=== PATIENT | female | born 1970 | race African-American/Black ===

== ENCOUNTER 2016-12-03 22:06 | Inpatient (IN) | payer MEDICAID, SELFPAY ==
[~2016-12-03] VITALS: Ht 175.3 cm; Wt 125.5 kg
[2016-12-03] MEDS ORDERED: ASPIRIN 81 MG CHEW TABLET PO ONE (22:30)
[2016-12-03] MEDS ORDERED: CLON3PA PO (22:34)
[2016-12-03] MEDS ORDERED: BRIL90TA PO (22:34)
[2016-12-03] MEDS ORDERED: BUME2TAB PO (22:34)
[2016-12-03] MEDS ORDERED: DIOV320T PO (22:34)
[2016-12-03] MEDS ORDERED: BUME1TAB29 PO (22:34)
[2016-12-03] MEDS ORDERED: CARV3.12 PO (22:34)
[2016-12-03] MEDS ORDERED: ASPI81TA85 PO (22:34)
[2016-12-03] MEDS ORDERED: ROBA750T4 PO (22:34)
[2016-12-03] MEDS ORDERED: ATOR1TAB18 PO (22:34)
[2016-12-03] MEDS ORDERED: ALBUTEROL SULFATE 2.5 MG/0.5 ML INH NEB SOLN INH ONE (22:45)
[2016-12-03] MEDS ORDERED: IPRATROPIUM 0.5MG/ALBUTEROL 2.5MG INH SOL UD 3ML (DUONEB)(J7620) NEB ONE (22:45)
[2016-12-03] MEDS ORDERED: methylPREDNISolone INJ 125 MG/2 ML VIAL (J2930) IV ONE (22:45)
[2016-12-03 22:56] LABS: BASO % 0.5 % (0.0-1.0); EOS # 0.1 K/mm3 (0.0-0.50); EOS % 2.6 % (0.0-3.0); LARGE UNSTAINED CELL # 0.1 K/mm3 (0.0-0.4); LARGE UNSTAINED CELL % 2.2 % (0.0-4.0); LYMPH % 37.9 % (24.0-44.0); MEAN CORPUSCULAR HEMOGLOBIN 26.9 pg (27.0-33.0); MEAN CORPUSCULAR HGB CONC 32.3 g/dl (32.0-36.5); MEAN CORPUSCULAR VOLUME 83.1 fl (80.0-96.0); MONO # 0.3 K/mm3 (0.0-0.8); MONO % 5.1 % (0.0-5.0); NEUTROPHILS # 2.7 K/mm3 (1.8-7.7); NEUTROPHILS % 51.6 % (36.0-66.0); PLATELET COUNT, AUTOMATED 279 k/mm3 (150-450); RED CELL DISTRIBUTION WIDTH 12.8 % (11.5-14.5); WHITE BLOOD COUNT 5.2 K/mm3 (4.0-10.0)
[2016-12-03 23:01] LABS: INR 0.99
[2016-12-03 23:22] LABS: ALBUMIN 3.5 GM/DL (3.2-5.2); ALBUMIN/GLOBULIN RATIO 0.85 (1.00-1.93); ALKALINE PHOSPHATASE 74 U/L (45-117); ALT/SGPT 16 U/L (12-78); ANION GAP 7 MEQ/L (8-16); AST/SGOT 8 U/L (15-37); BILIRUBIN,DIRECT < 0.1 MG/DL (0.0-0.2); BILIRUBIN,TOTAL 0.3 MG/DL (0.2-1.0); BLOOD UREA NITROGEN 16 MG/DL (7-18); CALCIUM LEVEL 8.9 MG/DL (8.5-10.1); CARBON DIOXIDE LEVEL 26 MEQ/L (21-32); CHLORIDE LEVEL 109 MEQ/L (98-107); CREATININE FOR GFR 0.74 MG/DL (0.55-1.02); FREE T4 0.93 NG/DL (0.76-1.46); GLOMERULAR FILTRATION RATE > 60.0 (>58); GLUCOSE, FASTING 102 MG/DL (70-105); POTASSIUM SERUM 3.4 MEQ/L (3.5-5.1); SODIUM LEVEL 142 MEQ/L (136-145); TOTAL PROTEIN 7.6 GM/DL (6.4-8.2)
[2016-12-04] MEDS ORDERED: SPIRONOLACTONE 25 MG TAB PO ONE (00:01)
[2016-12-04] MEDS ORDERED: VALSARTAN 80 MG TAB (DIOVAN) PO ONE (00:15)
[2016-12-04] MEDS ORDERED: amLODIPine 5 MG TAB PO ONE ×2 (00:15→05:15)
[2016-12-04] MEDS ORDERED: ISOVUE-370 76% 100ML VIAL (Q9967) As Ordered ONE (00:53)
[2016-12-04] MEDS ORDERED: LABETALOL HCL 100 MG/20 ML VIAL IV STA ×2 (01:27→01:56)
--- NOTE | 2016-12-04 01:40 | REPUSA ---
CLINICAL HISTORY: Chest pain, exclude PE. TECHNIQUE: Multiple incremental axial, coronal and oblique images are obtained from the thoracic inle t to the upper abdomen. Intravenous contrast material was administered as per pulmonary embolism prot ocol. COMMENTS: Basilar atelectatic pulmonary changes. There is excellent opacification of pulmonary arterial system without evidence for pulmonary embolism . Aorta is of normal caliber without evidence for dissection or aneurysm. There is no evidence of pleural or parenchymal mass. There are no pleural effusions. There is no evid ence of hilar or mediastinal lymphadenopathy. The heart and great vessels are within normal limits. Images of the upper abdomen demonstrate no evidence of adrenal mass. The bony structures are free of lytic or blastic lesions. Multilevel degenerative changes are seen in volving the visualized thoracolumbar spine. IMPRESSION: No evidence for pulmonary embolism. Bilateral basilar atelectatic pulmonary changes. Thank you for your kind referral of this patient.
[2016-12-04] MEDS ORDERED: POTASSIUM CHLORIDE 10 MEQ SR TABLET PO ONE (02:30)
[2016-12-04] MEDS ORDERED: ONDANSETRON 4MG/2ML VIAL (J2405) IV PRN (02:45)
[2016-12-04] MEDS ORDERED: ACETAMINOPHEN TAB 650MG DOSE (2X325MG) PO PRN (02:45)
[2016-12-04] MEDS ORDERED: CARVedilol 6.25 MG TAB PO SCH (03:00)
[2016-12-04] MEDS ORDERED: CLON-412 PO (03:03)
--- NOTE | 2016-12-04 05:31 | HPE ---
DATE OF ADMISSION: 12/04/2016 PRIMARY CARE PROVIDER: None. CHIEF COMPLAINT: Chest pain. HISTORY OF PRESENT ILLNESS: Ms. Kim is a 46-year-old female with past medical history of coronary artery disease (CAD) status post stents, obstructive sleep apnea (NISHA), hypertension, who presented to the emergency department (ED) tonight with complaint of chest pain that started tonight while she was just lying in bed. Episode started suddenly and lasted for approximately 5 minutes. Associated with diaphoresis, shortness of breath, palpitations. Pain is described as sharp, heaviness and pressure on her left chest and underneath her breasts. Radiates to her left shoulder and describes the feeling as pulled muscle to her left shoulder. She took an extra dose of aspirin today, which seemed to help with her symptom. She had, in the last 2 days, multiple episodes of chest pain. Each one with similar duration, and would come on at rest. At baseline, the patient is fairly active, walks up and down stairs and can walk long distance without chest pain or shortness of breath. In the last 2 weeks, she also noticed having cold-like symptoms, which include coughing spells with occasional yellow phlegm. No fevers, chills, night sweats, paroxysmal nocturnal dyspnea, pillow orthopnea or leg swelling. The patient recently ran out of her clonidine, Bumex, Coreg, and Brilinta and has not been taking it in the last 3 days. In the ED, was given potassium 40 mg times one, labetalol 10 mg times one, Norvasc 5 mg times one, Diovan 3.125 mg times one, spironolactone 25 once, Solu-Medrol 125 intravenously (IV) once, aspirin 324 times one, and DuoNeb treatment. She was found to be hypertensive with blood pressure as high as 251/122. ED provider contacted Dr. Leon, who was supersonic engineer, and it was recommended to discontinue her home dose Bumex, Coreg and clonidine and recommended putting patient on spironolactone, Norvasc and keep Diovan dose. PAST MEDICAL HISTORY: 1. CAD status post stents. 2. Hypertension. 3. NISHA, has not been wearing this since June because she recently moved and lost the mask in the process. She has since also lost her insurance. 4. Sarcoidosis diagnosed in 2002. Saw car mechanic helper in the past, but it has been multiple years since she has seen them. No recent exacerbation. 5. Hyperlipidemia. 6. Depression/anxiety. PAST SURGICAL HISTORY: 1. Four cardiac stents placement in 2014. 2. Appendectomy. 3. Partial hysterectomy for uterine fibroids. 4. Two (C) sections. HOME MEDICATIONS: - aspirin 81 mg by mouth daily - Lipitor 80 mg nightly - Bumex 2 mg by mouth daily - Coreg 3.125 mg by mouth twice a day - clonidine 0.1 mg three times a day - Brilinta 90 mg by mouth twice a day - Diovan 320 mg by mouth daily ALLERGY: Penicillin- unknown SOCIAL HISTORY: The patient is a current smoker, but a pack will last her 1 week. Started smoking at the age of 35. No alcohol use. Used to drink socially, but last drink was in June. No drug use. 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 Currently lives at home with her son, [id number]. Lifetime travel includes [place], [place]. Does not travel outside of the country. She recently moved from [place] 5 months ago and she was on a 20-hour bus ride. Has one dog at home. No exposure to tuberculosis, asbestos she is aware of. FAMILY HISTORY: Mother in her 50s from lung cancer with metastases to the brain. Father , but unknown cause. She is the only child. REVIEW OF SYSTEMS: CONSTITUTIONAL: Denies fevers, chills, rigors, weight changes. HENT: Positive for headache. No difficulty with speech and swallow. EYES: No blurry vision, diplopia CARDIOVASCULAR: As above. PULMONARY: As above. GASTROINTESTINAL: Denies hematochezia, melena, or hematemesis, nausea, vomiting , diarrhea, constipation. GENITOURINARY: No dysuria, frequency or hematuria. MUSCULOSKELETAL: No bone, muscle, joint pain. NEUROLOGICAL: No paralysis, paresthesia, headaches. ENDOCRINE: Negative for diabetes, or thyroid disease. LYMPHATICS: No lumps, bumps, or swelling anywhere in neck, axilla, or groin. HEMATOLOGY: No abnormal bleeding or bruising. PSYCHIATRIC: History positive for anxiety, depression. Previously was on Lexapro, but has not been on this medication for years. SKIN: No new rashes. PHYSICAL EXAMINATION: VITAL SIGNS: Blood pressure 184/90, heart rate 86, temperature not documented, pulse oximetry 98% on room air, respiration rate 20. GENERAL: Patient is sitting in bed, comfortable, no acute distress, obese appearing. Alert, awake, oriented times three, no respiratory distress, pleasant and cooperative. HEENT: Normocephalic, atraumatic. Moist oral mucosa. Good dentition. Nasal septum midline. Eyes: Extraocular movement intact. Pupils equal and reactive to light. NECK: Supple. Trachea midline. Large neck. No jugular venous distention (JVD). CHEST: Symmetric chest rise. No accessory muscle use. Breath sounds were diminished, but clear bilaterally. HEART: Regular rate and rhythm with normal S1, S2. Did not appreciate murmurs, rubs or gallops. ABDOMEN: Obese, nontender, nondistended. Bowel sounds present. No guarding. No rebound. Healed incisional scar mid abdomen. EXTREMITIES: No pedal edema. Pedal pulses present bilaterally. NEUROLOGIC: Strength 5/5 in all extremities. Sensory intact. No focal deficits appreciated. SKIN: No obvious rashes or lesions appreciated. PSYCHIATRIC: Normal affect, pleasant, cooperative. LABORATORY DATA: WBC 5.2, hemoglobin 13.4, hematocrit 41.4, platelets 279. Sodium 142, potassium 3.4, chloride 109, carbon dioxide 26, BUN 16, creatinine 0.74, glucose 102, calcium 8.9, magnesium 2. Liver profile normal. Troponin first set is negative. TSH 1.36, free T4 normal. BNP 8.2. Coagulation panel PT 13.2, INR 0.99, PTT 25.8. Urine showed 2+ leukocyte esterase, 19 WBCs, 1+ bacteria. Blood culture is pending. CT angiogram reports no pulmonary embolism (PE), bilateral basilar atelectatic pulmonary changes. Chest x-ray showed cardiomegaly, no infiltrate or effusion appreciated. EKG showed sinus rhythm with ventricular rate of 79, nonspecific T-wave abnormality. IMPRESSION AND PLAN: Ms. Kim is a pleasant 46-year-old female with history of hypertension, coronary artery disease (CAD) status post stents, obstructive sleep apnea (NISHA), who presented to the emergency department (ED) tonight with complaint of chest pain, found to be in hypertensive urgency. 1. Hypertensive urgency. This is likely secondary to her running out of medication 3 days ago and rebound hypertension from her clonidine discontinuation. ED provider has spoken to closing machine operator supersonic engineer and at this time it is recommended to start patient on spironolactone 25 mg daily, Norvasc 5 mg daily and it is recommended to continue with Diovan current dose. It is recommended that Bumex and clonidine and Coreg be discontinued. We will continue recommendations. Check renin aldosterone levels. She has had a longstanding history of NISHA. Will also check echocardiogram. She currently does not have insurance. We will consult patient and family services (PFS) for assistance regarding obtaining medications and establishing with a primary care provider (PCP). Her blood pressure since her presentation has improved. 2. Chest pain. Etiology unclear. She does have an extensive history of cardiac disease including four stents in 2015. Will need to rule out cardiac etiology by repeating cardiac markers. She already had a CTA that was negative for pulmonary embolism (PE). Continue to monitor patient closely in progressive care unit (PCU). 3. Hypokalemia. Potassium will be repleted. 4. NISHA. Unfortunately, the patient recently moved from [place] and lost her mask in the process and unfortunately because of no insurance, she has not since established care with a provider to obtain mask. The patient will be placed on NISHA protocol. She will require to establish care with a new provider for further treatment of this. 5. History of sarcoidosis. Apparently, has not had a flare-up of this. Continue to monitor closely. 6. CAD. Status post stents 2014. Continue aspirin, beta ubaldo, cholesterol, oxygen supplementation. 7. Hyperlipidemia. Continue Lipitor at maximum dose. 8. Obesity. Unfortunately, will complicate medical management. 9. Tobacco abuse. One pack would last her 1 week. We have started her on nicotine patches. 10. History of depression/anxiety. The patient reportedly is not on medication. 11. Deep venous thrombosis (DVT) prophylaxis. Sequential compression devices (SCDs), thromboembolism deterrent stockings (TEDS) and heparin. DISPOSITION: Due to the patient's condition, we expect her stay to be greater than two midnights. My preceptor for this patient encounter was Dr. Rosanna García. The preceptor was physically present in the building during the encounter and was fully available as needed. All aspects of the patient interview, examination, medical decision making process, and medical care plan development were reviewed and approved by the preceptor. The preceptor is aware and concurs with the plan as stated in the body of this note and will attest to such by his/her co-signature. I have both independently examined this patient as well as reviewed the H&P. I have discussed in detail with the resident the findings and plan of treatment as documented in the residents note. I will continue to follow the patient and offer further guidance to the patients care as necessary during this hospital stay. Rosanna CHRISTIANSON
[2016-12-04 06:00] VITALS: BP 191/97; PULSE 85
[2016-12-04] MEDS ORDERED: ISOSORBIDE DIN (ISORDIL) 10 MG TAB PO ONE (06:00)
[2016-12-04] MEDS: HEPARIN SOD (PORCINE) 5000 UNITS/ML VIAL SC SCH ×3 (06:02→21:11)
[2016-12-04 06:14] LABS: MEAN CORPUSCULAR HEMOGLOBIN 26.5 pg (27.0-33.0); MEAN CORPUSCULAR HGB CONC 32.1 g/dl (32.0-36.5); MEAN CORPUSCULAR VOLUME 82.4 fl (80.0-96.0); RED CELL DISTRIBUTION WIDTH 12.7 % (11.5-14.5); WHITE BLOOD COUNT 5.7 K/mm3 (4.0-10.0)
[2016-12-04 06:40] LABS: ANION GAP 7 MEQ/L (8-16); BLOOD UREA NITROGEN 12 MG/DL (7-18); CALCIUM LEVEL 9.5 MG/DL (8.5-10.1); CARBON DIOXIDE LEVEL 24 MEQ/L (21-32); CHLORIDE LEVEL 107 MEQ/L (98-107); CREATININE FOR GFR 0.72 MG/DL (0.55-1.02); GLOMERULAR FILTRATION RATE > 60.0 (>58); GLUCOSE, FASTING 177 MG/DL (70-105); SODIUM LEVEL 138 MEQ/L (136-145)
[2016-12-04 08:00] VITALS: BP 142/86
[2016-12-04] MEDS: ASPIRIN 81 MG ENTERIC TAB PO SCH (08:31)
[2016-12-04] MEDS: NICOTINE 7 MG/24 HR TRANSDERMAL TD SCH (08:31)
[2016-12-04] MEDS: SPIRONOLACTONE 50 MG TAB PO SCH (08:32)
[2016-12-04] MEDS: CARVedilol 6.25 MG TAB PO SCH ×2 (08:32→21:10)
[2016-12-04] MEDS: TICAGRELOR 90 MG TABLET (BRILINTA) PO SCH ×2 (08:32→21:10)
[2016-12-04] MEDS ORDERED: MOM 30ML SUSPENSION UDC PO PRN (08:45)
[2016-12-04] MEDS ORDERED: amLODIPine 5 MG TAB PO SCH (09:00)
[2016-12-04] MEDS: MIRALAX *UNIT DOSE* 17GM PACKET PO SCH (09:13)
[2016-12-04] MEDS: SENOKOT S TAB PO SCH ×2 (09:14→21:09)
--- NOTE | 2016-12-04 09:18 | REP ---
Chest pain. PRIORS: None. FINDINGS: The technique utilized in obtaining the radiograph has magnified the cardiac silhouette and accentuated the interstitial markings. The superior mediastinal structures are midline. The cardiac silhouette is unremarkable in size, shape, and position. The diaphragmatic surfaces of the lungs are regular, and the costophrenic angles are clear. The pulmonary varghese are clear. The imaged osseous structures are intact. IMPRESSION: There is no acute cardiopulmonary disease. Signed by Rai Reis DO 12/04/2016 09:26 A
--- NOTE | 2016-12-04 09:26 | ECGEPIP ---
Stationary ECG Study [facility] - ED Test Date: 2016-12-03 Pat Name: CARLA ANNE Department: Room: [place] [address] Gender: F Personnel Research Psychologist: ZhangB: 1970 Requested By: Jennifer Mcclain Order Number: [id number] Reading MD: Jennifer Mcclain Measurements Intervals [place] Rate: 79 P: 47 HI: 167 QRS: -9 QRSD: 93 T: 57 QT: 381 QTc: 437 Interpretive Statements SINUS RHYTHM NONSPECIFIC T-WAVE ABNORMALITY Left axis deviation NO PRIOR ECG Electronically Signed On 12-04-2016 9:26:04 EDT by Jennifer Mcclain
--- NOTE | 2016-12-04 09:28 | ECGEPIP ---
Stationary ECG Study [facility] - ED Test Date: 2016-12-04 Pat Name: CARLA ANNE Department: Room: [place] [address] Gender: F Physical Trainer: luis : 1970 Requested By: Jennifer Mcclain Order Number: [id number] Reading MD: Jennifer Mcclain Measurements Intervals [place] Rate: 88 P: 49 TN: 187 QRS: -12 QRSD: 94 T: 49 QT: 383 QTc: 464 Interpretive Statements SINUS RHYTHM NONSPECIFIC T-WAVE ABNORMALITY LEFTWARD AXIS PROLONGED QTC CW 12/03/16 RATE INCREASED PROLONGED QTC Electronically Signed On 12-04-2016 9:28:09 EDT by Jennifer Mcclain
[2016-12-04] MEDS: ISOSORBIDE DIN (ISORDIL) 10 MG TAB PO SCH ×2 (11:50→16:42)
[2016-12-04 12:00] VITALS: BP 132/62
--- NOTE | 2016-12-04 14:33 | ECHO ---
DATE OF PROCEDURE: 12/04/2016 REFERRING PHYSICIAN: Dr. Christiano Pike. INDICATION: Chest pain, unspecified. HEIGHT: 69 inches WEIGHT: 287 pounds. 2D MEASUREMENTS: Aortic root - 3.3 cm Proximal ascending aorta - 3.8 cm Left atrium - 4.5 cm Left ventricle diastole - 5.5 cm Left ventricle systole - 2.9 cm Ventricular septum - 1.56 cm Posterior wall - 1.47 cm LVOT - 2.3 cm Left atrial volume index - 39 Inferior vena cava - 2.2 cm with approximately 50% respiratory variation. Central venous pressure estimated to be approximately 10 mmHg or higher. DOPPLER MEASUREMENTS: Aortic valve velocity - 219 cm/s LVOT VTI - 202 cm/s LVOT VTI - 75.4 cm Very mild mitral regurgitation. Mitral E velocity - 1.2 cm/s Mitral A velocity - 125 cm/s Mitral deceleration time - 283 ms Very mild tricuspid regurgitation. Pulmonary artery systolic pressure - 22 mmHg by pulmonary acceleration time method. MITRAL ANNULAR TISSUE DOPPLER: E prime lateral 8.1 cm/s E prime septal 6.7 cm/s DESCRIPTION: Rhythm was sinus. This is a moderately technically difficult echocardiogram. No pericardial effusion. This is a 2D, M-mode, color flow Doppler and pulsed wave Doppler examination including mitral annular tissue Doppler. CONCLUSIONS: 1. Moderate concentric left ventricular hypertrophy. No regional wall motion abnormalities of the left ventricle. Hyperdynamic LV systolic function. LVEF of 75% by visual estimate. 2. Grade 1 LV diastolic dysfunction. 3. Moderate left atrial dilatation. 4. Mild dilatation of the aortic root at the level of the proximal ascending aorta. 5. Mild aortic valve sclerosis of a three-cuspid aortic valve. No aortic regurgitation.
[2016-12-04 16:00] VITALS: BP 128/66
[2016-12-04 20:00] VITALS: BP 163/75
[2016-12-04] MEDS: ATORVASTATIN 20 MG TAB PO SCH (21:10)
[2016-12-04] MEDS: VALSARTAN 80 MG TAB (DIOVAN) PO SCH (21:11)
[2016-12-05] VITALS (7 sets, daily range): BP systolic 136–177; BP diastolic 75–86
[2016-12-05 04:46] LABS: MEAN CORPUSCULAR HGB CONC 32.5 g/dl (32.0-36.5); MEAN CORPUSCULAR VOLUME 83.2 fl (80.0-96.0); RED CELL DISTRIBUTION WIDTH 12.9 % (11.5-14.5); WHITE BLOOD COUNT 7.5 K/mm3 (4.0-10.0)
[2016-12-05 05:10] LABS: ANION GAP 8 MEQ/L (8-16); BLOOD UREA NITROGEN 14 MG/DL (7-18); CALCIUM LEVEL 9.1 MG/DL (8.5-10.1); CARBON DIOXIDE LEVEL 26 MEQ/L (21-32); CHLORIDE LEVEL 108 MEQ/L (98-107); CREATININE FOR GFR 0.68 MG/DL (0.55-1.02); GLOMERULAR FILTRATION RATE > 60.0 (>58); GLUCOSE, FASTING 111 MG/DL (70-105); MAGNESIUM LEVEL 2.3 MG/DL (1.8-2.4); POTASSIUM SERUM 3.6 MEQ/L (3.5-5.1); SODIUM LEVEL 142 MEQ/L (136-145)
[2016-12-05] MEDS: HEPARIN SOD (PORCINE) 5000 UNITS/ML VIAL SC SCH ×3 (06:27→21:12)
[2016-12-05] MEDS: ISOSORBIDE DIN (ISORDIL) 10 MG TAB PO SCH ×3 (06:28→17:16)
[2016-12-05] MEDS: NICOTINE 7 MG/24 HR TRANSDERMAL TD SCH (08:34)
[2016-12-05] MEDS: TICAGRELOR 90 MG TABLET (BRILINTA) PO SCH ×2 (08:34→21:11)
[2016-12-05] MEDS: MIRALAX *UNIT DOSE* 17GM PACKET PO SCH (08:34)
[2016-12-05] MEDS: SPIRONOLACTONE 50 MG TAB PO SCH (08:34)
[2016-12-05] MEDS: CARVedilol 6.25 MG TAB PO SCH ×2 (08:34→21:12)
[2016-12-05] MEDS: ASPIRIN 81 MG ENTERIC TAB PO SCH (08:34)
[2016-12-05] MEDS: amLODIPine 5 MG TAB PO SCH (08:35)
[2016-12-05] MEDS: SENOKOT S TAB PO SCH ×2 (08:35→21:11)
--- NOTE | 2016-12-05 09:39 | IPN ---
DATE OF VISIT: 12/04/2016 The patient is seen and evaluated in the intensive care unit (ICU). Blood pressure is much better controlled. Will continue with the same course of treatment as outlined by Dr. García this morning. GENERAL: She is currently without pain, chest pain, or shortness of breath. LUNGS: Breathing is symmetrical and rested. HEART: Regular rate and rhythm. Will place hold parameters on her current blood pressure medications. Looking for relatively moderate control. She has requested a bowel regimen which will be ordered and will need this at discharge.
[2016-12-05] MEDS: AZELASTINE 137MCG NASAL SPY 30 ML (ASTELIN) SCH ×2 (10:58→21:12)
--- NOTE | 2016-12-05 16:12 | IPN ---
DATE: 12/05/2016 Julio is feeling much better today. She has no complaints of pain, chest pain, not particularly short of breath. Feels as though she is getting back to baseline. She does have a lot of nasal congestion and when she lays back, it causes her to cough. She is worried that she does not have appropriate insurance coverage to pay for her medications when she leaves the hospital. Temperature is 98.7, pulse is 77, respiratory rate 24, blood pressure 177/84, 96% on room air. Intake and output notable for a positive balance of 800. No bowel movements noted. Weight is 123 kg, down 7 kg from yesterday. Body mass index is 40. She is awake, appropriately interactive, pleasant, and easily conversant. Breathing is symmetrical and resting. Heart is distant sounding, normal S1, S2. Abdomen is soft, doughy, nontender. A 2D echocardiogram was discussed yesterday with the laboratory engineer and shows grade 1 diastolic dysfunction, hyperdynamic left ventricular systolic dysfunction with mild dilatation of the aortic root at the level of the proximal ascending aorta and moderate concentric left ventricular hypertrophy. LABORATORY DATA: Creatine 0.68, hemoglobin 11.7. ASSESSMENT: This is a 46-year-old with hypertensive urgency which is resolving. PLAN: 1. Cardiovascular. The patient has longstanding uncontrolled hypertension. Currently off medications with hypertensive urgency at the time of presentation. She has responded well at this point and likely can be transferred from medical/surgical should she continue on the same course for today, continuing with Norvasc 10 mg by mouth daily, Diovan 320 mg by mouth at bedtime, Isordil 10 mg by mouth three times a day, spironolactone 25 mg by mouth daily, Coreg 6.25 mg by mouth twice a day which can lightly be increased based on her heart rate. 2. Chest pain has resolved. 3. The patient has hypokalemia which has been repleted. 4. The patient has obstructive sleep apnea (NISHA). She has not been compliant with her obstructive sleep apnea because she does not have her mask and/or machine. 5. The patient has a history of sarcoidosis. 6. The patient has coronary artery disease status post stents in 2014, on aspirin, Coreg, treatment for hypercholesterolemia. 7. The patient has hyperlipidemia, on Lipitor high-dose. 8. The patient has morbid obesity which complicates care. 9. The patient has ongoing tobacco use. Smoking cessation counseling is offered. 10. The patient has depression and anxiety. 11. Social. The patient currently lacks insurance and an ability to pay for her medications on outpatient care. Patient and family services (PFS) has been consulted.
[2016-12-05] MEDS: VALSARTAN 80 MG TAB (DIOVAN) PO SCH (21:11)
[2016-12-05] MEDS: ATORVASTATIN 20 MG TAB PO SCH (21:12)
[2016-12-06 06:00] VITALS: BP 160/90
[2016-12-06] MEDS: ISOSORBIDE DIN (ISORDIL) 10 MG TAB PO SCH ×3 (06:43→17:00)
[2016-12-06] MEDS: HEPARIN SOD (PORCINE) 5000 UNITS/ML VIAL SC SCH ×3 (06:44→21:58)
[2016-12-06 07:14] LABS: MEAN CORPUSCULAR HEMOGLOBIN 26.4 pg (27.0-33.0); MEAN CORPUSCULAR HGB CONC 31.4 g/dl (32.0-36.5); MEAN CORPUSCULAR VOLUME 83.9 fl (80.0-96.0); RED CELL DISTRIBUTION WIDTH 12.8 % (11.5-14.5); WHITE BLOOD COUNT 4.9 K/mm3 (4.0-10.0)
[2016-12-06 07:30] LABS: ANION GAP 5 MEQ/L (8-16); BLOOD UREA NITROGEN 13 MG/DL (7-18); CALCIUM LEVEL 8.5 MG/DL (8.5-10.1); CARBON DIOXIDE LEVEL 29 MEQ/L (21-32); CHLORIDE LEVEL 109 MEQ/L (98-107); CREATININE FOR GFR 0.73 MG/DL (0.55-1.02); GLOMERULAR FILTRATION RATE > 60.0 (>58); GLUCOSE, FASTING 94 MG/DL (70-105); MAGNESIUM LEVEL 2.2 MG/DL (1.8-2.4); POTASSIUM SERUM 3.9 MEQ/L (3.5-5.1); SODIUM LEVEL 143 MEQ/L (136-145)
[2016-12-06] MEDS ORDERED: ALDA50TA2 PO (10:04)
[2016-12-06] MEDS ORDERED: AMLO5TAB2 PO (10:04)
[2016-12-06] MEDS ORDERED: CORE12.5 PO (10:04)
[2016-12-06] MEDS ORDERED: ATOR1TAB21 PO (10:04)
[2016-12-06] MEDS ORDERED: ASPI81TAEC PO (10:04)
[2016-12-06] MEDS ORDERED: DIOV320T PO (10:04)
[2016-12-06] MEDS ORDERED: BRIL90TA PO (10:04)
[2016-12-06] MEDS ORDERED: ISOS10TA PO (10:04)
[2016-12-06] MEDS: TICAGRELOR 90 MG TABLET (BRILINTA) PO SCH ×2 (10:19→21:58)
[2016-12-06] MEDS: NICOTINE 7 MG/24 HR TRANSDERMAL TD SCH (10:19)
[2016-12-06] MEDS: AZELASTINE 137MCG NASAL SPY 30 ML (ASTELIN) SCH ×3 (10:19→21:59)
[2016-12-06] MEDS: MIRALAX *UNIT DOSE* 17GM PACKET PO SCH (10:19)
[2016-12-06] MEDS: SPIRONOLACTONE 50 MG TAB PO SCH (10:20)
[2016-12-06] MEDS: SENOKOT S TAB PO SCH ×2 (10:20→21:58)
[2016-12-06] MEDS: ASPIRIN 81 MG ENTERIC TAB PO SCH (10:20)
[2016-12-06] MEDS: amLODIPine 5 MG TAB PO SCH (10:27)
[2016-12-06 14:00] VITALS: BP 134/75
[2016-12-06] MEDS: ATORVASTATIN 20 MG TAB PO SCH (21:58)
[2016-12-06 22:00] VITALS: BP 172/90
[2016-12-06] MEDS: VALSARTAN 80 MG TAB (DIOVAN) PO SCH (22:01)
[2016-12-06 23:31] VITALS: BP 135/80
[2016-12-07 06:00] VITALS: BP 155/85
[2016-12-07] MEDS: HEPARIN SOD (PORCINE) 5000 UNITS/ML VIAL SC SCH ×2 (06:08→13:30)
[2016-12-07] MEDS: ISOSORBIDE DIN (ISORDIL) 10 MG TAB PO SCH ×3 (06:09→17:00)
[2016-12-07 07:35] LABS: MEAN CORPUSCULAR HEMOGLOBIN 26.3 pg (27.0-33.0); MEAN CORPUSCULAR HGB CONC 31.4 g/dl (32.0-36.5); MEAN CORPUSCULAR VOLUME 83.5 fl (80.0-96.0); RED CELL DISTRIBUTION WIDTH 12.9 % (11.5-14.5); WHITE BLOOD COUNT 4.1 K/mm3 (4.0-10.0)
[2016-12-07 07:52] LABS: ANION GAP 5 MEQ/L (8-16); BLOOD UREA NITROGEN 12 MG/DL (7-18); CALCIUM LEVEL 8.7 MG/DL (8.5-10.1); CARBON DIOXIDE LEVEL 29 MEQ/L (21-32); CHLORIDE LEVEL 109 MEQ/L (98-107); CREATININE FOR GFR 0.77 MG/DL (0.55-1.02); GLOMERULAR FILTRATION RATE > 60.0 (>58); GLUCOSE, FASTING 102 MG/DL (70-105); MAGNESIUM LEVEL 2.1 MG/DL (1.8-2.4); SODIUM LEVEL 143 MEQ/L (136-145)
--- NOTE | 2016-12-07 09:00 | IPN ---
DATE: 12/06/2016 SUBJECTIVE: The patient is feeling much better today. Denies any complaints. She is ready to go home; however, we are still working on her insurance and her medication coverage. She denies any fever or chills. She denies any chest pain, shortness of breath. Denies any new cough. Denies any nausea, vomiting, diarrhea. Denies any abdominal pain. PHYSICAL EXAMINATION: VITAL SIGNS: Temperature 98.5, pulse 66, respiratory rate 18, blood pressure 160/90, pulse oximetry 100% on room air. GENERAL: The patient is awake, alert, and oriented times three. Sitting up in bed in no acute distress. HEENT: Normocephalic, atraumatic. Moist mucous membranes. Anicteric eyes. CHEST: Clear to auscultation. CARDIOVASCULAR: S1, S2. Regular. No rub, murmur or gallop. ABDOMEN: Obese, soft, nontender. Bowel sounds present. EXTREMITIES: No edema. LABORATORY DATA: WBC 4.9, hemoglobin 11.4, platelets 261. Sodium 143, potassium 3.9, chloride 109, bicarbonate 29, BUN 13, creatinine 0.73, glucose 94, calcium 8.5, magnesium 2.2. ASSESSMENT AND PLAN: This is a 46-year-old female admitted for hypertensive urgency, which has resolved. PLAN: 1. Uncontrolled hypertension and hypertensive urgency, resolved. The patient's blood pressure is now getting better controlled. We will continue with Diovan 320 mg, Isordil 10 three times a day, Norvasc 10 mg, spironolactone 25 mg. We will increase Coreg to 12.5 mg by mouth twice a day. 2. Obstructive sleep apnea. The patient used to use continuous positive airway pressure (CPAP); however, has lost it so has not used it for a while. 3. Morbid obesity. This complicates care. 4. Hyperlipidemia. The patient is on atorvastatin high dose. 5. History of depression and anxiety. Stable at this point. 6. Coronary artery disease, status post stents in 2014. Continue with aspirin, Coreg, and statin, Isordil. 7. History of sarcoidosis, stable. 8. Social. The patient has been approved for Medicaid in [facility]; however, has not yet been activated and the patient's current medications require a lot of copays and the patient will not be able to afford payment for that so cannot be discharged home today. Patient and family services (PFS) is working to get her insurance active as soon as possible. When it is active, the patient will be discharged home.
[2016-12-07] MEDS: NICOTINE 7 MG/24 HR TRANSDERMAL TD SCH (09:50)
[2016-12-07] MEDS: AZELASTINE 137MCG NASAL SPY 30 ML (ASTELIN) SCH (09:50)
[2016-12-07] MEDS: MIRALAX *UNIT DOSE* 17GM PACKET PO SCH (09:50)
[2016-12-07] MEDS: SENOKOT S TAB PO SCH (09:51)
[2016-12-07] MEDS: ASPIRIN 81 MG ENTERIC TAB PO SCH (09:51)
[2016-12-07] MEDS: SPIRONOLACTONE 50 MG TAB PO SCH (09:54)
[2016-12-07] MEDS: TICAGRELOR 90 MG TABLET (BRILINTA) PO SCH (09:54)
[2016-12-07] MEDS: amLODIPine 5 MG TAB PO SCH (09:54)
[2016-12-07] MEDS ORDERED: ATOR40TA PO (10:56)
[2016-12-07] MEDS ORDERED: PLAV75TA38 PO (10:56)
[2016-12-07] MEDS ORDERED: GI COCKTAIL 50ML BTL(HYOSCYAMINE/MAALOX/LIDOCAINE VISCOUS)(1:3:1) PO PRN (11:15)
[2016-12-07 14:00] VITALS: BP 130/70
--- NOTE | 2016-12-07 15:15 | REP ---
Right upper quadrant sonography: History: Right upper quadrant pain. Comparison study: No comparison study. Findings: Scanning through the right upper quadrant of the abdomen demonstrates a normal sized, thin-walled gallbladder without evidence of stone or polyp. Common bile duct is normal measuring 0.3 cm in greatest diameter. No focal liver lesion is seen. Liver size is normal. No pancreatic abnormality is observed. No right renal abnormality is seen. There is no evidence of ascites. The right kidney measures 10.4 x 3.5 x 6.2 cm. Impression: Negative right upper quadrant sonography. Signed by Hung Laguerre MD 12/07/2016 03:05 P
[2016-12-07 17:00] VITALS: BP 130/70
--- NOTE | 2016-12-08 10:11 | DSES ---
DATE OF ADMISSION: 12/04/2016 DATE OF DISCHARGE: 12/07/2016 PRIMARY CARE PROVIDER: [facility] primary care provided, Dr. Luz Elena Lopez. DISCHARGE DIAGNOSES: 1. Hypertensive urgency. 2. Coronary artery disease with history of cardiac stents in 2014. 3. Obstructive sleep apnea (NISHA), noncompliant with continuous positive airway pressure (CPAP). 4. Hyperlipidemia. 5. Morbid obesity. 6. Tobacco dependence. 7. Depression and anxiety. 8. Gastroesophageal reflux disease. 9. Diastolic dysfunction grade 1. 10. Mild dilatation of aortic root at the proximal ascending aorta. 11. Concentric left ventricular hypertrophy (LVH) by echocardiogram. 12. History of sarcoidosis. DISCHARGE MEDICATIONS: - amlodipine 10 mg by mouth daily - aspirin 81 mg daily - Plavix 25 mg daily - atorvastatin 40 mg daily - coreg 12.5 mg twice a day - spironolactone 25 mg daily - valsartan 320 mg by mouth at bedtime - omeprazole 40 mg daily HOSPITAL COURSE: This is a 46-year-old female who presented to the hospital with chest pain associated with diaphoresis, shortness of breath, and palpitations involving also the epigastric region and radiation to the left shoulder. In the emergency department (ED), the patient was found to have hypertensive urgency with blood pressure of 251/122. The patient was admitted in the intensive care unit (ICU). The patient's blood pressure, it was found that the patient recently moved up to [facility] from [place] and had run out of her blood pressure medications for 3 days. The patient was restarted on her home medications, and blood pressure aggressively continued. The patient continued to complain of chest pain. The patient underwent CT angiogram of the chest, which was negative for any pulmonary embolism. There was some bilateral bibasilar atelectatic changes. The patient had echocardiogram, which showed left ventricular hypertrophy, grade 1 diastolic dysfunction, and mild dilatation of the aortic root. Chest x-ray did not reveal any acute cardiopulmonary disease. The patient had several cardiac marker panels, which were negative for any acute ischemic event, and electrocardiograms (EKGs) did not show any progressive changes. On further evaluation, it was found that the chest pain was more starting in the epigastrium and radiating upwards towards the retrosternal area. There was also some radiation in the right upper quadrant and also right shoulder region, though on presentation she had it on the left. It was thought that it could be from GERD versus biliary colic, and so she underwent liver ultrasound, which was negative for any gallstones or polyp. CBD was normal. The patient was started on proton pump inhibitor (PPI) and given gastrointestinal (GI) cocktail which seemed to improve her symptoms a little bit. At present, the patient's blood pressure is well controlled. The patient is functionally close to her baseline. Her symptoms have almost resolved, and the patient is going to be discharged home in a stable condition. The patient's echocardiogram was discussed over phone with Dr. Leon, and Dr. Leon would be following the patient as an outpatient. PHYSICAL EXAMINATION: Temperature 99.4, pulse 76, respiratory rate 18, blood pressure 130/70, pulse oximetry 97% in room air. General: The patient awake, alert, oriented times three. Sitting up in chair. In no acute distress. HEENT: Normocephalic, atraumatic. Moist mucous membranes. Anicteric eyes. Chest: Clear to auscultation. Cardiovascular: S1, S2, regular. No rub, murmur, or gallop. Abdomen: Obese, soft. Mild epigastric tenderness present. Bowel sounds present. Extremities: No edema. LABORATORY DATA: WBC 4.1, hemoglobin 11.6, platelet 248. Sodium 143, potassium 4, chloride 109, bicarbonate 29, BUN 12, creatinine 0.7, glucose 102, calcium 8.7, magnesium 2.1. Coagulation profile is normal. Blood cultures: No growth after 72 hours. DISPOSITION: The patient is discharged home in a stable condition. DISCHARGE INSTRUCTIONS: The patient to followup with primary care provider in 1 week. The patient to followup with Dr. Leon in 2 weeks. [id number] diet. Activity as tolerated. MTDD
[2016-12-10 00:08] LABS: RENIN LEVEL <0.167 ng/mL/hr (0.167-5.380)
== END 2016-12-07 17:56 | disposition home or self-care (01) | DRG 199 ==
LOC: M ED 22:55 → M ED INP 12-04 03:26 → M ICU 12-04 05:47 → M MS5PR 12-05 22:48
PROVIDERS: ADMIT Hospitalist; ATTEND Family Medicine
DX: I16.0 Hypertensive urgency (principal); Z68.41 Body mass index [BMI] 40.0-44.9, adult; E66.01 Morbid (severe) obesity due to excess calories; I25.10 Atherosclerotic heart disease of native coronary artery without angina pectoris; G47.33 Obstructive sleep apnea (adult) (pediatric); F17.210 Nicotine dependence, cigarettes, uncomplicated; E78.5 Hyperlipidemia, unspecified; I10 Essential (primary) hypertension; K21.9 Gastro-esophageal reflux disease without esophagitis; E87.6 Hypokalemia; F32.9 Major depressive disorder, single episode, unspecified; F41.9 Anxiety disorder, unspecified; Z91.19 Patient's noncompliance with other medical treatment and regimen; Z79.82 Long term (current) use of aspirin; Z79.899 Other long term (current) drug therapy; Z95.5 Presence of coronary angioplasty implant and graft; Z91.14 Patient's other noncompliance with medication regimen

== ENCOUNTER 2016-12-21 11:41 | Emergency (ER) | payer MEDICAID ==
[~2016-12-21] VITALS: Ht 175.3 cm; Wt 124.3 kg
[~2016-12-21 11:41] MED LIST changes: -MECL-86 PO
[2016-12-21] MEDS ORDERED: ACETAMINOPHEN 325 MG TAB PO ONE (12:45)
[2016-12-21 13:05] LABS: BASO % 0.9 % (0.0-1.0); EOS # 0.1 K/mm3 (0.0-0.50); EOS % 1.4 % (0.0-3.0); LARGE UNSTAINED CELL # 0.1 K/mm3 (0.0-0.4); LARGE UNSTAINED CELL % 1.8 % (0.0-4.0); LYMPH # 1.5 K/mm3 (1.5-4.5); LYMPH % 33.9 % (24.0-44.0); MEAN CORPUSCULAR HEMOGLOBIN 27.6 pg (27.0-33.0); MEAN CORPUSCULAR VOLUME 83.8 fl (80.0-96.0); MONO # 0.2 K/mm3 (0.0-0.8); MONO % 5.4 % (0.0-5.0); NEUTROPHILS # 2.4 K/mm3 (1.8-7.7); NEUTROPHILS % 56.6 % (36.0-66.0); PLATELET COUNT, AUTOMATED 242 k/mm3 (150-450); RED CELL DISTRIBUTION WIDTH 12.4 % (11.5-14.5); WHITE BLOOD COUNT 4.2 K/mm3 (4.0-10.0)
[2016-12-21] MEDS ORDERED: LABETALOL HCL 100 MG/20 ML VIAL IV STA (13:08)
[2016-12-21 13:11] LABS: ALBUMIN 3.6 GM/DL (3.2-5.2); ALBUMIN/GLOBULIN RATIO 0.88 (1.00-1.93); ALKALINE PHOSPHATASE 84 U/L (45-117); ALT/SGPT 21 U/L (12-78); ANION GAP 5 MEQ/L (8-16); AST/SGOT 8 U/L (15-37); BILIRUBIN,DIRECT < 0.1 MG/DL (0.0-0.2); BILIRUBIN,TOTAL 0.3 MG/DL (0.2-1.0); BLOOD UREA NITROGEN 12 MG/DL (7-18); CALCIUM LEVEL 9.2 MG/DL (8.5-10.1); CARBON DIOXIDE LEVEL 28 MEQ/L (21-32); CHLORIDE LEVEL 107 MEQ/L (98-107); CREATININE FOR GFR 0.67 MG/DL (0.55-1.02); GLOMERULAR FILTRATION RATE > 60.0 (>58); GLUCOSE, FASTING 92 MG/DL (70-105); POTASSIUM SERUM 4.1 MEQ/L (3.5-5.1); SODIUM LEVEL 140 MEQ/L (136-145); TOTAL PROTEIN 7.7 GM/DL (6.4-8.2)
[2016-12-21] MEDS ORDERED: MECLIZINE 25 MG TABLET PO ONE (13:15)
[2016-12-21 13:52] LABS: ERYTHROCYTE SEDIMENTATION RATE 41 mm/hr (0-20)
--- NOTE | 2016-12-21 13:53 | REP ---
CHEST, TWO VIEWS: COMPARISON: 12/03/2016. There is no evidence of acute infiltrate. No pleural effusion is seen. The heart is normal in size. The mediastinal silhouette is unremarkable. The visualized osseous structures are intact. IMPRESSION: No acute pulmonary disease. Signed by Ruben Shafer MD 12/21/2016 04:47 P
--- NOTE | 2016-12-21 14:47 | ECGEPIP ---
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
--- NOTE | 2016-12-21 15:18 | REP ---
MR CERVICAL SPINE WITHOUT CONTRAST: HISTORY: Right neck pain. A small central disc protrusion is present at the C5-6 level. There is minimal effacement of the thecal sac without spinal cord compression. The C5 neural foramina are patent. There is no other disc bulge or herniation. The remaining neural foramina are patent. The spinal cord is normal in signal intensity. Normal signal intensity is present in the cervical vertebral bodies. IMPRESSION: Small disc protrusion at the C5-6 level without spinal cord compression. Signed by Blane العلي MD 12/21/2016 03:24 P
[2016-12-21] MEDS ORDERED: MECL-86 PO (16:56)
[2016-12-21 17:28] VITALS: BP 160/89
== END 2016-12-21 17:35 | disposition home or self-care (01) ==
LOC: EDBD 11:41 → M ED 12:14
DX: R07.9 Chest pain, unspecified (principal); R42 Dizziness and giddiness; M54.2 Cervicalgia; I25.10 Atherosclerotic heart disease of native coronary artery without angina pectoris; G47.33 Obstructive sleep apnea (adult) (pediatric); Z79.899 Other long term (current) drug therapy; Z79.82 Long term (current) use of aspirin; Z79.02 Long term (current) use of antithrombotics/antiplatelets; Z88.0 Allergy status to penicillin; F17.210 Nicotine dependence, cigarettes, uncomplicated

== ENCOUNTER → 2016-12-21 | Outpatient (REF) | payer MEDICAID ==
[~2016-12-21] MED LIST: ALDA50TA2 PO; AMLO5TAB2 PO; ASPI81TA85 PO; ASPI81TAEC PO; ATOR1TAB18 PO; ATOR1TAB21 PO; ATOR40TA PO; BRIL90TA PO; BUME1TAB29 PO; BUME2TAB PO; CARV3.12 PO; CLON-412 PO; CLON3PA PO; CORE12.5 PO; DIOV320T PO; ISOS10TA PO; MECL-86 PO; PLAV75TA38 PO; ROBA750T4 PO
== END ==
LOC: M SFHCPLAZ 10:00
PROVIDERS: ATTEND Family Medicine
DX: I10 Essential (primary) hypertension (principal)

== ENCOUNTER → 2016-12-29 | Outpatient (CLI) | payer MEDICAID ==
[~2016-12-29] MED LIST changes: +MECL-86 PO
--- NOTE | 2016-12-29 16:59 | REP ---
Urinary tract sonography and renal artery Doppler flow assessment: History: Hypertension. Morphologic findings: Scanning at the level of the urinary bladder shows no abnormality. It is not fully distended at the time of scanning. Renal cortical echogenicity pattern is normal and renal contours are smooth on both sides. There is no evidence of renal cyst, mass or hydronephrosis on either side. The right kidney measures 11.0 x 6.8 x 3.9 cm. Left renal dimensions are 11.1 x 4.9 x 5.4 cm. Renal Doppler flow assessment: Peak systolic flow velocity in the abdominal aorta at the level of the main renal arteries is normal at 82.0 cm/sec. Peak systolic flow velocity in the right main renal artery is recorded at 139.5 cm/sec and that in the left main renal artery is recorded at 95.3 cm/sec. These values are normal. Renal to aortic flow velocity ratios are therefore normal as well at 1.7 on the right and 1.2 on the left. Resistive indices and acceleration times are measured in the upper, mid and lower pole intralobar arteries of each kidney and these values are bilaterally normal. Impression: No significant morphologic abnormality. No renal Doppler artery evidence to suggest renal artery stenosis. Signed by Hung Laguerre MD 12/29/2016 06:02 P
== END ==
LOC: M RAD 08:39
PROVIDERS: ATTEND Internal Medicine Cardiovascular Disease
DX: I10 Essential (primary) hypertension (principal)

== ENCOUNTER → 2017-03-06 | Outpatient (CLI) | payer OTHER ==
[~2017-03-06] MED LIST changes: -ATOR1TAB18 PO; -ATOR40TA PO; +ATOR40TA75 PO; +ATOR80TA59 PO; +AZEL0.055; +CARV12.5 PO; +CHLO50TA PO; +CYCL10TA PO; +DEBR6.5S4; +MIRA3350 PO; +NEXI10GR PO; +PLAV1TAB2 PO; -PLAV75TA38 PO; +SPIR50TA2 PO; +TYLE500T78 PO
--- NOTE | 2017-03-06 13:21 | REP ---
RIGHT KNEE, FIVE VIEWS: Five views right knee performed. There is no acute fracture or dislocation. There is moderate medial joint space narrowing. There is moderate spurring diffusely. There is mild scattered subchondral sclerosis and cystic change. There is mild to moderate lateral patellofemoral compartment narrowing as well. There appears to be a small joint effusion. IMPRESSION: Moderate degenerative changes. Small joint effusion. Signed by Ruben Shafer MD 03/06/2017 01:29 P
== END ==
LOC: M RAD 12:20
PROVIDERS: ATTEND Family Medicine
DX: M17.11 Unilateral primary osteoarthritis, right knee (principal); M25.461 Effusion, right knee

== ENCOUNTER → 2017-03-23 | Outpatient (CLI) | payer OTHER ==
--- NOTE | 2017-03-29 07:48 | SLEEPHOME ---
DATE OF PROCEDURE: 03/23/2017 ORDERED BY: Angie Diaz INTERPRETATION: Diagnostic home sleep testing was performed due to concern for the obstructive sleep apnea syndrome. For testing, a NOX-T3 respiratory monitoring device was used. Continuous record was made of pulse, oxygen saturation, chest and abdominal strain, air flow and body position. 9 hours and 59 minutes of data were reviewed. There were 6 hours and 38 minutes of time marked as time in bed. During the interval marked time in bed, there were 44 respiratory events identified of 10 seconds in duration or greater for a respiratory event index of 6.6. The events were both obstructive and mixed, more commonly obstructive. Baseline pulse rate 92 beats per minute. Pulse rate ranged 76-115. Baseline saturation 94%. Lowest oxygen saturation 84%. Testing was performed predominately in the non-supine position. IMPRESSION: Abnormal home sleep testing with repetitive respiratory events and oxygen desaturations to 84% with a respiratory event index of 6.6 is consistent with the obstructive sleep apnea syndrome. RECOMMENDATION: The patient should be encouraged to undergo formal sleep evaluation and in laboratory pressure titration.
== END ==
LOC: M SLEEP 09:52
PROVIDERS: ATTEND Nurse Practitioner Adult Health
DX: G47.33 Obstructive sleep apnea (adult) (pediatric) (principal); R40.0 Somnolence

== ENCOUNTER → 2017-04-20 | Outpatient (RCR) | payer OTHER | LOC: M PT 03-30 08:54 | PROVIDERS: ATTEND Family Medicine | DX: Z51.89 Encounter for other specified aftercare (principal); M25.561 Pain in right knee ==

== ENCOUNTER 2017-04-27 08:59 | Outpatient (RCR) | payer OTHER ==
[~2017-04-27 08:59] MED LIST changes: -AZEL0.055; -CARV12.5 PO; -CHLO50TA PO; -CYCL10TA PO; -DEBR6.5S4; -MIRA3350 PO; -NEXI10GR PO; -SPIR50TA2 PO; -TYLE500T78 PO
== END 2017-05-20 ==
LOC: M PT 08:59
PROVIDERS: ATTEND Family Medicine
DX: Z51.89 Encounter for other specified aftercare (principal); M25.561 Pain in right knee

== ENCOUNTER 2017-05-23 12:01 | Emergency (ER) | payer OTHER ==
[~2017-05-23] VITALS: Ht 175.3 cm; Wt 126.9 kg
[2017-05-23] MEDS ORDERED: SPIR50TA2 PO (12:18)
[2017-05-23] MEDS ORDERED: NEXI10GR PO (12:18)
[2017-05-23] MEDS ORDERED: AMLO5TAB2 PO (12:18)
[2017-05-23] MEDS ORDERED: CHLO50TA PO (12:18)
[2017-05-23] MEDS ORDERED: MIRA3350 PO (12:18)
[2017-05-23] MEDS ORDERED: DEBR6.5S4 (12:18)
[2017-05-23] MEDS ORDERED: TYLE500T78 PO (12:18)
[2017-05-23] MEDS ORDERED: AZEL0.055 (12:18)
[2017-05-23] MEDS ORDERED: CARV12.5 PO (12:18)
[2017-05-23] MEDS ORDERED: CYCL10TA PO (12:18)
[2017-05-23 13:02] LABS: BASO % 0.4 % (0.0-1.0); EOS # 0.1 10^3/uL (0.0-0.50); EOS % 0.9 % (0.0-3.0); IMMATURE GRANULOCYTE % 0.4 % (0-0); LYMPH # 1.9 10^3/uL (1.5-4.5); LYMPH % 34.7 % (24.0-44.0); MEAN CORPUSCULAR HEMOGLOBIN 27.2 pg (27.0-33.0); MEAN CORPUSCULAR HGB CONC 32.3 g/dl (32.0-36.5); MEAN CORPUSCULAR VOLUME 84.2 fl (80.0-96.0); MONO # 0.4 10^3/uL (0.0-0.8); MONO % 7.1 % (0.0-5.0); NEUTROPHILS # 3.1 10^3/uL (1.8-7.7); NEUTROPHILS % 56.5 % (36.0-66.0); PLATELET COUNT, AUTOMATED 262 10^3/uL (150-450); RED CELL DISTRIBUTION WIDTH 12.3 % (11.5-14.5); WHITE BLOOD COUNT 5.4 10^3/uL (4.0-10.0)
[2017-05-23 13:10] LABS: ADD MANUAL DIFFER NO; DIFF SLIDE NUMBER 251
--- NOTE | 2017-05-23 13:17 | REP ---
Portable chest, 12:56 p.m., single AP view, patient sitting: Comparison is 12/21/2016. The lung varghese are clear. The cardiac size is normal. The radha, mediastinum, and bony thorax are unremarkable. Impression: Negative portable chest. There is no interval change. Signed by Ruben Gamez MD 05/23/2017 01:09 P
[2017-05-23 13:21] LABS: ALBUMIN 3.7 GM/DL (3.2-5.2); ALBUMIN/GLOBULIN RATIO 0.97 (1.00-1.93); ALKALINE PHOSPHATASE 80 U/L (45-117); ALT/SGPT 25 U/L (12-78); ANION GAP 6 MEQ/L (8-16); AST/SGOT 12 U/L (15-37); BILIRUBIN,DIRECT < 0.1 MG/DL (0.0-0.2); BILIRUBIN,TOTAL 0.2 MG/DL (0.2-1.0); BLOOD UREA NITROGEN 13 MG/DL (7-18); CALCIUM LEVEL 9.5 MG/DL (8.5-10.1); CARBON DIOXIDE LEVEL 31 MEQ/L (21-32); CHLORIDE LEVEL 102 MEQ/L (98-107); CREATININE FOR GFR 0.63 MG/DL (0.55-1.02); GLOMERULAR FILTRATION RATE > 60.0 (>58); GLUCOSE, FASTING 91 MG/DL (70-105); POTASSIUM SERUM 3.1 MEQ/L (3.5-5.1); SODIUM LEVEL 139 MEQ/L (136-145); TOTAL PROTEIN 7.5 GM/DL (6.4-8.2)
[2017-05-23 16:59] VITALS: BP 115/58
--- NOTE | 2017-05-24 06:20 | ECGEPIP ---
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
--- NOTE | 2017-05-24 06:25 | ECGEPIP ---
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
== END 2017-05-23 17:07 | disposition home or self-care (01) ==
LOC: M ED 12:01 → EDBD 12:01 → M ED 17:07
DX: R07.89 Other chest pain (principal); I25.10 Atherosclerotic heart disease of native coronary artery without angina pectoris; I10 Essential (primary) hypertension; E78.4 Other hyperlipidemia; Z98.61 Coronary angioplasty status

== ENCOUNTER → 2017-07-04 | Outpatient (CLI) | payer OTHER ==
[~2017-07-04] MED LIST changes: +AZEL0.055; +CARV12.5 PO; +CHLO50TA PO; +CYCL10TA PO; +DEBR6.5S4; +MIRA3350 PO; +NEXI10GR PO; +SPIR50TA2 PO; +TYLE500T78 PO
--- NOTE | 2017-07-04 13:45 | REP ---
Clinical: Right lower extremity pain and swelling . Technique: Shafer scale and color Doppler evaluation using linear high frequency transducer. Findings: Ultrasound examination of the right lower extremity deep venous structures from the common femoral vein to the popliteal vein demonstrates normal compressibility flow and wave patterns in response to respiration and augmentation. There is no evidence for deep venous thrombosis. Impression: No evidence for deep venous thrombosis. Signed by Sylvester Sin MD 07/04/2017 01:37 P
== END ==
LOC: M RAD 13:05
PROVIDERS: ATTEND Family Medicine
DX: M79.89 Other specified soft tissue disorders (principal)

== ENCOUNTER → 2017-07-11 | Outpatient (REF) | payer OTHER ==
[2017-07-11 17:36] LABS: CRYSTALS, BODY FLUID NONE SEEN (NONE SEEN)
== END ==
LOC: M SFHCPLAZ 17:13
PROVIDERS: ATTEND Family Medicine
DX: M25.561 Pain in right knee (principal)

== ENCOUNTER → 2017-08-17 | Outpatient (CLI) | payer OTHER ==
[2017-08-17 09:12] LABS: ANION GAP 5 MEQ/L (8-16); BLOOD UREA NITROGEN 17 MG/DL (7-18); CALCIUM LEVEL 9.1 MG/DL (8.5-10.1); CARBON DIOXIDE LEVEL 28 MEQ/L (21-32); CHLORIDE LEVEL 108 MEQ/L (98-107); CREATININE FOR GFR 0.75 MG/DL (0.55-1.02); GLOMERULAR FILTRATION RATE > 60.0 (>58); GLUCOSE, FASTING 114 MG/DL (70-105); POTASSIUM SERUM 4.3 MEQ/L (3.5-5.1); SODIUM LEVEL 141 MEQ/L (136-145)
== END ==
LOC: M LAB 08:02
DX: I10 Essential (primary) hypertension (principal)
CPT/HCPCS: 80048

== ENCOUNTER → 2017-08-17 | Outpatient (CLI) | payer OTHER ==
[2017-08-17 09:04] LABS: CHOLESTEROL LEVEL 180 MG/DL (<200); GLUCOSE,RANDOM 114 MG/DL (LESS THAN 200); TRIGLYCERIDES LEVEL 58 MG/DL (<150)
== END ==
LOC: M LAB 08:03
DX: E78.00 Pure hypercholesterolemia, unspecified (principal)
CPT/HCPCS: 80061

== ENCOUNTER 2017-09-16 03:08 | Emergency (ER) | payer OTHER ==
[2017-09-16] MEDS: NITROGLYCERIN 0.4 MG SUBL TABLET SL ×2 (03:57→04:01)
[2017-09-16 04:04] LABS: BASO % 0.5 % (0.0-1.0); EOS # 0.1 10^3/uL (0.0-0.50); EOS % 2.1 % (0.0-3.0); HEMATOCRIT 40.9 % (36.0-47.0); HEMOGLOBIN 12.8 g/dl (12.0-16.0); IMMATURE GRANULOCYTE % 0.3 % (0-0); LYMPH # 2.5 10^3/uL (1.5-4.5); LYMPH % 39.4 % (24.0-44.0); MEAN CORPUSCULAR HEMOGLOBIN 26.6 pg (27.0-33.0); MEAN CORPUSCULAR HGB CONC 31.3 g/dl (32.0-36.5); MONO # 0.6 10^3/uL (0.0-0.8); MONO % 9.7 % (0.0-5.0); PLATELET COUNT, AUTOMATED 243 10^3/uL (150-450); RED BLOOD COUNT 4.81 10^6/uL (4.00-5.40); RED CELL DISTRIBUTION WIDTH 13.3 % (11.5-14.5); WHITE BLOOD COUNT 6.3 10^3/uL (4.0-10.0)
[2017-09-16 04:15] LABS: D-DIMER QUANT < 270.0 ng/ml (<500)
[2017-09-16 04:18] LABS: ANION GAP 4 MEQ/L (8-16); BLOOD UREA NITROGEN 19 MG/DL (7-18); CALCIUM LEVEL 8.8 MG/DL (8.5-10.1); CARBON DIOXIDE LEVEL 28 MEQ/L (21-32); CHLORIDE LEVEL 109 MEQ/L (98-107); CK-MB VALUE MASS 1.6 NG/ML (0.0-3.6); CPK CREATINE PHOSPHOKINASE 187 U/L (26-192); CREATININE FOR GFR 0.76 MG/DL (0.55-1.02); GLOMERULAR FILTRATION RATE > 60.0 (>58); GLUCOSE, FASTING 121 MG/DL (70-100); MB/CK RELATIVE INDEX 0.85 (< OR =4); SODIUM LEVEL 141 MEQ/L (136-145); TROPONIN I < 0.02 NG/ML (< 0.10)
[2017-09-16 08:20] LABS: CPK CREATINE PHOSPHOKINASE 162 U/L (26-192); TROPONIN I 0.02 NG/ML (< 0.10)
[2017-09-16 08:21] LABS: CK-MB VALUE MASS 1.5 NG/ML (0.0-3.6); MB/CK RELATIVE INDEX 0.92 (< OR =4)
== END 2017-09-16 08:59 | disposition home or self-care (01) ==
LOC: M ED 03:08
DX: R07.9 Chest pain, unspecified (principal); R06.02 Shortness of breath; I10 Essential (primary) hypertension; I25.10 Atherosclerotic heart disease of native coronary artery without angina pectoris; Z95.5 Presence of coronary angioplasty implant and graft; Z79.899 Other long term (current) drug therapy; Z79.82 Long term (current) use of aspirin; Z88.0 Allergy status to penicillin; F17.210 Nicotine dependence, cigarettes, uncomplicated
CPT/HCPCS: 71046

== ENCOUNTER → 2017-11-23 | Outpatient (CLI) | payer OTHER ==
[2017-11-23 11:25] LABS: ANION GAP 6 MEQ/L (8-16); BLOOD UREA NITROGEN 14 MG/DL (7-18); CALCIUM LEVEL 9.4 MG/DL (8.5-10.1); CARBON DIOXIDE LEVEL 28 MEQ/L (21-32); CHLORIDE LEVEL 108 MEQ/L (98-107); CREATININE FOR GFR 0.84 MG/DL (0.55-1.30); GLOMERULAR FILTRATION RATE > 60.0 (>58); GLUCOSE, FASTING 111 MG/DL (70-100); POTASSIUM SERUM 4.3 MEQ/L (3.5-5.1); SODIUM LEVEL 142 MEQ/L (136-145)
== END ==
LOC: M LAB 09:40
DX: I10 Essential (primary) hypertension (principal)
CPT/HCPCS: 36415

== ENCOUNTER → 2017-11-23 | Outpatient (CLI) | payer OTHER ==
[2017-11-23 10:55] LABS: ANION GAP 5 MEQ/L (8-16); BLOOD UREA NITROGEN 14 MG/DL (7-18); CALCIUM LEVEL 9.2 MG/DL (8.5-10.1); CARBON DIOXIDE LEVEL 29 MEQ/L (21-32); CHLORIDE LEVEL 108 MEQ/L (98-107); GLOMERULAR FILTRATION RATE > 60.0 (>58); GLUCOSE, FASTING 110 MG/DL (70-100); POTASSIUM SERUM 4.3 MEQ/L (3.5-5.1); SODIUM LEVEL 142 MEQ/L (136-145)
[2017-11-23 11:04] LABS: ESTIMATED AVERAGE GLUCOSE 131 MG/DL (60-110); HEMOGLOBIN A1c 6.2 %
== END ==
LOC: M LAB 09:37
DX: R73.03 Prediabetes (principal)
CPT/HCPCS: 83036

== ENCOUNTER 2017-12-19 11:48 | Day surgery (SDC) | payer OTHER ==
[2017-12-19] MEDS: NS 1,000 ML IV (12:15)
[2017-12-19] MEDS ORDERED: PROPOFOL 500 MG/50 ML VIAL As Ordered (13:31)
[2017-12-19] MEDS ORDERED: LIDOCAINE 2% INJ 100 MG/5 ML SDV (FOR ANES.) As Ordered (13:31)
[2017-12-19] MEDS ORDERED: fentaNYL 100 MCG/2 ML INJECTION (J3010) As Ordered (13:31)
[2017-12-19] MEDS ORDERED: PROPOFOL 200 MG/20 ML VIAL As Ordered ×2 (13:55→14:13)
== END 2017-12-19 14:54 | disposition home or self-care (01) ==
LOC: M OPP 11:48
DX: K92.1 Melena (principal); D12.0 Benign neoplasm of cecum; D12.3 Benign neoplasm of transverse colon; D12.7 Benign neoplasm of rectosigmoid junction; K64.8 Other hemorrhoids; R13.10 Dysphagia, unspecified; F45.8 Other somatoform disorders; K29.70 Gastritis, unspecified, without bleeding; K44.9 Diaphragmatic hernia without obstruction or gangrene; I10 Essential (primary) hypertension; I25.10 Atherosclerotic heart disease of native coronary artery without angina pectoris; R07.89 Other chest pain; Z95.5 Presence of coronary angioplasty implant and graft; E78.5 Hyperlipidemia, unspecified; K59.00 Constipation, unspecified; K21.9 Gastro-esophageal reflux disease without esophagitis; D64.9 Anemia, unspecified; Z86.19 Personal history of other infectious and parasitic diseases; M54.89 Other dorsalgia; F41.9 Anxiety disorder, unspecified; F32.9 Major depressive disorder, single episode, unspecified; R51 Headache; E66.9 Obesity, unspecified; M19.90 Unspecified osteoarthritis, unspecified site; G47.30 Sleep apnea, unspecified; R06.83 Snoring; R06.02 Shortness of breath; Z80.3 Family history of malignant neoplasm of breast; Z80.1 Family history of malignant neoplasm of trachea, bronchus and lung; Z80.41 Family history of malignant neoplasm of ovary; F17.210 Nicotine dependence, cigarettes, uncomplicated; Z88.0 Allergy status to penicillin; Z79.82 Long term (current) use of aspirin; Z79.899 Other long term (current) drug therapy
CPT/HCPCS: 45385

== ENCOUNTER → 2018-03-29 | Outpatient (CLI) | payer OTHER ==
[2018-03-29 17:22] LABS: ALBUMIN 3.4 GM/DL (3.2-5.2); ANION GAP 8 MEQ/L (8-16); BLOOD UREA NITROGEN 13 MG/DL (7-18); CALCIUM LEVEL 8.8 MG/DL (8.5-10.1); CARBON DIOXIDE LEVEL 29 MEQ/L (21-32); CHLORIDE LEVEL 107 MEQ/L (98-107); CREATININE FOR GFR 0.98 MG/DL (0.55-1.30); GLOMERULAR FILTRATION RATE > 60.0 (>58); GLUCOSE, FASTING 135 MG/DL (70-100); PHOSPHORUS LEVEL 2.4 MG/DL (2.5-4.9); POTASSIUM SERUM 3.9 MEQ/L (3.5-5.1); SODIUM LEVEL 144 MEQ/L (136-145)
== END ==
LOC: M LAB 16:32
DX: R60.0 Localized edema (principal)
CPT/HCPCS: 80069

== ENCOUNTER → 2018-04-30 | Outpatient (CLI) | payer OTHER ==
[2018-04-30 20:15] LABS: ALBUMIN 3.6 GM/DL (3.2-5.2); ANION GAP 7 MEQ/L (8-16); BLOOD UREA NITROGEN 10 MG/DL (7-18); CALCIUM LEVEL 9.5 MG/DL (8.5-10.1); CARBON DIOXIDE LEVEL 32 MEQ/L (21-32); CHLORIDE LEVEL 105 MEQ/L (98-107); CREATININE FOR GFR 0.86 MG/DL (0.55-1.30); GLOMERULAR FILTRATION RATE > 60.0 (>58); GLUCOSE, FASTING 90 MG/DL (70-100); PHOSPHORUS LEVEL 3.3 MG/DL (2.5-4.9); POTASSIUM SERUM 3.4 MEQ/L (3.5-5.1); SODIUM LEVEL 144 MEQ/L (136-145)
== END ==
LOC: M LAB 11:56
DX: I10 Essential (primary) hypertension (principal)
CPT/HCPCS: 80069

== ENCOUNTER → 2018-05-16 | Outpatient (CLI) | payer OTHER | LOC: M RAD 15:05 | DX: M17.11 Unilateral primary osteoarthritis, right knee (principal) | CPT/HCPCS: 73564 ==

== ENCOUNTER → 2018-06-14 | Outpatient (CLI) | payer OTHER | LOC: M WHC 13:29 | DX: R92.2 Inconclusive mammogram (principal) | CPT/HCPCS: 77067 ==

== ENCOUNTER → 2018-06-14 | Outpatient (REF) | payer OTHER ==
[2018-06-16 14:10] LABS: HPV HYBRID CAPTURE II Negative (Negative)
== END ==
LOC: M SFHCWAGY 14:37
DX: Z12.4 Encounter for screening for malignant neoplasm of cervix (principal)

== ENCOUNTER → 2018-06-20 | Outpatient (CLI) | payer OTHER | LOC: M RAD 11:34 | DX: Z12.31 Encounter for screening mammogram for malignant neoplasm of breast (principal) | CPT/HCPCS: 77065 ==

== ENCOUNTER → 2018-07-03 | Outpatient (CLI) | payer OTHER ==
[~2018-07-03] MED LIST changes: -ALDA50TA2 PO; -AMLO5TAB2 PO; -ASPI81TA85 PO; -ASPI81TAEC PO; -ATOR1TAB21 PO; -ATOR40TA75 PO; -ATOR80TA59 PO; -AZEL0.055; -BRIL90TA PO; -BUME1TAB29 PO; -BUME2TAB PO; -CARV12.5 PO; -CARV3.12 PO; -CHLO50TA PO; -CLON-412 PO; -CLON3PA PO; -CORE12.5 PO; -CYCL10TA PO; -DEBR6.5S4; -DIOV320T PO; -ISOS10TA PO; +LIDOCAINE 1% MDV 20ML VIAL As Ordered; -MECL-86 PO; -MIRA3350 PO; -NEXI10GR PO; -PLAV1TAB2 PO; -ROBA750T4 PO; -SPIR50TA2 PO; -TYLE500T78 PO
== END ==
LOC: M RADPRO 12:23
DX: N64.1 Fat necrosis of breast (principal); N63.11 Unspecified lump in the right breast, upper outer quadrant
CPT/HCPCS: 19081

== ENCOUNTER → 2018-07-17 | Outpatient (CLI) | payer OTHER ==
[2018-07-17 15:50] LABS: HEMATOCRIT 42.5 % (36.0-47.0); HEMOGLOBIN 13.6 g/dl (12.0-15.5); MEAN CORPUSCULAR HEMOGLOBIN 26.4 pg (27.0-33.0); MEAN CORPUSCULAR VOLUME 82.5 fl (80.0-96.0); PLATELET COUNT, AUTOMATED 289 10^3/uL (150-450); RED BLOOD COUNT 5.15 10^6/uL (4.00-5.40); RED CELL DISTRIBUTION WIDTH 13.9 % (11.5-14.5); WHITE BLOOD COUNT 5.9 10^3/uL (4.0-10.0)
[2018-07-17 16:06] LABS: INR 0.99; PROTHROMBIN TIME 13.2 SECONDS (12.1-14.4)
[2018-07-17 16:11] LABS: ALBUMIN 3.8 GM/DL (3.2-5.2); ALBUMIN/GLOBULIN RATIO 1.09 (1.00-1.93); ALKALINE PHOSPHATASE 81 U/L (45-117); ALT/SGPT 31 U/L (12-78); ANION GAP 5 MEQ/L (8-16); AST/SGOT 14 U/L (7-37); BILIRUBIN,TOTAL 0.3 MG/DL (0.2-1.0); BLOOD UREA NITROGEN 12 MG/DL (7-18); CALCIUM LEVEL 9.7 MG/DL (8.5-10.1); CARBON DIOXIDE LEVEL 37 MEQ/L (21-32); CHLORIDE LEVEL 99 MEQ/L (98-107); CREATININE FOR GFR 0.97 MG/DL (0.55-1.30); GLOMERULAR FILTRATION RATE > 60.0 (>51); GLUCOSE, FASTING 91 MG/DL (70-100); SODIUM LEVEL 141 MEQ/L (136-145); TOTAL PROTEIN 7.3 GM/DL (6.4-8.2)
[2018-07-17 16:23] LABS: ERYTHROCYTE SEDIMENTATION RATE 18 mm/hr (0-30)
== END ==
LOC: M LAB 15:22
DX: Z01.818 Encounter for other preprocedural examination (principal); M17.11 Unilateral primary osteoarthritis, right knee; Z80.0 Family history of malignant neoplasm of digestive organs; R94.31 Abnormal electrocardiogram [ECG] [EKG]
CPT/HCPCS: 71046

== ENCOUNTER 2018-07-26 09:36 | Inpatient (IN) | payer OTHER ==
[2018-07-26] MEDS: ACETAMINOPHEN 500 MG TAB PO (10:00)
[2018-07-26] MEDS: LR 1,000 ML IV ×4 (10:32→22:19)
[2018-07-26] MEDS ORDERED: MIDAZOLAM INJ 2 MG/2 ML VIAL (J2250) As Ordered ×2 (10:33→11:51)
[2018-07-26] MEDS ORDERED: fentaNYL 100 MCG/2 ML INJECTION (J3010) As Ordered ×2 (10:33→11:51)
[2018-07-26] MEDS ORDERED: ASPIRIN 81 MG CHEW TABLET As Ordered (11:08)
[2018-07-26] MEDS: fentaNYL 100 MCG/2 ML INJECTION (J3010) IV (11:26)
[2018-07-26] MEDS: MIDAZOLAM INJ 2 MG/2 ML VIAL (J2250) IV (11:28)
[2018-07-26] MEDS: VANCOMYCIN HCL 1,000 MG, VIAL MATE ADAPTER 1 EACH in D5W 250 ML IV ×2 (11:35→22:18)
[2018-07-26] MEDS ORDERED: PROPOFOL 200 MG/20 ML VIAL As Ordered ×2 (11:54)
[2018-07-26] MEDS ORDERED: LIDOCAINE 2% INJ 100 MG/5 ML SDV (FOR ANES.) As Ordered (11:54)
[2018-07-26] MEDS: ceFAZolin 1GM INJ (J0690 PER 500MG) As Ordered (13:02)
[2018-07-26] MEDS: CLINDAMYCIN INJ 900MG/6ML VIAL As Ordered (13:02)
[2018-07-26] MEDS: BUPIVACAINE HCL 0.25% 30 ML VIAL As Ordered (13:38)
[2018-07-26] MEDS: BUPIVACAINE LIPOSOME/PF 1.3% 20ML VIAL (13.3MG/ML)(EXPAREL)(C9290 PER1MG) As Ordered (13:38)
[2018-07-26] MEDS: TRANEXAMIC ACID 100 MG/ML 10ML VIAL As Ordered (13:51)
[2018-07-26] MEDS: EPINEPHrine INJ 1 MG/ML 1ML AMP As Ordered (13:51)
[2018-07-26] MEDS ORDERED: dexameTHASONE 10 MG/1 ML VIAL PRES.FREE (J1100) (13:54)
[2018-07-26] MEDS ORDERED: ROPIvacaine 0.5% 30 ML INJECTION (J2795 PER 1MG) (13:54)
[2018-07-26] MEDS ORDERED: MORPHINE 1MG/ML IN 0.9% NACL 100ML IV BAG As Ordered (14:07)
[2018-07-26] MEDS: MORPHINE 1MG/ML IN 0.9% NACL 100ML IV BAG IV (14:20)
[2018-07-26] MEDS ORDERED: diphenhydrAMINE INJ 50MG/ML VIAL (J1200) IV (14:45)
[2018-07-26] MEDS ORDERED: NALBUPHINE HCL 10 MG/ML AMP (J2300) IV (14:45)
[2018-07-26] MEDS ORDERED: EPIDURAL/PCA KEYS XX (14:45)
[2018-07-26] MEDS ORDERED: NALOXONE INJ 0.4 MG/1 ML VIAL (J2310) IV (14:45)
[2018-07-26] MEDS ORDERED: ACETAMINOPHEN TAB 650MG DOSE (2X325MG) PO (14:45)
[2018-07-26] MEDS ORDERED: fentaNYL 100 MCG/2 ML INJECTION (J3010) IV (14:45)
[2018-07-26] MEDS ORDERED: PERCOCET 5MG/325MG TAB PO (14:45)
[2018-07-26] MEDS ORDERED: ONDANSETRON 4MG/2ML VIAL (J2405) IV ×2 (14:45)
[2018-07-26] MEDS ORDERED: FLEET ENEMA PR (14:45)
[2018-07-26] MEDS ORDERED: LABETALOL HCL 100 MG/20 ML VIAL As Ordered (14:48)
[2018-07-26] MEDS: LABETALOL HCL 100 MG/20 ML VIAL IV ×5 (14:50→15:12)
[2018-07-26] MEDS ORDERED: GLUCOSE 4 GM CHEW TABLET PO (16:15)
[2018-07-26] MEDS ORDERED: DEXTROSE 50% 50 ML SYRINGE IV (16:15)
[2018-07-26] MEDS ORDERED: GLUCAGON FOR INJ 1 MG VIAL (J1610) SC (16:15)
[2018-07-26 16:18] LABS: HEMATOCRIT 42.9 % (36.0-47.0); HEMOGLOBIN 13.4 g/dl (12.0-15.5); MEAN CORPUSCULAR HEMOGLOBIN 26.2 pg (27.0-33.0); MEAN CORPUSCULAR HGB CONC 31.2 g/dl (32.0-36.5); MEAN CORPUSCULAR VOLUME 83.8 fl (80.0-96.0); PLATELET COUNT, AUTOMATED 261 10^3/uL (150-450); RED BLOOD COUNT 5.12 10^6/uL (4.00-5.40); RED CELL DISTRIBUTION WIDTH 13.7 % (11.5-14.5); WHITE BLOOD COUNT 4.2 10^3/uL (4.0-10.0)
[2018-07-26 16:36] LABS: ALBUMIN 3.2 GM/DL (3.2-5.2); ALBUMIN/GLOBULIN RATIO 0.89 (1.00-1.93); ALKALINE PHOSPHATASE 76 U/L (45-117); ALT/SGPT 20 U/L (12-78); ANION GAP 8 MEQ/L (8-16); AST/SGOT 15 U/L (7-37); BILIRUBIN,TOTAL 0.3 MG/DL (0.2-1.0); BLOOD UREA NITROGEN 9 MG/DL (7-18); CALCIUM LEVEL 8.9 MG/DL (8.5-10.1); CARBON DIOXIDE LEVEL 29 MEQ/L (21-32); CHLORIDE LEVEL 108 MEQ/L (98-107); CREATININE FOR GFR 0.64 MG/DL (0.55-1.30); GLOMERULAR FILTRATION RATE > 60.0 (>51); GLUCOSE, FASTING 117 MG/DL (70-100); SODIUM LEVEL 145 MEQ/L (136-145); TOTAL PROTEIN 6.8 GM/DL (6.4-8.2)
[2018-07-26 17:17] LABS: BEDSIDE GLUCOSE 158 MG/DL (70-105)
[2018-07-26] MEDS: ASPIRIN 81 MG CHEW TABLET PO (17:28)
[2018-07-26] MEDS: HumaLOG INSULIN (NovoLOG) PER UNIT SC (17:29)
[2018-07-26 20:12] LABS: BEDSIDE GLUCOSE 193 MG/DL (70-105)
[2018-07-26] MEDS: ATORVASTATIN 20 MG TAB PO (22:18)
[2018-07-26] MEDS: PANTOPRAZOLE 40MG TAB (PROTONIX) PO (22:18)
[2018-07-26] MEDS: CARVedilol 12.5 MG TAB PO (22:18)
[2018-07-27 06:33] LABS: HEMOGLOBIN 12.6 g/dl (12.0-15.5); MEAN CORPUSCULAR HEMOGLOBIN 26.4 pg (27.0-33.0); MEAN CORPUSCULAR HGB CONC 32.3 g/dl (32.0-36.5); MEAN CORPUSCULAR VOLUME 81.6 fl (80.0-96.0); PLATELET COUNT, AUTOMATED 286 10^3/uL (150-450); RED BLOOD COUNT 4.78 10^6/uL (4.00-5.40); RED CELL DISTRIBUTION WIDTH 13.5 % (11.5-14.5); WHITE BLOOD COUNT 9.3 10^3/uL (4.0-10.0)
[2018-07-27 06:48] LABS: INR 1.08; PROTHROMBIN TIME 14.1 SECONDS (12.1-14.4)
[2018-07-27 07:00] LABS: ANION GAP 6 MEQ/L (8-16); BLOOD UREA NITROGEN 7 MG/DL (7-18); CALCIUM LEVEL 8.9 MG/DL (8.5-10.1); CARBON DIOXIDE LEVEL 28 MEQ/L (21-32); CHLORIDE LEVEL 109 MEQ/L (98-107); CREATININE FOR GFR 0.64 MG/DL (0.55-1.30); GLOMERULAR FILTRATION RATE > 60.0 (>51); GLUCOSE, FASTING 115 MG/DL (70-100); POTASSIUM SERUM 3.7 MEQ/L (3.5-5.1); SODIUM LEVEL 143 MEQ/L (136-145)
[2018-07-27] MEDS ORDERED: PERCOCET 5MG/325MG TAB PO (07:30)
[2018-07-27] MEDS: HumaLOG INSULIN (NovoLOG) PER UNIT SC ×4 (08:10→20:31)
[2018-07-27] MEDS: MOM 30ML SUSPENSION UDC PO ×5 (08:10→23:46)
[2018-07-27] MEDS: MIRALAX *UNIT DOSE* 17GM PACKET PO (08:10)
[2018-07-27] MEDS: PERCOCET 5MG/325MG TAB PO ×4 (08:11→23:47)
[2018-07-27] MEDS: SENOKOT S TAB PO ×2 (08:11→20:30)
[2018-07-27] MEDS: CARVedilol 12.5 MG TAB PO ×2 (08:18→20:30)
[2018-07-27] MEDS: PARoxetine 20 MG TAB PO (10:22)
[2018-07-27 12:16] LABS: BEDSIDE GLUCOSE 130 MG/DL (70-105)
[2018-07-27] MEDS: ONDANSETRON 4 MG TAB (S0181) PO ×2 (13:40→18:06)
[2018-07-27] MEDS: GABAPENTIN 100 MG CAP PO (13:42)
[2018-07-27] MEDS: CHLORTHALIDONE 25 MG TAB PO (14:48)
[2018-07-27 16:36] LABS: BEDSIDE GLUCOSE 94 MG/DL (70-105)
[2018-07-27] MEDS: RIVAROXABAN 10 MG TAB (XARELTO) PO (18:02)
[2018-07-27 19:58] LABS: BEDSIDE GLUCOSE 122 MG/DL (70-105)
[2018-07-27] MEDS: ATORVASTATIN 20 MG TAB PO (20:29)
[2018-07-27] MEDS: POTASSIUM CHLORIDE 10 MEQ SR TABLET PO (20:30)
[2018-07-27] MEDS: traZODone 50 MG TAB PO (20:30)
[2018-07-27] MEDS: PANTOPRAZOLE 40MG TAB (PROTONIX) PO (20:30)
[2018-07-28] MEDS: MOM 30ML SUSPENSION UDC PO ×4 (04:08→12:48)
[2018-07-28 06:15] LABS: HEMATOCRIT 37.2 % (36.0-47.0); HEMOGLOBIN 11.8 g/dl (12.0-15.5); MEAN CORPUSCULAR HEMOGLOBIN 26.5 pg (27.0-33.0); MEAN CORPUSCULAR HGB CONC 31.7 g/dl (32.0-36.5); MEAN CORPUSCULAR VOLUME 83.4 fl (80.0-96.0); PLATELET COUNT, AUTOMATED 247 10^3/uL (150-450); RED BLOOD COUNT 4.46 10^6/uL (4.00-5.40); RED CELL DISTRIBUTION WIDTH 13.6 % (11.5-14.5); WHITE BLOOD COUNT 8.5 10^3/uL (4.0-10.0)
[2018-07-28 06:41] LABS: ANION GAP 8 MEQ/L (8-16); BLOOD UREA NITROGEN 9 MG/DL (7-18); CALCIUM LEVEL 8.5 MG/DL (8.5-10.1); CARBON DIOXIDE LEVEL 31 MEQ/L (21-32); CHLORIDE LEVEL 104 MEQ/L (98-107); CREATININE FOR GFR 0.76 MG/DL (0.55-1.30); GLOMERULAR FILTRATION RATE > 60.0 (>51); GLUCOSE, FASTING 121 MG/DL (70-100); POTASSIUM SERUM 3.7 MEQ/L (3.5-5.1); SODIUM LEVEL 143 MEQ/L (136-145)
[2018-07-28] MEDS: GABAPENTIN 100 MG CAP PO (08:41)
[2018-07-28] MEDS: CHLORTHALIDONE 25 MG TAB PO (08:41)
[2018-07-28] MEDS: SENOKOT S TAB PO (08:41)
[2018-07-28] MEDS: PARoxetine 20 MG TAB PO (08:41)
[2018-07-28] MEDS: CARVedilol 12.5 MG TAB PO (08:43)
[2018-07-28] MEDS: POTASSIUM CHLORIDE 10 MEQ SR TABLET PO (08:44)
[2018-07-28] MEDS: MIRALAX *UNIT DOSE* 17GM PACKET PO (08:44)
[2018-07-28] MEDS: HumaLOG INSULIN (NovoLOG) PER UNIT SC ×2 (08:45→12:48)
[2018-07-28] MEDS: PERCOCET 5MG/325MG TAB PO ×2 (09:49→14:07)
[2018-07-28 12:44] LABS: BEDSIDE GLUCOSE 103 MG/DL (70-105)
== END 2018-07-28 14:30 | disposition home health service (06) | DRG 302 ==
LOC: M OR 09:36 → M MS5PR 16:07
PROC: 0SRC0J9 Replacement of Right Knee Joint with Synthetic Substitute, Cemented, Open Approach (ICD-10-PCS; principal; 2018-07-26 12:00)
DX: M17.11 Unilateral primary osteoarthritis, right knee (principal); I10 Essential (primary) hypertension; G47.33 Obstructive sleep apnea (adult) (pediatric); R73.03 Prediabetes; I25.10 Atherosclerotic heart disease of native coronary artery without angina pectoris; K21.9 Gastro-esophageal reflux disease without esophagitis; Z98.84 Bariatric surgery status; Z95.5 Presence of coronary angioplasty implant and graft; Z87.891 Personal history of nicotine dependence; Z79.899 Other long term (current) drug therapy; Z90.49 Acquired absence of other specified parts of digestive tract; K59.00 Constipation, unspecified; G47.00 Insomnia, unspecified

== ENCOUNTER 2018-08-16 15:44 | Emergency (ER) | payer OTHER ==
[~2018-08-16] VITALS: Ht 170.2 cm; Wt 111.4 kg
[~2018-08-16 15:44] MED LIST changes: +ALDA50TA2 PO; +AMLO5TAB4 PO; +ASPI1CHW2 PO; +ASPI81TA85 PO; +ASPI81TAEC PO; +ATOR1TAB21 PO; +ATOR40TA75 PO; +ATOR80TA59 PO; +AZEL0.055; +BRIL90TA PO; +BUME1TAB29 PO; +BUME2TAB PO; +CALC600T57 PO; +CARV12.5 PO; +CARV3.12 PO; +CHLO50TA PO; +CLAR1TAB13 PO; +CLON-412 PO; +CLON0.3D8 PO; +CORE12.5 PO; +CYCL10TA PO; +DEBR6.5S4; +DIOV320T PO; +ESCI10TA2; +IBUP200C25 PO; +ISOS10TA PO; +KLOR10TA76 PO; -LIDOCAINE 1% MDV 20ML VIAL As Ordered; +MECL-86 PO; +MIRA3350 PO; +NEUR100C PO; +NEXI10GR PO; +OMEP40CA2 PO; +PARO40TA3 PO; +PERC5TAB12 PO; +PLAV1TAB2 PO; +POTA10TA67 PO; +PROT1TAB2 PO; +PROTPAK PO; +ROBA750T4 PO; +SPIR100T3; +SPIR50TA4 PO; +STOO100C PO; +TRAZO50TA PO; +TYLE325T5 PO; +TYLE500T78 PO; +VITA100072 PO; +XARE10TA PO
[2018-08-16] MEDS ORDERED: CHAN1PAK13 (16:03)
[2018-08-16] MEDS ORDERED: SUCR1TAB56 (16:03)
[2018-08-16] MEDS ORDERED: RISP1TAB3 (16:03)
[2018-08-16] MEDS ORDERED: hydroCHLOROthiazide 12.5 MG CAPSULE PO ONE (17:15)
[2018-08-16] MEDS ORDERED: CARVedilol 12.5 MG TAB PO ONE (17:15)
--- NOTE | 2018-08-16 17:15 | REP ---
CT brain without contrast: History: Syncope. Findings: Digital lateral building tech radiograph is unremarkable. Bone window settings show an intact bony calvarium. There is fairly heavy vascular calcification in the distal internal carotid arteries. The visualized paranasal sinuses are clear. No intraorbital abnormality is seen. On soft tissue window settings, the lateral, third, and fourth ventricles are normal in size and position. Shafer-white differentiation pattern is intact above and below the tentorium. There is no evidence of intracranial hemorrhage. No extra-axial fluid collection is seen. No mass or midline shift is observed. Impression: Negative noncontrast head CT. Electronically Signed by Hung Laguerre MD 08/16/2018 06:22 P
[2018-08-16 17:16] LABS: BASO % 0.3 % (0.0-1.0); EOS # 0.1 10^3/uL (0.0-0.50); EOS % 1.6 % (0.0-3.0); HEMATOCRIT 37.8 % (36.0-47.0); HEMOGLOBIN 11.8 g/dl (12.0-15.5); LYMPH # 1.9 10^3/uL (1.5-4.5); LYMPH % 27.4 % (24.0-44.0); MEAN CORPUSCULAR HEMOGLOBIN 25.9 pg (27.0-33.0); MEAN CORPUSCULAR HGB CONC 31.2 g/dl (32.0-36.5); MEAN CORPUSCULAR VOLUME 82.9 fl (80.0-96.0); MONO # 0.5 10^3/uL (0.0-0.8); MONO % 7.6 % (0.0-5.0); NEUTROPHILS # 4.3 10^3/uL (1.8-7.7); NEUTROPHILS % 62.8 % (36.0-66.0); PLATELET COUNT, AUTOMATED 433 10^3/uL (150-450); RED BLOOD COUNT 4.56 10^6/uL (4.00-5.40); WHITE BLOOD COUNT 6.8 10^3/uL (4.0-10.0)
[2018-08-16 17:33] LABS: AMPHETAMINES LEVEL URINE NEGATIVE (NEGATIVE); BARBITURATES URINE NEGATIVE (NEGATIVE); BENZODIAZEPINES URINE NEGATIVE (NEGATIVE); CANNABINOIDS URINE NEGATIVE (NEGATIVE); COCAINE METABOLITE URINE NEGATIVE (NEGATIVE); METHADONE URINE NEGATIVE (NEGATIVE); OPIATES URINE NEGATIVE (NEGATIVE); PHENCYCLIDINE URINE NEGATIVE (NEGATIVE)
[2018-08-16 17:39] LABS: BLOOD UREA NITROGEN 9 MG/DL (7-18); CALCIUM LEVEL 9.4 MG/DL (8.5-10.1); CARBON DIOXIDE LEVEL 29 MEQ/L (21-32); CHLORIDE LEVEL 106 MEQ/L (98-107); CK-MB VALUE MASS < 1.0 NG/ML (<3.6); CPK CREATINE PHOSPHOKINASE 61 U/L (26-192); CREATININE FOR GFR 0.68 MG/DL (0.55-1.30); ETHYL ALCOHOL (ETHANOL) < 0.003 % (0.000-0.010); GLOMERULAR FILTRATION RATE > 60.0 (>51); GLUCOSE, FASTING 82 MG/DL (70-100); MB/CK RELATIVE INDEX 1.64 (< OR =4); POTASSIUM SERUM 3.7 MEQ/L (3.5-5.1); SODIUM LEVEL 143 MEQ/L (136-145); THYROID STIMULATING HORMONE 0.847 uIU/ML (0.358-3.740); TROPONIN I < 0.02 NG/ML (< 0.10)
[2018-08-16 17:42] LABS: INR 1.06
--- NOTE | 2018-08-16 17:42 | REP ---
Chest x-ray: Two views. History: Syncope. Comparison study: July 17, 2018. Findings: Heart is felt to be mildly prominent with cardiothoracic ratio 50.8%. Pulmonary vasculature is cephalized. The lungs are well inflated and clear. The pleural angles are sharp. No bony abnormality is seen. Impression: Mild cardiac enlargement and cephalization. Otherwise no acute disease. Electronically Signed by Hung Laguerre MD 08/16/2018 06:24 P
[2018-08-16 17:43] LABS: PARTIAL THROMBOPLASTIN TIME 28.3 SECONDS (25.4-37.6)
[2018-08-16] MEDS ORDERED: LABETALOL HCL 100 MG/20 ML VIAL IV STA ×2 (18:04→18:35)
[2018-08-16 18:15] VITALS: BP 200/110
[2018-08-16] MEDS ORDERED: CIPROFLOXACIN 500 MG TAB PO ONE (18:30)
[2018-08-16] MEDS ORDERED: HYDR12.55 PO (19:12)
[2018-08-16 19:33] VITALS: BP 163/81
--- NOTE | 2018-08-17 11:18 | ECGEPIP ---
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
[2018-08-24] MEDS ORDERED: NAPR-49 PO (15:30)
== END 2018-08-16 19:35 | disposition home or self-care (01) ==
LOC: EDBD 15:44 → M ED 15:44
DX: R55 Syncope and collapse (principal); I10 Essential (primary) hypertension; E11.9 Type 2 diabetes mellitus without complications; R42 Dizziness and giddiness; F17.200 Nicotine dependence, unspecified, uncomplicated; Z88.0 Allergy status to penicillin; Z88.8 Allergy status to other drugs, medicaments and biological substances; Z79.899 Other long term (current) drug therapy
CPT/HCPCS: 70450; 71046; 80048; 80307; 82550; 82553; 84443; 85025; 85610; 85730; 87086; 93005; 93041; 94760; 96374; 99285; G0480

== ENCOUNTER 2018-08-17 15:01 | Emergency (ER) | payer OTHER ==
[~2018-08-17] VITALS: Ht 170.2 cm; Wt 115.5 kg
[~2018-08-17 15:01] MED LIST changes: -AMLO5TAB4 PO; +AMLO5TAB6 PO; -BUME2TAB PO; +BUME2TAB3 PO; +CHAN1PAK13; +HYDR12.55 PO; +RISP1TAB3; +SUCR1TAB56
[2018-08-17 18:10] VITALS: BP 158/84
[2018-08-24] MEDS ORDERED: NAPR-50 PO (15:30)
== END 2018-08-17 18:13 | disposition home or self-care (01) ==
LOC: M ED 15:01
DX: I10 Essential (primary) hypertension (principal); E11.9 Type 2 diabetes mellitus without complications; E78.5 Hyperlipidemia, unspecified; G47.33 Obstructive sleep apnea (adult) (pediatric); K21.9 Gastro-esophageal reflux disease without esophagitis; F33.9 Major depressive disorder, recurrent, unspecified; F41.9 Anxiety disorder, unspecified; Z95.5 Presence of coronary angioplasty implant and graft; Z79.899 Other long term (current) drug therapy; Z88.0 Allergy status to penicillin; Z88.1 Allergy status to other antibiotic agents; Z87.891 Personal history of nicotine dependence

== ENCOUNTER → 2018-09-18 | Outpatient (CLI) | payer OTHER ==
[~2018-09-18] MED LIST changes: +NAPR-50 PO
[2018-09-18 13:58] LABS: ALBUMIN 3.5 GM/DL (3.2-5.2); BLOOD UREA NITROGEN 12 MG/DL (7-18); CARBON DIOXIDE LEVEL 30 MEQ/L (21-32); CHLORIDE LEVEL 105 MEQ/L (98-107); CREATININE FOR GFR 0.88 MG/DL (0.55-1.30); GLOMERULAR FILTRATION RATE > 60.0 (>51); GLUCOSE, FASTING 72 MG/DL (70-100); POTASSIUM SERUM 3.4 MEQ/L (3.5-5.1); SODIUM LEVEL 143 MEQ/L (136-145)
== END ==
LOC: M LAB 12:56
PROVIDERS: ATTEND Physician Assistant
DX: I10 Essential (primary) hypertension (principal)

== ENCOUNTER 2018-10-24 18:08 | Emergency (ER) | payer OTHER ==
[~2018-10-24] VITALS: Ht 172.7 cm; Wt 108.2 kg
[2018-10-24] MEDS ORDERED: TRAZ10TA PO (18:31)
[2018-10-24] MEDS ORDERED: LOSA50TA88 (18:32)
[2018-10-24] MEDS ORDERED: CEFD1CAP8 (18:32)
[2018-10-24] MEDS ORDERED: ASPIRIN 81 MG CHEW TABLET PO ONE (18:45)
[2018-10-24] MEDS: NITROGLYCERIN 0.4 MG SUBL TABLET SL PRN ×3 (18:50→19:04)
[2018-10-24 18:52] LABS: VENOUS BASE EXCESS 2.6 (-2.0-2.0); VENOUS HCO3 26.6 MEQ/L (23.0-27.0); VENOUS O2 SATURATION 78.1 % (60.0-80.0); VENOUS PARTIAL PRESSURE CO2 38.9 mmHg (38.0-50.0); VENOUS PARTIAL PRESSURE O2 40.9 mmHg (30.0-50.0); VENOUS PH 7.453 UNITS (7.330-7.430); VENOUS STANDARD HCO3 26.3 MEQ/L; VENOUS TOTAL CO2 27.8 MEQ/L (24.0-28.0)
[2018-10-24 19:00] LABS: BASO % 0.6 % (0.0-1.0); EOS # 0.1 10^3/uL (0.0-0.50); HEMATOCRIT 38.3 % (36.0-47.0); HEMOGLOBIN 12.4 g/dl (12.0-15.5); LYMPH % 37.8 % (24.0-44.0); MEAN CORPUSCULAR HEMOGLOBIN 26.6 pg (27.0-33.0); MEAN CORPUSCULAR HGB CONC 32.4 g/dl (32.0-36.5); MEAN CORPUSCULAR VOLUME 82.2 fl (80.0-96.0); MONO # 0.4 10^3/uL (0.0-0.8); MONO % 8.1 % (0.0-5.0); NEUTROPHILS # 2.7 10^3/uL (1.8-7.7); NEUTROPHILS % 52.3 % (36.0-66.0); PLATELET COUNT, AUTOMATED 237 10^3/uL (150-450); RED BLOOD COUNT 4.66 10^6/uL (4.00-5.40); WHITE BLOOD COUNT 5.2 10^3/uL (4.0-10.0)
[2018-10-24 19:04] VITALS: BP 135/78
[2018-10-24 19:13] LABS: INR 1.04; PROTHROMBIN TIME 13.7 SECONDS (12.1-14.4)
--- NOTE | 2018-10-24 19:19 | REP ---
PORTABLE CHEST: AP portable view of the chest is performed. There is mild cardiomegaly and vascular congestion. No infiltrates are seen. Mediastinal silhouette is unchanged. IMPRESSION: Mild cardiomegaly and vascular congestion. No focal infiltrate. Electronically Signed by Ruben Shafer MD 10/25/2018 12:30 A
[2018-10-24 19:25] LABS: ALBUMIN 3.3 GM/DL (3.2-5.2); ALT/SGPT 15 U/L (12-78); BILIRUBIN,DIRECT 0.1 MG/DL (0.0-0.2); BILIRUBIN,TOTAL 0.3 MG/DL (0.2-1.0); BLOOD UREA NITROGEN 13 MG/DL (7-18); C REACTIVE PROTEIN QUANTITATIV < 0.30 MG/DL (0.00-0.30); CALCIUM LEVEL 8.1 MG/DL (8.5-10.1); CARBON DIOXIDE LEVEL 28 MEQ/L (21-32); CHLORIDE LEVEL 107 MEQ/L (98-107); CK-MB VALUE MASS < 1.0 NG/ML (<3.6); CPK CREATINE PHOSPHOKINASE 64 U/L (26-192); CREATININE FOR GFR 0.74 MG/DL (0.55-1.30); GLOMERULAR FILTRATION RATE > 60.0 (>51); GLUCOSE, FASTING 86 MG/DL (70-100); MB/CK RELATIVE INDEX 1.56 (< OR =4); NT-PRO BNP 82 PG/ML (<125); POTASSIUM SERUM 3.7 MEQ/L (3.5-5.1); SODIUM LEVEL 141 MEQ/L (136-145); THYROID STIMULATING HORMONE 0.872 uIU/ML (0.358-3.740); TOTAL PROTEIN 6.5 GM/DL (6.4-8.2); TROPONIN I < 0.02 NG/ML (< 0.10)
[2018-10-24 19:28] LABS: INFLUENZA A AMPLIFICATION NEGATIVE (NEGATIVE); INFLUENZA B AMPLIFICATION NEGATIVE (NEGATIVE)
[2018-10-24 19:41] LABS: ERYTHROCYTE SEDIMENTATION RATE 15 mm/hr (0-30)
--- NOTE | 2018-10-24 20:56 | ECGEPIP ---
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
[2018-10-24 22:17] LABS: CK-MB VALUE MASS < 1.0 NG/ML (<3.6); CPK CREATINE PHOSPHOKINASE 60 U/L (26-192); MB/CK RELATIVE INDEX 1.67 (< OR =4); TROPONIN I < 0.02 NG/ML (< 0.10)
[2018-10-24 22:23] VITALS: BP 179/89
== END 2018-10-24 22:50 | disposition home or self-care (01) ==
LOC: EDBD 18:08 → M ED 18:08
DX: J06.9 Acute upper respiratory infection, unspecified (principal); I10 Essential (primary) hypertension; E78.5 Hyperlipidemia, unspecified; F41.9 Anxiety disorder, unspecified; F33.9 Major depressive disorder, recurrent, unspecified; M81.0 Age-related osteoporosis without current pathological fracture; Z82.49 Family history of ischemic heart disease and other diseases of the circulatory system; Z79.899 Other long term (current) drug therapy; Z88.0 Allergy status to penicillin; Z88.8 Allergy status to other drugs, medicaments and biological substances; Z87.891 Personal history of nicotine dependence

== ENCOUNTER → 2018-11-02 | Outpatient (REF) | payer OTHER ==
[~2018-11-02] MED LIST changes: +CEFD1CAP8; +LOSA50TA88; +TRAZ10TA PO
[2018-11-02 17:53] LABS: BASO % 0.5 % (0.0-1.0); EOS # 0.1 10^3/uL (0.0-0.50); EOS % 1.4 % (0.0-3.0); HEMATOCRIT 41.7 % (36.0-47.0); HEMOGLOBIN 13.1 g/dl (12.0-15.5); LYMPH # 1.9 10^3/uL (1.5-4.5); LYMPH % 43.7 % (24.0-44.0); MEAN CORPUSCULAR HEMOGLOBIN 26.2 pg (27.0-33.0); MEAN CORPUSCULAR HGB CONC 31.4 g/dl (32.0-36.5); MEAN CORPUSCULAR VOLUME 83.4 fl (80.0-96.0); MONO # 0.4 10^3/uL (0.0-0.8); NEUTROPHILS % 45.2 % (36.0-66.0); PLATELET COUNT, AUTOMATED 274 10^3/uL (150-450); WHITE BLOOD COUNT 4.4 10^3/uL (4.0-10.0)
[2018-11-02 18:28] LABS: ERYTHROCYTE SEDIMENTATION RATE 18 mm/hr (0-30)
== END ==
LOC: M LABDRAW1 16:57
PROVIDERS: ATTEND Orthopaedic Surgery
DX: M25.561 Pain in right knee (principal)

== ENCOUNTER → 2019-04-10 | Outpatient (REF) | payer OTHER ==
[~2019-04-10] MED LIST changes: +MM S100C PO; -NAPR-50 PO; +NAPR-837 PO; -STOO100C PO; +TRAZ1TAB10 PO; -TRAZO50TA PO; +VITA100018 PO; -VITA100072 PO
[2019-04-10 17:36] LABS: BASO % 0.6 % (0.0-1.0); EOS # 0.1 10^3/uL (0.0-0.50); EOS % 1.7 % (0.0-3.0); HEMATOCRIT 43.6 % (36.0-47.0); LYMPH # 1.8 10^3/uL (1.5-4.5); LYMPH % 35.5 % (24.0-44.0); MEAN CORPUSCULAR HEMOGLOBIN 27.8 pg (27.0-33.0); MEAN CORPUSCULAR HGB CONC 32.1 g/dl (32.0-36.5); MEAN CORPUSCULAR VOLUME 86.5 fl (80.0-96.0); MONO # 0.5 10^3/uL (0.0-0.8); MONO % 9.8 % (0.0-5.0); NEUTROPHILS # 2.7 10^3/uL (1.8-7.7); NEUTROPHILS % 51.8 % (36.0-66.0); PLATELET COUNT, AUTOMATED 278 10^3/uL (150-450); RED BLOOD COUNT 5.04 10^6/uL (4.00-5.40); WHITE BLOOD COUNT 5.2 10^3/uL (4.0-10.0)
[2019-04-10 19:57] LABS: ERYTHROCYTE SEDIMENTATION RATE 6 mm/hr (0-30)
== END ==
LOC: M LABDRAW1 11:19
PROVIDERS: ATTEND Orthopaedic Surgery
DX: M25.561 Pain in right knee (principal)

== ENCOUNTER → 2019-04-15 | Outpatient (REF) | payer OTHER ==
[~2019-04-15] MED LIST changes: -OMEP40CA2 PO; +OMEP40CA97 PO; -TRAZ10TA PO; +TRAZ1TAB12 PO
== END ==
LOC: M SFHCPLAZ 13:35
PROVIDERS: ATTEND Student in an Organized Health Care Education/Training Program
DX: R10.13 Epigastric pain (principal)

== ENCOUNTER → 2019-04-26 | Outpatient (CLI) | payer OTHER ==
[~2019-04-26] MED LIST changes: +OMEP40CA2 PO; -OMEP40CA97 PO; +TRAZ10TA PO; -TRAZ1TAB12 PO
--- NOTE | 2019-04-26 14:59 | REP ---
TRIPLE PHASE BONE SCAN OF THE KNEES: Following the intravenous administration of 22 millicuries technetium 99m MDP, patient's knees are imaged in the flow phase, immediate blood pole phase and 3.5 hour delayed phase in multiple projections. There is mild decreased blood flow in the region of the right knee. There is mild increased blood pooling and somewhat greater degree of delayed osseous uptake in the medial and lateral right femoral condyles and tibial plateaus, at the interface with a photopenic knee prosthesis. There is also increased uptake throughout both patellas fairly symmetrically. There is minimal subchondral osseus uptake in the left medial femoral condyle and tibial plateau peripherally. This is most consistent with arthritic uptake. IMPRESSION: Nonspecific increased blood flow, blood pooling and delayed activity in the medial and lateral right femoral condyles and tibial plateaus adjacent to photopenic knee prosthesis. This could be simply represent postsurgical uptake. There is symmetrical increased uptake throughout the patellas bilaterally. Recommend correlation with plain films. Electronically Signed by Ruben Shafer MD 04/26/2019 04:35 P
== END ==
LOC: M RAD 10:18
PROVIDERS: ATTEND Orthopaedic Surgery
DX: M25.561 Pain in right knee (principal)
CPT/HCPCS: 78315; A9503

== ENCOUNTER → 2019-06-25 | Outpatient (REF) | payer OTHER ==
[~2019-06-25] MED LIST changes: -OMEP40CA2 PO; +OMEP40CA97 PO
[2019-06-25 18:01] LABS: APPEARANCE, URINE CLOUDY (CLEAR); BACTERIA, URINE AUTO NEGATIVE (NEGATIVE); BILIRUBIN, URINE AUTO NEGATIVE (NEGATIVE); BLOOD, URINE BLOOD NEGATIVE (NEGATIVE); CALCIUM OXALATE CRYSTALS SMALL; COLOR, URINE YELLOW (YELLOW); GLUCOSE, URINE (UA) AUTO NEGATIVE (NEGATIVE); KETONE, URINE AUTO TRACE mg/dL (NEGATIVE); LEUKOCYTE ESTERASE, URINE AUTO 2+ (NEGATIVE); MUCUS, URINE SMALL (NEGATIVE); NITRITE, URINE AUTO NEGATIVE (NEGATIVE); PROTEIN, URINE AUTO NEGATIVE (NEGATIVE); RBC, URINE AUTO 5 /HPF (0-3); SPECIFIC GRAVITY URINE AUTO 1.028 (1.002-1.035); SQUAMOUS EPITHELIAL CELL UR AU 1 /HPF (0-6); WBC, URINE AUTO 43 /HPF (0-3)
== END ==
LOC: M SFHCWAGY 16:35
PROVIDERS: ATTEND Nurse Practitioner Family
DX: R31.0 Gross hematuria (principal)

== ENCOUNTER → 2019-07-16 | Outpatient (CLI) | payer MEDICARE, OTHER ==
[~2019-07-16] MED LIST changes: +AMBI5TAB PO; +ISOVUE-370 76% 100ML VIAL (Q9967) As Ordered ONE; +SERO1TAB PO; -TRAZ10TA PO; +TRAZ1TAB12 PO
--- NOTE | 2019-07-16 10:27 | REP ---
Clinical: Gross hematuria. Technique: Axial precontrast, contrast enhanced, and delayed images of the abdomen and pelvis using 100 ml Isovue 370 intravenous contrast material. Coronal and sagittal re-formations obtained along with volume rendered CT urogram. Findings: The bilateral kidneys/ureters and bladder are normal in all phases of evaluation. Symmetric renal parenchymal enhancement is appreciated. No evidence for nephroureterolithiasis, hydroureteronephrosis, renal cystic or mass lesion noted. Liver, spleen, pancreas, gallbladder, and bilateral adrenal glands are normal. There is evidence of prior gastric bypass surgery. The enteric system is without obstruction or acute inflammatory process. Few scattered colonic diverticula noted without acute diverticulitis. Pelvis demonstrates normal bladder and age-appropriate uterus/adnexa. Small amount of free fluid in the pelvis is nonspecific and likely physiologic. Atherosclerotic changes of the aorta and vasculature noted without aneurysm or dissection. Musculoskeletal structures are intact and without focal abnormality. Lung bases are clear. Impression: 1. Normal urinary tract system. 2. Prior gastric bypass surgery. 3. Few scattered colonic diverticula without acute diverticulitis. 4. No acute abdominopelvic pathology appreciated. Trace free fluid in the pelvis likely physiologic. Electronically Signed by Sylvester Sin MD 07/16/2019 10:18 A
== END ==
LOC: M RAD 09:31
PROVIDERS: ATTEND Student in an Organized Health Care Education/Training Program
DX: K57.30 Diverticulosis of large intestine without perforation or abscess without bleeding (principal); R31.0 Gross hematuria; Z98.84 Bariatric surgery status
CPT/HCPCS: 74178; Q9967

== ENCOUNTER → 2019-08-23 | Outpatient (REF) | payer MEDICARE, OTHER ==
[~2019-08-23] MED LIST changes: -ISOVUE-370 76% 100ML VIAL (Q9967) As Ordered ONE
[2019-08-23 14:01] LABS: BASO % 0.7 % (0.0-1.0); EOS # 0.1 10^3/uL (0.0-0.5); EOS % 1.5 % (0.0-3.0); HEMATOCRIT 44.1 % (36.0-47.0); HEMOGLOBIN 13.8 g/dl (12.0-15.5); LYMPH # 1.5 10^3/uL (1.5-5.0); MEAN CORPUSCULAR HEMOGLOBIN 27.5 pg (27.0-33.0); MEAN CORPUSCULAR HGB CONC 31.3 g/dl (32.0-36.5); MONO # 0.4 10^3/uL (0.0-0.8); MONO % 8.2 % (0.0-5.0); NEUTROPHILS # 2.6 10^3/uL (1.5-8.5); NEUTROPHILS % 56.4 % (36.0-66.0); PLATELET COUNT, AUTOMATED 252 10^3/uL (150-450); RED BLOOD COUNT 5.01 10^6/uL (4.00-5.40); WHITE BLOOD COUNT 4.5 10^3/uL (4.0-10.0)
[2019-08-23 14:19] LABS: HEMOGLOBIN A1c 5.2 %
[2019-08-23 14:31] LABS: BLOOD UREA NITROGEN 13 MG/DL (7-18); CALCIUM LEVEL 9.7 MG/DL (8.5-10.1); CARBON DIOXIDE LEVEL 29 MEQ/L (21-32); CHLORIDE LEVEL 106 MEQ/L (98-107); CHOLESTEROL LEVEL 197 MG/DL (<200); CHOLESTEROL RISK RATIO 2.736 (<5); CREATININE FOR GFR 0.72 MG/DL (0.55-1.30); FERRITIN 294 NG/ML (8-252); GLOMERULAR FILTRATION RATE > 60.0 (>51); GLUCOSE, FASTING 80 MG/DL (70-100); HDL CHOLESTEROL 72 MG/DL (>40); LDL CHOLESTEROL 100 MG/DL (<100); NON-HDL-C 125 MG/DL; POTASSIUM SERUM 4.2 MEQ/L (3.5-5.1); SODIUM LEVEL 142 MEQ/L (136-145); TRIGLYCERIDES LEVEL 126 MG/DL (<150)
[2019-08-23 14:37] LABS: TOTAL 25(OH) VITAMIN D 18.6 NG/ML (30.0-100.0)
[2019-08-23 14:38] LABS: FOLATE 10.5 NG/ML (>5.4); VITAMIN B12 LEVEL 228 PG/ML (247-911)
== END ==
LOC: M SFHCPLAZ 11:36
PROVIDERS: ATTEND Family Medicine
DX: Z98.84 Bariatric surgery status (principal); R73.03 Prediabetes; Z79.899 Other long term (current) drug therapy
CPT/HCPCS: 36415; 80048; 80061; 82306; 82607; 82728; 82746; 83036; 84425; 85025; 90471; 90732; G0402

== ENCOUNTER → 2019-09-06 | Outpatient (CLI) | payer MEDICARE, OTHER ==
[~2019-09-06] MED LIST changes: -AMBI5TAB PO; -SERO1TAB PO
== END ==
LOC: M LAB 13:32
PROVIDERS: ATTEND Student in an Organized Health Care Education/Training Program
DX: M25.561 Pain in right knee (principal)

== ENCOUNTER → 2019-09-06 | Outpatient (CLI) | payer MEDICARE, OTHER ==
[~2019-09-06] MED LIST changes: +AMBI5TAB PO; +SERO1TAB PO
--- NOTE | 2019-09-06 14:35 | REPMRS ---
Patient History Family history of breast cancer at age 40 in maternal aunt, ovarian cancer at age 50 or over in maternal grandmother. Benign stereotatic loc for ea lesion of the right breast, July 03, 2018. Digital Mammo Diagnostic Bilateral: September 06, 2019 - Exam #: [id number] Bilateral CC and MLO view(s) were taken. Technologist: Margoth Sanchez, Technologist Prior study comparison: June 20, 2018, right breast digital mammo diagnostic unilateral performed at [facility]. June 14, 2018, bilateral digital woman screen mammo, performed at [facility]. FINDINGS: There are scattered fibroglandular densities. There is a needle biopsy marker clip in the right breast upper outer quadrant. The asymmetric nodule which was previously biopsied is no longer apparent. There is a moderate amount of residual fibroglandular tissue which is fairly symmetric. There is no interval development of dominant mass, architectural distortion, or grouped microcalcification typical of malignancy. There has been no change in the appearance of the mammogram from the prior studies. 3-D tomosynthesis shows no additional findings. Assessment: BI-RADS/ACR category 1 mammogram. Negative Mammogram. Recommendation Routine screening mammogram of both breasts in 1 year (for women over age 40). This patient's Lifetime Breast Cancer RIsk is estimated at 12.6 %. This mammogram was interpreted with the aid of an FDA-approved computer-aided dectection system. Electronically Signed By: Sla Laguerre MD 09/06/19 [id number]
== END ==
LOC: M RAD 13:49
PROVIDERS: ATTEND Student in an Organized Health Care Education/Training Program
DX: R92.8 Other abnormal and inconclusive findings on diagnostic imaging of breast (principal); Z80.3 Family history of malignant neoplasm of breast
CPT/HCPCS: 77066; G0279

== ENCOUNTER → 2019-09-30 | Outpatient (CLI) | payer MEDICARE, OTHER | LOC: M WHC 13:28 | PROVIDERS: ATTEND Nurse Practitioner Family | DX: Z12.31 Encounter for screening mammogram for malignant neoplasm of breast (principal); Z53.8 Procedure and treatment not carried out for other reasons ==

== ENCOUNTER 2019-10-01 10:19 | Day surgery (SDC) | payer MEDICARE, OTHER ==
[~2019-10-01] VITALS: Ht 172.7 cm; Wt 103.8 kg
[~2019-10-01 10:19] MED LIST changes: +LIDOCAINE 2% INJ 100 MG/5 ML SDV (FOR ANES.) As Ordered ONE; +NS 1,000 ML IV ONE; +propofoL 200 MG/20 ML VIAL As Ordered ONE
[2019-10-01] MEDS ORDERED: fentaNYL 100 MCG/2 ML INJECTION (J3010) As Ordered ONE (10:43)
[2019-10-01] MEDS ORDERED: METOPROLOL 5 MG/5 ML VIAL As Ordered ONE (11:38)
[2019-10-01] MEDS ORDERED: LABETALOL HCL 100 MG/20 ML VIAL As Ordered ONE (11:39)
[2019-10-01 12:12] VITALS: BP 122/76
--- NOTE | 2019-10-01 12:17 | ROOR ---
Patient Name: Azalea Kim Procedure Date: 10/01/2019 11:20 AM Date of : 1970 Age: 49 Room: [facility] Gender: Female Note Status: Finalized Procedure: Upper GI endoscopy Indications: Dyspepsia Providers: Momo Garner MD Referring MD: Curtis Coleman Do Requesting Provider: Medicines: Monitored Anesthesia Care Complications: No immediate complications. Procedure: Pre-Anesthesia Assessment: - Prior to the procedure, a History and Physical was performed, and patient medications and allergies were reviewed. The patient is competent. The risks and benefits of the procedure and the sedation options and risks were discussed with the patient. All questions were answered and informed consent was obtained. Patient identification and proposed procedure were verified by the physician, the nurse and the anesthesiologist in the procedure room. Mental Status Examination: alert and oriented. Airway Examination: normal oropharyngeal airway and neck mobility. Respiratory Examination: clear to auscultation. CV Examination: normal. Prophylactic Antibiotics: The patient does not require prophylactic antibiotics. Prior Anticoagulants: The patient has taken no previous anticoagulant or antiplatelet agents. ASA Grade Assessment: III - A patient with severe systemic disease. After reviewing the risks and benefits, the patient was deemed in satisfactory condition to undergo the procedure. The anesthesia plan was to use monitored anesthesia care (MAC). Immediately prior to administration of medications, the patient was re-assessed for adequacy to receive sedatives. The heart rate, respiratory rate, oxygen saturations, blood pressure, adequacy of pulmonary ventilation, and response to care were monitored throughout the procedure. The physical status of the patient was re-assessed after the procedure. The Endoscope was introduced through the mouth, and advanced to the afferent and efferent jejunal loops. The upper GI endoscopy was accomplished without difficulty. The patient tolerated the procedure well. Findings: The Z-line was regular and was found 40 cm from the incisors. A medium-sized hiatal hernia was present. Evidence of a gastric bypass was found. A gastric pouch with a small size was found. The staple line appeared intact. The gastrojejunal anastomosis was characterized by healthy appearing mucosa. This was traversed. The tjkpd-oy-nwwtzjj limb measured 4 cm from the anastomosis and was characterized by healthy appearing mucosa and an intact staple line. The jejunojejunal anastomosis was characterized by healthy appearing mucosa. The elwkyypd-st-dmeqlay limb was examined 40 cm from the anastomosis and was characterized by healthy appearing mucosa. Two biopsies were obtained in the efferent jejunal loop with cold forceps for evaluation of celiac disease. Two biopsies were obtained in the stomach with cold forceps for histology. Normal mucosa was found in the jejunum. Impression: - Z-line regular, 40 cm from the incisors. - Medium-sized hiatal hernia. - Gastric bypass with a small-sized pouch and intact staple line. Gastrojejunal anastomosis characterized by healthy appearing mucosa. - Normal mucosa was found in the jejunum. - Two biopsies were obtained in the efferent jejunal loop. - Two biopsies were obtained in the stomach. Recommendation: - Patient has a contact number available for emergencies. The signs and symptoms of potential delayed complications were discussed with the patient. Return to normal activities tomorrow. Written discharge instructions were provided to the patient. - High fiber diet. - Continue present medications. - Await pathology results. - Follow an antireflux regimen. - Telephone GI clinic for pathology results in 2 weeks. - Return to primary care physician. Momo Garner MD Momo Garner MD 10/01/2019 12:16:38 PM Electronically signed by Momo Garner MD Number of Addenda: 0 Note Initiated On: 10/01/2019 11:20 AM Estimated Blood Loss: Estimated blood loss was minimal.
--- NOTE | 2019-10-01 12:55 | ROOR ---
Patient Name: Azalea Kim Procedure Date: 10/01/2019 11:21 AM Date of : 1970 Age: 49 Room: [facility] Gender: Female Note Status: Finalized Procedure: Colonoscopy Indications: High risk colon cancer surveillance: Personal history of colonic polyps Providers: Momo Garner MD Referring MD: Curtis Coleman Do Requesting Provider: Medicines: Monitored Anesthesia Care Complications: No immediate complications. Procedure: Pre-Anesthesia Assessment: - Prior to the procedure, a History and Physical was performed, and patient medications and allergies were reviewed. The patient is competent. The risks and benefits of the procedure and the sedation options and risks were discussed with the patient. All questions were answered and informed consent was obtained. Patient identification and proposed procedure were verified by the physician, the nurse and the anesthesiologist in the procedure room. Mental Status Examination: alert and oriented. Airway Examination: normal oropharyngeal airway and neck mobility. Respiratory Examination: clear to auscultation. CV Examination: normal. Prophylactic Antibiotics: The patient does not require prophylactic antibiotics. Prior Anticoagulants: The patient has taken no previous anticoagulant or antiplatelet agents. ASA Grade Assessment: III - A patient with severe systemic disease. After reviewing the risks and benefits, the patient was deemed in satisfactory condition to undergo the procedure. The anesthesia plan was to use monitored anesthesia care (MAC). Immediately prior to administration of medications, the patient was re-assessed for adequacy to receive sedatives. The heart rate, respiratory rate, oxygen saturations, blood pressure, adequacy of pulmonary ventilation, and response to care were monitored throughout the procedure. The physical status of the patient was re-assessed after the procedure. The Colonoscope was introduced through the anus and advanced to the terminal ileum, with identification of the appendiceal orifice and IC valve. The colonoscopy was performed without difficulty. The patient tolerated the procedure well. The quality of the bowel preparation was fair. The terminal ileum, ileocecal valve, appendiceal orifice, and rectum were photographed. Scope insertion time was 6 minutes. Scope withdrawal time was 12 minutes. The total duration of the procedure was 18 minutes. Findings: The perianal and digital rectal examinations were normal. The terminal ileum appeared normal. Three sessile polyps were found in the transverse colon. The polyps were 3 to 4 mm in size. These polyps were removed with a cold biopsy forceps. Resection and retrieval were complete. Verification of patient identification for the specimen was done by the physician and nurse using the patient's name, date and medical record number. Estimated blood loss was minimal. A large amount of semi-liquid semi-solid stool was found from rectum to ileocecal valve, interfering with visualization. Lavage of the area was performed using a large amount of sterile water, resulting in clearance with fair visualization. Non-bleeding external and internal hemorrhoids were found during retroflexion. The hemorrhoids were medium-sized. Impression: - Preparation of the colon was fair. - The examined portion of the ileum was normal. - Three 3 to 4 mm polyps in the transverse colon, removed with a cold biopsy forceps. Resected and retrieved. - Stool from rectum to ileocecal valve. - Non-bleeding external and internal hemorrhoids. Recommendation: - Patient has a contact number available for emergencies. The signs and symptoms of potential delayed complications were discussed with the patient. Return to normal activities tomorrow. Written discharge instructions were provided to the patient. - High fiber diet. - Continue present medications. - Await pathology results. - Repeat colonoscopy in 3 years because the bowel preparation was suboptimal and for surveillance based on pathology results. - Telephone GI clinic for pathology results in 2 weeks. - Return to primary care physician. Momo Garner MD Momo Garner MD 10/01/2019 12:54:39 PM Electronically signed by Momo Garner MD Number of Addenda: 0 Note Initiated On: 10/01/2019 11:21 AM Estimated Blood Loss: Estimated blood loss: none.
== END 2019-10-01 12:52 | disposition home or self-care (01) ==
LOC: M OPP 10:19
PROVIDERS: ATTEND Internal Medicine Gastroenterology
DX: K64.8 Other hemorrhoids (principal); D12.3 Benign neoplasm of transverse colon; Z86.010 Personal history of colon polyps; Z09 Encounter for follow-up examination after completed treatment for conditions other than malignant neoplasm; K44.9 Diaphragmatic hernia without obstruction or gangrene; Z98.84 Bariatric surgery status; R10.13 Epigastric pain; G47.30 Sleep apnea, unspecified; Z79.899 Other long term (current) drug therapy; Z88.0 Allergy status to penicillin; Z87.891 Personal history of nicotine dependence; Z86.74 Personal history of sudden cardiac arrest; Z95.5 Presence of coronary angioplasty implant and graft
CPT/HCPCS: 43239; 45380; 88305; J3010

== ENCOUNTER → 2019-10-14 | Outpatient (REF) | payer MEDICARE, OTHER, MEDICAID ==
[~2019-10-14] MED LIST changes: -LIDOCAINE 2% INJ 100 MG/5 ML SDV (FOR ANES.) As Ordered ONE; -NS 1,000 ML IV ONE; -propofoL 200 MG/20 ML VIAL As Ordered ONE
== END ==
LOC: M SMT 16:56
PROVIDERS: ATTEND Urology
DX: R31.0 Gross hematuria (principal)

== ENCOUNTER → 2019-10-17 | Outpatient (CLI) | payer MEDICARE, OTHER ==
--- NOTE | 2019-10-17 13:46 | REP ---
THREE-PHASE BONE SCAN OF THE KNEES: HISTORY: Pain in the right knee. Right knee replacement August 09, 2018. Comparison study is from April 26, 2019. TECHNIQUE: 21.4 mCi technetium 99m MDP is injected and standard three-phase imaging was acquired. SCINTIGRAPHIC FINDINGS: Anterior and posterior flow study shows a subtle asymmetry increased soft tissue uptake about the right knee on early post injection images. Blood pool phase images demonstrate mild regional hyperemia about the right knee as well. These findings are unchanged from the May 10, 2019 prior study. There is interface uptake at the prosthesis [place] bone interface in the distal femur proximal tibia and patella on the right side essentially unchanged from the comparison scintigraphy. There is arthritic uptake in the patellofemoral compartment and to a lesser extent the medial compartment of the left knee as well. This is also unchanged. IMPRESSION: Findings unchanged from April 26, 2019. There is a prosthesis/[place] bone interface uptake and some mild hyperemia persisting on the right essentially unchanged. Arthritic uptake is seen at the left knee. Electronically Signed by Hung Laguerre MD 10/17/2019 02:34 P
== END ==
LOC: M RAD 09:37
PROVIDERS: ATTEND Physician Assistant
DX: M25.561 Pain in right knee (principal)
CPT/HCPCS: 78315; A9503

== ENCOUNTER → 2019-11-04 | Outpatient (REF) | payer MEDICARE, MEDICAID ==
[2019-11-04 18:05] LABS: BASO % 0.2 % (0.0-1.0); EOS # 0.1 10^3/uL (0.0-0.5); HEMATOCRIT 40.5 % (36.0-47.0); HEMOGLOBIN 12.8 g/dl (12.0-15.5); LYMPH # 1.7 10^3/uL (1.5-5.0); LYMPH % 33.9 % (24.0-44.0); MEAN CORPUSCULAR HEMOGLOBIN 27.8 pg (27.0-33.0); MEAN CORPUSCULAR HGB CONC 31.6 g/dl (32.0-36.5); MONO # 0.4 10^3/uL (0.0-0.8); NEUTROPHILS # 2.9 10^3/uL (1.5-8.5); NEUTROPHILS % 56.5 % (36.0-66.0); PLATELET COUNT, AUTOMATED 276 10^3/uL (150-450); WHITE BLOOD COUNT 5.1 10^3/uL (4.0-10.0)
[2019-11-04 18:33] LABS: C REACTIVE PROTEIN QUANTITATIV < 0.30 MG/DL (0.00-0.30); RHEUMATOID FACTOR QUANT < 10.0 IU/ML (<15.0); URIC ACID 5.2 MG/DL (2.6-6.0)
[2019-11-06 14:07] LABS: ANTINUCLEAR ANTIBODIES DIRECT Negative (Negative); Lyme Disease IgG/IgM Antibodie <0.91 ISR (0.00-0.90); Lyme Disease IgM Ab Quantitati <0.80 index (0.00-0.79)
== END ==
LOC: M LABDRAW1 15:53
PROVIDERS: ATTEND Physician Assistant
DX: Z96.651 Presence of right artificial knee joint (principal)
CPT/HCPCS: 36415; 84550; 85025; 86038; 86140; 86431; 86617; G0463

== ENCOUNTER 2020-02-17 17:37 | Observation (INO) | payer MEDICARE, MEDICAID ==
[~2020-02-17] VITALS: Ht 172.7 cm; Wt 105.6 kg
[~2020-02-17 17:37] MED LIST changes: +AMLO1TAB24 PO; -AMLO5TAB6 PO; -ASPI81TA85 PO; +ASPI81TA86 PO; +CYCL-707 PO; -CYCL10TA PO
[2020-02-17] MEDS ORDERED: PREG100C (17:54)
[2020-02-17] MEDS ORDERED: LINZ145C (17:54)
[2020-02-17] MEDS ORDERED: VENL-115 (17:54)
[2020-02-17 18:12] LABS: VENOUS BASE EXCESS 0.5 (-2.0-2.0); VENOUS HCO3 27.4 MEQ/L (23.0-27.0); VENOUS O2 SATURATION 71.2 % (60.0-80.0); VENOUS PARTIAL PRESSURE CO2 53.1 mmHg (38.0-50.0); VENOUS PARTIAL PRESSURE O2 39.2 mmHg (30.0-50.0); VENOUS STANDARD HCO3 24.3 MEQ/L
[2020-02-17 18:22] LABS: BASO % 0.1 % (0.0-1.0); EOS # 0.1 10^3/uL (0.0-0.5); EOS % 0.7 % (0.0-3.0); HEMATOCRIT 41.6 % (36.0-47.0); HEMOGLOBIN 13.3 g/dl (12.0-15.5); LYMPH # 1.8 10^3/uL (1.5-5.0); LYMPH % 25.6 % (24.0-44.0); MEAN CORPUSCULAR HEMOGLOBIN 27.8 pg (27.0-33.0); MEAN CORPUSCULAR VOLUME 86.8 fl (80.0-96.0); MONO # 0.6 10^3/uL (0.0-0.8); NEUTROPHILS # 4.6 10^3/uL (1.5-8.5); PLATELET COUNT, AUTOMATED 276 10^3/uL (150-450); RED BLOOD COUNT 4.79 10^6/uL (4.00-5.40); WHITE BLOOD COUNT 7.1 10^3/uL (4.0-10.0)
--- NOTE | 2020-02-17 18:45 | REP ---
Clinical: Syncope/near-syncopal episode . Comparison: 10/24/2018 . Findings: The mediastinum and cardiac silhouette are stable and within normal limits for portable technique. The lung varghese are clear without acute consolidation, effusion, or pneumothorax. Skeletal structures are intact. Impression: No acute cardiopulmonary process appreciated. Electronically Signed by Sylvester Sin MD 02/17/2020 06:36 P
[2020-02-17 18:54] LABS: ALBUMIN 3.5 GM/DL (3.2-5.2); ALT/SGPT 33 U/L (12-78); BILIRUBIN,DIRECT < 0.1 MG/DL (0.0-0.2); BILIRUBIN,TOTAL < 0.1 MG/DL (0.2-1.0); BLOOD UREA NITROGEN 22 MG/DL (7-18); CALCIUM LEVEL 8.9 MG/DL (8.5-10.1); CARBON DIOXIDE LEVEL 29 MEQ/L (21-32); CHLORIDE LEVEL 106 MEQ/L (98-107); CREATININE FOR GFR 0.99 MG/DL (0.55-1.30); FREE T4 0.79 NG/DL (0.76-1.46); GLOMERULAR FILTRATION RATE > 60.0 (>51); GLUCOSE, FASTING 82 MG/DL (70-100); LIPASE 238 U/L (73-393); MAGNESIUM LEVEL 2.2 MG/DL (1.8-2.4); POTASSIUM SERUM 3.7 MEQ/L (3.5-5.1); SODIUM LEVEL 140 MEQ/L (136-145); THYROID STIMULATING HORMONE 0.627 uIU/ML (0.358-3.740)
--- NOTE | 2020-02-17 19:05 | REPVR ---
PROCEDURE INFORMATION: Exam: CT Cervical Spine Without Contrast Exam date and time: 02/17/2020 6:41 PM Age: 49 years old Clinical indication: Injury or trauma; Fall; Initial encounter; Blunt trauma; Additional info: Fall, loc TECHNIQUE: Imaging protocol: Computed tomography images of the cervical spine without contrast. Radiation optimization: All CT scans at this facility use at least one of these dose optimization techniques: automated exposure control; mA and/or kV adjustment per patient size (includes targeted exams where dose is matched to clinical indication); or iterative reconstruction. COMPARISON: MRI-Spine,Cervical without con 12/21/2016 2:23 PM FINDINGS: Vertebrae: Mild upper cervical levoconvex scoliosis and lower cervical dextroconvex scoliosis. No acute fracture seen. Discs/Spinal canal/Neural foramina: No significant disc height loss. There is prevertebral spondylosis at C5-C6 and C6-C7. Soft tissues: Unremarkable. Lungs: Lung apices are normal. IMPRESSION: No cervical spine fracture seen. Electronically signed by: Leah Villegas On 02/17/2020 19:05:09 PM
--- NOTE | 2020-02-17 19:15 | REPVR ---
PROCEDURE INFORMATION: Exam: CT Head Without Contrast Exam date and time: 02/17/2020 6:41 PM Age: 49 years old Clinical indication: Injury or trauma; Fall; Initial encounter; Blunt trauma (contusions or hematomas); With loss of consciousness; Not specified; Additional info: Fall, loc TECHNIQUE: Imaging protocol: Computed tomography of the head without contrast. Radiation optimization: All CT scans at this facility use at least one of these dose optimization techniques: automated exposure control; mA and/or kV adjustment per patient size (includes targeted exams where dose is matched to clinical indication); or iterative reconstruction. COMPARISON: CT Head without contrast 08/16/2018 4:30 PM FINDINGS: Brain: No hemorrhage. Unremarkable white matter for the patient's age. No mass effect. No evolving territorial infarct. Ventricles: No ventriculomegaly. Bones/joints: No acute calvarial fracture seen. Sinuses: Visualized sinuses are unremarkable. No fluid levels. Mastoid air cells: Visualized mastoid air cells are well aerated. Soft tissues: Unremarkable. IMPRESSION: No acute intracranial abnormality seen. Electronically signed by: Leah Villegas On 02/17/2020 19:15:03 PM
[2020-02-17] MEDS ORDERED: NS 1,000 ML IV ONE (20:15)
[2020-02-17] MEDS ORDERED: HYDR25TAB PO (22:22)
[2020-02-17] MEDS ORDERED: TRAZ-257 PO (22:22)
[2020-02-17] MEDS ORDERED: AZEL0.055 (22:22)
[2020-02-17] MEDS ORDERED: VENL-115 PO (22:22)
[2020-02-17] MEDS ORDERED: QUET5TAB PO (22:22)
[2020-02-17] MEDS ORDERED: LOSA50TA88 PO (22:22)
[2020-02-17] MEDS ORDERED: PREG100CA PO (22:22)
[2020-02-17] MEDS ORDERED: LINZ145C PO (22:22)
[2020-02-17] MEDS ORDERED: VITA50005 PO (22:24)
[2020-02-17] MEDS ORDERED: ASPI81CH33 PO (22:24)
[2020-02-17] MEDS ORDERED: TYLETAB14 PO (22:24)
[2020-02-17] MEDS ORDERED: ONDA4TAB6 PO (22:24)
[2020-02-17] MEDS ORDERED: ACETAMINOPH W/CODEINE #3 TAB UD PO PRN (23:45)
[2020-02-17] MEDS ORDERED: ONDANSETRON 4 MG ORAL DISINTEGRATING TAB PO PRN (23:45)
[2020-02-17] MEDS ORDERED: zolPIDEM TARTRATE 5 MG TAB PO PRN (23:45)
--- NOTE | 2020-02-17 23:55 | HPEPDOC ---
General Date of Admission Feb 17, 2020 at 23:25 Date of Service: Feb 17, 2020 Chief Complaint The patient is a 49-year-old female admitted with a reason for visit of Syncope. Source: Patient Exam Limitations: No limitations Severity: Mild Associated Symptoms: Syncope History of Present Illness Patient is 49 years old female with past medical history of depression, IBS, ID status post 4 stents placement in 2014, obstructive sleep apnea presented hospital after syncope. Patient stated that in the morning she stood up from the bed and she developed lightheadedness and fell down. Patient stated that for st 3 days she has been having diarrhea up to 5 episodes. Patient denied any seizure-like activities, urinary or fecal incontinence. Later, when patient stood up from the chair she developed another syncope. Patient stated that is not unusual for her to have syncope, she has been having multiple syncope in the past when she stood up. In ER patient was found to have positive orthostatic vital signs, EKG showed normal sinus rhythm, troponin 0.05, second 0.04. Imaging study was negative for acute bleeding or fractures Home Medications Scheduled Aspirin (Aspirin) 81 Mg Tab.chew, 81 MG PO DAILY, (Reported) Atorvastatin Calcium (Atorvastatin Calcium) 80 Mg Tab, 80 MG PO QHS, (Reported) Calcium Carbonate/Vitamin D3 (Calcium 600-Vit D3 200 Tablet) 1 Tab Tab, 1 TAB PO BID, (Reported) Carvedilol (Carvedilol) 12.5 Mg Tab, 12.5 MG PO BID, (Reported) Cyanocobalamin (Vitamin B-12) (Vitamin B-12) 1,000 Mcg Tab, 1,000 MCG PO DAILY, (Reported) Ergocalciferol (Vitamin D2) (Vitamin D2) 50,000 Units Cap, 50,000 UNITS PO 1XWK, (Reported) MONDAY Hydrochlorothiazide (Hydrochlorothiazide) 25 Mg Tablet, 12.5 MG PO DAILY, (Reported) Linaclotide (Linzess) 145 Mcg Capsule, 145 MCG PO DAILY, (Reported) Losartan Potassium (Losartan Potassium) 50 Mg Tablet, 25 MG PO QHS, (Reported) Paroxetine HCl (Paroxetine) 40 Mg Tab, 40 MG PO DAILY, (Reported) Pregabalin (Lyrica) 100 Mg Capsule, 100 MG PO BID, (Reported) Quetiapine Fumarate (Quetiapine Fumarate) 50 Mg Tablet, 50 MG PO QHS, (Reported) Trazodone HCl (Trazodone HCl) 100 Mg Tablet, 100 MG PO QHS, (Reported) Venlafaxine HCl (Venlafaxine HCl ER) 75 Mg Tab.er.24, 225 MG PO DAILY, (Re ported) Scheduled PRN Acetaminophen with Codeine (Tylenol with Codeine #3 Tablet) 1 Each Tablet, 1 TAB PO QHS PRN for PAIN, (Reported) Azelastine HCl (Azelastine HCl) 0.15% [place].pump, 1 SPRAY NA BID PRN for NASAL CONGESTION, (Reported) Loratadine/Pseudoephedrine (Claritin-D 24 Hour Tablet) 1 Tab Tab, 1 TAB PO DAILY PRN for NASAL CONGESTION, (Reported) Ondansetron (Ondansetron Odt) 4 Mg Tab.rapdis, 4 MG PO DAILY PRN for NAUSEA, (Reported) Zolpidem Tartrate (Ambien) 5 Mg Tablet, 5 MG PO QHS PRN for SLEEP, (Reported) Allergies Coded Allergies: Penicillins (Verified Allergy, Intermediate, RASH, 06/17/19) citalopram (Verified Allergy, Intermediate, NAUSEA AND RASH, 06/17/19) Past Medical History Medical History CAD S/P 4 STENTS NISHA, USING CPAP HTN GOAL OF 130/90 PREDIABETES GASTRIC BYPASS 2018 KNEE REPLACEMENT RIGHT 2018 C. DIFF TREATED WITH VANCO 2019 DEPRESSION Surgical History APPENDECTOMY 1985 C SECTION X 2 1986, 1994 PATIAL HYSTERECTOMY 2002 RIGHT KNEE SURGERY, LASER TO REMOVE CARTILAGE 2009 CORONARY STENTS X 4 2014 COLONOSCOPY 12/2017 TOTAL RIGHT KNEE 07/26/2018 CYSTO 10/14/19 Family History FATHER: , DIAGNOSED WITH UNSPECIFIED HEART DISEASE MOTHER: , LUNG CANCER AND BRAIN SON(S): ALIVE, ONE SON HTN MATERNAL GRAND MOTHER: OVARIAN CANCER AGE 77 MATERNAL AUNT: STROKE, BREAST CANCER AT AGE 40 WITH RECURRENCE AGE 67 2 SON(S) - HEALTHY. MATERNAL GREAT AUNTS SEVERAL BREAST CANCER AND MOTHERS COUSINS ALSO, NO KNOWN FAMILY UROLOGICAL HISTORY. Social History * Smoker: former Smoker Alcohol: occationally Drugs: denies A-FIB/CHADSVASC A-FIB History Current/History of A-Fib/PAF?: No Current PO Anticoag Therapy: No Review of Systems Constitutional: Denies: Chills, Fever Eyes: Denies: Pain, Vision change ENT: Denies: Head Aches Skin: Denies: Rash Pulmonary: Denies: Dyspnea, Cough Cardiovascular: Denies: Chest Pain Gastrointestinal: Denies: Nausea, Vomiting Genitourinary: Denies: Dysuria, Frequency Hematologic: Denies: Bruising Endocrine: Denies: Polydipsia Musculoskeletal: Denies: Neck Pain Neurological: Denies: Weakness Psych: Reports: Mood Normal Physical Examination General Exam: Positive: Alert, Cooperative Eye Exam: Positive: PERRLA ENT Exam: Positive: Atraumatic Neck Exam: Positive: Supple; Negative: JVD Chest Exam: Positive: Clear to auscultation Telemetry: Positive: No significant arrhythmia Abdomen Exam: Positive: Normal bowel sounds Extremity Exam: Negative: Clubbing, Cyanosis Skin Exam: Positive: Nl turgor and temperature Neuro Exam: Positive: Strength at 5/5 X4 ext, Cranial Nerves 3-12 NL Psych Exam: Positive: Mental status NL Vital Signs Vital Signs Date Time Temp Pulse Resp B/P (MAP) Pulse Ox O2 Delivery O2 Flow Rate FiO2 02/17/20 23:27 98.4 67 18 126/75 (92) 98 02/17/20 21:23 Room Air Laboratory Data Labs 24H Laboratory Tests 2 02/17/20 18:04: Bedside Glucose (Misc Panel) 89 02/17/20 18:06: Immature Granulocyte % (Auto) 0.6, Neutrophils (%) (Auto) 65.0, Lymphocytes (%) (Auto) 25.6, Monocytes (%) (Auto) 8.0H, Eosinophils (%) (Auto) 0.7, Basophils (%) (Auto) 0.1, Neutrophils # (Auto) 4.6, Lymphocytes # (Auto) 1.8, Monocytes # (Auto) 0.6, Eosinophils # (Auto) 0.1, Basophils # (Auto) 0.0, Nucleated Red Blood Cells % (auto) 0.0, Blood Gas Bicarbonate Standard 24.3, Venous Blood pH 7.330, Venous Blood Partial Pressure CO2 53.1H, Venous Blood Partial Pressure O2 39.2, Venous Blood Total Carbon Dioxide 29.0H, Venous Blood HCO3 27.4H, Venous Blood Oxygen Saturation 71.2, Venous Blood Base Excess 0.5, Anion Gap 5L, Glomerular Filtration Rate > 60.0, Calcium Level 8.9, Magnesium Level 2.2, Total Bilirubin < 0.1L, Direct Bilirubin < 0.1, Aspartate Amino Transf (AST/SGOT) 23, Alanine Aminotransferase (ALT/SGPT) 33, Alkaline Phosphatase 76, Total Protein 7.0, Albumin 3.5, Albumin/Globulin Ratio 1.0L, Lipase 238, Thyroid Stimulating Hormone (TSH) 0.627, Free Thyroxine 0.79 02/17/20 18:13: POC Troponin I (Misc) 0.05 02/17/20 21:06: POC Troponin I (Misc) 0.04 CBC/BMP Laboratory Tests 02/17/20 18:06 Assessment/Plan Patient is 49 years old female with past medical history of depression, IBS, ID status post 4 stents placement in 2015, obstructive sleep apnea presented hospital after syncope. Patient stated that in the morning she stood up from the bed and she developed lightheadedness and fell down. Patient stated that for past 3 days she has been having diarrhea up to 5 episodes. Patient denied any seizure-like activities, urinary or fecal incontinence. Later, when patient sto od up from the chair she developed another syncope. Patient stated that is not unusual for her to have syncope, she has been having multiple syncope in the past when she stood up. In ER patient was found to have positive orthostatic vital signs, EKG showed normal sinus rhythm, troponin 0.05, second 0.04. Imaging study was negative for acute bleeding or fractures Problems (1) Syncope Status: Acute Problem Text: Most likely due to orthostatic hypotension secondary to dehydration IV fluid Patient has mildly elevated troponin, we'll proceed with echo Patient denied any chest pain EKG did not show any acute ischemic changes (2) Diarrhea Status: Acute Problem Text: Patient was diagnosed with IBS However she had a history of C diff We'll check for C.diff Infection Plan / VTE VTE Prophylaxis Ordered?: Yes BOOGIE ESPINOZA DO Feb 17, 2020 23:55
[2020-02-18] MEDS: CARVedilol 12.5 MG TAB PO SCH ×3 (01:19→20:45)
[2020-02-18] MEDS: ATORVASTATIN 20 MG TAB PO SCH ×2 (01:19→20:44)
[2020-02-18] MEDS: QUEtiapine FUMARATE 50 MG TAB PO SCH ×2 (01:19→20:44)
[2020-02-18] MEDS: traZODone 100 MG TAB PO SCH ×2 (01:19→20:44)
[2020-02-18] MEDS: PREGABALIN 100 MG CAP (LYRICA) PO SCH ×3 (01:19→20:44)
[2020-02-18] MEDS: LOSARTAN 50MG TABLET PO SCH ×2 (01:19→20:46)
[2020-02-18] MEDS: NS 1,000 ML IV SCH ×3 (01:20→17:51)
[2020-02-18 04:00] VITALS: BP 122/70
[2020-02-18 05:51] LABS: HEMATOCRIT 39.6 % (36.0-47.0); HEMOGLOBIN 12.3 g/dl (12.0-15.5); MEAN CORPUSCULAR HEMOGLOBIN 27.2 pg (27.0-33.0); MEAN CORPUSCULAR HGB CONC 31.1 g/dl (32.0-36.5); MEAN CORPUSCULAR VOLUME 87.6 fl (80.0-96.0); PLATELET COUNT, AUTOMATED 228 10^3/uL (150-450); RED BLOOD COUNT 4.52 10^6/uL (4.00-5.40); WHITE BLOOD COUNT 5.4 10^3/uL (4.0-10.0)
[2020-02-18 06:00] VITALS: BP 121/76
[2020-02-18 06:18] LABS: BLOOD UREA NITROGEN 13 MG/DL (7-18); CARBON DIOXIDE LEVEL 32 MEQ/L (21-32); CHLORIDE LEVEL 112 MEQ/L (98-107); CREATININE FOR GFR 0.73 MG/DL (0.55-1.30); GLOMERULAR FILTRATION RATE > 60.0 (>51); GLUCOSE, FASTING 91 MG/DL (70-100); MAGNESIUM LEVEL 2.1 MG/DL (1.8-2.4); POTASSIUM SERUM 3.7 MEQ/L (3.5-5.1); SODIUM LEVEL 147 MEQ/L (136-145)
[2020-02-18] MEDS: ASPIRIN 81 MG CHEW TABLET PO SCH (08:53)
[2020-02-18] MEDS: HEPARIN SOD (PORCINE) 5000UNITS/ML 1ML VIAL/SYRINGE SC SCH ×2 (08:53→20:44)
[2020-02-18] MEDS: CYANOCOBALAMIN 500 MCG TAB PO SCH (08:54)
[2020-02-18] MEDS: ACETAMINOPHEN TAB 650MG DOSE (2X325MG) PO PRN ×2 (09:14→18:35)
--- NOTE | 2020-02-18 09:55 | REP ---
Clinical: Syncope . Technique: Shafer scale and color Doppler evaluation using linear high frequency transducer Findings: Two-dimensional shafer scale and color images demonstrate minimal atheromatous plaquing with laminar flow and no appreciable narrowing. Color Doppler interrogation demonstrates normal arterial wave patterns and velocities with no significant spectral broadening. Normal flow direction is appreciated in the bilateral vertebral arteries. RIGHT (cm/s) LEFT (cm/s) ICA peak systolic velocity 59.3 59.7 ICA diastolic velocity 18.4 20.6 ECA peak systolic velocity 99.3 89.4 CCA peak systolic velocity 122.2 114.2 ICA/CCA ratio 0.49 0.52 Impression: No hemodynamically significant areas of narrowing or stenosis appreciated. Based on set standards narrowing falls within the less than 50% range. Electronically Signed by Sylvester Sin MD 02/18/2020 09:46 A
[2020-02-18 14:00] VITALS: BP 131/70
--- NOTE | 2020-02-18 16:18 | ECGEPIP ---
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
--- NOTE | 2020-02-18 16:20 | ECGEPIP ---
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
--- NOTE | 2020-02-18 18:25 | ECHO ---
DATE OF PROCEDURE: 02/18/2020 Date of : 1970 Age: 49 Gender: Female Height: 68 inches Weight: 231 pounds Body surface area: 2.18 meters squared Inpatient: [address] [place] [address], room 4205 REFERRING PHYSICIAN: Shakir Forde DO INDICATION: Syncope. MEASUREMENTS: 2D Measurements: RV: 3.8 cm LV: 3.6 cm Septum: 1.2 cm Posterior wall: 1.2 cm Aortic root: 3.4 cm LA: 4.0 cm LVEF: 65% Doppler Measurements: AV: 1.45 meters per second LVOT: 1.02 meters per second LVOT diameter: 2.0 cm MV-E: 87, A: 72, EA ratio: 1.2 Early mitral deceleration time: 208 milliseconds E prime medial: 6.5, A prime medial: 5, E prime lateral: 8.9 Average E/E prime ratio: 11.3/PCWP 15.9 mmHg PV: 0.8 Pulmonary artery acceleration time: 120 milliseconds RVSP: 30 mmHg IVC: 2.4 cm COMMENTS: Sinus bradycardia without intraventricular conduction disturbance. Somewhat challenging study in light of the patient's body habitus but diagnostically useful information was still obtained. M-mode and two-dimensional echocardiography was performed with pulsed, continuous wave, and color flow Doppler studies. Borderline concentric left ventricular hypertrophy with normal wall motion. Borderline left atrial enlargement with grade 2 left ventricular (LV) diastolic dysfunction but currently normal estimated mean left atrial pressure. Normal right heart chamber sizes and motion with Doppler evidence of borderline pulmonary hypertension. Mildly dilated inferior vena cava with adequate respiratory collapse in keeping with central venous pressure of 5-10 mmHg. Normal aortic diameters. Moderate aortic valvular sclerosis without LV outflow tract obstruction and no more than trace insufficiency. Normal appearing mitral valvular apparatus and leaflet excursion with no posterior systolic buckling but mild mitral insufficiency. Normal appearing tricuspid valve with very mild insufficiency. No apparent intracardiac mass or pericardial effusion. Left pleural effusion.
--- NOTE | 2020-02-18 18:30 | IPNPDOC ---
Date Seen The patient was seen on 02/18/20. Progress Note SUBJECTIVE: No syncopal episodes overnight. Diarrhea on 02/17/20; however, abdominal pain and diarrhea area normal for her with IBS. Not suspicious of c. diff at this time. No diarrhea today. Some chest discomfort, likely heartburn, after eating breakfast this AM. Echo and carotid US pending today. Denies shortness of breath, fevers, chills. OBJECTIVE: VITAL SIGNS: Please see below PHYSICAL EXAMINATION: CONSTITUTIONAL: No acute distress, resting comfortably, AAO x 3 EYES: PERRLA, EOM intact HENT, MOUTH: Normocephalic, atraumatic, moist mucous membranes NECK: SUPPLE, no JVD, no lymphadenopathy, no carotid bruit CV: Regular rate and rhythm, S1S2 normal, no murmurs/rubs/gallops RESPIRATORY: Clear to auscultation bilaterally, no rales/rhonchi/wheezes GI: mild abdominal tenderness diffuse, BS positive in 4 quadrants, soft, nontender, nondistended, no rebound or guarding, no organomegaly : Deferred MUSCULOSKELETAL: Normal ROM. No cyanosis, clubbing, swelling, joint deformity, e xtremity edema INTEGUMENTARY: Intact, no rashes, no lesions, no erythema NEUROLOGIC: Cranial Nerves II-XII are intact, no focal deficits PSYCHIATRIC: Mood and affect are normal CURRENT MEDICATIONS: Please see below LABORATORY DATA: Please see below IMAGING: Echocardiogram pending US carotids: No hemodynamically significant areas of narrowing or stenosis appreciated. Based on set standards narrowing falls within the less than 50% range. ASSESSMENT: 49 y/o F admitted for further evaluation/treatment of syncope. PLAN: 1. Syncope likely 2/2 to orthostatic hypotension due to dehydration -VS stable, f/u orthostats in AM -Echo pending, Carotid US neg above. -Decreased IVFs, monitor for neurological changes -PT/OT. 2. Diarrhea likely 2/2 to IBS. Hx of C. diff; however, WBC wnl, afebrile. -Per patient, diarrhea she had is not new and she has this on and off at home with abdominal pain. Follows with Dr. Garner as o/p. -Not suspicious of c. diff at this time. -None in almost 24 hours. Monitor closely. 3. DVT px. Heparin. DISPOSITION: F/u echocardiogram, PT/OT. Plan is discharge home when medically improved. VS, I&O, 24H, Fishbone Vital Signs/I&O Vital Signs Date Time Temp Pulse Resp B/P (MAP) Pulse Ox O2 Delivery O2 Flow Rate FiO2 02/18/20 14:00 99.3 77 19 131/70 (90) 100 Room Air I&O- Last 24 Hours up to 6 AM 02/18/20 06:00 Intake Total 390 ml Balance 390 ml Laboratory Data 24H LABS Laboratory Tests 2 02/17/20 21:06: POC Troponin I (Misc) 0.04 02/18/20 05:32: Nucleated Red Blood Cells % (auto) 0.0, Anion Gap 3L, Glomerular Filtration Rate > 60.0, Calcium Level 9.0, Magnesium Level 2.1 CBC/BMP Laboratory Tests 02/18/20 05:32 Current Medications Current Medications Medications (Trade) Dose Ordered Sig/Yanni Route PRN Reason Start Time Stop Time Status Last Admin Dose Admin Acetaminophen (Tylenol Tab) 650 mg Q6HP PRN PO PAIN / FEVER 02/18/20 09:00 02/18/20 09:14 Acetaminophen/ Codeine Phosphate (Tylenol/Codeine #3 Tablet) 1 ea QHS PRN PO PAIN 02/17/20 23:45 Aspirin (Aspirin Chewable) 81 mg DAILY PO 02/18/20 09:00 02/18/20 08:53 Atorvastatin Calcium (Lipitor) 80 mg QHS PO 02/17/20 21:00 02/18/20 01:19 Carvedilol (COReg) 12.5 mg BID PO 02/17/20 21:00 02/18/20 08:56 Cyanocobalamin (Vitamin B12) 1,000 mcg DAILY PO 02/18/20 09:00 02/18/20 08:54 Heparin Sodium (Porcine) (Heparin) 5,000 units Q12H SC 02/18/20 09:00 02/18/20 08:53 Home Med (Med Rec Complete!) ASDIRECTED XX 02/17/20 22:30 02/17/20 22:26 DC Losartan Potassium (Cozaar) 25 mg QHS PO 02/17/20 21:00 02/18/20 01:19 Ondansetron HCl (Zofran Odt) 4 mg DAILY PRN PO NAUSEA 02/17/20 23:45 02/18/20 17:56 Pregabalin (Lyrica) 100 mg BID PO 02/17/20 21:00 02/18/20 08:53 Quetiapine Fumarate (SEROquel) 50 mg QHS PO 02/17/20 21:00 02/18/20 01:19 Sodium Chloride 1,000 ml @ 120 mls/hr Q8H20M IV 02/17/20 23:45 02/18/20 17:51 Trazodone HCl (Desyrel) 100 mg QHS PO 02/17/20 21:00 02/18/20 01:19 Zolpidem Tartrate (Ambien) 5 mg QHS PRN PO SLEEP 02/17/20 23:45 Allergies Coded Allergies: Penicillins (Verified Allergy, Intermediate, RASH, 06/17/19) citalopram (Verified Allergy, Intermediate, NAUSEA AND RASH, 06/17/19) Anay Curiel MD Feb 18, 2020 18:30
[2020-02-18 22:00] VITALS: BP 160/80
[2020-02-19 06:00] VITALS: BP 138/72
[2020-02-19 06:12] LABS: ALT/SGPT 23 U/L (12-78); BILIRUBIN,TOTAL 0.6 MG/DL (0.2-1.0); BLOOD UREA NITROGEN 10 MG/DL (7-18); CALCIUM LEVEL 8.9 MG/DL (8.5-10.1); CARBON DIOXIDE LEVEL 28 MEQ/L (21-32); CHLORIDE LEVEL 114 MEQ/L (98-107); GLOMERULAR FILTRATION RATE > 60.0 (>51); GLUCOSE, FASTING 83 MG/DL (70-100); SODIUM LEVEL 145 MEQ/L (136-145); TOTAL PROTEIN 5.8 GM/DL (6.4-8.2)
[2020-02-19] MEDS: PREGABALIN 100 MG CAP (LYRICA) PO SCH (08:22)
[2020-02-19] MEDS: CYANOCOBALAMIN 500 MCG TAB PO SCH (08:22)
[2020-02-19] MEDS: HEPARIN SOD (PORCINE) 5000UNITS/ML 1ML VIAL/SYRINGE SC SCH (08:22)
[2020-02-19] MEDS: NS 1,000 ML IV SCH (08:22)
[2020-02-19] MEDS: ASPIRIN 81 MG CHEW TABLET PO SCH (08:22)
[2020-02-19] MEDS: ACETAMINOPHEN TAB 650MG DOSE (2X325MG) PO PRN (08:23)
[2020-02-19 08:25] VITALS: BP 144/87
[2020-02-19] MEDS: CARVedilol 12.5 MG TAB PO SCH (08:25)
[2020-02-19 09:45] VITALS: BP_SYST 144; BP_SYST 145; BP_DIAS 87; BP_DIAS 91; BP_DIAS 92
[2020-02-19] MEDS ORDERED: FAMO20TA PO (11:38)
--- NOTE | 2020-02-19 17:53 | DS.PDOC ---
Discharge Summary General Date of Admission Feb 17, 2020 at 23:25 Date of Discharge 02/19/20 Attending Physician: Anay Curiel MD Discharge Summary HISTORY OF PRESENT ILLNESS: Patient is 49 years old female with past medical history of depression, IBS, AR status post 4 stents placement in 2014, obstructive sleep apnea presented hospital after syncope. Patient stated that in the morning she stood up from the bed and she developed lightheadedness and fell down. Patient stated that for past 3 days she has been having diarrhea up to 5 episodes. Patient denied any seizure-like activities, urinary or fecal incontinence. Later, when patient stood up from the chair she developed another syncope. Patient stated that is not unusual for her to have syncope, she has been having multiple syncope in the past when she stood up. In ER patient was found to have positive orthostatic vit al signs, EKG showed normal sinus rhythm, troponin 0.05, second 0.04. Imaging study was negative for acute bleeding or fractures HOSPITAL COURSE: No syncopal episodes during her hospital admission. Diarrhea on 02/17/20; however, abdominal pain and diarrhea area normal for her with IBS. Only one epi sode of looser stool documented. Not suspicious of c. diff at. Some chest discomfort, likely heartburn, after eating breakfast this AM. Echo showed EF 65%, small pleural effusion without shortness of breath. Carotid US neg. Patient discharged home on 02/19/20 with diagnosis of syncope 2/2 to vasovagal episode. On discharge she denied shortness of breath, fevers, chills, chest pain, n/v/d. REVIEW OF SYSTEMS: Negative except for what is mentioned above. PAST MEDICAL HISTORY: CAD S/P 4 STENTS NISHA, USING CPAP HTN GOAL OF 130/90 PREDIABETES C. DIFF TREATED WITH VANCO 2019 DEPRESSION PAST SURGICAL HISTORY: GASTRIC BYPASS 2018 APPENDECTOMY 1985 C SECTION X 2 1986, 1994 PATIAL HYSTERECTOMY 2002 RIGHT KNEE SURGERY, LASER TO REMOVE CARTILAGE 2009 CORONARY STENTS X 4 2014 COLONOSCOPY 12/2017 TOTAL RIGHT KNEE 07/26/2018 CYSTO 10/14/19 FAMILY HISTORY: FATHER: , DIAGNOSED WITH UNSPECIFIED HEART DISEASE MOTHER: , LUNG CANCER AND BRAIN SON(S): ALIVE, ONE SON HTN MATERNAL GRAND MOTHER: OVARIAN CANCER AGE 77 MATERNAL AUNT: STROKE, BREAST CANCER AT AGE 40 WITH RECURRENCE AGE 67 SOCIAL HISTORY: Smoker: former Smoker Alcohol: occasionally Drugs: denies ALLERGIES: Please see below. DISCHARGE MEDICATIONS: Please see below. PHYSICAL EXAMINATION: VITAL SIGNS: Please see below CONSTITUTIONAL: No acute distress, resting comfortably, AAO x 3 EYES: PERRLA, EOM intact HENT, MOUTH: Normocephalic, atraumatic, moist mucous membranes NECK: SUPPLE, no JVD, no lymphadenopathy, no carotid bruit CV: Regular rate and rhythm, S1S2 normal, no murmurs/rubs/gallops RESPIRATORY: Clear to auscultation bilaterally, no rales/rhonchi/wheezes GI: mild abdominal tenderness diffuse, BS positive in 4 quadrants, soft, nontender, nondistended, no rebound or guarding, no organomegaly : Deferred MUSCULOSKELETAL: Normal ROM. No cyanosis, clubbing, swelling, joint deformity, extremity edema INTEGUMENTARY: Intact, no rashes, no lesions, no erythema NEUROLOGIC: Cranial Nerves II-XII are intact, no focal deficits PSYCHIATRIC: Mood and affect are normal CURRENT MEDICATIONS: Please see below LABORATORY DATA: Please see below IMAGING: Echocardiogram: EF 65% Sinus bradycardia without intraventricular conduction disturbance. Somewhat challenging study in light of the patient's body habitus but diagnostically useful information was still obtained. M-mode and two-dimensional echocardiography was performed with pulsed, continuous wave, and color flow Doppler studies. Borderline concentric left ventricular hypertrophy with normal wall motion. Borderline left atrial enlargement with grade 2 left ventricular (LV) diastolic dysfunction but currently normal estimated mean left atrial pressure. Normal right heart chamber sizes and motion with Doppler evidence of borderline pulmonary hypertension. Mildly dilated inferior vena cava with adequate respiratory collapse in keeping with central venous pressure of 5-10 mmHg. Normal aortic diameters. Moderate aortic valvular sclerosis without LV outflow tract obstruction and no more than trace insufficiency. Normal appearing mitral valvular apparatus and leaflet excursion with no posterior systolic buckling but mild mitral insufficiency. Normal appearing tricuspid valve with very mild insufficiency. No apparent intracardiac mass or pericardial effusion. Left pleural effusion. US carotids: No hemodynamically significant areas of narrowing or stenosis appreciated. Based on set standards narrowing falls within the less than 50% range. ASSESSMENT: 49 y/o F admitted for evaluation/treatment of syncope. PLAN: 1. Syncope likely 2/2 vasovagal episode -Orthostatics neg this AM -Echo showed EF 65%, Carotid US above -Neuro checks neg -PT/OT cleared patient -F/u with PCP, encourage PO intake of fluids throughout day 2. Diarrhea likely 2/2 to IBS- resolved -Hx of C. diff; however, WBC wnl, afebrile. -One episode loosely formed stool in 24 hours. -Per patient, diarrhea she had is not new and she has this on and off at home with abdominal pain. Follows with Dr. Garner as o/p. -Not suspicious of c. diff DISPOSITION: Discharge home today with f/u with PCP within 1-2 weeks after mayelin kelley. TIME SPENT ON DISCHARGE: Greater than 30 minutes. Vital Signs/I&Os Vital Signs Date Time Temp Pulse Resp B/P (MAP) Pulse Ox O2 Delivery O2 Flow Rate FiO2 02/19/20 09:45 70 145/87 (106) 69 144/91 (108) 68 145/92 (109) 02/19/20 06:00 97.5 18 97 Room Air I&O- Last 24 Hours up to 6 AM 02/19/20 06:00 Intake Total 3980 ml Output Total 950 ml Balance 3030 ml Laboratory Data Labs 24H Laboratory Tests 2 02/19/20 05:07: Anion Gap 3L, Glomerular Filtration Rate > 60.0, Calcium Level 8.9, Total Bilirubin 0.6#, Aspartate Amino Transf (AST/SGOT) 13, Alanine Aminotransferase (ALT/SGPT) 23, Alkaline Phosphatase 53, Total Protein 5.8L, Albumin 3.0L, Albumin/Globulin Ratio 1.1L CBC/BMP Laboratory Tests 02/19/20 05:07 Discharge Medications Scheduled Aspirin (Aspirin) 81 Mg Tab.chew, 81 MG PO DAILY, (Reported) Atorvastatin Calcium (Atorvastatin Calcium) 80 Mg Tab, 80 MG PO QHS, (Reported) Calcium Carbonate/Vitamin D3 (Calcium 600-Vit D3 200 Tablet) 1 Tab Tab, 1 TAB PO BID, (Reported) Carvedilol (Carvedilol) 12.5 Mg Tab, 12.5 MG PO BID, (Reported) Cyanocobalamin (Vitamin B-12) (Vitamin B-12) 1,000 Mcg Tab, 1,000 MCG PO DAILY, (Reported) Ergocalciferol (Vitamin D2) (Vitamin D2) 50,000 Units Cap, 50,000 UNITS PO 1XWK, (Reported) MONDAY Famotidine (Famotidine) 20 Mg Tablet, 20 MG PO DAILY Hydrochlorothiazide (Hydrochlorothiazide) 25 Mg Tablet, 12.5 MG PO DAILY, (Reported) Linaclotide (Linzess) 145 Mcg Capsule, 145 MCG PO DAILY, (Reported) Losartan Potassium (Losartan Potassium) 50 Mg Tablet, 25 MG PO QHS, (Reported) Paroxetine HCl (Paroxetine) 40 Mg Tab, 40 MG PO DAILY, (Reported) Pregabalin (Lyrica) 100 Mg Capsule, 100 MG PO BID, (Reported) Quetiapine Fumarate (Quetiapine Fumarate) 50 Mg Tablet, 50 MG PO QHS, (Reported) Trazodone HCl (Trazodone HCl) 100 Mg Tablet, 100 MG PO QHS, (Reported) Venlafaxine HCl (Venlafaxine HCl ER) 75 Mg Tab.er.24, 225 MG PO DAILY, (Reported) Scheduled PRN Acetaminophen with Codeine (Tylenol with Codeine #3 Tablet) 1 Each Tablet, 1 TAB PO QHS PRN for PAIN, (Reported) Azelastine HCl (Azelastine HCl) 0.15% Norton.pump, 1 SPRAY NA BID PRN for NASAL CONGESTION, (Reported) Loratadine/Pseudoephedrine (Claritin-D 24 Hour Tablet) 1 Tab Tab, 1 TAB PO DAILY PRN for NASAL CONGESTION, (Reported) Ondansetron (Ondansetron Odt) 4 Mg Tab.rapdis, 4 MG PO DAILY PRN for NAUSEA, (Reported) Zolpidem Tartrate (Ambien) 5 Mg Tablet, 5 MG PO QHS PRN for SLEEP, (Reported) Allergies Coded Allergies: Penicillins (Verified Allergy, Intermediate, RASH, 06/17/19) citalopram (Verified Allergy, Intermediate, NAUSEA AND RASH, 06/17/19) Anay Curiel MD Feb 19, 2020 17:53
--- NOTE | 2020-02-20 08:37 | ECGEPIP ---
[facility] Test Date: 2020-02-18 Pat Name: CARLA ANNE Department: Room: [place] [address] Gender: Female Clinical Review Nurse: JUANITA : 1970 Requested By: BOOGIE ESPINOZA Order Number: [id number] Reading MD: Jesús Bryan Measurements Intervals [place] Rate: 60 P: 40 IN: 178 QRS: -11 QRSD: 91 T: 17 QT: 423 QTc: 426 Interpretive Statements SINUS RHYTHM SIMILAR TO 02/17/20 Electronically Signed on 02-20-2020 8:36:59 EDT by Jesús Bryan
== END 2020-02-19 13:50 | disposition home or self-care (01) ==
LOC: M ED 17:37 → M ED INP 23:25 → ENRESERV 02-18 03:16 → M MSPAV 02-18 04:00
PROVIDERS: ADMIT Internal Medicine; ATTEND Internal Medicine
DX: R55 Syncope and collapse (principal); R19.7 Diarrhea, unspecified; J90 Pleural effusion, not elsewhere classified; R07.89 Other chest pain; R74.8 Abnormal levels of other serum enzymes; S06.0X9A Concussion with loss of consciousness of unspecified duration, initial encounter; W18.39XA Other fall on same level, initial encounter; Y92.098 Other place in other non-institutional residence as the place of occurrence of the external cause; F32.9 Major depressive disorder, single episode, unspecified; K58.9 Irritable bowel syndrome, unspecified; I25.2 Old myocardial infarction; G47.33 Obstructive sleep apnea (adult) (pediatric); I11.9 Hypertensive heart disease without heart failure; Z95.5 Presence of coronary angioplasty implant and graft; R73.03 Prediabetes; I25.10 Atherosclerotic heart disease of native coronary artery without angina pectoris; Z86.19 Personal history of other infectious and parasitic diseases; Z98.84 Bariatric surgery status; Z87.891 Personal history of nicotine dependence; Z79.899 Other long term (current) drug therapy; Z79.82 Long term (current) use of aspirin; Z88.0 Allergy status to penicillin; Z88.8 Allergy status to other drugs, medicaments and biological substances; Z96.651 Presence of right artificial knee joint
CPT/HCPCS: 36415; 70450; 71045; 72125; 80048; 80053; 80076; 82803; 83690; 83735; 84439; 84443; 84484; 85025; 85027; 93005; 93041; 93306; 93880; 96360; 96361; 96372; 97116; 97161; 97165; 97530; 99285; G0378; J1644; Q0162

== ENCOUNTER → 2020-04-01 | Outpatient (CLI) | payer MEDICARE, MEDICAID ==
[~2020-04-01] MED LIST changes: +ASPI81CH33 PO; +FAMO20TA PO; +HYDR25TAB PO; +LINZ145C; +LINZ145C PO; +LOSA50TA88 PO; +METO1TAB7 PO; +ONDA4TAB6 PO; +PREG100C; +PREG100CA PO; +QUET5TAB PO; +TRAZ-257 PO; +TYLETAB14 PO; +VENL-115; +VENL-115 PO; +VITA50005 PO
[2020-05-02 11:56] LABS: BASO % 0.6 % (0.0-1.0); EOS # 0.1 10^3/uL (0.0-0.5); EOS % 1.1 % (0.0-3.0); HEMOGLOBIN 12.7 g/dl (12.0-15.5); LYMPH # 2.4 10^3/uL (1.5-5.0); LYMPH % 37.2 % (24.0-44.0); MEAN CORPUSCULAR HEMOGLOBIN 27.7 pg (27.0-33.0); MEAN CORPUSCULAR HGB CONC 31.8 g/dl (32.0-36.5); MEAN CORPUSCULAR VOLUME 87.3 fl (80.0-96.0); MONO # 0.6 10^3/uL (0.0-0.8); MONO % 8.6 % (0.0-5.0); NEUTROPHILS # 3.3 10^3/uL (1.5-8.5); NEUTROPHILS % 52.2 % (36.0-66.0); PLATELET COUNT, AUTOMATED 249 10^3/uL (150-450); RED BLOOD COUNT 4.58 10^6/uL (4.00-5.40); WHITE BLOOD COUNT 6.4 10^3/uL (4.0-10.0)
[2020-05-16 11:51] LABS: ALBUMIN 3.6 GM/DL (3.2-5.2); ALT/SGPT 30 U/L (12-78); BILIRUBIN,TOTAL 0.2 MG/DL (0.2-1.0); BLOOD UREA NITROGEN 17 MG/DL (7-18); CALCIUM LEVEL 9.1 MG/DL (8.5-10.1); CARBON DIOXIDE LEVEL 29 MEQ/L (21-32); CHLORIDE LEVEL 109 MEQ/L (98-107); FERRITIN 216 NG/ML (8-252); GLOMERULAR FILTRATION RATE > 60.0 (>51); GLUCOSE, FASTING 74 MG/DL (70-100); HEMOGLOBIN A1c 5.4 %; IRON (FE) 77 UG/DL (50-170); MAGNESIUM LEVEL 2.2 MG/DL (1.8-2.4); PERCENT SATURATION 27.4 % (13.2-45.0); PHOSPHORUS LEVEL 4.2 MG/DL (2.5-4.9); POTASSIUM SERUM 4.3 MEQ/L (3.5-5.1); SODIUM LEVEL 142 MEQ/L (136-145); TOTAL 25(OH) VITAMIN D 26.4 NG/ML (30.0-100.0); TOTAL IRON BINDING CAPACITY 281 UG/DL (250-450); TOTAL PROTEIN 6.8 GM/DL (6.4-8.2); VITAMIN B12 LEVEL 227 PG/ML (247-911)
== END ==
LOC: M LAB 16:50
PROVIDERS: ATTEND Physician Assistant
DX: K91.2 Postsurgical malabsorption, not elsewhere classified (principal); Z98.84 Bariatric surgery status; E55.9 Vitamin D deficiency, unspecified; Z86.39 Personal history of other endocrine, nutritional and metabolic disease

== ENCOUNTER → 2020-04-01 | Outpatient (CLI) | payer MEDICARE, MEDICAID ==
[2020-05-24 10:21] LABS: HEMATOCRIT 40.6 % (36.0-47.0); HEMOGLOBIN 12.9 g/dl (12.0-15.5); MEAN CORPUSCULAR HEMOGLOBIN 27.8 pg (27.0-33.0); MEAN CORPUSCULAR HGB CONC 31.8 g/dl (32.0-36.5); MEAN CORPUSCULAR VOLUME 87.5 fl (80.0-96.0); PLATELET COUNT, AUTOMATED 255 10^3/uL (150-450); RED BLOOD COUNT 4.64 10^6/uL (4.00-5.40); WHITE BLOOD COUNT 6.2 10^3/uL (4.0-10.0)
[2020-05-24 10:22] LABS: ERYTHROCYTE SEDIMENTATION RATE 11 mm/hr (0-30)
[2020-05-25 11:07] LABS: ANTINUCLEAR ANTIBODIES DIRECT See Separate Report; Lyme Disease IgG/IgM Antibodie See Separate Report
[2020-05-25 11:08] LABS: HLA-B27 SEE SEPARATE REPORT
[2020-05-25 23:54] LABS: C REACTIVE PROTEIN QUANTITATIV < 0.30 MG/DL (0.00-0.30); RHEUMATOID FACTOR QUANT < 10.0 IU/ML (<15.0)
== END ==
LOC: M LAB 16:55
PROVIDERS: ATTEND Physician Assistant Medical
DX: M25.531 Pain in right wrist (principal)

== ENCOUNTER → 2020-04-02 | Outpatient (CLI) | payer MEDICARE, MEDICAID ==
[~2020-04-02] MED LIST changes: +ISOVUE-300 61% 50ML VIAL ONE; +PROHANCE 279.3MG/ML 5ML VIAL ONE
--- NOTE | 2020-05-12 10:12 | REP ---
RIGHT SHOULDER ARTHROGRAM: The procedure was performed under the direct supervision of Dr. Shafer. The benefits and risks, including but not limited to pain, infection, bleeding an anaphylaxis were explained to the patient and informed consent was obtained. PROCEDURE: The right glenohumeral joint space was localized using fluoroscopic guidance. The skin was prepped and draped in a sterile fashion. 1% lidocaine was used as a local anesthetic. Using ultrasound guidance, a 22-gauge spinal needle was inserted and advanced into the joint. 0.5 cc of Isovue 300 was injected to verify placement. 11 cc of a solution containing 20 cc of sterile saline and 0.15 cc of ProHance was injected. The needle was removed and the patient was taken to MRI for post procedural imaging. The patient tolerated the procedure well and there were no immediate complications. Less than 6 seconds of fluoroscopy time was utilized for this procedure. MEGHAN
--- NOTE | 2020-05-12 10:13 | REP ---
MR ARTHROGRAM OF THE RIGHT SHOULDER: HISTORY: Pain. TECHNIQUE: MR arthrography of the right shoulder is performed in multiple planes prior to and following right shoulder arthrogram procedure. FINDINGS: There is scattered ill-defined high signal on T2-weighted images in the supraspinatus and subscapularis tendons compatible with mild to moderate tendinopathy/tendinitis. There does appear to be a partial thickness tear at the anterior leading edge of the supraspinatus tendon. There are mild hypertrophic degenerative changes of the acromioclavicular joint with mild fluid in the joint. The acromion is type 2. The biceps tendon is within the background with no tenosynovitis. There is no Hill-Sachs deformity. The deltoid muscle demonstrates no abnormal signal. There is fraying of the biceps labral complex. There is a diffuse SLAP tear undermining the biceps labral complex. Other portions of the labrum appear intact. Scattered subcortical cystic changes are seen in the humeral head. A very small amount of fluid is seen in the subacromial, subdeltoid bursa. IMPRESSION: Mild to moderate tendinopathy/tendinitis of the supraspinatus and subscapularis tendons. There is a partial thickness tear at the anterior leading edge of the supraspinatus tendon. There are mild hypertrophic degenerative changes of the acromioclavicular joint with a type 2 acromion. There is fraying of the biceps labral complex. There is diffuse SLAP tear which undermines the biceps labral complex. A very small amount of fluid is seen in the subacromial/subdeltoid bursa. Scattered subcortical cystic changes are seen in the humeral head. MTDD
== END ==
LOC: M RADPRO 07:00
PROVIDERS: ATTEND Physician Assistant
DX: R93.7 Abnormal findings on diagnostic imaging of other parts of musculoskeletal system (principal); M75.21 Bicipital tendinitis, right shoulder
CPT/HCPCS: 23350; 73040; 73221; A9576; Q9967

== ENCOUNTER 2020-05-19 12:27 | Outpatient (RCR) | payer MEDICARE, MEDICAID ==
[~2020-05-19 12:27] MED LIST changes: -ISOVUE-300 61% 50ML VIAL ONE; -METO1TAB7 PO; -PROHANCE 279.3MG/ML 5ML VIAL ONE
== END 2020-05-20 ==
LOC: M PT 12:27
PROVIDERS: ATTEND Family Medicine
DX: R42 Dizziness and giddiness (principal)

== ENCOUNTER 2020-05-25 15:20 | Emergency (ER) | payer MEDICARE, MEDICAID ==
[~2020-05-25] VITALS: Ht 172.7 cm; Wt 107.9 kg
--- NOTE | 2020-05-25 16:34 | REPVR ---
PROCEDURE INFORMATION: Exam: XR Chest, 1 View Exam date and time: 05/25/2020 4:22 PM Age: 49 years old Clinical indication: Chest pain TECHNIQUE: Imaging protocol: XR of the chest Views: 1 view. COMPARISON: CR PORTABLE CHEST X-RAY 02/17/2020 6:19 PM FINDINGS: Lungs: Unremarkable. No consolidation. Pleural space: Unremarkable. No pleural effusion. No pneumothorax. Heart/Mediastinum: Stable upper normal size of the cardiac silhouette. Bones/joints: Unremarkable. IMPRESSION: No acute findings. Electronically signed by: Erika Carey On 05/25/2020 16:33:46 PM
[2020-05-25] MEDS ORDERED: MORPHINE 4 MG/ML 1ML VIAL/SYRINGE (J2270) IV ONE (16:45)
[2020-05-25] MEDS ORDERED: METO1TAB7 PO (16:46)
[2020-05-25 16:49] LABS: BASO % 0.4 % (0.0-1.0); EOS # 0.1 10^3/uL (0.0-0.5); EOS % 0.9 % (0.0-3.0); HEMATOCRIT 41.3 % (36.0-47.0); LYMPH % 28.6 % (24.0-44.0); MEAN CORPUSCULAR HEMOGLOBIN 27.9 pg (27.0-33.0); MEAN CORPUSCULAR HGB CONC 31.5 g/dl (32.0-36.5); MEAN CORPUSCULAR VOLUME 88.6 fl (80.0-96.0); MONO # 0.5 10^3/uL (0.0-0.8); NEUTROPHILS # 4.4 10^3/uL (1.5-8.5); NEUTROPHILS % 62.8 % (36.0-66.0); PLATELET COUNT, AUTOMATED 248 10^3/uL (150-450); RED BLOOD COUNT 4.66 10^6/uL (4.00-5.40)
[2020-05-25 17:14] LABS: BLOOD UREA NITROGEN 17 MG/DL (7-18); CARBON DIOXIDE LEVEL 25 MEQ/L (21-32); CHLORIDE LEVEL 112 MEQ/L (98-107); CREATININE FOR GFR 0.83 MG/DL (0.55-1.30); GLOMERULAR FILTRATION RATE > 60.0 (>51); GLUCOSE, FASTING 85 MG/DL (70-100); POTASSIUM SERUM 4.5 MEQ/L (3.5-5.1); SODIUM LEVEL 143 MEQ/L (136-145)
[2020-05-25] MEDS ORDERED: ISOVUE-370 76% 100ML VIAL As Ordered ONE (17:20)
[2020-05-25 17:37] LABS: ALBUMIN 3.4 GM/DL (3.2-5.2); ALT/SGPT 34 U/L (12-78); BILIRUBIN,DIRECT < 0.1 MG/DL (0.0-0.2); BILIRUBIN,TOTAL 0.2 MG/DL (0.2-1.0); CK-MB VALUE MASS < 1.0 NG/ML (<3.6); CPK CREATINE PHOSPHOKINASE 79 U/L (26-192); LIPASE 209 U/L (73-393); MB/CK RELATIVE INDEX 1.27 (< OR =4); TOTAL PROTEIN 6.6 GM/DL (6.4-8.2); TROPONIN I < 0.02 NG/ML (< 0.10)
[2020-05-25 18:06] LABS: INR 0.95; PARTIAL THROMBOPLASTIN TIME 23.4 SECONDS (24.2-38.5); PROTHROMBIN TIME 12.9 SECONDS (12.5-14.3)
--- NOTE | 2020-05-25 18:18 | REPVR ---
PROCEDURE INFORMATION: Exam: CT Abdomen And Pelvis With Contrast Exam date and time: 05/25/2020 5:16 PM Age: 49 years old Clinical indication: Injury or trauma; Fall; Blunt; Generalized; Additional info: Trauma R sided pain TECHNIQUE: Imaging protocol: Computed tomography of the abdomen and pelvis with intravenous contrast. Radiation optimization: All CT scans at this facility use at least one of these dose optimization techniques: automated exposure control; mA and/or kV adjustment per patient size (includes targeted exams where dose is matched to clinical indication); or iterative reconstruction. Contrast material: ISOVUE 370; Contrast volume: 100 ml; Contrast route: INTRAVENOUS (IV); COMPARISON: CT ABD PELVIS W/O FOL BY WIT 07/16/2019 9:56 AM FINDINGS: Lungs: The lung bases are unremarkable. Liver: There are no focal liver lesions. Gallbladder and bile ducts: The gallbladder is unremarkable. Pancreas: The pancreas is normal. Spleen: There is low density in the inferior spleen and in the region of the hilum which could represent a splenic injury however may also be due to arterial phase imaging. Adrenals: The adrenal glands are unremarkable. Kidneys and ureters: The kidneys are unremarkable however no delayed imaging was performed. Stomach and bowel: Evidence of gastric bypass surgery. There is no evidence of intestinal obstruction. Appendix: No evidence of appendicitis. Intraperitoneal space: Unremarkable. No free air. No significant fluid collection. Vasculature: There is no evidence of an infrarenal abdominal aortic aneurysm. The arteries demonstrates diffuse moderate atherosclerotic calcification. Lymph nodes: Unremarkable. No enlarged lymph nodes. Urinary bladder: The bladder is unremarkable. Reproductive: Unremarkable as visualized. Bones/joints: There is no compression fracture in the lower thoracic or lumbar spine. Bridging and near bridging osteophytes are seen in the lower thoracic spine. Soft tissues: Unremarkable. IMPRESSION: No definite evidence of solid organ injury. There is heterogeneity with decreased perfusion inferior margin of the spleen and splenic hilum which could be due to trauma but imaging was arterial phase which also has heterogeneity of splenic perfusion. There are no secondary signs of trauma in this region such as rib fracture pneumothorax, lung contusion or body wall contusion-suggest clinical correlation. Electronically signed by: Ivett Valencia On 05/25/2020 18:17:56 PM
--- NOTE | 2020-05-25 18:22 | REPVR ---
PROCEDURE INFORMATION: Exam: XR Right Humerus Exam date and time: 05/25/2020 4:30 PM Age: 49 years old Clinical indication: Pain; Upper arm; Right; Additional info: Trauma TECHNIQUE: Imaging protocol: XR Right humerus Views: 2 or more views. COMPARISON: No relevant prior studies available. FINDINGS: Bones/joints: There is irregularity of the acromion which may be due to degeneration or trauma. The humerus appears intact. Soft tissues: Unremarkable. IMPRESSION: There is irregularity of the acromion which may be due to degeneration and less likely trauma. There appears to be calcification within the subacromial space which can be seen with rotator cuff degeneration among other etiologies. The humerus appears intact although the elbow is not well assessed. Electronically signed by: Ivett Valencia On 05/25/2020 18:22:12 PM
--- NOTE | 2020-05-25 18:23 | REPVR ---
PROCEDURE INFORMATION: Exam: XR Right Knee Exam date and time: 05/25/2020 4:30 PM Age: 49 years old Clinical indication: Pain; Knee; Right; Additional info: Trauma TECHNIQUE: Imaging protocol: XR Right knee. Views: 4 or more views. COMPARISON: No relevant prior studies available. FINDINGS: Bones/joints: Total right knee replacement. No acute fracture or dislocation. Soft tissues: Unremarkable. Vasculature: Atherosclerosis. IMPRESSION: No acute findings. Electronically signed by: Ivett Valencia On 05/25/2020 18:23:15 PM
--- NOTE | 2020-05-25 18:24 | REPVR ---
PROCEDURE INFORMATION: Exam: XR Right Hip with Pelvis when Performed Exam date and time: 05/25/2020 4:30 PM Age: 49 years old Clinical indication: Hip pain; Right hip; Additional info: Trauma TECHNIQUE: Imaging protocol: XR Right hip with pelvis when performed. Views: 2 or 3 views. COMPARISON: CT ABD PELVIS W/O FOL BY DEBBY 07/16/2019 9:56 AM FINDINGS: Bones/joints: Unremarkable. No acute fracture. Soft tissues: Unremarkable. IMPRESSION: No acute findings. Electronically signed by: Ivett Valencia On 05/25/2020 18:23:54 PM
--- NOTE | 2020-05-25 18:30 | REPVR ---
PROCEDURE INFORMATION: Exam: CT Angiography Chest With Contrast Exam date and time: 05/25/2020 5:16 PM Age: 49 years old Clinical indication: Chest pain; Additional info: Trauma R pleuritic chest pain TECHNIQUE: Imaging protocol: Computed tomographic angiography of the chest with intravenous contrast. 3D rendering (Not supervised by radiologist): MIP and/or 3D reconstructed images were created by the technologist. Radiation optimization: All CT scans at this facility use at least one of these dose optimization techniques: automated exposure control; mA and/or kV adjustment per patient size (includes targeted exams where dose is matched to clinical indication); or iterative reconstruction. Contrast material: ISOVUE 370; Contrast volume: 100 ml; Contrast route: INTRAVENOUS (IV); COMPARISON: CT ANGIO CHEST 12/04/2016 12:56 AM FINDINGS: Pulmonary arteries: No pulmonary embolism. Aorta: No thoracic aortic aneurysm or dissection. Lungs: No lung contusion. Pleural space: No pneumothorax or pleural effusion. Heart: Mild cardiomegaly without significant pericardial effusion. Lymph nodes: No mediastinal or hilar lymphadenopathy. Bones/joints: No acute fracture. Soft tissues: Unremarkable. IMPRESSION: No acute thoracic trauma. Electronically signed by: Ivett Valencia On 05/25/2020 18:29:49 PM
--- NOTE | 2020-05-25 19:56 | ECGEPIP ---
[facility] - ED Test Date: 2020-05-25 Pat Name: CARLA ANNE Department: Room: - Gender: Female Reed Dipper: CELENA : 1970 Requested By: Jennifer Mcclain Order Number: [id number] Reading MD: Jennifer Mcclain Measurements Intervals [place] Rate: 60 P: 44 [place]: 159 QRS: -1 QRSD: 89 T: -12 QT: 432 QTc: 433 Interpretive Statements SINUS RHYTHM BASELINE WANDERING MAY AFFECT READING BASELINE ARTIFACT MAY AFFECT READING NONSPECIFIC ST T WAVE CHANGES 02/18/[address] T WAVE CHANGES Electronically Signed on 05-25-2020 19:55:41 EDT by Jennifer Mcclain
--- NOTE | 2020-05-25 19:56 | ECGEPIP ---
[facility] - ED Test Date: 2020-05-25 Pat Name: CARLA ANNE Department: Room: - Gender: Female Academic Advising Director: MADYSON : 1970 Requested By: Jennifer Mcclain Order Number: [id number] Reading MD: Jennifer Mcclain Measurements Intervals [place] Rate: 57 P: 53 [place]: 159 QRS: 18 QRSD: 90 T: 43 QT: 450 QTc: 442 Interpretive Statements SINUS BRADYCARDIA NONSPECIFIC ST T WAVE CHANGES CW 05/25/[address] T WAVE CHANGES Electronically Signed on 05-25-2020 19:56:01 EDT by Jennifer Mcclain
[2020-05-25 20:28] VITALS: BP 150/77
== END 2020-05-25 20:37 | disposition home or self-care (01) ==
LOC: M ED 15:20
DX: S40.011A Contusion of right shoulder, initial encounter (principal); R07.9 Chest pain, unspecified; I25.2 Old myocardial infarction; I10 Essential (primary) hypertension; Z79.82 Long term (current) use of aspirin; Z79.899 Other long term (current) drug therapy; Z88.0 Allergy status to penicillin; Z88.8 Allergy status to other drugs, medicaments and biological substances; Y92.9 Unspecified place or not applicable; Y93.9 Activity, unspecified; Y99.9 Unspecified external cause status
CPT/HCPCS: 71045; 71275; 73060; 73502; 73564; 74177; 80048; 80076; 82550; 82553; 83690; 84484; 85025; 85610; 85730; 93005; 93041; 94760; 96374; 99285; J2270; Q9967

== ENCOUNTER 2020-06-04 12:30 | Outpatient (RCR) | payer MEDICARE, MEDICAID ==
[~2020-06-04 12:30] MED LIST changes: +METO1TAB7 PO
== END 2020-06-04 14:27 | disposition home or self-care (01) ==
LOC: M PT 12:30
PROVIDERS: ATTEND Family Medicine
DX: R42 Dizziness and giddiness (principal)

== ENCOUNTER → 2020-07-02 | Outpatient (CLI) | payer SELFPAY | LOC: M LABSMTC 13:02 | PROVIDERS: ATTEND Pediatrics | DX: Z20.828 Contact with and (suspected) exposure to other viral communicable diseases (principal) ==

== ENCOUNTER → 2020-07-29 | Outpatient (CLI) | payer SELFPAY ==
[~2020-07-29] MED LIST changes: +RISP-8; -RISP1TAB3
== END ==
LOC: M LABSMTC 13:56
PROVIDERS: ATTEND Pediatrics
DX: Z11.59 Encounter for screening for other viral diseases (principal)

== ENCOUNTER → 2020-07-29 | Outpatient (CLI) | payer MEDICARE, MEDICAID ==
[2020-07-29 14:32] LABS: BLOOD UREA NITROGEN 13 MG/DL (7-18); CREATININE FOR GFR 0.72 MG/DL (0.55-1.30); GLOMERULAR FILTRATION RATE > 60.0 (>51)
== END ==
LOC: M LAB 13:35
PROVIDERS: ATTEND Physician Assistant Medical
DX: I10 Essential (primary) hypertension (principal)

== ENCOUNTER → 2020-08-17 | Outpatient (CLI) | payer MEDICARE, MEDICAID ==
[2020-08-17 15:15] LABS: BASO % 0.4 % (0.0-1.0); EOS # 0.1 10^3/uL (0.0-0.5); EOS % 1.1 % (0.0-3.0); HEMATOCRIT 41.5 % (36.0-47.0); HEMOGLOBIN 12.5 g/dl (12.0-15.5); LYMPH % 37.3 % (24.0-44.0); MEAN CORPUSCULAR HGB CONC 30.1 g/dl (32.0-36.5); MEAN CORPUSCULAR VOLUME 86.5 fl (80.0-96.0); MONO # 0.5 10^3/uL (0.0-0.8); MONO % 10.1 % (0.0-5.0); NEUTROPHILS # 2.7 10^3/uL (1.5-8.5); NEUTROPHILS % 50.7 % (36.0-66.0); PLATELET COUNT, AUTOMATED 254 10^3/uL (150-450); WHITE BLOOD COUNT 5.3 10^3/uL (4.0-10.0)
[2020-08-17 15:37] LABS: ALBUMIN 3.4 GM/DL (3.2-5.2); ALT/SGPT 24 U/L (12-78); BILIRUBIN,DIRECT < 0.1 MG/DL (0.0-0.2); BILIRUBIN,TOTAL 0.3 MG/DL (0.2-1.0); BLOOD UREA NITROGEN 12 MG/DL (7-18); CALCIUM LEVEL 9.3 MG/DL (8.5-10.1); CARBON DIOXIDE LEVEL 28 MEQ/L (21-32); CHLORIDE LEVEL 112 MEQ/L (98-107); CREATININE FOR GFR 0.78 MG/DL (0.55-1.30); GLOMERULAR FILTRATION RATE > 60.0 (>51); GLUCOSE, FASTING 82 MG/DL (70-100); IRON (FE) 51 UG/DL (50-170); POTASSIUM SERUM 4.3 MEQ/L (3.5-5.1); SODIUM LEVEL 144 MEQ/L (136-145); TOTAL IRON BINDING CAPACITY 283 UG/DL (250-450); TOTAL PROTEIN 6.5 GM/DL (6.4-8.2)
[2020-08-17 15:45] LABS: FOLATE 7.9 NG/ML; VITAMIN B12 LEVEL 274 PG/ML
== END ==
LOC: M LAB 14:00
PROVIDERS: ATTEND Internal Medicine Gastroenterology
DX: Z86.010 Personal history of colon polyps (principal); Z79.899 Other long term (current) drug therapy

== ENCOUNTER → 2020-08-19 | Outpatient (CLI) | payer MEDICARE, MEDICAID ==
--- NOTE | 2020-08-19 09:03 | REP ---
INDICATION: UPPER ABD PAIN COMPARISON: CT dated 05/25/2020 TECHNIQUE: Real time flores scale ultrasound examination using curved array transducer. FINDINGS: Liver is normal in contour, size, and echogenicity without focal hepatic lesions identified. Pancreas is incompletely evaluated due to interposed bowel gas. The gallbladder is normal and without gallstones, wall thickening, or pericholecystic fluid. No biliary ductal dilatation is appreciated and the common bile duct measures 5.0 mm diameter. Right kidney is normal in reniform shape without hydronephrosis and measures 10.6 x 6.9 x 3.7 cm. No ascites in the visualized right upper quadrant. IMPRESSION: Normal limited right upper quadrant ultrasound <Electronically signed by Sylvester Sin > 08/19/20 0900
== END ==
LOC: M RAD 08:32
PROVIDERS: ATTEND Internal Medicine Gastroenterology
DX: Z86.010 Personal history of colon polyps (principal)

== ENCOUNTER → 2020-10-01 | Outpatient (REF) | payer MEDICARE, MEDICAID ==
[~2020-10-01] MED LIST changes: +ESCI10TA16; -ESCI10TA2; +HYDR-3490 PO; -HYDR25TAB PO; +QUET50TA3 PO; -QUET5TAB PO
== END ==
LOC: M SFHCPLAZ 13:36
PROVIDERS: ATTEND Nurse Practitioner Family
DX: Z12.4 Encounter for screening for malignant neoplasm of cervix (principal); R87.618 Other abnormal cytological findings on specimens from cervix uteri

== ENCOUNTER → 2020-10-01 | Outpatient (CLI) | payer MEDICARE, MEDICAID ==
--- NOTE | 2020-10-01 12:22 | REPMRS ---
Patient History The patient states she had a clinical breast exam in September 2020. Family history of breast cancer at age 40 in maternal aunt, ovarian cancer at age 50 or over in maternal grandmother, breast cancer at age 54 in maternal cousin. Benign stereotatic loc for ea lesion of the right breast, July 03, 2018. Digital Woman Screen Mammo: October 01, 2020 - Exam #: [id number] Bilateral CC and MLO view(s) were taken. Technologist: Margoth Sanchez, Technologist Prior study comparison: September 06, 2019, digital mammo diagnostic bilateral, performed at [facility]. June 14, 2018, bilateral digital woman screen mammo performed at [facility]. FINDINGS: There are scattered fibroglandular densities. The Volpara volumetric breast density category is:B. There is a needle biopsy marker clip in the right breast. There has been no change in the appearance of the mammogram from the prior studies. There is a mild amount of scattered fibroglandular density which is fairly symmetric. There is no interval development of dominant mass, architectural distortion, or grouped microcalcification suggestive of malignancy. 3-D tomosynthesis shows no additional findings. Assessment: BI-RADS/ACR category 2 mammogram. Benign Findings. Recommendation Routine screening mammogram of both breasts in 1 year (for women over age 40). This patient's [facility] Lifetime Breast Cancer Risk is estimated at 12.3 %. This mammogram was interpreted with the aid of an FDA-approved computer-aided dectection system. Electronically Signed By: Sal Laguerre MD 10/01/20 2158
== END ==
LOC: M WHC 10:40
PROVIDERS: ATTEND Nurse Practitioner Family
DX: Z01.411 Encounter for gynecological examination (general) (routine) with abnormal findings (principal); Z12.31 Encounter for screening mammogram for malignant neoplasm of breast; Z80.41 Family history of malignant neoplasm of ovary; Z86.018 Personal history of other benign neoplasm
CPT/HCPCS: 77063; 77067; 87210; G0101; G0123

== ENCOUNTER → 2020-10-30 | Outpatient (CLI) | payer MEDICARE, MEDICAID ==
[~2020-10-30] MED LIST changes: +ASPI-569 PO; -ASPI81TAEC PO
--- NOTE | 2020-10-30 13:02 | REP ---
INDICATION: LBP ? SPINAL STENOSIS VS HERNIATED DISC. COMPARISON: Comparison MRI study is from May 01, 2019.. TECHNIQUE: Sagittal and axial T1 and T2-weighted scans are acquired in the usual fashion with and without fat saturation. Sequences include spin echo, turbo spin-echo, and STIR imaging sequences. FINDINGS: Lumbar vertebral body heights are preserved alignment is normal. No extra-spinal abnormality is observed. The tip of the conus medullaris is normal in position and appearance at L1. Axial and sagittal images taken at the L1-2 disc level show no abnormality. At L2-3, there is no evidence of disc protrusion, neural foraminal narrowing, or spinal stenosis. The L3-4 disc level remains unremarkable as well. At L4-5, there is degenerative disc narrowing and some decreased signal intensity consistent with degenerative disc disease. There is diffuse disc bulging of the 4 5 disc including the foraminal disc segments. This produces mild neural foraminal encroachment. There is mild facet and ligamentum flavum hypertrophy at L4-5 bilaterally. This is unchanged. No central canal stenosis is seen. At L5-S1, there is mild facet hypertrophy bilaterally. No other finding. IMPRESSION: Degenerative disc disease at L4-5 with diffuse disc bulging essentially unchanged. There is mild bilateral osteoarthritic facet hypertrophy and ligamentum flavum hypertrophy at L4-5. Facet hypertrophy is noted bilaterally at L5-S1. <Electronically signed by Sal Laguerre > 10/30/20 [id number]
== END ==
LOC: M PLARAD 10:52
PROVIDERS: ATTEND Orthopaedic Surgery
DX: M54.5 Low back pain (principal); M51.36 Other intervertebral disc degeneration, lumbar region; M89.38 Hypertrophy of bone, other site

== ENCOUNTER → 2021-01-15 | Outpatient (REF) | payer MEDICARE, MEDICAID ==
[2021-01-15 14:48] LABS: HIV 1&2 SCREEN CENTAUR NEGATIVE (NEGATIVE)
== END ==
LOC: M PLALAB 12:09
PROVIDERS: ATTEND Nurse Practitioner Family
DX: Z11.3 Encounter for screening for infections with a predominantly sexual mode of transmission (principal); Z11.4 Encounter for screening for human immunodeficiency virus [HIV]

== ENCOUNTER → 2021-01-20 | Outpatient (CLI) | payer MEDICARE, MEDICAID ==
[2021-01-20 17:28] LABS: BASO % 0.4 % (0.0-1.0); EOS # 0.1 10^3/uL (0.0-0.5); EOS % 1.7 % (0.0-3.0); HEMATOCRIT 43.1 % (36.0-47.0); HEMOGLOBIN 13.5 g/dl (12.0-15.5); LYMPH # 1.8 10^3/uL (1.5-5.0); LYMPH % 34.9 % (24.0-44.0); MEAN CORPUSCULAR HEMOGLOBIN 27.6 pg (27.0-33.0); MEAN CORPUSCULAR HGB CONC 31.3 g/dl (32.0-36.5); MEAN CORPUSCULAR VOLUME 88.1 fl (80.0-96.0); MONO # 0.5 10^3/uL (0.0-0.8); MONO % 9.9 % (2.0-8.0); NEUTROPHILS # 2.8 10^3/uL (1.5-8.5); NEUTROPHILS % 52.9 % (36.0-66.0); PLATELET COUNT, AUTOMATED 269 10^3/uL (150-450); RED BLOOD COUNT 4.89 10^6/uL (4.00-5.40); WHITE BLOOD COUNT 5.2 10^3/uL (4.0-10.0)
[2021-01-20 17:44] LABS: C REACTIVE PROTEIN QUANTITATIV < 0.30 MG/DL (0.00-0.30); RHEUMATOID FACTOR QUANT < 10.0 IU/ML (<15.0); URIC ACID 5.2 MG/DL (2.6-6.0)
[2021-01-20 17:55] LABS: ERYTHROCYTE SEDIMENTATION RATE 14 mm/hr (0-30)
== END ==
LOC: M PLALAB 15:28
PROVIDERS: ATTEND Physician Assistant Surgical
DX: M65.811 Other synovitis and tenosynovitis, right shoulder (principal); Z79.899 Other long term (current) drug therapy

== ENCOUNTER 2021-02-09 14:06 | Emergency (ER) | payer MEDICARE, OTHER ==
[~2021-02-09] VITALS: Ht 172.7 cm; Wt 104.1 kg
[~2021-02-09 14:06] MED LIST changes: +ERGO500029 PO; +OMEP40CA4 PO; -OMEP40CA97 PO; -VITA50005 PO
--- NOTE | 2021-02-09 14:58 | REP ---
INDICATION: CHEST PAIN. COMPARISON: 05/25/2020. TECHNIQUE: Single portable AP view of the chest was performed. FINDINGS: There is no acute infiltrate or pulmonary edema. Lungs are clear. The heart is not significantly enlarged. The mediastinal silhouette is unremarkable. The visualized osseous structures are intact. IMPRESSION: No acute pulmonary disease. <Electronically signed by Ruben Shafer > 02/09/21 [id number]
[2021-02-09 15:17] LABS: BASO % 0.2 % (0.0-1.0); EOS # 0.1 10^3/uL (0.0-0.5); EOS % 1.1 % (0.0-3.0); HEMATOCRIT 39.9 % (36.0-47.0); HEMOGLOBIN 12.5 g/dl (12.0-15.5); LYMPH # 1.7 10^3/uL (1.5-5.0); LYMPH % 37.4 % (24.0-44.0); MEAN CORPUSCULAR HGB CONC 31.3 g/dl (32.0-36.5); MEAN CORPUSCULAR VOLUME 89.5 fl (80.0-96.0); MONO # 0.5 10^3/uL (0.0-0.8); MONO % 9.8 % (2.0-8.0); NEUTROPHILS # 2.4 10^3/uL (1.5-8.5); NEUTROPHILS % 51.1 % (36.0-66.0); PLATELET COUNT, AUTOMATED 223 10^3/uL (150-450); RED BLOOD COUNT 4.46 10^6/uL (4.00-5.40); WHITE BLOOD COUNT 4.6 10^3/uL (4.0-10.0)
[2021-02-09 15:52] LABS: ALBUMIN 3.3 GM/DL (3.2-5.2); ALT/SGPT 23 U/L (12-78); BILIRUBIN,DIRECT < 0.1 MG/DL (0.0-0.2); BILIRUBIN,TOTAL 0.1 MG/DL (0.2-1.0); BLOOD UREA NITROGEN 12 MG/DL (7-18); CALCIUM LEVEL 8.9 MG/DL (8.5-10.1); CARBON DIOXIDE LEVEL 31 MEQ/L (21-32); CHLORIDE LEVEL 111 MEQ/L (98-107); CK-MB VALUE MASS < 1.0 NG/ML (<3.6); CPK CREATINE PHOSPHOKINASE 72 U/L (26-192); CREATININE FOR GFR 0.69 MG/DL (0.55-1.30); GLOMERULAR FILTRATION RATE > 60.0 (>51); GLUCOSE, FASTING 73 MG/DL (70-100); LIPASE 185 U/L (73-393); MB/CK RELATIVE INDEX 1.39 (< OR =4); POTASSIUM SERUM 3.7 MEQ/L (3.5-5.1); SODIUM LEVEL 143 MEQ/L (136-145); TOTAL PROTEIN 6.2 GM/DL (6.4-8.2); TROPONIN I 0.08 NG/ML (< 0.10)
[2021-02-09 17:47] LABS: CK-MB VALUE MASS 1.1 NG/ML (<3.6); MB/CK RELATIVE INDEX 1.31 (< OR =4); TROPONIN I 0.32 NG/ML (< 0.10)
[2021-02-09] MEDS ORDERED: ASPIRIN 81 MG CHEW TABLET PO ONE (18:00)
[2021-02-09 19:44] LABS: CK-MB VALUE MASS 1.6 NG/ML (<3.6); MB/CK RELATIVE INDEX 2.11 (< OR =4); TROPONIN I 0.63 NG/ML (< 0.10)
[2021-02-09 21:09] LABS: RSV AMPLIFICATION NEGATIVE (NEGATIVE)
[2021-02-09] MEDS ORDERED: CLOPIDOGREL 300 MG TAB (PLAVIX) PO ONE (21:25)
[2021-02-09] MEDS ORDERED: HEPARIN DRIP 25,000 UNITS in IV 1 EA IV SCH (21:25)
[2021-02-09] MEDS ORDERED: HEPARIN SOD (PORCINE) 5000UNITS/ML 1ML VIAL/SYRINGE IV ONE (21:25)
[2021-02-09 22:45] VITALS: BP 166/85
--- NOTE | 2021-02-11 05:52 | ECGEPIP ---
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
--- NOTE | 2021-02-11 05:57 | ECGEPIP ---
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
--- NOTE | 2021-02-11 07:08 | ECGEPIP ---
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
== END 2021-02-09 22:57 | disposition short-term general hospital (02) ==
LOC: EDBD 14:06 → M ED 14:06
DX: I21.4 Non-ST elevation (NSTEMI) myocardial infarction (principal); E11.9 Type 2 diabetes mellitus without complications; I10 Essential (primary) hypertension; I25.10 Atherosclerotic heart disease of native coronary artery without angina pectoris; F33.9 Major depressive disorder, recurrent, unspecified; G47.33 Obstructive sleep apnea (adult) (pediatric); Z99.89 Dependence on other enabling machines and devices; Z95.5 Presence of coronary angioplasty implant and graft; Z79.899 Other long term (current) drug therapy; Z79.82 Long term (current) use of aspirin; Z88.0 Allergy status to penicillin; Z88.8 Allergy status to other drugs, medicaments and biological substances
CPT/HCPCS: 71045; 80048; 80076; 82550; 82553; 83690; 84484; 85025; 87631; 93005; 93041; 94760; 96365; 99285; J1644

== ENCOUNTER → 2021-02-12 | Outpatient (CLI) | payer MEDICARE, MEDICAID ==
[~2021-02-12] MED LIST changes: +ISOVUE-300 61% 50ML VIAL As Ordered ONE; +LIDOCAINE 1% MDV 20ML VIAL As Ordered ONE; +methylPREDNISolone SUSP 40MG/ML 1ML VIAL (DEPO MEDROL) As Ordered ONE
--- NOTE | 2021-02-12 15:42 | REP ---
INDICATION: PAIN IN LT HIP. COMPARISON: None. TECHNIQUE: The procedure was performed under the direct supervision of Dr. Shafer. The benefits and risks including but not limited to pain infection and bleeding and anaphylaxis were explained to the patient and informed consent was obtained. The right femoral neck was localized using fluoroscopic guidance. The skin was prepped and draped in a sterile fashion. 1% lidocaine was used as a local anesthetic. Using fluoroscopic guidance, and last image hold technology, a 22-gauge spinal needle was inserted and advanced to the femoral neck. 0.5 ml of Isovue-300 was injected to verify placement. Five ml of a solution containing 3 ml of 1% Xylocaine and 2 mL of Depo-Medrol 40 mg was injected. The needle was then removed. The patient tolerated the procedure well and there were no immediate complications. Less than 6 seconds of fluoro time was utilized for this procedure. FINDINGS: None IMPRESSION: Fluoro guidance for right hip injection. <Electronically signed by Phu Sanches > 02/12/21 1518 <Electronically signed by Ruben Shafer > 02/12/21 1537
== END ==
LOC: M RADPRO 11:17
PROVIDERS: ATTEND Physician Assistant Surgical
DX: M25.552 Pain in left hip (principal)
CPT/HCPCS: 20610; 77002; J1030; Q9967

== ENCOUNTER → 2021-03-18 | Outpatient (CLI) | payer MEDICARE, MEDICAID ==
[~2021-03-18] MED LIST changes: -ISOVUE-300 61% 50ML VIAL As Ordered ONE; -LIDOCAINE 1% MDV 20ML VIAL As Ordered ONE; -methylPREDNISolone SUSP 40MG/ML 1ML VIAL (DEPO MEDROL) As Ordered ONE
[2021-03-18 14:16] LABS: BASO % 0.2 % (0.0-1.0); EOS % 0.8 % (0.0-3.0); HEMATOCRIT 40.3 % (36.0-47.0); HEMOGLOBIN 12.6 g/dl (12.0-15.5); LYMPH # 1.4 10^3/uL (1.5-5.0); LYMPH % 28.9 % (24.0-44.0); MEAN CORPUSCULAR HEMOGLOBIN 27.3 pg (27.0-33.0); MEAN CORPUSCULAR HGB CONC 31.3 g/dl (32.0-36.5); MEAN CORPUSCULAR VOLUME 87.2 fl (80.0-96.0); MONO # 0.4 10^3/uL (0.0-0.8); MONO % 7.7 % (2.0-8.0); NEUTROPHILS # 3.1 10^3/uL (1.5-8.5); PLATELET COUNT, AUTOMATED 259 10^3/uL (150-450); RED BLOOD COUNT 4.62 10^6/uL (4.00-5.40); WHITE BLOOD COUNT 4.9 10^3/uL (4.0-10.0)
[2021-03-18 14:50] LABS: BLOOD UREA NITROGEN 9 MG/DL (7-18); CARBON DIOXIDE LEVEL 31 MEQ/L (21-32); CHLORIDE LEVEL 114 MEQ/L (98-107); CHOLESTEROL LEVEL 143 MG/DL (<200); CHOLESTEROL RISK RATIO 2.465 (<5); CREATININE FOR GFR 0.78 MG/DL (0.55-1.30); GLOMERULAR FILTRATION RATE > 60.0 (>51); GLUCOSE, FASTING 88 MG/DL (70-100); HDL CHOLESTEROL 58 MG/DL (>40); LDL CHOLESTEROL 65 MG/DL (<100); NON-HDL-C 85 MG/DL; NT-PRO BNP 95 PG/ML (<125); POTASSIUM SERUM 3.9 MEQ/L (3.5-5.1); SODIUM LEVEL 146 MEQ/L (136-145); TRIGLYCERIDES LEVEL 99 MG/DL (<150)
== END ==
LOC: M LAB 13:47
PROVIDERS: ATTEND Physician Assistant
DX: R06.02 Shortness of breath (principal); I25.10 Atherosclerotic heart disease of native coronary artery without angina pectoris

== ENCOUNTER 2021-07-01 13:11 | Emergency (ER) | payer MEDICARE, MEDICAID ==
[~2021-07-01] VITALS: Ht 170.2 cm; Wt 106.3 kg
[~2021-07-01 13:11] MED LIST changes: -KLOR10TA76 PO; +POTA-136 PO; -QUET50TA3 PO; +QUET50TA4 PO
--- OUTSIDE RECORDS SUMMARY | 2021-07-01 13:21 | CCD | Continuity of Care Document ---
Author Author Azalea LEON MD Organization Unknown Address [address] [facility], [place] [address] Phone [phone] Care Team Providers Care Meat Lugger Name Role Phone Margarito Dias MD AUTM [phone] Momo Garner MD AUTM [phone] Curry Mars MD AUTM [phone] Tiff Colón PMHNP- AUTM Liz Strange MD AUTM [phone] Joss Arnold DO AUTM [phone] Problems Active Problems Provider Date Essential hypertension Christiano Leon MD Onset: 7 Electrocardiogram abnormal Christiano Leon MD Onset: 12/27 Morbid obesity Christiano Leon MD Onset: 12/27/2016 Aneurysm of thoracic aorta Christiano Leon MD Onset: 12/27 Pure hypercholesterolemia Christiano Leon MD Onset: 2016 Tobacco user Christiano Leon MD Onset: 12/27/2016 Hypertensive heart disease without congestive heart fa ilure Christiano Leon MD Onset: 12/27/2016 [place]ushing Christiano Leon MD Onset: 12/27/2016 Patient post percutaneous transluminal coronary angiop lasty Christiano Leon MD Onset: 12/27/2016 Coronary arteriosclerosis in [place] artery Christiano Leon MD Onset: 12/27/2016 Dyspnea Christiano Leon MD Onset: 12/27/2016 Obesity Christiano Leon MD Onset: 12/27/2016 Atherosclerotic heart disease of [place] coronary artery with other forms of angina pectoris YURIDIA Cha-Anastacio Onset: 05/31/2017 Hypokalemia CHUYITA Cha Onset: 05/31/2017 Dietary management surveillance Christiano Leon MD Onset: 07/25/2017 Preoperative cardiovascular examination ROMY Willson Onset: 12/06/2017 Edema ROMY Willson Onset: 03/22/2018 Palpitations ROMY Willson Onset: 09/20/2019 Syncope and collapse ROMY Willson Onset: 03/03/2020 Mixed hyperlipidemia ROMY Durbin Onset: Social History Type Date Description Comments Sex Unknown ETOH Use Does not consume alcohol Tobacco Use Start: Unknown Patient is a current smoker, smo kes every day started at age 35, at most 1/2ppd, currently 2-3 cigarettes daily Smoking Status Reviewed: 09/01/20 Patient is a current smoker, smokes every day started at age 35, at most 1/2ppd, currently 2-3 cigarettes daily Exercise Type/Frequency Walks sporadically Exercise Limitations Orthopedic Problem torn rot ator cuff R shoulder Exercise Limitations Joint Pain R shoulder and R knee Exercise Limitations Other anxiety Exercise Limitations Syncope Allergies and adverse reactions Active Allergies Criticality Reaction | Severity Comments Date Penicillins Unable to assess criticality Rash 12/26/2016 Citalopram Unable to assess criticality hives, rash, nausea 09/19/2019 Medications Active Medications SIG Qnty Indications Ordering Provide r Date Ambien 5mg Tablets 1 by mouth every night at bedtime , as needed Tiff Colón PMHNP-BC 03/17/2021 Venlafaxine HCL ER 225mg Tablets E R 24HR 1 by mouth every day Tiff Colón PMHNP-BC Nitroglycerin 0.4mg Tablets Sub 1 tab sl every 5 min times 3 doses as needed chest discomfort 25tabs I25.118 Jake Bhat MD 03/01/2021 Famotidine 10mg Tablets 1 by mouth once daily Momo Garner MD 021 Brilinta 90mg Tablets 1 by mouth twice a day Unknown 02/09/2021 Tylenol 325mg Tablets 2 by mouth every 4 hours as needed Unknown 02/09/2021 Losartan Potassium 50mg Tablets Take One Tablet By Mouth AT Bedtime 90tabs I10 Jake Bhat MD Chantix Starting Month William 0.5mg X 11 & 1 mg X 42 Tablets day 1-3: 0.5 mg daily day 4-7: 0.5 mg tw ice a day day 8 and on: 1 mg twice a day 53tabs F17.210 Jake Bhat MD 09/01/2020 Trazodone HCL 150mg Tablets 1 by mouth every night at bedtime with 100 mg dose Tari Colón, [facility]- 08/31/2020 Levetiracetam 250mg Tablets 1 by mouth once daily Liz Strange MD 08/31/2020 Linzess 145mcg Capsules 1 by mouth every day Momo Garner MD 021 Farxiga 10mg Tablets 1 by mouth every day 90tabs I25.118 Jake Bhat MD 04/22/2020 Metoprolol Succinate ER 50mg Tablets ER 24HR 1 by mouth every day 90tabs Jake Bhat MD 0 04/21/[address] 1 by mouth every day 90tabs Jake Bhat MD 04/30/2019 Klor-Con M20 20Meq Tablets ER 2 by mouth every day R60.0 Curtis Butler, DO 04/29 Vitamin D (Ergocalciferol) 02090Dgfh Capsules 1 by mouth every weekly Jules Butler, DO 04/29/2019 Vitamin B12 1000mcg Tablets ER 2 by mouth every day Curtis Butler, DO 04/29 Calcium 600 600mg Tablets 1 by mouth every day Unknown 04/29/2019 Multi Vitamin Tablets daily Unknown 09/03/2018 Paxil 40mg Tablets 1 by [facility] every day Unknown 07/19/2018 Claritin-D 24 Hour 1 0-240mg Tablets ER 24HR 1 by mouth every day Unknown 018 Azelastine HCL (Nasal) 0.1% Soluti on 1-2 sprays in each nostril twice a day Unknown 12/05/2017 Atorvastatin Calcium 80mg Tablets 1 by mouth every night at bedtime 90tabs Jake Bhat MD 08/17/2017 Immunizations Description No Information Available Vital Signs Date Vital Result Comment 03/18/2021 12:53pm Weight 231.00 lb Home Weight 232lb Height 69 inches 5'9" BMI (Body Mass Index) 34.1 kg/m2 BP Systolic Sitting 114 mmHg Ra, large cuff BP Diastolic Sitting 70 mmHg Ra, large cuff 03/01/2021 2:13pm Weight 226.00 lb Home Weight 230lb Height 69 inches 5'9" BMI (Body Mass Index) 33.4 kg/m2 Heart Rate 80 /min BP Systolic Sitting 106 mmHg Ra, large cuff | 110 /70 repeat reading BP Diastolic Sitting 66 mmHg Ra, large cuff | 11 0/70 repeat reading Results Test Acquired Date Facility Test Result H/L Range Note CBC W/Auto Differential 03/18/2021 [facility] [phone] White Blood Count 4.9 10 Normal 4.0-10.0 Red Blood Count 4.62 10 Normal 4.00-5.40 Hemoglobin 12.6 g/dL Normal 12.0-15.5 Hematocrit 40.3 % Normal 36.0-47.0 Mean Corpuscular Volume 87.2 fl Normal 80.0-96.0 Mean Corpuscular Hemoglobin 27.3 pg Normal 27.0-33.0 Mean Corpuscular HGB Conc 31.3 g/dL Low 32.0-36.5 Red Cell Distribution Width 12.8 % Normal 11.5-14.5 Platelet Count, Automated 259 10 Normal 150-450 Neutrophils % 62.0 % Normal 36.0-66.0 Lymph % 28.9 % Normal 24.0-44.0 Love % 7.7 % Normal 2.0-8.0 Eos % 0.8 % Normal 0.0-3.0 Baso % 0.2 % Normal 0.0-1.0 Immature Granulocyte % 0.4 % Normal 0-3.0 Nucleated Red Blood Cell % 0.0 % Normal 0-0 Neutrophils # 3.1 10 Normal 1.5-8.5 Lymph # 1.4 10 Low 1.5-5.0 Love # 0.4 10 Normal 0.0-0.8 Eos # 0.0 10 Normal 0.0-0.5 Baso # 0.0 10 Normal 0.0-0.2 Lipid Panel 03/18/2021 [facility] nter [phone] Triglycerides Level 99 mg/dL Normal <150 Cholesterol Level 143 mg/dL Normal <200 HDL Cholesterol 58 mg/dL Normal >40 LDL Cholesterol 65 mg/dL Normal <100 Non-HDL-C 85 mg/dL Normal Cholesterol Risk Ratio 2.465 Normal <5 Laboratory test finding 03/18/2021 [facility] [phone] NT-Pro BNP 95 pg/mL Normal <125 Basic Metabolic Profile 03/18/2021 [facility] [phone] Glucose, Fasting 88 mg/dL Normal 70-100 Blood Urea Nitrogen 9 mg/dL Normal 7-18 Creatinine For GFR 0.78 mg/dL Normal 0.55-1.30 Glomerular Filtration Rate > 60.0 Normal >51 1 Sodium Level 146 mEq/L High 136-145 Potassium Serum 3.9 mEq/L Normal 3.5-5.1 Chloride Level 114 mEq/L High 98-107 Carbon Dioxide Level 31 mEq/L Normal 21-32 Anion Gap 1 mEq/L Low 8-16 Calcium Level 9.0 mg/dL Normal 8.5-10.1 CMP 02/11/2021 [facility] (315)- - Albumin Serum/Plasma 3.1 Alt - SGPT 23 Calcium Ser/Plasma Mass/Vol 9.2 Carbon Dioxide Ser/Plasm 25 Chloride Serum/Plasma 111 Alkaline Phosphatase 64 Potassium 3.9 Protein Total 6.1 Sodium 145 Ast - Sgot 25 BUN - Urea Nitrogen 17.7 Glucose 89 70-100 Creatinine For GFR >60 CBC without Differential 02/11/2021 [facility] (315)- - White Blood Count 3.7 Low 4.1-11.0 Red Blood Count 4.40 4.0-5.40 Platelets 218 172-450 Hemoglobin 12.3 12.0-16.0 Hematocrit 37.5 36.0-47.0 Laboratory test finding 02/10/2021 [facility] (315)- - Troponin 0.29 Lipid Profile/Cardiac Risk Pro 02/10/2021 [facility] (315)- - Triglycerides 154 Cholesterol 179 120-200 HDL 63 High 40-60 LDL Cholesterol 85 Chol/HDL Ratio 2.8 BMP 02/10/2021 [facility] (315)- - Calcium Ser/Plasma Mass/Vol 9.5 Sodium 146 Carbon Dioxide Ser/Plasm 25 Chloride Serum/Plasma 109 Potassium 3.7 Glucose 93 70-100 Blood Urea Nitrogen 13 5-21 Creatinine 0.69 0.6-1.5 G F R >60 CBC without Differential 02/10/2021 [facility] ([facility])- - White Blood Count 4.7 4.1-11.0 Red Blood Count 4.46 4.00-5.40 Platelets 218 150-450 Hemoglobin 12.8 12.0-16.0 Hematocrit 38.5 36.0-47.0 1 Units are mL/min/1.73 m2 Chronic Kidney Disease Staging per NKF: Stage I & II GFR >=60 Normal to Mildly Decreased Stage III GFR 30-59 Moderately Decreased Stage IV GFR 15-29 Severely Decreased Stage V GFR <15 Very Little GFR Left ESRD GFR <15 on MARKET RESEARCH ASSISTANT Procedures Date Code Description Status 05/28/2021 55034 TM Interpretation & Report Only Completed 05/28/2021 23159 Myocardial Imaging (PET) Multipl e Studies Completed 05/21/2021 48085 Smoking & Tobacco Ce ssation Counseling Visit Intermediate 3-10Min Completed 05/21/2021 73413 Office/Outpatient Established Mo d MDM 30-39 Min Completed 05/21/2021 05248 ECG 12-Lead Completed 05/20/2021 96327 Chronic Care MGMT 20 Mins Clinical Staff Time Per Calendar Month Completed 05/20/2021 64743 Chronic Care Management Services Ea Addl 20 Min Completed 03/22/2021 73478 Chronic Care MGMT 20 Mins Clinical Staff Time Per Calendar Month Completed 03/18/2021 17177 Office/Outpatient Established Mo d MDM 30-39 Min Completed 03/01/2021 25723 Smoking & Tobacco Ce ssation Counseling Visit Intermediate 3-10Min Completed 03/01/2021 13458 Office/Outpatient Established Mo d MDM 30-39 Min Completed 03/01/2021 75441 ECG 12-Lead Completed 02/11/2021 63882 Chronic Care MGMT 20 Mins Clinical Staff Time Per Calendar Month Completed 02/11/2021 34182 Chronic Care Management Services Ea Addl 20 Min Completed 01/01/2021 95867 Chronic Care MGMT 20 Mins Clinical Staff Time Per Calendar Month Completed Medical Devices Description No Information Available Encounters Type Date Location Provider Dx Diagnosis Office Visit 05/20/2021 2:53p Main Office Christiano Leon MD I10 Essential (primary) hypertension E78.2 Mixed hyperlipidemia Office Visit 03/22/2021 4:38p Main Office Christiano Leon MD I10 Essential (primary) hypertension I25.10 Athscl heart disease of [place] coronary artery w/o ang pctrs Office Visit 03/18/2021 12:45p Main Office ROMY Durbin I10 Essential (primary) hypertension R06.02 Shortness of breath I25.10 Athscl heart disease of [place] coronary artery w/o ang pctrs Office Visit 03/01/2021 2:15p Main Office ROMY Durbin I25 .118 Athscl heart disease of [place] cor art w oth ang pctrs R06.02 Shortness of breath I10 Essential (primary) hyperten margoth F17.210 Nicotine dependence, cigaret chloe, uncomplicated R94.31 Abnormal electrocardiogram [ ECG] [EKG] Office Visit 02/11/2021 10:19a Main Office Christiano Leon MD I10 Essential (primary) hypertension F17.210 Nicotine dependence, cigaret chloe, uncomplicated Office Visit 01/01/2021 8:20a Main Office Christiano Leon MD I10 Essential (primary) hypertension R00.2 Palpitations F17.210 Nicotine dependence, cigaret chloe, uncomplicated Assessments Date Code Description Provider 05/28/2021 I25.118 Atherosclerotic hear t disease of [place] coronary artery with other forms of angina pectoris Cardiac PET 05/21/2021 I25.10 Atherosclerotic hear t disease of [place] coronary artery without angina pectoris ROMY Durbin 05/21/2021 R06.02 Shortness of breath ROMY Durbin 05/21/2021 R00.2 Palpitations ROMY Galloway Cha, se 05/21/2021 I10 Essential (primary) hypertension ROMY Durbin 05/21/2021 E78.2 Mixed hyperlipidemia ROMY Barton 05/21/2021 I77.810 Thoracic aortic ectasia ROMY Nolasco 05/21/2021 F17.210 Nicotine dependence, cigarettes, uncomplicated Cristina L. Asutin, PA 05/21/2021 R94.31 Abnormal electrocardiogram [ECG] [EKG] ROMY Durbin 05/21/2021 E66.8 Other obesity ROMY Galloway Cha, se 05/21/2021 Z71.3 Dietary counseling and surveilla nce ROMY Durbin 05/20/2021 I10 Essential (primary) hypertension Christiano Leon MD 05/20/2021 E78.2 Mixed hyperlipidemia Christiano deshpande MD 03/22/2021 I10 Essential (primary) hypertension Christiano Leon MD 03/22/2021 I25.10 Atherosclerotic hear t disease of [place] coronary artery without angina pectoris Christiano Leon MD 03/18/2021 I10 Essential (primary) hypertension ROMY Durbin 03/18/2021 R06.02 Shortness of breath ROMY Durbin 03/18/2021 I25.10 Atherosclerotic hear t disease of [place] coronary artery without angina pectoris ROMY Durbin 03/01/2021 I25.118 Atherosclerotic heart disease of [place] coronary artery with ROMY Durbin 03/01/2021 R06.02 Shortness of breath ROMY Durbin 03/01/2021 I10 Essential (primary) hypertension ROMY Durbin 03/01/2021 F17.210 Nicotine dependence, cigarettes, uncomplicated ROMY Durbin 03/01/2021 R94.31 Abnormal electrocardiogram [ECG] [EKG] ROMY Durbin 02/11/2021 I10 Essential (primary) hypertension Christiano Leon MD 02/11/2021 F17.210 Nicotine dependence, cigarettes, uncomplicated Christiano Leon MD 01/01/2021 I10 Essential (primary) hypertension Christiano Leon MD 01/01/2021 R00.2 Palpitations Christiano Leon MD 01/01/2021 F17.210 Nicotine dependence, cigarettes, uncomplicated Christiano Leon MD Plan of Treatment Future Appointment(s):* 07/13/2021 9:15 am - ROMY Durbin at Main Office 03/18/2021 - ROMY Durbin* I10 Essential (primary) hypertension* Recommendations:* Continue metoprolol and losartan at the current dosages Advised patient to please monitor blood pressures at home and to alert our office for readings >140/>90 or <110/<60 * R06.02 Shortness of breath* Recommendations:* Screening NT proBNP has been ordered for further evaluation Advised patient that is common for patients on Brilinta to experience shortness of breath, often times a side effect does go away and time and weight the risk and benefit of Brilinta therapy * I25.10 Atherosclerotic heart disease of [place] coronary artery without angina pectoris* Recommendations:* Continue aspirin, Brilinta, atorvastatin, Farxiga, losartan, and metoprolol at the current dosages It is extremely important to continue the combination aspirin + Brilinta for at least one year Advised patient to let us know if she needs to use nitroglycerin in the future Provided reassurance to patient that her recent cardiac catheterization gave us the best possible view of her coronary arteries Encouraged patient and advised her that the medication regimen that she is on is extremely cardioprotective Please seek medical attention with the onset of any chest pain or discomfort Please obtain lab work * All * Follow up:* As scheduled Functional Status Functional Condition Comment Date Status Independent with all ADL's Activ e Requires assistance with ambulating with cane or walker Active Requires assistance with bathing stand-by assist only Active Mental Status Description No Information Available Referrals Description No Information Available
--- OUTSIDE RECORDS SUMMARY | 2021-07-01 13:21 | CCD | Continuity of Care Document ---
Author Author Azalea ARTIS P.A.-C. Organization Unknown Address [address] [place] [address] Phone [phone] Care Team Providers Care Optometry Assistant Name Role Phone Abel Sales DO AUTM [phone] Problems Description No Information Available Social History Type Date Description Comments Sex Unknown Allergies and adverse reactions Active Allergies Criticality Reaction | Severity Comments Date Penicillin V Unable to assess criticality 07/29/2020 Citalopram Unable to assess criticality 07/29/2020 Medications Active Medications SIG Qnty Indications Ordering Provide r Date Alprazolam 0.5mg Tablets 1 tab by mouth half an hour before mri scan. may repeat once if needed. 2tabs Liz Strange M.D. 06/19/2020 Keppra 250mg Tablets take one tablet by mouth twice a day 60tabs Liz Strange M.D. 06/16/2020 Immunizations Description No Information Available Vital Signs Date Vital Result Comment 06/18/2021 6:29am BP Systolic 122 mmHg BP Diastolic 78 mmHg Heart Rate 84 /min Respiratory Rate 16 /min 02/05/2021 6:41am BP Systolic 110 mmHg BP Diastolic 78 mmHg Heart Rate 68 /min Respiratory Rate 16 /min Results Description No Information Available Procedures Date Code Description Status 06/18/2021 43235 Office/Outpatient Established Mo d MDM 30-39 Min Completed 03/19/2021 14020 EEG Complete STD Phys/QHP>60 HR< 84 HR W/O Video Completed 03/19/2021 03937 EEG Complete STD Phys/QHP>36 HR< 60 HR W/O Video Completed 02/18/2021 74336 MRI Brain W/O Contrast Completed 02/18/2021 15632 MRI Brain W/O Contrast Completed 02/05/2021 85924 Office/Outpatient Established Mo d MDM 30-39 Min Completed Medical Devices Description No Information Available Encounters Type Date Location Provider Dx Diagnosis Office Visit 06/18/2021 11:00a Main office - [place] Tari Vee.A.-C. R94.02 Abnormal brain scan R55 Syncope and collapse R42 Dizziness and giddiness S09.0xxA Injury of blood vessels of h ead, NEC, init Office Visit 02/05/2021 10:45a Main office - [place] Anastasiia nunez P.A.-C. R55 Syncope and collapse I95.1 Orthostatic hypotension R94.02 Abnormal brain scan Assessments Date Code Description Provider 06/18/2021 R94.02 Abnormal brain scan Tari Vee.A.-C. 06/18/2021 R55 Syncope and collapse Rafal Yang.-C. 06/18/2021 R42 Dizziness and giddiness Tari Villa.A.-C. 06/18/2021 S09.0xxA Injury of blood vess els of head, not elsewhere classified, initial encounter Amparo VillaALauren-C. 04/07/2021 R55 Syncope and collapse Amparo YangA.-C. 04/07/2021 R42 Dizziness and giddiness Tari Villa.A.-CLauren 04/07/2021 R94.02 Abnormal brain scan Tari Vee.A.-C. 03/19/2021 R55 Syncope and collapse Liz trevino M.D. 03/19/2021 R55 Syncope and collapse EEG 02/18/2021 R55 Syncope and collapse Gabby Strange M.D. 02/18/2021 R55 Syncope and collapse MRI 02/18/2021 R42 Dizziness and giddiness Gabby Hernandez M.D. 02/18/2021 R42 Dizziness and giddiness MRI 02/18/2021 R94.02 Abnormal brain scan Gabby Strange M.D. 02/18/2021 R94.02 Abnormal brain scan MRI 02/05/2021 R55 Syncope and collapse Anastasiia ramirez P.A.-C. 02/05/2021 I95.1 Orthostatic hypotension Anastasiia Artis P.A.-C. 02/05/2021 R94.02 Abnormal brain scan Anastasiia nunez P.A.-C. Plan of Treatment Future Appointment(s):* 06/23/2021 10:00 am - MRI at [facility] * 09/20/2021 9:15 am - Anastasiia Artis P.A.-C. at [facility] 06/18/2021 - Anastasiia Artis P.A.-C.* R94.02 Abnormal brain scan* Comments:* Repeat MRI of the brain. * R55 Syncope and collapse* Comments:* Schedule MRA's of the head and neck. EEG was normal. She continues Keppra. She was advised to follow up with cardiology for BP issues. She was also advised to speak with her PCP regarding possible serotonin syndrome related to Paxil, Effexor XR and Trazodone. She is not driving. * R42 Dizziness and giddiness* Comments:* Repeat MRA's of the head and neck. * S09.0xxA Injury of blood vessels of head, not elsewhere classified, initial encounter* Comments:* Repeat MRI brain. * Follow up:* 3 months Functional Status Description No Information Available Mental Status Description No Information Available Referrals Description No Information Available"
--- OUTSIDE RECORDS SUMMARY | 2021-07-01 13:21 | CCD | Continuity of Care Document ---
Author Author Azalea SOLO Organization Unknown Address [address] [place] [address] Phone [phone] Care Team Providers Care Order Desk Clerk Name Role Phone Abel Sales DO AUTM [phone] Problems Description No Information Available Social History [...] Information Available Procedures Date Code Description Status 06/23/2021 28511 MRI Brain W/O Contrast Completed 06/23/2021 01188 Magnetic Resonance Angiography N viral W/O Contrast Materials Completed 06/23/2021 56048 Magnetic Resonance Angiogtaphy H ead W/O Contrast Material(S) Completed 06/18/2021 41746 Office/Outpatient Established Mo d MDM 30-39 Min Completed 03/19/2021 77767 EEG Complete STD Phys/QHP>60 HR< 84 HR W/O Video Completed 03/19/2021 86141 EEG Complete STD Phys/QHP>36 HR< 60 HR W/O Video Completed 02/18/2021 17721 MRI Brain W/O Contrast Completed 02/18/2021 89269 MRI Brain W/O Contrast Completed 02/05/2021 07614 Office/Outpatient Established Mo d MDM 30-39 Min Completed Medical Devices Description No Information Available Encounters Type Date Location Provider Dx Diagnosis Office Visit 06/18/2021 11:00a Main office - [place] Tari Vee.A.-C. R94.02 Abnormal brain scan R55 Syncope and collapse R42 Dizziness and giddiness S09.0xxA Injury of blood vessels of h ead, NEC, init Office Visit 02/05/2021 10:45a Main office - [place] Tari Vee.A.-C. R55 Syncope and collapse I95.1 Orthostatic hypotension R94.02 Abnormal brain scan Assessments Date Code Description Provider 06/23/2021 R55 Syncope and collapse MRI 06/23/2021 S09.0xxA Injury of blood vess els of head, not elsewhere classified, initial encounter MRI 06/23/2021 R42 Dizziness and giddiness MRI 06/18/2021 R94.02 Abnormal brain scan Amparo VeeA.-C. 06/18/2021 R55 Syncope and collapse Amparo YangA.-C. 06/18/2021 R42 Dizziness and giddiness Andreas Villa-C. 06/18/2021 S09.0xxA Injury of blood vess els of head, not elsewhere classified, initial encounter Tari Villa.A.-C. 04/07/2021 R55 Syncope and collapse Amparo YangA.-C. 04/07/2021 R42 Dizziness and giddiness Tari Villa.A.-C. 04/07/2021 R94.02 Abnormal brain scan Rafal Vee.-C. 03/19/2021 R55 Syncope and collapse Liz trevino [...] nunez P.A.-C. Plan of Treatment Future Appointment(s):* 09/20/2021 9:15 am - Anastasiia Artis P.A.-C. at Main office [facility] 06/18/2021 - Anastasiia Artis P.A.-C.* R94.02 Abnormal [...]
--- OUTSIDE RECORDS SUMMARY | 2021-07-01 13:21 | CCD | Continuity of Care Document ---
Author Author Azalea SOLO Organization Unknown Address [address] [place] [address] Phone [phone] Care Team Providers Care Credit Risk Review Officer Name Role Phone Abel Sales DO AUTM [phone] Problems Description No Information Available Social History [...] Available Procedures Date Code Description Status 06/23/2021 93335 MRI Brain W/O Contrast Completed 06/23/2021 28365 Magnetic Resonance Angiography N viral W/O Contrast Materials Completed 06/23/2021 02097 Magnetic Resonance Angiogtaphy H ead W/O Contrast Material(S) Completed 06/18/2021 00185 Office/Outpatient Established Mo d MDM 30-39 Min Completed 03/19/2021 94218 EEG Complete STD Phys/QHP>60 HR< 84 HR W/O Video Completed 03/19/2021 89181 EEG Complete STD Phys/QHP>36 HR< 60 HR W/O Video Completed 02/18/2021 61691 MRI Brain W/O Contrast Completed 02/18/2021 25197 MRI Brain W/O Contrast Completed 02/05/2021 88292 Office/Outpatient Established Mo d MDM 30-39 Min Completed Medical Devices Description No Information Available Encounters Type Date Location Provider Dx Diagnosis Office Visit 06/18/2021 11:00a Main office - [place] Tari Vee.A.-C. R94.02 Abnormal brain scan R55 Syncope and collapse R42 Dizziness and giddiness S09.0xxA Injury of blood vessels of h ead, NEC, init Office Visit 02/05/2021 10:45a Main office - [place] Tari Vee.A.-C. R55 Syncope and collapse I95.1 [...] - Anastasiia Artis P.A.-C. at Main office [facility] 06/18/2021 - Anastasiia Artis P.A.-C.* R94.02 Abnormal [...]
--- OUTSIDE RECORDS SUMMARY | 2021-07-01 13:21 | CCD | Continuity of Care Document ---
Author Author Azalea SOLO Organization Unknown Address [address] [place] [address] Phone [phone] Care Team Providers Care Clutch Rebuilder Name Role Phone Abel Sales DO AUTM [phone] Problems Description No Information Available Social History [...] Available Procedures Date Code Description Status 06/23/2021 95373 MRI Brain W/O Contrast Completed 06/23/2021 03006 MRI Brain W/O Contrast Completed 06/23/2021 55058 Magnetic Resonance Angiography N viral W/O Contrast Materials Completed 06/23/2021 46712 Magnetic Resonance Angiography N viral W/O Contrast Materials Completed 06/23/2021 67715 Magnetic Resonance Angiogtaphy H ead W/O Contrast Material(S) Completed 06/23/2021 66311 Magnetic Resonance Angiogtaphy H ead W/O Contrast Material(S) Completed 06/18/2021 56293 Office/Outpatient Established Mo d MDM 30-39 Min Completed 03/19/2021 78492 EEG Complete STD Phys/QHP>60 HR< 84 HR W/O Video Completed 03/19/2021 23052 EEG Complete STD Phys/QHP>36 HR< 60 HR W/O Video Completed 02/18/2021 61112 MRI Brain W/O Contrast Completed 02/18/2021 65829 MRI Brain W/O Contrast Completed 02/05/2021 49874 Office/Outpatient Established Mo d MDM 30-39 Min Completed Medical Devices Description No Information Available Encounters Type Date Location Provider Dx Diagnosis Office Visit 06/18/2021 11:00a Main office - [place] Tari Vee.A.-C. R94.02 Abnormal brain scan R55 Syncope and collapse R42 Dizziness and giddiness S09.0xxA Injury of blood vessels of h ead, NEC, init Office Visit 02/05/2021 10:45a Main office - [place] Tari Vee.A.-C. R55 Syncope and collapse I95.1 Orthostatic hypotension R94.02 Abnormal brain scan Assessments Date Code Description Provider 06/23/2021 R55 Syncope and collapse Gabby Strange M.D. 06/23/2021 R55 Syncope and collapse MRI 06/23/2021 S09.0xxA Injury of blood vess els of head, not elsewhere classified, initial encounter Gabby Strange M.D. 06/23/2021 S09.0xxA Injury of blood vess els of head, not elsewhere classified, initial encounter MRI 06/23/2021 R42 Dizziness and giddiness Gabby Hernandez M.D. 06/23/2021 R42 Dizziness and giddiness MRI 06/18/2021 R94.02 Abnormal brain scan Amparo VeeA.-C. 06/18/2021 R55 Syncope and collapse Toño YangCLauren 06/18/2021 R42 Dizziness and giddiness Rafal Villa.NatyCLauren 06/18/2021 S09.0xxA Injury of blood vess els of head, not elsewhere classified, initial encounter Anastasiia Artis P.A.-C. 04/07/2021 R55 Syncope and collapse Anastasiia ramirez P.A.-C. 04/07/2021 R42 Dizziness and giddiness Anastasiia Artis P.A.-C. 04/07/2021 R94.02 Abnormal brain scan Anastasiia nunez P.A.-C. 03/19/2021 R55 Syncope and collapse Liz trevino [...] - Anastasiia Artis P.A.-C. at Main office [facility] 06/18/2021 - Anastasiia Artis P.A.-C.* R94.02 [...]
--- OUTSIDE RECORDS SUMMARY | 2021-07-01 13:21 | CCD | Continuity of Care Document ---
Author Author Azalea LEON MD Organization Unknown Address [address] [facility], [place] [address] Phone [phone] Care Team Providers Care Carpenters Name Role Phone Margarito Dias MD AUTM [phone] Momo Garner MD AUTM [phone] Curry Mars MD AUTM [phone] Tiff Colón PMHNP- AUTM Liz Strange MD AUTM [phone] Joss Arnold DO AUTM [phone] Problems Active Problems Provider Date Essential hypertension [...] Leon MD Onset: 12/27/2016 Coronary arteriosclerosis in [place] artery Christiano Leon MD Onset: 12/27/2016 Dyspnea Christiano Leon MD Onset: 12/27/2016 Obesity Christiano Leon MD Onset: 12/27/2016 Atherosclerotic heart disease of [place] coronary artery with other forms of angina [...] bedtime with 100 mg dose Tari Colón, [facility]- 08/31/2020 Levetiracetam 250mg Tablets 1 by mouth [...] Curtis Butler, DO 04/29 Vitamin D (Ergocalciferol) 60066Jtcc Capsules 1 by mouth every weekly Jules Butler, DO 04/29/2019 Vitamin B12 1000mcg Tablets ER 2 by mouth every day Curtis Butler, DO 04/29 Calcium 600 600mg Tablets 1 by mouth every day Unknown 04/29/2019 Multi Vitamin Tablets daily Unknown 09/03/2018 Paxil 40mg Tablets 1 by [place] every day Unknown 07/19/2018 Claritin-D 24 Hour [...] H/L Range Note CBC W/Auto Differential 03/18/2021 [facility] [phone] White Blood Count 4.9 10 Normal 4.0-10.0 [...] 36.0-66.0 Lymph % 28.9 % Normal 24.0-44.0 [place] % 7.7 % Normal 2.0-8.0 Eos % 0.8 % Normal 0.0-3.0 Baso % 0.2 % Normal 0.0-1.0 Immature Granulocyte % 0.4 % Normal 0-3.0 Nucleated Red Blood Cell % 0.0 % Normal 0-0 Neutrophils # 3.1 10 Normal 1.5-8.5 Lymph # 1.4 10 Low 1.5-5.0 [place] # 0.4 10 Normal 0.0-0.8 Eos # 0.0 10 Normal 0.0-0.5 Baso # 0.0 10 Normal 0.0-0.2 Lipid Panel 03/18/2021 [facility] nter [phone] Triglycerides Level 99 mg/dL Normal <150 Cholesterol Level 143 mg/dL Normal <200 HDL Cholesterol 58 mg/dL Normal >40 LDL Cholesterol 65 mg/dL Normal <100 Non-HDL-C 85 mg/dL Normal Cholesterol Risk Ratio 2.465 Normal <5 Laboratory test finding 03/18/2021 [facility] [phone] NT-Pro BNP 95 pg/mL Normal <125 Basic Metabolic Profile 03/18/2021 [facility] [phone] Glucose, Fasting 88 mg/dL Normal 70-100 Blood [...] Little GFR Left ESRD GFR <15 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 Procedures Date Code Description Status 05/28/2021 93051 TM Interpretation & Report Only Completed 05/28/2021 81451 Myocardial Imaging (PET) Multipl e Studies Completed 05/21/2021 89286 Smoking & Tobacco Ce ssation Counseling Visit Intermediate 3-10Min Completed 05/21/2021 33330 Office/Outpatient Established Mo d MDM 30-39 Min Completed 05/21/2021 12592 ECG 12-Lead Completed 05/20/2021 82006 Chronic Care MGMT 20 Mins Clinical Staff Time Per Calendar Month Completed 05/20/2021 31962 Chronic Care Management Services Ea Addl 20 Min Completed 03/22/2021 98115 Chronic Care MGMT 20 Mins Clinical Staff Time Per Calendar Month Completed 03/18/2021 73379 Office/Outpatient Established Mo d MDM 30-39 Min Completed 03/01/2021 25239 Smoking & Tobacco Ce ssation Counseling Visit Intermediate 3-10Min Completed 03/01/2021 06817 Office/Outpatient Established Mo d MDM 30-39 Min Completed 03/01/2021 79712 ECG 12-Lead Completed 02/11/2021 06400 Chronic Care MGMT 20 Mins Clinical Staff Time Per Calendar Month Completed 02/11/2021 12473 Chronic Care Management Services Ea Addl 20 Min Completed 01/01/2021 20944 Chronic Care MGMT 20 Mins Clinical Staff [...] Durbin I25 .118 Athscl heart disease of [place] cor art w oth ang pctrs R06.02 [...] 05/28/2021 I25.118 Atherosclerotic hear t disease of [place] coronary artery with other forms of angina pectoris Cardiac PET 05/21/2021 I25.10 Atherosclerotic hear t disease of [place] coronary artery without angina pectoris ROMY Durbin 05/21/2021 R06.02 Shortness of breath ROMY Durbin 05/21/2021 R00.2 Palpitations ROMY Galloway Cha, se 05/21/2021 I10 Essential (primary) hypertension ROMY Durbin 05/21/2021 E78.2 Mixed hyperlipidemia ROMY Barton 05/21/2021 I77.810 Thoracic aortic ectasia ROMY Nolasco 05/21/2021 F17.210 Nicotine dependence, cigarettes, uncomplicated Cristina L. Austin, PA 05/21/2021 R94.31 Abnormal electrocardiogram [ECG] [EKG] ROMY Durbin 05/21/2021 E66.8 Other obesity ROMY Galloway Cha, se 05/21/2021 Z71.3 Dietary counseling and surveilla nce ROMY Durbin 05/20/2021 I10 Essential (primary) hypertension Christiano Leon MD 05/20/2021 E78.2 Mixed hyperlipidemia Christiano deshpande MD 03/22/2021 I10 Essential (primary) hypertension Christiano Leon MD 03/22/2021 I25.10 Atherosclerotic hear t disease of [place] coronary artery without angina pectoris Christiano Leon MD 03/18/2021 I10 Essential (primary) hypertension ROMY Durbin 03/18/2021 R06.02 Shortness of breath ROMY Durbin 03/18/2021 I25.10 Atherosclerotic hear t disease of [place] coronary artery without angina pectoris ROMY Durbin 03/01/2021 I25.118 Atherosclerotic heart disease of [place] coronary artery with ROMY Durbin 03/01/2021 R06.02 [...] therapy * I25.10 Atherosclerotic heart disease of [place] coronary artery without angina pectoris* Recommendations:* Continue [...]
[2021-07-01] MEDS ORDERED: BRIL90TA (13:22)
--- OUTSIDE RECORDS SUMMARY | 2021-07-01 13:22 | CCD | Continuity of Care Document ---
Author Author Alex SHAWAzalea Antwan Organization Unknown Address [address] [facility], [place] [address] Phone [phone] Care Team Providers Care Acetylene Torch Solderer Name Role Phone Margarito Dias MD AUTM [phone] Momo Garner MD AUTM [phone] Curry Mars MD AUTM [phone] Tiff Colón PMHNP- AUTM Liz Strange MD AUTM [phone] Joss Arnold DO AUTM [phone] Problems Active Problems Provider Date Essential hypertension [...] Leon MD Onset: 12/27/2016 Coronary arteriosclerosis in [place] artery Christiano Leon MD Onset: 12/27/2016 Dyspnea Christiano Leon MD Onset: 12/27/2016 Obesity Christiano Leon MD Onset: 12/27/2016 Atherosclerotic heart disease of [place] coronary artery with other forms of angina [...] bedtime with 100 mg dose Tari Colón, [facility]- 08/31/2020 Levetiracetam 250mg Tablets 1 by mouth [...] Curtis Butler, DO 04/29 Vitamin D (Ergocalciferol) 08760Jgbi Capsules 1 by mouth every weekly Jules Butler, DO 04/29/2019 Vitamin B12 1000mcg Tablets ER 2 by mouth every day Curtis Butler, DO 04/29 Calcium 600 600mg Tablets 1 by mouth every day Unknown 04/29/2019 Multi Vitamin Tablets daily Unknown 09/03/2018 Paxil 40mg Tablets 1 by [facility] every day Unknown 07/19/2018 Claritin-D 24 Hour [...] H/L Range Note CBC W/Auto Differential 03/18/2021 [facility] [phone] White Blood Count 4.9 10 Normal 4.0-10.0 [...] 36.0-66.0 Lymph % 28.9 % Normal 24.0-44.0 [place] % 7.7 % Normal 2.0-8.0 Eos % 0.8 % Normal 0.0-3.0 Baso % 0.2 % Normal 0.0-1.0 Immature Granulocyte % 0.4 % Normal 0-3.0 Nucleated Red Blood Cell % 0.0 % Normal 0-0 Neutrophils # 3.1 10 Normal 1.5-8.5 Lymph # 1.4 10 Low 1.5-5.0 [place] # 0.4 10 Normal 0.0-0.8 Eos # 0.0 10 Normal 0.0-0.5 Baso # 0.0 10 Normal 0.0-0.2 Lipid Panel 03/18/2021 [facility] nter [phone] Triglycerides Level 99 mg/dL Normal <150 Cholesterol Level 143 mg/dL Normal <200 HDL Cholesterol 58 mg/dL Normal >40 LDL Cholesterol 65 mg/dL Normal <100 Non-HDL-C 85 mg/dL Normal Cholesterol Risk Ratio 2.465 Normal <5 Laboratory test finding 03/18/2021 [facility] [phone] NT-Pro BNP 95 pg/mL Normal <125 Basic Metabolic Profile 03/18/2021 [facility] [phone] Glucose, Fasting 88 mg/dL Normal 70-100 Blood [...] Little GFR Left 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 Procedures Date Code Description Status 05/21/2021 34108 Smoking & Tobacco Ce ssation Counseling Visit Intermediate 3-10Min Completed 05/21/2021 01643 Office/Outpatient Established Mo d MDM 30-39 Min Completed 05/21/2021 06966 ECG 12-Lead Completed 03/22/2021 25363 Chronic Care MGMT 20 Mins Clinical Staff Time Per Calendar Month Completed 03/18/2021 61307 Office/Outpatient Established Mo d MDM 30-39 Min Completed 03/01/2021 83932 Smoking & Tobacco Ce ssation Counseling Visit Intermediate 3-10Min Completed 03/01/2021 21449 Office/Outpatient Established Mo d MDM 30-39 Min Completed 03/01/2021 28250 ECG 12-Lead Completed 02/11/2021 87611 Chronic Care MGMT 20 Mins Clinical Staff Time Per Calendar Month Completed 02/11/2021 05352 Chronic Care Management Services Ea Addl 20 Min Completed 01/01/2021 25414 Chronic Care MGMT 20 Mins Clinical Staff Time Per Calendar Month Completed Medical Devices Description No Information Available Encounters Type Date Location Provider Dx Diagnosis Office Visit 03/22/2021 4:38p Main Office Christiano Leon MD I10 Essential (primary) hypertension I25.10 Athscl heart disease of [place] coronary artery w/o ang pctrs Office Visit 03/18/2021 12:45p Main Office ROMY Durbin I10 Essential (primary) hypertension R06.02 Shortness of breath I25.10 Athscl heart disease of [place] coronary artery w/o [facility] pctrs Office Visit 03/01/2021 2:15p Main Office ROMY Durbin I25 .118 Athscl heart disease of [place] cor art w oth [facility] pct R06.02 Shortness of breath I10 Essential (primary) [...] chloe, uncomplicated Assessments Date Code Description Provider 05/21/2021 I25.10 Atherosclerotic hear t disease of [place] coronary artery without angina pectoris ROMY Durbin 05/21/2021 R06.02 Shortness of breath ROMY Durbin 05/21/2021 R00.2 Palpitations ROMY Galloway Cha, se 05/21/2021 I10 Essential (primary) hypertension ROMY Durbin 05/21/2021 E78.2 Mixed hyperlipidemia ROMY Barton 05/21/2021 I77.810 Thoracic aortic ectasia ROMY Nolasco 05/21/2021 F17.210 Nicotine dependence, cigarettes, uncomplicated RMOY Durbin 05/21/2021 R94.31 Abnormal electrocardiogram [ECG] [EKG] ROMY Durbin 05/21/2021 E66.8 Other obesity ROMY Galloway Cha, se 05/21/2021 Z71.3 Dietary counseling and surveilla nce ROMY Durbin 03/22/2021 I10 Essential (primary) hypertension Christiano Leon MD 03/22/2021 I25.10 Atherosclerotic hear t disease of [place] coronary artery without angina pectoris Christiano Leon MD 03/18/2021 I10 Essential (primary) hypertension ROMY Durbin 03/18/2021 R06.02 Shortness of breath ROMY Durbin 03/18/2021 I25.10 Atherosclerotic hear t disease of [place] coronary artery without angina pectoris ROMY Durbin 03/01/2021 I25.118 Atherosclerotic heart disease of [place] coronary artery with ROMY Durbin 03/01/2021 R06.02 [...] therapy * I25.10 Atherosclerotic heart disease of [place] coronary artery without angina pectoris* Recommendations:* Continue [...]
--- OUTSIDE RECORDS SUMMARY | 2021-07-01 13:22 | CCD | Continuity of Care Document ---
Author Author Azalea HOWE PA Organization Unknown Address [address] [place] [address], [place] [address] Phone [phone] Care Team Providers Care Paid Search Specialist Name Role Phone Margarito Dias MD AUTM [phone] Momo Garner MD AUTM [phone] Curry Mars MD AUTM [phone] Tiff Colón PMHNP- AUTM Liz Strange MD AUTM [phone] Joss Arnold DO AUTM [phone] Problems Active Problems Provider Date Essential hypertension [...] Leon MD Onset: 12/27/2016 Coronary arteriosclerosis in [place] artery Christiano Leon MD Onset: 12/27/2016 Dyspnea Christiano Leon MD Onset: 12/27/2016 Obesity Christiano Leon MD Onset: 12/27/2016 Atherosclerotic heart disease of [place] coronary artery with other forms of angina pectoris YURIDIA Cha-Anastacio Onset: 05/31/2017 Hypokalemia CHUYITA Cha Onset: 05/31/2017 Dietary management surveillance Christiano Leon MD Onset: 07/25/2017 Preoperative cardiovascular examination ROMY Willson Onset: 12/06/2017 Edema ROMY Willson Onset: 03/22/2018 Palpitations ROMY Willson Onset: 09/20/2019 Syncope and collapse ROMY Willson Onset: 03/03/2020 Social History Type Date Description Comments Sex [...] Exercise Limitations Other anxiety Exercise Limitations Syncope Allergies, Adverse Reactions, Alerts Active Allergies Criticality Reaction | Severity Comments [...] bedtime with 100 mg dose Tari Colón, [facility]- 08/31/2020 Levetiracetam 250mg Tablets 1 by [...] Curtis Butler, DO 04/29 Vitamin D (Ergocalciferol) 58700Rryl Capsules 1 by mouth every weekly Jules Butlerena, DO 04/29/2019 Vitamin B12 1000mcg Tablets ER 2 by mouth every day Curtis Butler, 04/29 Calcium 600 600mg Tablets 1 by mouth every day Unknown 04/29/2019 Multi Vitamin Tablets daily Unknown 09/03/2018 Paxil 40mg Tablets 1 by mo [facility] every day Unknown 07/19/2018 Claritin-D 24 [...] H/L Range Note CBC W/Auto Differential 03/18/2021 [facility] [phone] White Blood Count 4.9 10 Normal 4.0-10.0 [...] 36.0-66.0 Lymph % 28.9 % Normal 24.0-44.0 [place] % 7.7 % Normal 2.0-8.0 Eos % 0.8 % Normal 0.0-3.0 Baso % 0.2 % Normal 0.0-1.0 Immature Granulocyte % 0.4 % Normal 0-3.0 Nucleated Red Blood Cell % 0.0 % Normal 0-0 Neutrophils # 3.1 10 Normal 1.5-8.5 Lymph # 1.4 10 Low 1.5-5.0 [place] # 0.4 10 Normal 0.0-0.8 Eos # 0.0 10 Normal 0.0-0.5 Baso # 0.0 10 Normal 0.0-0.2 Lipid Panel 03/18/2021 [facility] nter [phone] Triglycerides Level 99 mg/dL Normal <150 Cholesterol Level 143 mg/dL Normal <200 HDL Cholesterol 58 mg/dL Normal >40 LDL Cholesterol 65 mg/dL Normal <100 Non-HDL-C 85 mg/dL Normal Cholesterol Risk Ratio 2.465 Normal <5 Laboratory test finding 03/18/2021 [facility] [phone] NT-Pro BNP 95 pg/mL Normal <125 Basic Metabolic Profile 03/18/2021 [facility] [phone] Glucose, Fasting 88 mg/dL Normal 70-100 Blood [...] 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 Procedures Date Code Description Status 03/22/2021 64752 Chronic Care MGMT 20 Mins Clinical Staff Time Per Calendar Month Completed 03/18/2021 51159 Office/Outpatient Established Mo d MDM 30-39 Min Completed 03/01/2021 30166 Smoking & Tobacco Ce ssation Counseling Visit Intermediate 3-10Min Completed 03/01/2021 28752 Office/Outpatient Established Mo d MDM 30-39 Min Completed 03/01/2021 32484 ECG 12-Lead Completed 02/11/2021 14335 Chronic Care MGMT 20 Mins Clinical Staff Time Per Calendar Month Completed 02/11/2021 42767 Chronic Care Management Services Ea Addl 20 Min Completed 01/01/2021 05197 Chronic Care MGMT 20 Mins Clinical Staff Time Per Calendar Month Completed 11/26/2020 99520 Chronic Care MGMT 20 Mins Clinical Staff Time Per Calendar Month Completed 11/26/2020 48430 Chronic Care Management Services Ea Addl 20 Min Completed 11/18/2020 60083 Office/Outpatient Established Lo w MDM 20-29 Min Completed Medical Devices Description No Information Available Encounters Type Date Location Provider Dx Diagnosis Office Visit 03/18/2021 12:45p Main Office ROMY Durbin I10 Essential (primary) hypertension R06.02 Shortness of breath I25.10 Athscl heart disease of [place] coronary artery w/o ang pctrs Office Visit 03/01/2021 2:15p Main Office ROMY Durbin I25 .118 Athscl heart disease of [place] cor art w oth ang pctrs R06.02 [...] Palpitations F17.210 Nicotine dependence, cigaret chloe, uncomplicated Office Visit 11/26/2020 3:15p Main Office Christiano Leon MD I10 Essential (primary) hypertension R00.2 Palpitations Office Visit 11/18/2020 9:15a Main Office ROMY Durbin I10 Essential (primary) hypertension Assessments Date Code Description Provider 03/22/2021 I10 Essential (primary) hypertension Christiano Leon MD 03/22/2021 I25.10 Atherosclerotic hear t disease of [place] coronary artery without angina pectoris Christiano Leon MD 03/18/2021 I10 Essential (primary) hypertension ROMY Durbin 03/18/2021 R06.02 Shortness of breath ROMY Durbin 03/18/2021 I25.10 Atherosclerotic hear t disease of [place] coronary artery without angina pectoris ROMY Durbin 03/01/2021 I25.118 Atherosclerotic heart disease of [place] coronary artery with ROMY Durbin 03/01/2021 R06.02 [...] Nicotine dependence, cigarettes, uncomplicated Christiano Leon MD 11/26/2020 I10 Essential (primary) hypertension Christiano Leon MD 11/26/2020 R00.2 Palpitations Christiano Leon MD 11/18/2020 I10 Essential (primary) hypertension ROMY Durbin Plan of Treatment Future Appointment(s):* 05/28/2021 3:00 pm - Cardiac PET at Main Office * 05/21/2021 9:45 am - ROMY Durbin at Main Office [...] therapy * I25.10 Atherosclerotic heart disease of [place] coronary artery without angina pectoris* Recommendations:* Continue [...]
--- OUTSIDE RECORDS SUMMARY | 2021-07-01 13:22 | CCD | Continuity of Care Document ---
Author Author Azalea LEON MD Organization Unknown Address [address] [facility], [place] [address] Phone [phone] Care Team Providers Care Office 365 Consultant Name Role Phone Margarito Dias MD AUTM [phone] Momo Garner MD AUTM [phone] Curry Mars MD AUTM [phone] Tiff Colón PMHNP- AUTM Liz Strange MD AUTM [phone] Joss Arnold DO AUTM [phone] Problems Active Problems Provider Date Essential hypertension [...] Leon MD Onset: 12/27/2016 Coronary arteriosclerosis in [place] artery Christiano Leon MD Onset: 12/27/2016 Dyspnea Christiano Leon MD Onset: 12/27/2016 Obesity Christiano Leon MD Onset: 12/27/2016 Atherosclerotic heart disease of [place] coronary artery with other forms of angina [...] with 100 mg dose Tari Colón, [facility]- 08/31/2020 Levetiracetam 250mg Tablets 1 by [...] by mouth every day R60.0 Curtis Butler, 04/29 Vitamin D (Ergocalciferol) 75589Munm Capsules 1 by mouth every weekly Jules Butler, 04/29/2019 Vitamin B12 1000mcg Tablets ER 2 by mouth every day Curtis Butler, 04/29 Calcium 600 600mg Tablets 1 by mouth every day Unknown 04/29/2019 Multi Vitamin Tablets daily Unknown 09/03/2018 Paxil 40mg Tablets 1 by mo [facility] every day Unknown 07/19/2018 Claritin-D 24 Hour 1 0-240mg Tablets ER 24HR 1 by mouth every day Unknown 018 Azelastine HCL (Nasal) 0.1% Soluti on 1-2 sprays in each nostril twice a day Unknown 12/05/2017 Atorvastatin Calcium 80mg Tablets 1 by mouth every night at bedtime 90tabs Jake Bhta MD 08/17/2017 Immunizations Description No Information Available [...] H/L Range Note CBC W/Auto Differential 03/18/2021 [facility] [phone] White Blood Count 4.9 10 Normal 4.0-10.0 [...] 36.0-66.0 Lymph % 28.9 % Normal 24.0-44.0 [place] % 7.7 % Normal 2.0-8.0 Eos % 0.8 % Normal 0.0-3.0 Baso % 0.2 % Normal 0.0-1.0 Immature Granulocyte % 0.4 % Normal 0-3.0 Nucleated Red Blood Cell % 0.0 % Normal 0-0 Neutrophils # 3.1 10 Normal 1.5-8.5 Lymph # 1.4 10 Low 1.5-5.0 [place] # 0.4 10 Normal 0.0-0.8 Eos # 0.0 10 Normal 0.0-0.5 Baso # 0.0 10 Normal 0.0-0.2 Lipid Panel 03/18/2021 [facility] nter [phone] Triglycerides Level 99 mg/dL Normal <150 Cholesterol Level 143 mg/dL Normal <200 HDL Cholesterol 58 mg/dL Normal >40 LDL Cholesterol 65 mg/dL Normal <100 Non-HDL-C 85 mg/dL Normal Cholesterol Risk Ratio 2.465 Normal <5 Laboratory test finding 03/18/2021 [facility] [phone] NT-Pro BNP 95 pg/mL Normal <125 Basic Metabolic Profile 03/18/2021 [facility] [phone] Glucose, Fasting 88 mg/dL Normal 70-100 Blood [...] 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 Procedures Date Code Description Status 03/22/2021 60497 Chronic Care MGMT 20 Mins Clinical Staff Time Per Calendar Month Completed 03/18/2021 88576 Office/Outpatient Established Mo d MDM 30-39 Min Completed 03/01/2021 18914 Smoking & Tobacco Ce ssation Counseling Visit Intermediate 3-10Min Completed 03/01/2021 38895 Office/Outpatient Established Mo d MDM 30-39 Min Completed 03/01/2021 73456 ECG 12-Lead Completed 02/11/2021 49334 Chronic Care MGMT 20 Mins Clinical Staff Time Per Calendar Month Completed 02/11/2021 46441 Chronic Care Management Services Ea Addl 20 Min Completed 01/01/2021 02673 Chronic Care MGMT 20 Mins Clinical Staff Time Per Calendar Month Completed 11/26/2020 95330 Chronic Care MGMT 20 Mins Clinical Staff Time Per Calendar Month Completed 11/26/2020 58013 Chronic Care Management Services Ea Addl 20 Min Completed 11/18/2020 40921 Office/Outpatient Established Lo w MDM 20-29 Min [...] disease of [place] coronary artery w/o ortiz pctrs Office Visit 03/01/2021 2:15p Main Office ROMY Durbin I25 .118 Athscl heart disease of [place] cor art w oth [facility] pctrs R06.02 Shortness of breath I10 Essential [...] 03/22/2021 I25.10 Atherosclerotic hear t disease of [place] coronary artery without angina pectoris Christiano Leon MD 03/18/2021 I10 Essential (primary) hypertension ROMY Durbin 03/18/2021 R06.02 Shortness of breath ROMY Durbin 03/18/2021 I25.10 Atherosclerotic hear t disease of [place] coronary artery without angina pectoris ROMY Durbin 03/01/2021 I25.118 Atherosclerotic heart disease of [place] coronary artery with ROMY Durbin 03/01/2021 R06.02 [...] therapy * I25.10 Atherosclerotic heart disease of [place] coronary artery without angina pectoris* Recommendations:* Continue [...]
--- OUTSIDE RECORDS SUMMARY | 2021-07-01 13:22 | CCD ---
Author Author Azalea Thornton Organization Unknown Address [address] [place] [address] Phone Care Team Providers Care Senior Construction Project Manager Name Role Phone JuanKwasiRegulo, Antonella PCP Allergies, Adverse Reactions, Alerts Concept Allergy Name Reaction Severity Onset Date Status Documentation Date Phone Number Npid Taxonomy Code Taxonomy Desc Author Last Name Author Fi rst Name Concept Type 664048 penicillin v potassium Rash Active 06/14/2018 3157 [id number] [id number] Nurse Practitioner Eldon Matthew RXNORM 100648 Celexa Rash Active 06/14/2018 [id number] Nurse Practitioner Eldon Matthew RXNORM Problem List Concept Problem Description Status Start Date Created Date Resolv ed Date Snomed Code F43.12 Post-traumatic stress disorder, chronic Active 06/14/2018 06/14/2018 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 00 Procedures Date Concept Id Description Targeted Site Concept Targeted Site Concept Type 05/05/2021 07594 Health Monitoring - 30 Min CPT Patient has no history of implantable de vices Encounters Encounter Start Date End Date Encounter Type Description Diagnosis Di agnosis Desc Location Author First Name Author Last Name Npid Taxonomy Cod e Taxonomy Desc Phone Number Location Addr1 Location Addr2 Location City Location Sta te Location Zip [id number] 05/05/2021 05/05/2021 16445 Health Monitoring - 30 Min F 43.12 Post- traumatic stress disorder, chronic [facility] JuanRegulojasper Berman [id number] Licensed Practical Nurse [id number] [address] [address] Plan of Treatment No Data in Section Lab Results No Data in Section Instructions No Data in Section Functional Cognitive Status No Data in Section Insurance Providers Insurance Id Policy Effective Date Policy Thru Date Company N gisele [id number] 2019 MEDICARE [id number] 2019 MEDICAID
--- OUTSIDE RECORDS SUMMARY | 2021-07-01 13:22 | CCD | Continuity of Care Document ---
Author Author Azalea LEON MD Organization Unknown Address [address] [facility], [place], [place] [address] Phone [phone] Care Team Providers Care Gusset Ripper Name Role Phone Margarito Dias MD AUTM [phone] Momo Garner MD AUTM [phone] Curry Mars MD AUTM [phone] Tiff Colón PMHNP- AUTM Liz Strange MD AUTM [phone] Joss Arnold DO AUTM [phone] Problems Active Problems Provider Date Essential hypertension [...] Leon MD Onset: 12/27/2016 Coronary arteriosclerosis in [place] artery Christiano Leon MD Onset: 12/27/2016 Dyspnea Christiano Leon MD Onset: 12/27/2016 Obesity Christiano Leon MD Onset: 12/27/2016 Atherosclerotic heart disease of [place] coronary artery with other forms of angina [...] bedtime with 100 mg dose Tari Colón, [facility]- 08/31/2020 Levetiracetam 250mg Tablets 1 by mouth [...] R60.0 Curtis Butler, 04/29 Vitamin D (Ergocalciferol) 72794Jemh Capsules 1 by mouth every weekly Jules Butler, 04/29/2019 Vitamin B12 1000mcg Tablets ER 2 by mouth every day Curtis Butler, 04/29 Calcium 600 600mg Tablets 1 by mouth every day Unknown 04/29/2019 Multi Vitamin Tablets daily Unknown 09/03/2018 Paxil 40mg Tablets 1 by mo [facility] every day Unknown 07/19/2018 Claritin-D [...] H/L Range Note CBC W/Auto Differential 03/18/2021 [facility] [phone] White Blood Count 4.9 10 Normal 4.0-10.0 [...] 36.0-66.0 Lymph % 28.9 % Normal 24.0-44.0 [place] % 7.7 % Normal 2.0-8.0 Eos % 0.8 % Normal 0.0-3.0 Baso % 0.2 % Normal 0.0-1.0 Immature Granulocyte % 0.4 % Normal 0-3.0 Nucleated Red Blood Cell % 0.0 % Normal 0-0 Neutrophils # 3.1 10 Normal 1.5-8.5 Lymph # 1.4 10 Low 1.5-5.0 [place] # 0.4 10 Normal 0.0-0.8 Eos # 0.0 10 Normal 0.0-0.5 Baso # 0.0 10 Normal 0.0-0.2 Lipid Panel 03/18/2021 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 Procedures Date Code Description Status 03/22/2021 68002 Chronic Care MGMT 20 Mins Clinical Staff Time Per Calendar Month Completed 03/18/2021 88680 Office/Outpatient Established Mo d MDM 30-39 Min Completed 03/01/2021 24629 Smoking & Tobacco Ce ssation Counseling Visit Intermediate 3-10Min Completed 03/01/2021 65243 Office/Outpatient Established Mo d MDM 30-39 Min Completed 03/01/2021 66206 ECG 12-Lead Completed 02/11/2021 80323 Chronic Care MGMT 20 Mins Clinical Staff Time Per Calendar Month Completed 02/11/2021 57467 Chronic Care Management Services Ea Addl 20 Min Completed 01/01/2021 42455 Chronic Care MGMT 20 Mins Clinical Staff Time Per Calendar Month Completed 11/26/2020 56773 Chronic Care MGMT 20 Mins Clinical Staff Time Per Calendar Month Completed 11/26/2020 67988 Chronic Care Management Services Ea Addl 20 Min Completed 11/18/2020 00508 Office/Outpatient Established Lo w MDM 20-29 Min [...] Durbin I25 .118 Athscl heart disease of [place] cor art [facility] [...] 03/22/2021 I25.10 Atherosclerotic hear t disease of [place] coronary artery without angina pectoris Christiano Leon MD 03/18/2021 I10 Essential (primary) hypertension ROMY Durbin 03/18/2021 R06.02 Shortness of breath ROMY Durbin 03/18/2021 I25.10 Atherosclerotic hear t disease of [place] coronary artery without angina pectoris ROMY Durbin 03/01/2021 I25.118 Atherosclerotic heart disease of [place] coronary artery with ROMY Durbin 03/01/2021 R06.02 [...] Leon MD 11/26/2020 I10 Essential (primary) hypertension Christaino Leon MD 11/26/2020 R00.2 Palpitations Christiano Leon [...] therapy * I25.10 Atherosclerotic heart disease of [place] coronary artery without angina pectoris* Recommendations:* Continue [...]
--- OUTSIDE RECORDS SUMMARY | 2021-07-01 13:22 | CCD ---
Author Author Azalea Smith Organization Unknown Address [address] [address] Phone Care Team Providers Care Director Career Name Role Phone Arlene Smith PCP Allergies, Adverse Reactions, Alerts Concept Allergy Name Reaction Severity Onset Date Status Documentation Date Phone Number Npid Taxonomy Code Taxonomy Desc Author Last Name Author Fi rst Name Concept Type 214850 penicillin v potassium Rash Active 06/14/2018 3157 822225 [id number] Nurse Practitioner Eldon Matthew RXNORM 436657 Celexa Rash Active 06/14/2018 [id number] Nurse Practitioner Eldon Matthew RXNORM Problem List [...] Date Smoking Status Unknown if ever smoked [id number] Immunizations No Data in Section Vital Signs No Data in Section Procedures Date Concept Id Description Targeted Site Concept Targeted Site Concept Type 05/05/2021 96089 Extended Individual Psychotherapy - 45 min CPT Patient has no history of implantable de vices Encounters Encounter Start Date End Date Encounter Type Description Diagnosis Di agnosis Desc Location Author First Name Author Last Name Npid Taxonomy Cod e Taxonomy Desc Phone Number Location Addr1 Location Addr2 Location City Location Sta Location Zip [id number] 05/05/2021 05/05/2021 84488 Extended Individual Psych otherapy - 45 min F43.12 Post-traumatic stress disorder, chronic [facility] Luis Jacobs [phone] 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
--- OUTSIDE RECORDS SUMMARY | 2021-07-01 13:22 | CCD | Continuity of Care Document ---
Author Author Azalea ARTIS P.A.-C. Organization Unknown Address [address] [place] [address] Phone [phone] Care Team Providers Care Scrip Clerk Name Role Phone Abel Sales DO AUTM [phone] Problems Description No Information Available Social History [...] Available Vital Signs Date Vital Result Comment 02/05/2021 6:41am BP Systolic 110 mmHg BP Diastolic 78 mmHg Heart Rate 68 /min Respiratory Rate 16 /min Results Description No Information Available Procedures Date Code Description Status 06/18/2021 70322 Office/Outpatient Established Mo d MDM 30-39 Min Completed 03/19/2021 06884 EEG Complete STD Phys/QHP>60 HR< 84 HR W/O Video Completed 03/19/2021 19902 EEG Complete STD Phys/QHP>36 HR< 60 HR W/O Video Completed 02/18/2021 69438 MRI Brain W/O Contrast Completed 02/18/2021 48079 MRI Brain W/O Contrast Completed 02/05/2021 82946 Office/Outpatient Established Mo d MDM 30-39 Min Completed Medical Devices Description No Information Available Encounters Type Date Location Provider Dx Diagnosis Office Visit 06/18/2021 11:00a Main office [place] Rafal Vee.-C. R94.02 Abnormal brain scan R55 Syncope and collapse R42 Dizziness and giddiness S09.0xxA Injury of blood vessels of h ead, NEC, init Office Visit 02/05/2021 10:45a Main office - [place] Tari Vee.Juana.-C. R55 Syncope and collapse I95.1 Orthostatic hypotension R94.02 Abnormal brain scan Assessments Date Code Description Provider 06/18/2021 R94.02 Abnormal brain scan Tari Vee.A.-CLauren 06/18/2021 R55 Syncope and collapse Amparo YangA.-C. 06/18/2021 R42 Dizziness and giddiness Rafal Villa.-CLauren 06/18/2021 S09.0xxA Injury of blood vess els of head, not elsewhere classified, initial encounter Tari Villa.A.-C. 04/07/2021 R55 Syncope and collapse Amparo YangA.-C. 04/07/2021 R42 Dizziness and giddiness Tari Villa.A.-C. 04/07/2021 R94.02 Abnormal brain scan Tari Vee.A.-C. [...] scan MRI 02/05/2021 R55 Syncope and collapse Andreas Yang-CLauren 02/05/2021 I95.1 Orthostatic hypotension Anastasiia Artis P.A.-C. 02/05/2021 R94.02 Abnormal brain scan Anastasiia nunez P.A.-C. Plan of Treatment Future Appointment(s):* 06/23/2021 10:00 am - MRI at [facility] * 09/20/2021 9:15 am - Anastasiia Artis P.A.-C. at [facility] 06/18/2021 - Anastasiia Artis P.A.-C.* R94.02 Abnormal brain scan * R55 Syncope and collapse * R42 Dizziness and giddiness * S09.0xxA Injury of blood vessels of head, not elsewhere classified, initial encounter Functional Status Description No Information Available Mental Status Description No Information Available Referrals Description No Information Available"
--- OUTSIDE RECORDS SUMMARY | 2021-07-01 13:22 | CCD | Continuity of Care Document ---
Author Author Azalea WILLIAM MD Organization Unknown Address [address] [place] [address], [facility] [address] [place] [address] Phone [phone] Care Team Providers Care Fleet Manager Name Role Phone Abel Sales [phone] Problems Active Problems Provider Date Aneurysm of thoracic aorta Onset: 2016 Dietary management surveillance Onset: 1 09/25/2016 Dyspnea Onset: 12/27/2016 Edema Onset: 03/22/2018 Electrocardiogram abnormal Onset: 2016 Essential hypertension Onset: 12/27/2016 Flushing Onset: 12/27/2016 Hypokalemia Onset: 05/31/2017 Morbid obesity Onset: 12/27/2016 Obesity Onset: 12/27/2016 Patient post percutaneous transluminal coronary angioplasty Onset: 12/27/2016 Preoperative cardiovascular examination Onset: 12/06/2017 Pure hypercholesterolemia Onset: 017 Tobacco user Onset: 12/27/2016 Social History Type Date Description Comments Sex Unknown ETOH Use Rarely consumes alcohol Tobacco Use Start: Unknown Patient is a current smoker, smo kes every day Smoking Status Reviewed: 11/19/20 Patient is a current smoker, smokes every day Allergies, Adverse Reactions, Alerts Active Allergies Criticality Reaction | Severity Comments Date Penicillin Unable to assess criticality 11/14/2017 Penicillins Unable to assess criticality Rash 05/13/2019 Citalopram Unable to assess criticality 11/19/2020 Medications Active Medications SIG Qnty Indications Ordering Provide r Date Gabapentin 100mg Capsules Take 1 Capsule By Mouth Three Times daily 90caps M51.36 Ronnie William MD 0 04/07/2021 Vitamin D (Ergocalciferol) 17665Qiyy Capsules 1 by mouth every weekly Jules Butler B 04/29/2019 Vitamin B-12 ER 1000mcg Tablets ER 2 by mouth every day Curtis Butler 019 Venlafaxine HCL ER 75mg Caps ER 24 HR 1 by mouth every day Unknown 04/29/2019 Atorvastatin Calcium 80mg Tablets 1 by mouth every night at bedtime 30tabs Christiano Leon M D 08/17/2017 Brilinta 90mg Tablets patient takes one tab by mouth twice a day Unknown 000 Centrum Adults Tablets Unknown Calcium & Vitamin D3 Bonehealth Liquid Unknown Ambien 5mg Tablets Unknown Aspirin 81 Low Dose 81mg Chewtabs 1 by mouth every day Unknown Levetiracetam 250mg Tablets Unknown Farxiga 5mg Tablets 1 by mouth every day Unknown Trazodone HCL 150mg Tablets Unknown Losartan Potassium 50mg Tablets Unknown Paroxetine HCL 20mg Tablets Unknown Metoprolol Succinate ER 50mg Tablets ER 24HR Unknown History Medications Medrol 4mg Tablets dose steffany, take as directed on sheet 1tabs M51.36 Christiano Baum MD 04/07/2021 - 04/27/2021 Lidocaine 4% Patches place patch on area that is hurting, on for 12 hours and then off skin for 12 hours. 30units M25.552 Christiano Baum MD 01/20/2021 - 04/27/2021 Immunizations Description No Information Available Vital Signs Date Vital Result Comment 01/20/2021 2:48pm Body Temperature 96.4 F Height 68 inches 5'8" Weight 232.38 lb BMI (Body Mass Index) 35.3 kg/m2 09/11/2020 1:10pm Body Temperature 97.1 F Results Test Acquired Date Facility Test Result H/L Range Note CBC With Differential 01/20/2021 [facility] [address] [place] [address] (315)- - White Blood Count 5.2 10 Normal 4.0-10.0 Red Blood Count 4.89 10 Normal 4.00-5.40 Hemoglobin 13.5 g/dL Normal 12.0-15.5 Hematocrit 43.1 % Normal 36.0-47.0 Mean Corpuscular Volume 88.1 fl Normal 80.0-96.0 Mean Corpuscular Hemoglobin 27.6 pg Normal 27.0-33.0 Mean Corpuscular HGB Conc 31.3 g/dL Low 32.0-36.5 Red Cell Distribution Width 13.0 % Normal 11.5-14.5 Platelet Count, Automated 269 10 Normal 150-450 Neutrophils % 52.9 % Normal 36.0-66.0 Lymph % 34.9 % Normal 24.0-44.0 [place] % 9.9 % High 2.0-8.0 Eos % 1.7 % Normal 0.0-3.0 Baso % 0.4 % Normal 0.0-1.0 Immature Granulocyte % 0.2 % Normal 0-3.0 Nucleated Red Blood Cell % 0.0 % Normal 0-0 Neutrophils # 2.8 10 Normal 1.5-8.5 Lymph # 1.8 10 Normal 1.5-5.0 [place] # 0.5 10 Normal 0.0-0.8 Eos # 0.1 10 Normal 0.0-0.5 Baso # 0.0 10 Normal 0.0-0.2 Laboratory test finding 01/[facility]2021 [facility] [address] [place] [address] (315)- - Uric Acid 5.2 mg/dL Normal 2.6-6.0 Rheumatoid Factor Quant < 10.0 IU/mL Normal <15.0 Antinuclear Antibodies 01/20/2021 [facility] [address] [address] (315)- - Antinuclear Antibodies Direct Negative Normal Negati ve 1 Laboratory test finding 01/20/[facility] [address] [place] [address] (315)- - Erythrocyte Sedimentation Rate 14 mm/hr Normal 0-30 Hla-B27 Negative Normal . 2 C Reactive Protein Quantitativ < 0.30 mg/dL Normal 0.00-0.30 Lyme Disease SCRN With Confirm 01/20/[address] [address] (315)- - Lyme Disease IgG/IgM Antibodie <0.91 ISR Normal 0.00- 0.90 3 Lyme Disease IgM Ab Quantitati <0.80 index Normal 0.00-0.79 4 1 Performed at: - Lab[address] [id number] Bilingual Student Tutor: Cata Santana MD, Phone: [phone] Performed at: 2[facility] [id number] Bilingual Student Tutor: Leander Murillo PhD, Phone: [phone] 2 HLA-B*27 Negative B27 allele interpretation for all loci based on IMGT/HLA database version 3.38 This test was developed and its performance characteristics determined by [facility]. It has not been cleared or approved by the Food and Drug Administration. [facility] CLIA ID Number [id number] . This test was performed using PCR (Polymerase Chain Reaction)/SSOP (Sequence Specific Oligonucleotide Probes) technique. SBT (Sequence Based Typing) and/or SSP (Sequence Specific Primers) may be used as supplemental methods when necessary. Please contact [facility] Customer Service at if you have any questions. . Director of HLA Laboratory Dr Leander Murillo, PhD 3 Negative <0.91 Equivocal 0.91 - 1.09 Positive >1.09 4 Negative <0.80 Equivocal 0.80 - 1.19 Positive >1.19 . IgM levels may peak at 3-6 weeks post infection, then gradually decline. Procedures Date Code Description Status 04/28/2021 01769 Office/Outpatient New Moderate M DM 45-59 Minutes Completed 04/28/2021 63944 Nerve Conduction 5-6 Studies Com pleted 04/28/2021 36022 Needle Electromyography,Complete Five Or More Muscles Studied Completed 04/07/2021 78857 Office/Outpatient Established Mo d MDM 30-39 Min Completed 01/20/2021 88291 Office/Outpatient Established Mo d MDM 30-39 Min Completed 01/04/2021 40062 Office/Outpatient Established Lo w MDM 20-29 Min Completed 11/19/2020 76452 Office/Outpatient Established Lo w MDM 20-29 Min Completed Medical Devices Description No Information Available Encounters Type Date Location Provider Dx Diagnosis Office Visit 04/28/2021 10:30a Yariel William MD M51.36 Other intervertebral disc degeneration, lumbar region M47.896 Other spondylosis, lumbar re gion M54.16 Radiculopathy, lumbar region Office Visit 04/07/2021 2:00p [place] Helen L. RAMU BaumC M51.36 Other intervertebral disc degeneration, lumbar region M79.651 Pain in right thigh M25.561 Pain in right knee Z96.651 Presence of right artificial knee joint Office Visit 01/20/2021 3:15p [place] Helen L. ROMY Baum-C M65.811 Other synovitis and tenosynovitis, right shoulder M51.36 Other intervertebral disc de generation, lumbar region M79.651 Pain in right thigh M25.561 Pain in right knee Z96.651 Presence of right artificial knee joint M54.5 Low back pain Office Visit 01/04/2021 1:45p [place] Helen L. RAMU BaumC M65.811 Other synovitis and tenosynovitis, right shoulder Office Visit 11/19/2020 2:30p [place] DLauren Mars MD M5 1.36 Other intervertebral disc degeneration, lumbar region M79.651 Pain in right thigh M25.561 Pain in right knee Z96.651 Presence of right artificial knee joint Assessments Date Code Description Provider 04/28/2021 M51.36 Other intervertebral disc degene ration, lumbar region Ronnie William MD 04/28/2021 M47.896 Other spondylosis, lumbar region Ronnie William MD 04/28/2021 M54.16 Radiculopathy, lumbar region Ebony William MD 04/07/2021 M51.36 Other intervertebral disc degene ration, lumbar region Helen L. Bautista PA-C 04/07/2021 M79.651 Pain in right thigh Helen L. Fis praveen PA-C 04/07/2021 M25.561 Pain in right knee Helen L. Bautista PA-C 04/07/2021 Z96.651 Presence of right artificial kne e joint Helen L. Bautista PA-C 01/20/2021 M65.811 Other synovitis and tenosynoviti s, right shoulder Helen L. Bautista PA-C 01/20/2021 M51.36 Other intervertebral disc degene ration, lumbar region eHlen Webster Bautista PA-C 01/20/2021 M79.651 Pain in right thigh Helen Webster RAMU JamaC 01/20/2021 M25.561 Pain in right knee Helen Webster Bautista PA-C 01/20/2021 Z96.651 Presence of right artificial kne e joint Helen Webster Bautista PA-C 01/20/2021 M54.5 Low back pain Helen Webster Bautista, P A-C 01/04/2021 M65.811 Other synovitis and tenosynoviti s, right shoulder Helen Webster Bautista PA-C 11/19/2020 M51.36 Other intervertebral disc degene ration, lumbar region Lynsey Mars MD 11/19/2020 M79.651 Pain in right thigh Lynsey Cast MD 11/19/2020 M25.561 Pain in right knee Lynsey elliott MD 11/19/2020 Z96.651 Presence of right artificial kne e joint Lynsey Mars MD Plan of Treatment Future Appointment(s):* 05/21/2021 1:15 pm - Helen Baum PA-C at [place] 04/28/2021 - Ronnie William MD* M51.36 Other intervertebral disc degeneration, lumbar region* Follow up:* with Klf for emg results * M47.896 Other spondylosis, lumbar region * M54.16 Radiculopathy, lumbar region Functional Status Description No Information Available Mental Status Description No Information Available Referrals Refer to Reason for Referral Status Appt Date Helen Baum PA-C EMG NO AUTH REQUIRED TO SCHEDULING NT Creat ed [address] [facility] [address] [place] [address] [phone] Glynn Mars MD FLUORO INJ NO AUTH REQUIRED FOR FLUOROSCOPIC INJECTION TO LEFT HIP ([id number]) TO RODNEY Barraza 00 [address] [facility], [address] [place] [address] [phone]
--- OUTSIDE RECORDS SUMMARY | 2021-07-01 13:22 | CCD | Continuity of Care Document ---
Author Author Azalea RODRÍGUEZ PANatyC Organization Unknown Address [address] [place] [address] Phone [phone] Care Team Providers Care Park Interpretive Specialist Name Role Phone Abel Sales [phone] Problems Active Problems Provider Date Aneurysm of [...] Ordering Provide r Date Gabapentin 100mg Capsules 1 cap po tid x1 week, then 2 caps po tid x1 week, then 3 caps po tid 90caps M51.36 Christiano Rodríguez MD 04/07/2021 Medrol 4mg Tablets dose steffany, take as directed on sheet 1tabs M51.36 Christiano Rodríguez MD 04/07/2021 Lidocaine 4% Patches place patch on area that is hurting, on for 12 hours and then off skin for 12 hours. 30units M25.552 Christiano Rodríguez MD 01/20/2021 Vitamin D (Ergocalciferol) 37820Dfto Capsules 1 by mouth every weekly Jules Butler B 04/29/2019 Vitamin B-12 ER 1000mcg Tablets ER 2 by mouth every day Maria Gg Curtis B 019 Venlafaxine HCL ER 75mg Caps ER 24 HR 1 by mouth every day Unknown 04/29/2019 Atorvastatin Calcium 80mg Tablets 1 by mouth every night at bedtime 30tabs Christiano Leon M D 08/17/2017 Tylenol 325mg Capsules 1-2 tabs every 4-6 hours as needed for as needed post op pain. (please do not fill until 07/07/2020) Unknown Quetiapine Fumarate 50mg Tablets Unknown Trazodone HCL 150mg Tablets Unknown Losartan Potassium 50mg Tablets Unknown Paroxetine HCL 20mg Tablets Unknown Multivitamin Adult Tablets 1 by mouth every day Unknown Linzess 72mcg Capsules Unknown Spironolactone 50mg Tablets 1 tab by mouth twice a day Unknown Chlorthalidone 25mg Tablets Unknown Metoprolol Succinate ER 50mg Tablets ER 24HR Unknown Immunizations Description No Information Available Vital Signs Date Vital Result Comment 01/20/2021 2:48pm Body Temperature 96.4 F Height 68 inches 5'8" Weight 232.38 lb BMI (Body Mass Index) 35.3 kg/m2 09/11/2020 1:10pm Body Temperature 97.1 F Results Test Acquired Date Facility Test Result H/L Range Note CBC With Differential 01/20/2021 [facility] [address] [place] [address] (315)- - White Blood Count 5.2 10 [...] 36.0-66.0 Lymph % 34.9 % Normal 24.0-44.0 [place] % 9.9 % High 2.0-8.0 Eos % 1.7 % Normal 0.0-3.0 Baso % 0.4 % Normal 0.0-1.0 Immature Granulocyte % 0.2 % Normal 0-3.0 Nucleated Red Blood Cell % 0.0 % Normal 0-0 Neutrophils # 2.8 10 Normal 1.5-8.5 Lymph # 1.8 10 Normal 1.5-5.0 [place] # 0.5 10 Normal 0.0-0.8 Eos # 0.1 10 Normal 0.0-0.5 Baso # 0.0 10 Normal 0.0-0.2 Laboratory test finding 01/20/[address] [facility] [address] [place] [address] (315)- - Uric Acid 5.2 mg/dL Normal 2.6-6.0 Rheumatoid Factor Quant < 10.0 IU/mL Normal <15.0 Antinuclear Antibodies 01/20/[address] [address] (315)- - Antinuclear Antibodies Direct Negative Normal Negati ve 1 Laboratory test finding 01/20/[address] [facility] [address] [place] [address] (315)- - Erythrocyte Sedimentation Rate 14 mm/hr Normal 0-30 Hla-B27 Negative Normal . 2 C Reactive Protein Quantitativ < 0.30 mg/dL Normal 0.00-0.30 Lyme Disease SCRN With Confirm 01/20/[address] [address] (315)- - Lyme Disease IgG/IgM Antibodie <0.91 ISR Normal 0.00- 0.90 3 Lyme Disease IgM Ab Quantitati <0.80 index Normal 0.00-0.79 4 1 Performed at: - Lab[address] [id number] Field Staff Manager: Cata Santana MD, Phone: [phone] Performed at: 2[facility] [id number] Field Staff Manager: Leander Murillo PhD, Phone: [phone] HLA-B*27 Negative B27 allele interpretation for all loci based on IMGT/HLA database version 3.38 This test was developed and its performance characteristics determined by [facility]. It has not been cleared or approved by the Food and Drug Administration. [facility] CLIA ID Number [id number] . This test was performed using PCR [...] gradually decline. Procedures Date Code Description Status 04/07/2021 73383 Office/Outpatient Established Mo d MDM 30-39 Min Completed 01/20/2021 98460 Office/Outpatient Established Mo d MDM 30-39 Min Completed 01/04/2021 74123 Office/Outpatient Established Lo w MDM 20-29 Min Completed 11/19/2020 15244 Office/Outpatient Established Lo w MDM 20-29 Min Completed Medical Devices Description No Information Available Encounters Type Date Location Provider Dx Diagnosis Office Visit 04/07/2021 2:00p Yariel Rodríguez PA-C M51.36 Other intervertebral disc degeneration, lumbar region M79.651 Pain in right thigh M25.561 Pain in right knee Z96.651 Presence of right artificial knee joint Office Visit 01/20/2021 3:15p [place] Helen L. Fish, PA-C M65.811 Other synovitis and tenosynovitis, right shoulder M51.36 Other intervertebral disc de generation, lumbar region M79.651 Pain in right thigh M25.561 Pain in right knee Z96.651 Presence of right artificial knee joint M54.5 Low back pain Office Visit 01/04/2021 1:45p [place] Helen L. Fish, PA-C M65.811 Other synovitis and tenosynovitis, right shoulder Office Visit 11/19/2020 2:30p [place] DLauren Mars MD M5 1.36 Other intervertebral disc degeneration, lumbar region M79.651 Pain in right thigh M25.561 Pain in right knee Z96.651 Presence of right artificial knee joint Assessments Date Code Description Provider 04/07/2021 M51.36 Other intervertebral disc degene ration, lumbar region Helen L. Fish, PA-C 04/07/2021 M79.651 Pain in right thigh Helen L. Fis h, PA-C 04/07/2021 M25.561 Pain in right knee Helen L. Fish , PA-C 04/07/2021 Z96.651 Presence of right artificial kne e joint Helen L. Fish, PA-C 01/20/2021 M65.811 Other synovitis and tenosynoviti s, right shoulder Helen L. Fish, PA-C 01/20/2021 M51.36 Other intervertebral disc degene ration, lumbar region Helen L. Fish, PA-C 01/20/2021 M79.651 Pain in right thigh Helen L. Fis h, PA-C 01/20/2021 M25.561 Pain in right knee Helen L. Fish , PA-C 01/20/2021 Z96.651 Presence of right artificial kne e joint Helen L. Fish, PA-C 01/20/2021 M54.5 Low back pain Helen L. Fish, P A-C 01/04/2021 M65.811 Other synovitis and tenosynoviti s, right shoulder Helen L. Fish, PA-C 11/19/2020 M51.36 Other intervertebral disc degene ration, lumbar region Lynsey Mars MD 11/19/2020 M79.651 Pain in right thigh Lynsey Cast MD 11/19/2020 M25.561 Pain in right knee Lynsey elliott MD 11/19/2020 Z96.651 Presence of right artificial kne e joint Lynsey Mars MD Plan of Treatment 04/07/2021 - Helen Rodríguez PA-C* M51.36 Other intervertebral disc degeneration, lumbar region* New Medication:* Medrol 4 mg - dose steffany, take as directed on sheet * Gabapentin 100 mg - 1 cap po tid x1 week, then 2 caps po tid x1 week, then 3 caps po tid * M79.651 Pain in right thigh * M25.561 Pain in right knee * Z96.651 Presence of right artificial knee joint Functional Status Description No Information Available Mental Status Description No Information Available Referrals Refer to Dr Reason for Referral Status Appt Date Helen Rodríguez PA-C EMG NO AUTH REQUIRED TO SCHEDULING NT Creat ed [address] [place] [address] [address] [place] [address] [phone] Glynn Mars MD FLUORO INJ NO AUTH REQUIRED FOR FLUOROSCOPIC INJECTION TO LEFT HIP ([id number] [phone]) TO RODNEY Barraza [address] [place] [address], [address] [place] [address] [phone]
--- OUTSIDE RECORDS SUMMARY | 2021-07-01 13:22 | CCD ---
Author Author [facility] Organization [facility] Address Unknown Phone Unavailable Care Team Providers Care Clerical Grader Name Role Phone Abel Sales Unavailable PROBLEMS Type Condition ICD9-CM Code [id number] Code Onset Dates Condition S tatus W/U Status Risk SNOMED Code Notes Problem Gastroesophageal reflux disease, esophagitis pre sence not specified K21.9 Active confirmed 355244594 Problem Swelling of both lower extremities M79.89 Activ e confirmed 034340646 Problem Anxiety, generalized F41.1 Active confirmed 78567860 Problem Family history of breast cancer Z80.3 Active confi rmed 708125033 Problem Family history of malignant neoplasm of ovary Z80. 41 Active confirmed 420849524 Problem Fibrocystic disease of right breast N60.11 Acti ve confirmed 31123825 Problem Ambulatory dysfunction R26.2 Active confirmed 125575897 Problem Irritable bowel syndrome with diarrhea K58.0 A ctive confirmed 851590890 Problem Severe depression F32.2 Active confirmed 31 0987893 Problem Abnormal mammogram R92.8 Active confirmed 1 84023891 Problem Constipation, unspecified constipation type K59.00 Active confirmed 09090670 Problem Primary osteoarthritis of right knee M17.11 Act carlos confirmed 733785536 Problem Dyslipidemia E78.5 Active confirmed 5212470 07 Problem Epigastric pain R10.13 Active confirmed 7992 2009 Problem Hyperplastic colonic polyp, unspecified part of colon K63.5 Active confirmed 709131789 Problem Mild episode of recurrent major depressive disorder F33.0 Active confirmed 845417119 Problem PMB (postmenopausal bleeding) N95.0 Active confirm ed 12783133 Problem Cigarette nicotine dependence without complication F17.210 Active confirmed 95917624 Problem Other chronic pain G89.29 Active confirmed 8 5245673 Problem Nabothian cyst N88.8 Active confirmed 62615 6009 Problem Prediabetes R73.03 Active confirmed 12474625 2 Problem History of hysterectomy Z90.710 Active confirmed 270476899 Problem Obstructive sleep apnea syndrome G47.33 Active conf irmed 80261665 Problem H/O heart artery stent Z95.5 Active confirmed 422643247 Problem Essential hypertension I10 Active confirmed 99929844 Problem Vasomotor symptoms due to menopause N95.1 Acti ve confirmed 874530316 Problem Dyspareunia in female N94.10 Active confirmed 55716754 Problem Encounter for gynecological examination (general) (routine) with abnormal findings Z01.411 Active confirmed 741338835 Problem NISHA (obstructive sleep apnea) G47.33 Active confirm ed 72576006 Problem Seasonal allergies J30.2 Active confirmed 4 36765665 Problem Generalized anxiety disorder F41.1 Active confirme d 40904133 Problem 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 A ctive confirmed 158480112 Problem Obesity (BMI 30-39.9) E66.9 Active confirmed 615250315 Problem Gross hematuria R31.0 Active confirmed 1979 30320 Problem Irritable bowel syndrome with both constipation and diarrh ea K58.2 Active confirmed 98580906 Problem Panic disorder [episodic paroxysmal anxiety] F41.0 Active confirmed 422444805 Problem Nicotine use disorder F17.200 Active confirmed 43444589 ALLERGIES Allergen (clinical drug ingredient) Drug/Non Drug Allergy do cumented on EMR Reaction Allergy Type Onset Date Status citalopram Citalopram Hydrobromide([facility] Code:[address]-18) Nausea/Vomiting Drug Allergy Active Penicillin (For Allergies Use Only) Rash Drug Allerg y Active ENCOUNTERS from 1968 to 2021-05-17 Encounter Location Date Provider Diagnosis [facility] [address] [facility] [phone] [place] [address] Apr, Abel Sales IMMUNIZATIONS Vaccine Route Administration Date Status COVID-19 dose #2 given elsewhere Unspecified Unknown December 30, 2020 Administered COVID-19 dose #1 given elsewhere Unspecified Unknown Nov Administered Influenza 18 yrs & older Flublok IM Intramuscular Jun 06, 2018 Administered Pneumococcal Adult 0.5mL Pneumovax 23 IM Intramuscular Aug 23 020 Administered Influenza 6mo & up Fluzone IM Intramuscular Jun 09, 2017 Admi nistered SOCIAL HISTORY Tobacco Use: Social History Observation Description Date Details (start date - stop date) Current Smoker Sex Assigned At : Social History Observation Description Sex Assigned At Unknown Education: Question Answer Notes Level of Education: Not finished High School Audit Question Answer Notes Total Score: 1 Interpretation: Alcohol Education Language: Question Answer Notes Languages spoken: Maltese Catholic: Question Answer Notes Catholic 13 [employer]ism Sexual Hx: Question Answer Notes Had sex in the last 12 months (vaginal, oral, or anal)? No LMP: hyster Have you ever had an STD? No Drug and Alcohol Question Answer Notes Total Score: 0 Interpretation: No problems reported Alcohol Screening: Question Answer Notes Did you have a drink containing alcohol in the past year? Ye s Points 1 Interpretation Negative How often did you have six or more drinks on one occas ion in the past year? Never (0 points) How many drinks did you have on a typica l day when you were drinking in the past year? 1 or 2 (0 points) How often did you have a drink containing alcohol in t he past year? Monthly or less (1 point) BMI Care Goal Follow-Up Question Answer Notes Above Normal BMI Follow-Up Giving encouragement to exercise Tobacco Use: Question Answer Notes Are you a: current smoker Smoking Cessation Information Given 03/04/2021 Patient counseled on the dangers of tobacco use and urged to quit: 03/04/2021 How many cigarettes a day do you smoke? 5 or less Are you interested in quitting? Not ready to quit Counseled the patient on smoking effects, education provided 03/04/2021 REASON FOR REFERRAL No Information VITAL SIGNS No information MEDICATIONS Medication SIG (Take, Route, Frequency, Duration) Notes Start Da te End Date Status Farxiga 5 MG 1 tablet Orally Once a day for 30 day(s) Active Calcium 1 tab Oral twice daily Ac tive Potassium Chloride Malathi ER 20 MEQ 1 tablet with food O rally twice a day for 30 days Active Losartan Potassium 50 MG 1 tablet Orally Once a day for 30 day(s) Active ALPRAZolam 0.25 MG 1 tablet Orally Daily as nee ded for panic attacks;MDD:1 for 28 days Apr, Active Linzess 72 MCG 1 capsule at least 30 minute s before the first meal of the day on an empty stomach Orally Once a day for 30 day(s) hosp d/c 7-20= 145 mg qd Active PARoxetine HCl 40 MG 1 tablet in the morning Orally Once a day Active Zofran ODT 4 MG 1 tablet on the tongue and a llow to dissolve Orally Once a day for 30 day(s) Active Estradiol 0.1 MG/GM 1/2 gm Vaginal Two times a Week for 90 days Active Keppra 250 MG 1 tablet Orally every 12 hrs for 30 day(s) Active Ztail Blood Glucose Monitor w/Device as directed Daily for 99 months Jul, Active Claritin-D 24 Hour 10-240 MG 1 tablet as needed Orally Once a day for 30 day(s) Oct, Active Auto-Lancet - as directed subcutaneously (R 73.03) Daily for 3 0 day(s) Jul, Active Vitamin B-12 100 MCG as directed Orally Once a day for 30 days Active Nicorette 2 MG 1 lozenge as needed Mouth/Th roat 8 times a day as need for 30 Days Active Aspir-Low 81 MG 1 tablet Orally Once a day for 30 day(s) Active Vitamin D 47900 UNIT 1 capsule Orally once a week for 30 Days Active Acetaminophen 325 MG 2 tablets as needed Orally every 6 hrs as n eeded December, Active Centrum Adults - 1 tablet Orally once a day Active OneTouch Ultra II Test Strips as directed topically Da alex (R 73.03) for 30 day(s) Jul, Active traZODone HCl 100 MG 1 tablet at bedtime Orally Once a day Active Famotidine 20 MG 1 tablet at bedtime as needed Orally Onc e a day for 30 day(s) Feb, Active Metoprolol Succinate ER 50 MG TAKE 1 1/2 TABLETS BY MOUTH ONCE DA ALEX Oral Active Brilinta 90 MG TAKE ONE TABLET BY MOUTH TWICE A DAY Oral Active May Have - as directed Diabetic Needle (R73.03) Daily for 3 0 day(s) Jul, Active Atorvastatin Calcium 80 MG 1 tablet Orally Once a day for 30 day(s) Active Azelastine HCl 0.1 % 1 puff in each nostril Nasally Twice a day for 30 day(s) Active PROCEDURES No Information RESULTS No Results REASON FOR VISIT meds refill MEDICAL (GENERAL) HISTORY Type Description Date Medical History CAD s/p 4 stents Medical History NISHA, using CPAP Medical History HTN goal of 130/90 Medical History Prediabetes Medical History Gastric Bypass 2018 Medical History Knee replacement Right 2018 Medical History C. diff treated with vanco 2019 Medical History depression Surgical History Appendectomy 1985 Surgical History C section x 2 1986, 1994 Surgical History Supracervical hysterectomy ovaries remai n 2002 Surgical History Right knee surgery, laser to remove cart ilage 2008 Surgical History Coronary stents x 4 2014 Surgical History colonoscopy 12/2017 Surgical History total right knee 07/26/2018 Surgical History cysto 10/14/19 Hospitalization History Cornoary stents 2015 Hospitalization History Hypertension 11/2016 Hospitalization History surgery related 07/2018 Hospitalization History [facility] for Syncopy 2.5 days 01/2020 Goals Section No Information Health Concerns No Information MEDICAL EQUIPMENT No Information MENTAL STATUS No Information FUNCTIONAL STATUS No Information ASSESSMENTS No Information PLAN OF TREATMENT Medication Medication Name Sig Start Date Stop Date Metoprolol Succinate ER 50 MG TAKE 1 1/2 TABLETS BY MOUTH ONCE DAILY Oral Brilinta 90 MG TAKE ONE TABLET BY MOUTH TWICE A DAY Oral Farxiga 5 MG 1 tablet Orally Once a day for 30 day(s) Potassium Chloride Malathi ER 20 MEQ 1 tablet with food O rally twice a day for 30 days ALPRAZolam 0.25 MG 1 tablet Orally Daily as nee ded for panic attacks;MDD:1 for 28 days Apr, PARoxetine HCl 40 MG 1 tablet in the morning Orally Once a day Next Appt Details Provider Name:Abel Sales, 2021-06-11 08 :45:00 AM, [address] [facility], , [place], [address], Insurance Providers Payer Name Payer Address Payer Phone Insured Name Patient Relati onship to Insured Coverage Start Date Coverage End Date MEDICARE Part A and B [address] [facility] [id number] CARLA ANNE self MEDICAID [employer] [address] [place] [address] CARLA ANNE self
--- OUTSIDE RECORDS SUMMARY | 2021-07-01 13:22 | CCD ---
Author Author Azalea Thornton Organization Unknown Address [address] [place] [address] Phone Care Team Providers Care Naprapath Name Role Phone Antonella Thornton PCP Allergies, Adverse Reactions, Alerts Concept Allergy Name Reaction Severity Onset Date Status Documentation Date Phone Number Npid Taxonomy Code Taxonomy Desc Author Last Name Author Fi rst Name Concept Type 149858 penicillin v potassium Rash Active 06/14/2018 3157 065149 [id number] Nurse Practitioner Eldon Matthew RXNORM [id number] Celexa Rash Active 06/14/2018 [id number] Nurse Practitioner Eldon Matthew RXNORM Problem List Concept Problem Description Status Start Date Created Date Resolv ed Date Snomed Code F43.12 Post-traumatic stress disorder, chronic Active 06/14/2018 06/14/2018 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 10/02/2017 10/02/2017 F50.81 Binge-Eating Disorder Active 01/29/2018 01/29/2018 F33.2 Major Depressive Disorder, Recurrent episode, Severe A ctive 05/21/2019 05/21/2019 Medications Rx Norm Medication Route Route Concept Start Date Stop Date Dosage Taye quency Duration Formula Strength Dosage Form Dosage Form Code Dosage Description Medication Id Account Npid Author First Name Author Last Name Taxonomy Code Taxonomy Desc Phone Number [phone] Ambien by mouth [id number] 05/07/2021 06/05/2021 at bedtime 30 5 mg tablet as needed 68345 [id number] Tiff Colón [id number] Nurse Practitio ner [id number] trazodone by mouth [id number] 05/07/2021 07/06/2021 at bedtime 30 150 mg tablet 60802 [id number] Tiff Colón [id number] Nurse aTri hensley [id number] venlafaxine by mouth [id number] 05/07/2021 07/06/2021 every morning 30 225 mg tablet extended release 24hr 20299 155299 [id number] Tiff Colón [id number] Nurse Practitioner [id number] Social History Social History Element Description Concept Effective Date Smoking Status Unknown if ever smoked [id number] 04577641 Immunizations No Data in Section Vital Signs Encounter Date Height Ins Weight Lbs Bmi Bp Systolic Bp Diastoli c Oxygen Saturation Respiration Rate Pulse Rate Body Temp Head Circumference Heigh t Lying 05/05/2021 68.00 228.00 34.66 159 95 0.00 12 73 98.10 0.0 0. 00 Procedures Date Concept Id Description Targeted Site Concept Targeted Site Concept Type 05/05/2021 57205 Health Monitoring - 30 Min CPT Patient has no history of implantable de vices Encounters Encounter Start Date End Date Encounter Type Description Diagnosis Di agnosis Desc Location Author First Name Author Last Name Npid Taxonomy Cod e Taxonomy Desc Phone Number Location Addr1 Location Addr2 Location [facility] Location Sta Location [facility] [id number] 05/05/2021 05/05/2021 82270 Health Monitoring - 30 Min [facility] JuanRegulo Berman [phone] [id number] L icensed Practical Nurse [phone] [address] [address] Plan of Treatment No Data in Section Lab Results No Data in Section Instructions No Data in Section Functional Cognitive Status No Data in Section Insurance Providers Insurance Id Policy Effective Date Policy Thru Date Company N [employer] [id number] 2019 MEDICARE [id number] 2019 MEDICAID
--- OUTSIDE RECORDS SUMMARY | 2021-07-01 13:22 | CCD ---
Author Author [facility] Organization [facility] Address Unknown Phone Unavailable Care Team Providers Care Assembler Steam And [employer] Turbine Name Role Phone Abel Sales Unavailable PROBLEMS Type Condition ICD9-CM Code [id number] Code Onset Dates Condition S tatus W/U Status Risk SNOMED Code Notes Problem Severe depression F32.2 Active confirmed 31 9563538 Problem Primary osteoarthritis of right knee M17.11 Act carlos confirmed 970553209 Problem Dyslipidemia E78.5 Active confirmed 3156887 07 Problem Anxiety, generalized F41.1 Active confirmed 11441578 Problem Gastroesophageal reflux disease, esophagitis pre sence not specified K21.9 Active confirmed 181883903 Problem Family history of breast cancer Z80.3 Active confi rmed 494956513 Problem Swelling of both lower extremities M79.89 Activ e confirmed 416980847 Problem Cigarette nicotine dependence without complication F17.210 Active confirmed 30661650 Problem Smoking F17.200 Active confirmed 12903114 Problem Nabothian cyst N88.8 Active confirmed 00063 6009 Problem Essential hypertension I10 Active confirmed 59674313 Problem Constipation, unspecified constipation type K59.00 Active confirmed 07683320 Problem Obstructive sleep apnea syndrome G47.33 Active conf irmed 04409813 Problem 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 A ctive confirmed 999412611 Problem Fibrocystic disease of right breast N60.11 Acti ve confirmed 86395274 Problem Obesity (BMI 30-39.9) E66.9 Active confirmed 919369229 Problem Seasonal allergies J30.2 Active confirmed 4 54329513 Problem Epigastric pain R10.13 Active confirmed 7992 2009 Problem Hyperplastic colonic polyp, unspecified part of colon K63.5 Active confirmed 174497804 Problem Mild episode of recurrent major depressive disorder F33.0 Active confirmed 153065787 Problem Other chronic pain G89.29 Active confirmed 8 7553967 Problem PMB (postmenopausal bleeding) N95.0 Active confirm ed 96691679 Problem Prediabetes R73.03 Active confirmed 43429506 2 Problem History of hysterectomy Z90.710 Active confirmed 446656290 Problem H/O heart artery stent Z95.5 Active confirmed 373397973 Problem Abnormal mammogram R92.8 Active confirmed 1 51980538 Problem Gross hematuria R31.0 Active confirmed 1979 43486 Problem Panic attack F41.0 Active confirmed 8784750 00 Problem Irritable bowel syndrome with both constipation and diarrh ea K58.2 Active confirmed 88649831 Problem Family history of malignant neoplasm of ovary Z80. 41 Active confirmed 559764070 Problem Ambulatory dysfunction R26.2 Active confirmed 805668342 Problem Irritable bowel syndrome with diarrhea K58.0 A ctive confirmed 409063188 Problem Vasomotor symptoms due to menopause N95.1 Acti ve confirmed 185913070 Problem Dyspareunia in female N94.10 Active confirmed 96181481 Problem Encounter for gynecological examination (general) (routine) with abnormal findings Z01.411 Active confirmed 652150752 ALLERGIES Allergen (clinical drug ingredient) Drug/Non Drug Allergy do cumented on EMR Reaction Allergy Type Onset Date Status citalopram Citalopram Hydrobromide([facility] Code:[address]-23) Nausea/Vomiting Drug Allergy Active Penicillin (For Allergies Use Only) Rash Drug Allerg y Active ENCOUNTERS from 1968 to 2021-05-07 Encounter Location Date Provider Diagnosis [place] [address] [facility] [phone] [place] [address] 16 Apr, 2021 Abel Sales Anxiety, generalized F41.1 IMMUNIZATIONS Vaccine Route Administration Date Status COVID-19 dose #2 given elsewhere Unspecified Unknown December 30, 2020 Administered COVID-19 dose #1 given elsewhere Unspecified Unknown Apr 2020 Administered Influenza 18 yrs & older Flublok IM Intramuscular Jun 06, 2018 Administered Pneumococcal Adult 0.5mL Pneumovax 23 IM Intramuscular Aug 23, 020 Administered Influenza 6mo & up Fluzone [...] Education Language: Question Answer Notes Languages spoken: Kazakh Christian: Question Answer Notes [employer] Sexual Hx: Question Answer Notes Had sex [...] Once a day for 30 day(s) Active Linzess 72 MCG 1 capsule at least 30 minute s before the first meal of the day on an empty stomach Orally Once a day for 30 day(s) hosp d/c 02-19-20= 145 mg qd Active Chlorthalidone 25 MG 1 tablet in the morning with food Orally Once a day for 30 day(s) Sep, Not-Taking Vitamin B-12 100 MCG as directed Orally Once a day for 30 days Active Centrum Adults - 1 tablet Orally once a day Active Carvedilol 12.5 MG 1 tab Orally twice daily for 30 days Not-Taking Estradiol 0.1 MG/GM 1/2 gm Vaginal Two times a Week for 90 days Active Nicorette 2 MG 1 lozenge as needed Mouth/Th roat 8 times a day as need for 30 Days Active Shower-William - as directed topically Daily for 999 days 04 D 2019 Not-Taking PARoxetine HCl 40 MG 1 tablet in the morning Orally Once a day for 90 days Active Losartan Potassium 50 MG 1 tablet Orally Once a day for 30 day(s) Active Ambien 5 MG 1 tablet at bedtime Orally Once a day as needed for sleep Feb, Not-Taking Effexor XR 75 MG 1 capsule with food Orally 225mg daily Not-Taking traZODone HCl 100 MG 1 tablet at bedtime Orally Once a day Active metroNIDAZOLE 500 MG 4 tabs Orally once for 1 days Sep, Not-Taking Zofran ODT 4 MG 1 tablet on the tongue and a llow to dissolve Orally Once a day for 30 day(s) Active Calcium 1 tab Oral twice daily Ac tive SEROquel 100 MG 1 tablet at bedtime Orally Once a day fo r 30 day(s) hosp d/c 7-1-20= 50mg qd Not-Taking Vitamin D 59757 UNIT 1 capsule Orally once a week for 30 Days Active May Have - as directed Diabetic Needle (R73.03) Daily for 3 0 day(s) Jul, Active Azithromycin (5 day) 250 mg as directed Orally 2 pills on day 1, then 1 pill daily until gone for 5 days Feb, Not- Taking Claritin-D 24 Hour 10-240 MG 1 tablet as needed Orally Once a day for 30 day(s) Oct, Active Metoprolol Succinate ER 50 MG TAKE 1 1/2 TABLETS BY MOUTH ONCE DAILY Oral for 90 Active Questli Blood Glucose Monitor w/Device as directed Daily for 99 months Jul, Active Potassium Chloride Malathi ER 20 MEQ 1 tablet with food Orally twice a d ay Active Acetaminophen 325 MG 2 tablets as needed Orally every 6 hrs as n eeded December, Active Spironolactone 25 MG 1 tablet Orally for 30 day(s) Sep, Not-Taking Famotidine 20 MG 1 tablet at bedtime as needed Orally Onc e a day for 30 day(s) Feb, Active Auto-Lancet - as directed subcutaneously (R 73.03) Daily for 3 0 day(s) Jul, Active Azelastine HCl 0.1 % 1 puff in each nostril Nasally Twice a day for 30 day(s) Active Vitamin D (Ergocalciferol) 1.25 MG (12151 UT) TAKE ONE CAPSULE BY MOUTH EVERY WEEK for 30 Not-Taking OneTouch Ultra II Test Strips as directed topically Da alex (R 73.03) for 30 day(s) Jul, Active Brilinta 90 MG TAKE ONE TABLET BY MOUTH TWICE A DAY Oral for 30 Active Atorvastatin Calcium 80 MG 1 tablet Orally Once a day for 30 day(s) Active Keppra 250 MG 1 tablet Orally every 12 hrs for 30 day(s) Active Aspir-Low 81 MG 1 tablet Orally Once a day for 30 day(s) Active PROCEDURES No Information RESULTS No Results REASON FOR VISIT transferring pharmacies MEDICAL (GENERAL) HISTORY Type Description Date Medical History CAD s/p 4 stents Medical History NISHA, using CPAP Medical History HTN goal of 130/90 Medical History Prediabetes Medical History Gastric Bypass 2018 Medical History Knee replacement Right 2018 Medical History C. diff treated with vanco 2018 Medical History depression Surgical History Appendectomy 1985 Surgical History C section x 2 1986, 1994 Surgical History Supracervical hysterectomy ovaries remai n 2002 Surgical History Right knee surgery, laser to remove cart ilage 2008 Surgical History Coronary stents x 4 2014 Surgical History colonoscopy 12/2017 Surgical History total right knee 07/26/2018 Surgical History cysto 10/14/19 Hospitalization History Cornoary stents 2014 Hospitalization History Hypertension 11/2016 Hospitalization History surgery related 07/2018 Hospitalization History [facility] for Syncopy 2.5 days 01/2020 Goals Section No Information Health Concerns No Information MEDICAL EQUIPMENT No Information MENTAL STATUS No Information FUNCTIONAL STATUS No Information ASSESSMENTS Encounter Date Diagnosis Assessment Notes Treatment Notes Treatm ent Clinical Notes Apr, Anxiety, generalized (ICD-10 - F41.1) PLAN OF TREATMENT Medication Medication Name Sig Start Date Stop Date Potassium Chloride Malathi ER 20 MEQ 1 tablet with food Orally twic e a day Vitamin D 86350 UNIT 1 capsule Orally once a week for 30 Days Vitamin B-12 100 MCG as directed Orally Once a day for 30 days Claritin-D 24 Hour 10-240 MG 1 tablet as needed Orally Once a day for 30 day(s) Oct, PARoxetine HCl 40 MG 1 tablet in the morning Orally Once a day f or days Farxiga 5 MG 1 tablet Orally Once a day for 30 day(s) Famotidine 20 MG 1 tablet at bedtime as needed Orally Onc e a day for 30 day(s) Feb, Next Appt Details Provider Name:Abel Sales, 2021-05-13 10 :00:00 AM, [address] [facility], , [place], [address], Insurance Providers Payer Name Payer Address Payer Phone Insured Name Patient Relati onship to Insured Coverage Start Date Coverage End Date MEDICARE Part A and B [address] [facility] [phone] CARLA ANNE self MEDICAID [facility] [address] [facility] [id number] CARLA ANNE self
--- OUTSIDE RECORDS SUMMARY | 2021-07-01 13:22 | CCD | Continuity of Care Document ---
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 % 9.9 % High 2.0-8.0 Eos % 1.7 % Normal 0.0-3.0 Baso % 0.4 % Normal 0.0-1.0 Immature Granulocyte % 0.2 % Normal 0-3.0 Nucleated Red Blood Cell % 0.0 % Normal 0-0 Neutrophils # 2.8 10 Normal 1.5-8.5 Lymph # 1.8 10 Normal 1.5-5.0 [place] # 0.5 10 Normal 0.0-0.8 Eos # 0.1 10 Normal 0.0-0.5 Baso # 0.0 10 Normal 0.0-0.2 Laboratory test finding 01/20/2021 [facility] [address] [place] [address] (095)- - Uric Acid 5.2 mg/dL Normal 2.6-6.0 Rheumatoid Factor Quant < 10.0 IU/mL Normal <15.0 Antinuclear Antibodies 01/20/[address] [address] (315)- - Antinuclear Antibodies Direct Negative Normal Negati ve 1 Laboratory test finding 01/20/2021 [facility] [address] [place] [address] (315)- - Erythrocyte Sedimentation Rate 14 mm/hr Normal 0-30 Hla-B27 Negative Normal . 2 C Reactive Protein Quantitativ < 0.30 mg/dL Normal 0.00-0.30 Lyme Disease SCRN With Confirm 01/20/[address] [address] (315)- - Lyme Disease IgG/IgM Antibodie <0.91 ISR Normal 0.00- 0.90 3 Lyme Disease IgM Ab Quantitati <0.80 index Normal 0.00-0.79 4 1 Performed at: [facility] [id number] Drill Operator Automatic: Cata Santana MD, Phone: [phone] Performed at: [facility] [id number] Drill Operator Automatic: Leander Murillo PhD, Phone: [phone] HLA-B*27 Negative B27 allele interpretation for all loci based on IMGT/HLA database version 3.38 This test was developed and its performance characteristics [facility]. It has not been cleared or approved by the Food and Drug Administration. [facility] CLIA ID Number [id number] . This test was performed using PCR [...] decline. Procedures Date Code Description Status 04/07/2021 99312 Office/Outpatient Established Mo d MDM 30-39 Min Completed 01/20/2021 30709 Office/Outpatient Established Mo d MDM 30-39 Min Completed 01/04/2021 43872 Office/Outpatient Established Lo w MDM 20-29 Min Completed 11/19/2020 93696 Office/Outpatient Established Lo w MDM 20-29 Min Completed Medical Devices Description No Information Available Encounters Type Date Location Provider Dx Diagnosis Office Visit 04/07/2021 2:00p Yariel Baum PA-C M51.36 Other intervertebral disc degeneration, lumbar region M79.651 Pain in right thigh M25.561 Pain in right knee Z96.651 Presence of right artificial knee joint Office Visit 01/20/2021 3:15p [place] Helen L. Fish, PA-C M65.811 Other synovitis and tenosynovitis, right shoulder M51.36 Other intervertebral disc de generation, lumbar region M79.651 Pain in right thigh M25.561 Pain in right knee Z96.651 Presence of right artificial knee joint M54.5 Low back pain Office Visit 01/04/2021 1:45p [place] Helen L. Fish, PA-C M65.811 Other synovitis and tenosynovitis, right shoulder Office Visit 11/19/2020 2:30p [place] DLauren Mars MD M5 1.36 Other intervertebral disc degeneration, lumbar region M79.651 Pain in right thigh M25.561 Pain in right knee Z96.651 Presence of right artificial knee joint Assessments Date Code Description Provider 04/28/2021 M51.36 Other intervertebral disc degene ration, lumbar region Ronnie William MD 04/28/2021 M47.896 Other spondylosis, lumbar region Ronnie William MD 04/28/2021 M54.16 Radiculopathy, lumbar region How arturo William MD 04/07/2021 M51.36 Other intervertebral disc [...] Fish, PA-C 01/20/2021 M54.5 Low back pain Tari Haider 01/04/2021 M65.811 Other synovitis and tenosynoviti s, right shoulder Helen Baum PA-C 11/19/2020 M51.36 Other intervertebral disc degene ration, lumbar region Lynsey Mars MD 11/19/2020 M79.651 Pain in right thigh Lynsey Cast MD 11/19/2020 M25.561 Pain in right knee Lynsey elliott MD 11/19/2020 Z96.651 Presence of right artificial kne e joint Lynsey Mars MD Plan of Treatment 04/28/2021 - Ronnie William MD* M51.36 Other [...] REQUIRED TO SCHEDULING NT Creat ed [address] [facility] [address] [place] [address] [phone] Glynn Mars MD FLUORO INJ NO AUTH REQUIRED FOR FLUOROSCOPIC INJECTION TO LEFT HIP (61880, 14162) TO RODNEY SIMPSON Created 00 [address] [facility], [address] [place] [address] [phone]
--- OUTSIDE RECORDS SUMMARY | 2021-07-01 13:22 | CCD | Continuity of Care Document ---
Author Author Azalea ARTIS P.A.-C. Organization Unknown Address [address] [place] [address] Phone [phone] Care Team Providers Care Securities Settlement Processor Name Role Phone Abel Sales DO AUTM [phone] Problems Description No Information Available Social History [...] Available Procedures Date Code Description Status 06/18/2021 21077 Office/Outpatient Established Mo d MDM 30-39 Min Completed 03/19/2021 32651 EEG Complete STD Phys/QHP>60 HR< 84 HR W/O Video Completed 03/19/2021 38888 EEG Complete STD Phys/QHP>36 HR< 60 HR W/O Video Completed 02/18/2021 24566 MRI Brain W/O Contrast Completed 02/18/2021 34739 MRI Brain W/O Contrast Completed 02/05/2021 43424 Office/Outpatient Established Mo d MDM 30-39 Min Completed Medical Devices Description No Information Available Encounters Type Date Location Provider Dx Diagnosis Office Visit 06/18/2021 11:00a Main office - [place] Rafal Vee.-C. R94.02 Abnormal brain scan R55 Syncope and collapse R42 Dizziness and giddiness S09.0xxA Injury of blood vessels of h ead, NEC, init Office Visit 02/05/2021 10:45a Main office - [place] Tari Vee.Juana.-C. R55 Syncope and collapse I95.1 [...] Appointment(s):* 06/23/2021 10:00 am - MRI at [facility] * 09/20/2021 9:15 am - Anastasiia Artis P.A.-C. at [facility] 06/18/2021 - Anastasiia Artis P.A.-C.* R94.02 Abnormal brain scan * R55 Syncope and collapse * R42 Dizziness and giddiness * S09.0xxA Injury of blood vessels of head, not elsewhere classified, initial encounter Functional Status Description No Information Available Mental Status Description No Information Available Referrals Description No Information Available"
--- OUTSIDE RECORDS SUMMARY | 2021-07-01 13:23 | CCD ---
Author Author [facility] Organization [facility] Address Unknown Phone Unavailable Care Team Providers Care Trip Rider Name Role Phone Abel Sales Unavailable PROBLEMS Type Condition ICD9-CM Code [id number] Code Onset Dates Condition S tatus W/U Status Risk SNOMED Code Notes Problem Severe depression F32.2 Active confirmed 31 5676311 Problem Primary osteoarthritis of right knee M17.11 Act carlos confirmed 940445347 Problem Dyslipidemia E78.5 Active confirmed 2416263 07 Problem Anxiety, generalized F41.1 Active confirmed 53394457 Problem Gastroesophageal reflux disease, esophagitis pre sence not specified K21.9 Active confirmed 203688186 Problem Family history of breast cancer Z80.3 Active confi rmed 598829009 Problem Swelling of both lower extremities M79.89 Activ e confirmed 794244393 Problem Cigarette nicotine dependence without complication F17.210 Active confirmed 13282072 Problem Smoking F17.200 Active confirmed 01886957 Problem Nabothian cyst N88.8 Active confirmed 91779 6009 Problem Essential hypertension I10 Active confirmed 21873929 Problem Constipation, unspecified constipation type K59.00 Active confirmed 45088571 Problem Obstructive sleep apnea syndrome G47.33 Active conf irmed 92230411 Problem 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 A ctive confirmed 621265357 Problem Fibrocystic disease of right breast N60.11 Acti ve confirmed 54634006 Problem Obesity (BMI 30-39.9) E66.9 Active confirmed 640633124 Problem Seasonal allergies J30.2 Active confirmed 4 77853811 Problem Epigastric pain R10.13 Active confirmed 7992 2009 Problem Hyperplastic colonic polyp, unspecified part of colon K63.5 Active confirmed 250778799 Problem Mild episode of recurrent major depressive disorder F33.0 Active confirmed 953501073 Problem Other chronic pain G89.29 Active confirmed 8 0439127 Problem PMB (postmenopausal bleeding) N95.0 Active confirm ed 14494468 Problem Prediabetes R73.03 Active confirmed 87828022 2 Problem History of hysterectomy Z90.710 Active confirmed 690781445 Problem H/O heart artery stent Z95.5 Active confirmed 535892594 Problem Abnormal mammogram R92.8 Active confirmed 1 84309451 Problem Gross hematuria R31.0 Active confirmed 1979 91462 Problem Panic attack F41.0 Active confirmed 7352409 00 Problem Irritable bowel syndrome with both constipation and diarrh ea K58.2 Active confirmed 86361491 Problem Family history of malignant neoplasm of ovary Z80. 41 Active confirmed 884360321 Problem Ambulatory dysfunction R26.2 Active confirmed 148200143 Problem Irritable bowel syndrome with diarrhea K58.0 A ctive confirmed 375233575 Problem Vasomotor symptoms due to menopause N95.1 Acti ve confirmed 596703423 Problem Dyspareunia in female N94.10 Active confirmed 85842149 Problem Encounter for gynecological examination (general) (routine) with abnormal findings Z01.411 Active confirmed 422296415 ALLERGIES Allergen (clinical drug ingredient) Drug/Non Drug Allergy do cumented on EMR Reaction Allergy Type Onset Date Status citalopram Citalopram Hydrobromide([facility] Code:[address]-37) Nausea/Vomiting Drug Allergy Active Penicillin (For Allergies Use Only) Rash Drug Allerg y Active ENCOUNTERS from 1968 to 2021-04-17 Encounter Location Date Provider Diagnosis [place] [address] [facility] [phone] [place] [address] Mar, Abel Sales IMMUNIZATIONS Vaccine Route Administration Date Status COVID-19 dose #2 given elsewhere Unspecified Unknown December 30, 2020 Administered COVID-19 dose #1 given elsewhere Unspecified Unknown Nov Administered Influenza 18 yrs & older Flublok IM Intramuscular Jun 06, 2018 Administered Pneumococcal Adult 0.5mL Pneumovax 23 IM Intramuscular Aug 23, 2 020 Administered Influenza 6mo & up Fluzone [...] Education Language: Question Answer Notes Languages spoken: Spanish Sabianist: Question Answer Notes Sabianist 13 Hoahaoism Sexual Hx: Question Answer Notes Had sex [...] Notes Start Da te End Date Status Azelastine HCl 0.1 % 1 puff in each nostril Nasally Twice a day for 30 day(s) Active Centrum Adults - 1 tablet Orally once a day Active Chlorthalidone 25 MG 1 tablet in the morning with food Orally Once a day for 30 day(s) Sep, Not-Taking Claritin-D 24 Hour 10-240 MG 1 tablet as needed Orally Once a day for 30 day(s) Oct, Active Spironolactone 25 MG 1 tablet Orally for 30 day(s) Sep, Not-Taking Carvedilol 12.5 MG 1 tab Orally twice daily for 30 days Not-Taking Estradiol 0.1 MG/GM 1/2 gm Vaginal Two times a Week for 90 days Active Losartan Potassium 50 MG 1 tablet Orally Once a day for 30 day(s) Active Shower-William - as directed topically Daily for 999 days 04 2019 Not-Taking Vitamin B-12 100 MCG as directed Orally Once a day for 30 days Active Linzess 72 MCG 1 capsule at least 30 minute s before the first meal of the day on an empty stomach Orally Once a day for 30 day(s) hosp d/c 20= 145 mg qd Active Ambien 5 MG 1 tablet at bedtime Orally Once a day as needed for sleep Feb, Not-Taking Zofran ODT 4 MG 1 tablet on the tongue and a llow to dissolve Orally Once a day for 30 day(s) Active traZODone HCl 100 MG 1 tablet at bedtime Orally Once a day Active PARoxetine HCl 40 MG 1 tablet in the morning Orally Once a day for 90 days Active Nicorette 2 MG 1 lozenge as needed Mouth/Th roat 8 times a day as need for 30 Days Active Calcium 1 tab Oral twice daily Ac tive Effexor XR 75 MG 1 capsule with food Orally 225mg daily Not-Taking Famotidine 20 MG 1 tablet at bedtime as needed Orally Onc e a day for 30 day(s) Feb, Active Vitamin D (Ergocalciferol) 1.25 MG (59000 UT) TAKE ONE CAPSULE BY MOUTH EVERY WEEK for 30 Not-Taking Azithromycin (5 day) 250 mg as directed Orally 2 pills on day 1, then 1 pill daily until gone for 5 days Feb, Not- Taking Vitamin D 88986 UNIT 1 capsule Orally once a week for 30 Days Active Acetaminophen 325 MG 2 tablets as needed Orally every 6 hrs as n eeded December, Active Farxiga 5 MG 1 tablet Orally Once a day for 30 day(s) Active May Have - as directed Diabetic Needle (R73.03) Daily for 3 0 day(s) Jul, Active metroNIDAZOLE 500 MG 4 tabs Orally once for 1 days Sep, Not-Taking Metoprolol Succinate ER 50 MG TAKE 1 1/2 TABLETS BY MOUTH ONCE DAILY Oral for 90 Active SEROquel 100 MG 1 tablet at bedtime Orally Once a day fo r 30 day(s) hosp d/c 20= 50mg qd Not-Taking Auto-Lancet - as directed subcutaneously (R 73.03) Daily for 3 0 day(s) Jul, Active Potassium Chloride Malathi ER 20 MEQ 1 tablet with food Orally twice a d ay Active BD Logic Blood Glucose Monitor w/Device as directed Daily for 99 months Jul, Active OneTouch Ultra II Test Strips as [...] Information RESULTS No Results REASON FOR VISIT nutrition referral MEDICAL (GENERAL) HISTORY Type Description Date Medical [...] Orally twic e a day Vitamin D 03884 UNIT 1 capsule Orally once a week for 30 Days Vitamin B-12 100 MCG as directed Orally Once a day for 30 days Claritin-D 24 Hour 10-240 MG 1 tablet as needed Orally Once a day for 30 day(s) Oct, Next Appt Details Provider Name:Abel Sales, 2021-05-13 10 :00:00 AM, [address] [facility], , [place], [address], Insurance Providers Payer Name Payer Address Payer Phone Insured Name Patient Relati onship to Insured Coverage Start Date Coverage End Date MEDICARE Part A and B [address] [facility] [phone] CARLA ANNE self MEDICAID [employer] [address] [facility] [id number] CARLA ANNE self
--- OUTSIDE RECORDS SUMMARY | 2021-07-01 13:24 | CCD ---
Author Author [facility] Organization [facility] Address Unknown Phone Unavailable Care Team Providers Care Web Marketing Intern Name Role Phone Debby SCHUMACHER MD Unavailable Unavailable Debby SCHUMACHER MD Unavailable Unavailable Debby SCHUMACHER MD Unavailable Unavailable Debby SCHUMACHER MD Unavailable Unavailable Debby SCHUMACHER MD Unavailable Unavailable Debby SCHUMACHER MD Unavailable Unavailable Debby SCHUMACHER MD Unavailable Unavailable Debby SCHUMACHER MD Unavailable Unavailable Debby SCHUMACHER MD Unavailable Unavailable Debby SCHUMACHER MD Unavailable Unavailable Debby SCHUMACHER MD Unavailable Unavailable Debby SCHUMACHER MD Unavailable Unavailable Debby SCHUMACHER MD Unavailable Unavailable Debby SCHUMACHER MD Unavailable Unavailable Debby SCHUMACHER MD Unavailable Unavailable Debby SCHUMACHER MD Unavailable Unavailable Debby SCHUMACHER MD Unavailable Unavailable Debby SCHUMACHER MD Unavailable Unavailable Debby SCHUMACHER MD Unavailable Unavailable Debby SCHUMACHER MD Unavailable Unavailable Debby SCHUMACHER MD Unavailable Unavailable Debby SCHUMACHER MD Unavailable Unavailable Debby SCHUMACHER MD Unavailable Unavailable Debby SCHUMACHER MD Unavailable Unavailable Debby SCHUMACHER MD Unavailable Unavailable Debby SCHUMACHER MD Unavailable Unavailable Debby SCHUMACHER MD Unavailable Unavailable Debby SCHUMACHER MD Unavailable Unavailable Debby SCHUMACHER MD Unavailable Unavailable Debby SCHUMACHER MD Unavailable Unavailable Debby SCHUMACHER MD Unavailable Unavailable Debby SCHUMACHER MD Unavailable Unavailable Debby SCHUMACHER MD Unavailable Unavailable Glynn Michel MD Unavailable Unavailable Glynn Michel MD Unavailable Unavailable Glynn Michel MD Unavailable Unavailable Glynn Michel MD Unavailable Unavailable Glynn Michel MD Unavailable Unavailable Glynn Michel MD Unavailable Unavailable Glynn Michel MD Unavailable Unavailable Glynn Michel MD Unavailable Unavailable Glynn Michel MD Unavailable Unavailable Glynn Michel MD Unavailable Unavailable Glynn Michel MD Unavailable Unavailable Glynn Michel MD Unavailable Unavailable Glynn Michel MD Unavailable Unavailable Glynn Michel MD Unavailable Unavailable Glynn Michel MD Unavailable Unavailable Glynn Michel MD Unavailable Unavailable Glynn Michel MD Unavailable Unavailable Glynn Michel MD Unavailable Unavailable Glynn Michel MD Unavailable Unavailable Glynn Michel MD Unavailable Unavailable Glynn Michel MD Unavailable Unavailable Glynn Michel MD Unavailable Unavailable Glynn Michel MD Unavailable Unavailable Glynn Michel MD Unavailable Unavailable Glynn Michel MD Unavailable Unavailable Glynn Michel MD Unavailable Unavailable Glynn Michel MD Unavailable Unavailable Glynn Michel MD Unavailable Unavailable Glynn Michel MD Unavailable Unavailable Glynn Michel MD Unavailable Unavailable Glynn Michel MD Unavailable Unavailable Glynn Michel MD Unavailable Unavailable Glynn Michel MD Unavailable Unavailable Glynn Michel MD Unavailable Unavailable Glynn Michel MD Unavailable Unavailable Glynn Michel MD Unavailable Unavailable Glynn Michel MD Unavailable Unavailable Glynn Michel MD Unavailable Unavailable Glynn Michel MD Unavailable Unavailable Glynn Michel MD Unavailable Unavailable Glynn Michel MD Unavailable Unavailable Glynn Michel MD Unavailable Unavailable Glynn Michel MD Unavailable Unavailable Glynn Michel MD Unavailable Unavailable Glynn Michel MD Unavailable Unavailable Glynn Michel MD Unavailable Unavailable Glynn Michel MD Unavailable Unavailable Glynn Michel MD Unavailable Unavailable Glynn Michel MD Unavailable Unavailable Glynn Michel MD Unavailable Unavailable Glynn Michel MD Unavailable Unavailable Glynn Michel MD Unavailable Unavailable Glynn Michel MD Unavailable Unavailable Glynn Michel MD Unavailable Unavailable Glynn Michel MD Unavailable Unavailable Glynn Michel MD Unavailable Unavailable Glynn Michel MD Unavailable Unavailable Glynn Michel MD Unavailable Unavailable Glynn Michel MD Unavailable Unavailable Glynn Michel MD Unavailable Unavailable Glynn Michel MD Unavailable Unavailable Glynn Michel MD Unavailable Unavailable Glynn Michel MD Unavailable Unavailable Glynn Michel MD Unavailable Unavailable Glynn Michel MD Unavailable Unavailable Glynn Michel MD Unavailable Unavailable Michel, Glynn Maya MD Unavailable Unavailable Glynn Michel MD Unavailable Unavailable Glynn Michel MD Unavailable Unavailable Glynn Michel MD Unavailable Unavailable Glynn Michel MD Unavailable Unavailable Glynn Michel MD Unavailable Unavailable Glynn Michel MD Unavailable Unavailable Glynn Michel MD Unavailable Unavailable Glynn Michel MD Unavailable Unavailable Marilu, Glynn Maya MD Unavailable Unavailable Glynn Michel MD Unavailable Unavailable Glynn Michel MD Unavailable Unavailable Glynn Michel MD Unavailable Unavailable Glynn Michel MD Unavailable Unavailable Glynn Michel MD Unavailable Unavailable Glynn Michel MD Unavailable Unavailable Glynn Michel MD Unavailable Unavailable Glynn Michel MD Unavailable Unavailable Glynn Michel MD Unavailable Unavailable Glynn Michel MD Unavailable Unavailable Glynn Michel MD Unavailable Unavailable Glynn Michel MD Unavailable Unavailable Glynn Michel MD Unavailable Unavailable Glynn Michel MD Unavailable Unavailable Glynn Michel MD Unavailable Unavailable Glynn Michel MD Unavailable Unavailable Glynn Michel MD Unavailable Unavailable Herbert, L Samina MEDICAL PARASITOLOGIST Unavailable Unavailable Herbert, L Samina MEDICAL PARASITOLOGIST Unavailable Unavailable Herbert, L Samina MEDICAL PARASITOLOGIST Unavailable Unavailable Herbert, L Samina MEDICAL PARASITOLOGIST Unavailable Unavailable Herbert, L Samina MEDICAL PARASITOLOGIST Unavailable Unavailable Herbert, L Samina MEDICAL PARASITOLOGIST Unavailable Unavailable Herbert, L Samina MEDICAL PARASITOLOGIST Unavailable Unavailable Herbert, L Samina MEDICAL PARASITOLOGIST Unavailable Unavailable Herbert, L Samina MEDICAL PARASITOLOGIST Unavailable Unavailable Herbert, L Samina MEDICAL PARASITOLOGIST Unavailable Unavailable Herbert, L Samina MEDICAL PARASITOLOGIST Unavailable Unavailable Herbert, L Samina MEDICAL PARASITOLOGIST Unavailable Unavailable Herbert, L Samina MEDICAL PARASITOLOGIST Unavailable Unavailable Herbert, L Samina MEDICAL PARASITOLOGIST Unavailable Unavailable Herbert, L Samina MEDICAL PARASITOLOGIST Unavailable Unavailable Herbert, L Samina MEDICAL PARASITOLOGIST Unavailable Unavailable Herbert, L Samina MEDICAL PARASITOLOGIST Unavailable Unavailable Herbert, L Samina MEDICAL PARASITOLOGIST Unavailable Unavailable Herbert, L Samina MEDICAL PARASITOLOGIST Unavailable Unavailable Herbert, L Samina MEDICAL PARASITOLOGIST Unavailable Unavailable Herbert, L Samina MEDICAL PARASITOLOGIST Unavailable Unavailable Herbert, L Samina MEDICAL PARASITOLOGIST Unavailable Unavailable Herbert, L Samina MEDICAL PARASITOLOGIST Unavailable Unavailable HerbertTom MEDICAL PARASITOLOGIST Unavailable Unavailable Herbert, Tom Haas MEDICAL PARASITOLOGIST Unavailable Unavailable Fish, [facility], PA-C Unavailable Unavailabl e Fish, [facility], PA-C Unavailable Unavailabl e Fish, [facility], PA-C Unavailable Unavailabl e Fish, [facility], PA-C Unavailable Unavailabl e Fish, [facility], PA-C Unavailable Unavailabl e Fish, [facility], PA-C Unavailable Unavailabl e Fish, [facility], PA-C Unavailable Unavailabl e Fish, [facility], PA-C Unavailable Unavailabl e Fish, [facility], PA-C Unavailable Unavailabl e Fish, [facility], PA-C Unavailable Unavailabl e Fish, [facility], PA-C Unavailable Unavailabl e Fish, [facility], PA-C Unavailable Unavailabl e Fish, [facility], PA-C Unavailable Unavailabl e Fish, [facility], PA-C Unavailable Unavailabl e Fish, [facility], PA-C Unavailable Unavailabl e Fish, [facility], PA-C Unavailable Unavailabl e Fish, [facility], PA-C Unavailable Unavailabl e Fish, [facility], PA-C Unavailable Unavailabl e Fish, [facility], PA-C Unavailable Unavailabl e Fish, [facility], PA-C Unavailable Unavailabl e Fish, [facility], PA-C Unavailable Unavailabl e Fish, [facility], PA-C Unavailable Unavailabl e Fish, [facility], PA-C Unavailable Unavailabl e Fish, [facility], PA-C Unavailable Unavailabl e Fish, [facility], PA-C Unavailable Unavailabl e Fish, [facility], PA-C Unavailable Unavailabl e Fish, [facility], PA-C Unavailable Unavailabl e Fish, [facility], PA-C Unavailable Unavailabl e Fish, [facility], PA-C Unavailable Unavailabl e Fish, [facility], PA-C Unavailable Unavailabl e Fish, [facility] Unavailable Unavailabl e Fish, Shireen [facility], PA-C Unavailable Unavailabl e Fish, [facility] Unavailable Unavailabl e Fish, Shireen [facility], PA-C Unavailable Unavailabl e Fish, [facility] Unavailable Unavailabl e Fish, Shireen [facility], PA-C Unavailable Unavailabl e Bill MITCHELL MD Unavailable Unavailable Bill MITCHELL MD Unavailable Unavailable Bill MITCHELL MD Unavailable Unavailable Bill MITCHELL MD Unavailable Unavailable Bill MITCHELL MD Unavailable Unavailable Bill MITCHELL MD Unavailable Unavailable Bill MITCHELL MD Unavailable Unavailable Bill MITCHELL MD Unavailable Unavailable Bill MITCHELL MD Unavailable Unavailable Bill MITCHELL MD Unavailable Unavailable Bill MITCHELL MD Unavailable Unavailable Bill MITCHELL MD Unavailable Unavailable Bill MITCHELL MD Unavailable Unavailable Bill MITCHELL MD Unavailable Unavailable Bill MITCHELL MD Unavailable Unavailable Bill MITCHELL MD Unavailable Unavailable Bill MITCHELL MD Unavailable Unavailable PCP, PT Does Not have, OUT OF AREA Unavailable Unav ailable Kusum MERRITT DPM Unavailable Unavailable Kusum MERRITT DPM Unavailable Unavailable Kusum MERRITT DPM Unavailable Unavailable Kusum MERRITT DPM Unavailable Unavailable Kusum MERRITT DPM Unavailable Unavailable Kusum MERRITT DPM Unavailable Unavailable Kusum MERRITT DPM Unavailable Unavailable RENÉ R PRANEETH DPM Unavailable Unavailable MAJSHAQ R PRANEETH DPM Unavailable Unavailable MAJSHAQ R PRANEETH DPM Unavailable Unavailable MAJSHAQ R PRANEETH DPM Unavailable Unavailable MAJSHAQ R PRANEETH DPM Unavailable Unavailable RENÉ R PRANEETH DPM Unavailable Unavailable RENÉ R PRANEETH DPM Unavailable Unavailable RENÉ R PRANEETH DPM Unavailable Unavailable MAJSHAQ R PRANEETH DPM Unavailable Unavailable MAJSHAQ R PRANEETH DPM Unavailable Unavailable MAJSHAQ R PRANEETH DPM Unavailable Unavailable RENÉ R PRANEETH DPM Unavailable Unavailable RENÉ R PRANEETH DPM Unavailable Unavailable MAJSHAQ R PRANEETH DPM Unavailable Unavailable Kusum MERRITT DPM Unavailable Unavailable Kusum MERRITT DPM Unavailable Unavailable Kusum MERRITT DPM Unavailable Unavailable Kusum MERRITT DPM Unavailable Unavailable RENÉ, Kusum DACOSTA DPM Unavailable Unavailable RENÉ, Kusum DACOSTA DPM Unavailable Unavailable RENÉ, Kusum DACOSTA DPM Unavailable Unavailable RENÉ, Kusum DACOSTA DPM Unavailable Unavailable RENÉ, Kusum DACOSTA DPM Unavailable Unavailable MAJSHAQ, Kusum DACOSTA DPM Unavailable Unavailable MAJAK, R PRANEETH DPM Unavailable Unavailable Trickey, J Anastasiia PA Unavailable Unavailable Trickey, J Anastasiia PA Unavailable Unavailable Trickey, J Anastasiia PA Unavailable Unavailable Trickey, J Anastasiia PA Unavailable Unavailable Trickey, J Anastasiia PA Unavailable Unavailable Trickey, J Anastasiia PA Unavailable Unavailable Trickey, J Anastasiia PA Unavailable Unavailable Trickey, J Anasatsiia PA Unavailable Unavailable Trickey, J Anastasiia PA Unavailable Unavailable Trickey, J Anastasiia PA Unavailable Unavailable Trickey, J Anastasiia PA Unavailable Unavailable Trickey, J Anastasiia PA Unavailable Unavailable Trickey, J Anastasiia PA Unavailable Unavailable Trickey, J Anastasiia PA Unavailable Unavailable Trickey, J Anastasiia PA Unavailable Unavailable Trickey, J Anastasiia PA Unavailable Unavailable Trickey, J Anastasiia PA Unavailable Unavailable Trickey, J Anastasiia PA Unavailable Unavailable Trickey, J Anastasiia PA Unavailable Unavailable Trickey, J Anastasiia PA Unavailable Unavailable Trickey, J Anastasiia PA Unavailable Unavailable Trickey, J Anastasiia PA Unavailable Unavailable Trickey, J Anastasiia PA Unavailable Unavailable Trickey, J Anastasiia PA Unavailable Unavailable Trickey, J Anastasiia PA Unavailable Unavailable Trickey, J Anastasiia PA Unavailable Unavailable Trickey, J Anastasiia PA Unavailable Unavailable Trickey, J Anastasiia PA Unavailable Unavailable Trickey, J Anastasiia PA Unavailable Unavailable Trickey, J Anastasiia PA Unavailable Unavailable Trickey, J Anastasiia PA Unavailable Unavailable Trickey, J Anastasiia PA Unavailable Unavailable Trickey, J Anastasiia PA Unavailable Unavailable Trickey, J Anastasiia PA Unavailable Unavailable Trickey, J Anastasiia PA Unavailable Unavailable Trickey, J Anastasiia PA Unavailable Unavailable Trickey, J Anastasiia PA Unavailable Unavailable Trickey, J Anastasiia PA Unavailable Unavailable Trickey, J Anastasiia PA Unavailable Unavailable Trickey, J Anastasiia PA Unavailable Unavailable Trickey, J Anastasiia PA Unavailable Unavailable Trickey, J Anastasiia PA Unavailable Unavailable Trickey, J Anastasiia PA Unavailable Unavailable Trickey, J Anastasiia PA Unavailable Unavailable Trickey, J Anastasiia PA Unavailable Unavailable Trickey, J Anastasiia PA Unavailable Unavailable Trickey, J Anastasiia PA Unavailable Unavailable Trickey, J Anastasiia PA Unavailable Unavailable Trickey, J Anastasiia PA Unavailable Unavailable Gustafson, M Barratt PA Unavailable Unavailable Gustafson, M Barratt PA Unavailable Unavailable Gustafson, M Barratt PA Unavailable Unavailable Gustafson, M Barratt PA Unavailable Unavailable Gustafson, M Barratt PA Unavailable Unavailable Gustafson, M Barratt PA Unavailable Unavailable Gustafson, M Barratt PA Unavailable Unavailable Gustafson, M Barratt PA Unavailable Unavailable Gustafson, M Barratt PA Unavailable Unavailable Gustafson, M Barratt PA Unavailable Unavailable Gustafson, M Barratt PA Unavailable Unavailable Gustafson, M Barratt PA Unavailable Unavailable Gustafson, M Barratt PA Unavailable Unavailable Gustafson, M Barratt PA Unavailable Unavailable Gustafson, M Barratt PA Unavailable Unavailable Gustafson, M Barratt PA Unavailable Unavailable Gustafson, M Barratt PA Unavailable Unavailable Gustafson, M Barratt PA Unavailable Unavailable Gustafson, M Barratt PA Unavailable Unavailable Gustafson, M Barratt PA Unavailable Unavailable Gustafson, M Barratt PA Unavailable Unavailable Gustafson, M Barratt PA Unavailable Unavailable Gustafson, M Barratt PA Unavailable Unavailable Gustafson, M Barratt PA Unavailable Unavailable Gustafson, M Barratt PA Unavailable Unavailable Gustafson, M Barratt PA Unavailable Unavailable Gustafson, M Barratt PA Unavailable Unavailable Gustafson, M Barratt PA Unavailable Unavailable Gustafson, M Barratt PA Unavailable Unavailable LUIZ, H HERMILO MEDICAL PARASITOLOGIST Unavailable Unavailable LUIZ, H HERMILO MEDICAL PARASITOLOGIST Unavailable Unavailable LUIZ, H HERMILO MEDICAL PARASITOLOGIST Unavailable Unavailable LUIZ, H HERMILO MEDICAL PARASITOLOGIST Unavailable Unavailable LUIZ, H HERMILO MEDICAL PARASITOLOGIST Unavailable Unavailable LUIZ, H HERMILO MEDICAL PARASITOLOGIST Unavailable Unavailable LUIZ, H HERMILO MEDICAL PARASITOLOGIST Unavailable Unavailable LUIZ, H HERMILO MEDICAL PARASITOLOGIST Unavailable Unavailable LUIZ, H HERMILO MEDICAL PARASITOLOGIST Unavailable Unavailable ANA LUISA KRISHNAN MD Unavailable Unavailable ANA LUISA KRISHNAN MD Unavailable Unavailable ANA LUISA KRISHNAN MD Unavailable Unavailable ANA LUISA KRISHNAN MD Unavailable Unavailable ANA LUISA KRISHNAN MD Unavailable Unavailable ANA LUISA KRISHNAN MD Unavailable Unavailable ANA LUISA KRISHNAN MD Unavailable Unavailable Antwan OGDEN MD Unavailable Unavailable Antwan OGDEN MD Unavailable Unavailable Antwan OGDEN MD Unavailable Unavailable Antwan OGDEN MD Unavailable Unavailable Antwan OGDEN MD Unavailable Unavailable Antwan OGDEN MD Unavailable Unavailable Antwan OGDEN MD Unavailable Unavailable Antwan OGDEN MD Unavailable Unavailable Antwan OGDEN MD Unavailable Unavailable Antwan OGDEN MD Unavailable Unavailable Antwan OGDEN MD Unavailable Unavailable Antwan OGDEN MD Unavailable Unavailable Antwan OGDEN MD Unavailable Unavailable Antwan OGDEN MD Unavailable Unavailable Antwan OGDEN MD Unavailable Unavailable Antwan OGDEN MD Unavailable Unavailable Antwan OGDEN MD Unavailable Unavailable Antwan OGDEN MD Unavailable Unavailable Antwan OGDEN MD Unavailable Unavailable Antwan OGDEN MD Unavailable Unavailable Antwan OGDEN MD Unavailable Unavailable Antwan OGDEN MD Unavailable Unavailable Antwan OGDEN MD Unavailable Unavailable Antwan OGDEN MD Unavailable Unavailable Antwan OGDEN MD Unavailable Unavailable Antwan OGDEN MD Unavailable Unavailable Antwan OGDEN MD Unavailable Unavailable Antwan OGDEN MD Unavailable Unavailable Antwan OGDEN MD Unavailable Unavailable Antwan OGDEN MD Unavailable Unavailable Antwan OGDEN MD Unavailable Unavailable Antwan OGDEN MD Unavailable Unavailable Antwan OGDEN MD Unavailable Unavailable Antwan OGDEN MD Unavailable Unavailable Antwan OGDEN MD Unavailable Unavailable Antwan OGDEN MD Unavailable Unavailable Antwan OGDEN MD Unavailable Unavailable Antwan OGDEN MD Unavailable Unavailable Antwan OGDEN MD Unavailable Unavailable Antwan OGDEN MD Unavailable Unavailable Antwan OGDEN MD Unavailable Unavailable Antwan OGDEN MD Unavailable Unavailable Antwan OGDEN MD Unavailable Unavailable Antwan OGDEN MD Unavailable Unavailable Antwan OGDEN MD Unavailable Unavailable Antwan OGDEN MD Unavailable Unavailable Antwan OGDEN MD Unavailable Unavailable Antwan OGDEN MD Unavailable Unavailable Antwan OGDEN MD Unavailable Unavailable Antwan OGDEN MD Unavailable Unavailable Antwan OGDEN MD Unavailable Unavailable Glynn Mars MD Unavailable Unavailable Glynn Mars MD Unavailable Unavailable Glynn Mars MD Unavailable Unavailable Glynn Mars MD Unavailable Unavailable Glynn Mars MD Unavailable Unavailable Glynn Mars MD Unavailable Unavailable Glynn Mars MD Unavailable Unavailable Glynn Mars MD Unavailable Unavailable Vaneenenaam, Glynn Zapien MD Unavailable Unavailable Vaneenenaam, Glynn Zapien MD Unavailable Unavailable Vaneenenaam, Glynn Zapien MD Unavailable Unavailable Vaneenenaam, Glynn Zapien MD Unavailable Unavailable Vaneenenaam, Glynn Zapien MD Unavailable Unavailable Vaneenenaam, Glynn Zapien MD Unavailable Unavailable Vaneenenaam, Glynn Zapien MD Unavailable Unavailable Vaneenenaam, Glynn Zapien MD Unavailable Unavailable Vaneenenaam, Glynn Zapien MD Unavailable Unavailable Vaneenenaam, Glynn Zapien MD Unavailable Unavailable Vaneenenaam, Glynn Zapien MD Unavailable Unavailable Vaneenenaam, Glynn Zapien MD Unavailable Unavailable Vaneenenaam, Glynn Zapien MD Unavailable Unavailable Vaneenenaam, Glynn Zapien MD Unavailable Unavailable Vaneenenaam, Glynn Zapien MD Unavailable Unavailable Vaneenenaam, Glynn Zapien MD Unavailable Unavailable Vaneenenaam, Glynn Zapien MD Unavailable Unavailable Vaneenenaam, Glynn Zapien MD Unavailable Unavailable Vaneenenaam, Glynn Zapien MD Unavailable Unavailable Vaneenlissetteam, Glynn Zapien MD Unavailable Unavailable Vaneenlissetteam, Glynn Zapien MD Unavailable Unavailable Vaneenenaam, Glynn Zapien MD Unavailable Unavailable Vaneenenaam, Glynn Zapien MD Unavailable Unavailable Vaneenenaam, Glynn Zapien MD Unavailable Unavailable Vaneenenaam, Glynn Zapien MD Unavailable Unavailable Vaneenlissetteam, Glynn Zapien MD Unavailable Unavailable Vaneenlissetteam, Glynn Zapien MD Unavailable Unavailable Vaneenlissetteam, Glynn Zapien MD Unavailable Unavailable Vaneenlissetteam, Glynn Zapien MD Unavailable Unavailable Vanjuvenalam, Glynn Zapien MD Unavailable Unavailable Vaneenlissetteam, Glynn Zapien MD Unavailable Unavailable Vaneenlissetteam, Glynn Zapien MD Unavailable Unavailable Vaneenlissetteam, Glynn Zapien MD Unavailable Unavailable Vanlillie, Glynn Zapien MD Unavailable Unavailable Vanlillie, Glnyn Zapien MD Unavailable Unavailable Vaneenlissetteam, Glynn Zapien MD Unavailable Unavailable Vaneenlissetteam, Glynn Zapien MD Unavailable Unavailable VaneenlissetteamGlynn MD Unavailable Unavailable ANA LUISA KRISHNAN MD Unavailable Unavailable ANA LUISA KRISHNAN MD Unavailable Unavailable ANA LUISA KRISHNAN MD Unavailable Unavailable ANA LUISA KRISHNAN MD Unavailable Unavailable ANA LUISA KRISHNAN MD Unavailable Unavailable ANA LUISA KRISHNAN MD Unavailable Unavailable ANA LUISA KRISHNAN MD Unavailable Unavailable Negrete, Ronnie Unavailable Unavailable Negrete, Ronnie Unavailable Unavailable Negrete, Ronnie Unavailable Unavailable Negrete, Ronnie Unavailable Unavailable Negrete, Ronnie Unavailable Unavailable Negrete, Ronnie Unavailable Unavailable Negrete, Ronnie Unavailable Unavailable Negrete, Ronnie Unavailable Unavailable Negrete, Ronnie Unavailable Unavailable Negrete, Ronnie Unavailable Unavailable Negrete, Ronnie Unavailable Unavailable Negrete, Ronnie Unavailable Unavailable Negrete, Ronnie Unavailable Unavailable Negrete, Ronnie Unavailable Unavailable Negrete, Ronnie Unavailable Unavailable Negrete, Ronnie Unavailable Unavailable Negrete, Ronnie Unavailable Unavailable Negrete, Ronnie Unavailable Unavailable Negrete, Ronnie Unavailable Unavailable Negrete, Ronnie Unavailable Unavailable Negrete, Ronnie Unavailable Unavailable Negrete, Ronnie Unavailable Unavailable Negrete, Ronnie Unavailable Unavailable Negrete, Ronnie Unavailable Unavailable Negrete, Ronnie Unavailable Unavailable Negrete, Ronnie Unavailable Unavailable Negrete, Ronnie Unavailable Unavailable Negrete, Ronnie Unavailable Unavailable Negrete, Ronnie Unavailable Unavailable Negrete, Ronnie Unavailable Unavailable Negrete, Ronnie Unavailable Unavailable Negrete, Ronnie Unavailable Unavailable Negrete, Ronnie Unavailable Unavailable Negrete, Ronnie Unavailable Unavailable Negrete, Ronnie Unavailable Unavailable Negrete, Ronnie Unavailable Unavailable Negrete, Ronnie Unavailable Unavailable Negrete, Ronnie Unavailable Unavailable Negrete, Ronnie Unavailable Unavailable Negrete, Ronnie Unavailable Unavailable Negrete, Ronnie Unavailable Unavailable Negrete, Ronnie Unavailable Unavailable Negrete, Ronnie Unavailable Unavailable Negrete, Ronnie Unavailable Unavailable Negrete, Ronnie Unavailable Unavailable Debby SCHUMACHER MD Unavailable Unavailable Debby SCHUMACHER MD Unavailable Unavailable Debby SCHUMACHER MD Unavailable Unavailable Debby SCHUMACHER MD Unavailable Unavailable Debby SCHUMACHER MD Unavailable Unavailable Debby SCHUMACHER MD Unavailable Unavailable Debby SCHUMACHER MD Unavailable Unavailable Debby SCHUMACHER MD Unavailable Unavailable Debby SCHUMACHER MD Unavailable Unavailable Debby SCHUMACHER MD Unavailable Unavailable Debby SCHUMACHER MD Unavailable Unavailable Debby SCHUMACHER MD Unavailable Unavailable Debby SCHUMACHER MD Unavailable Unavailable Debby SCHUMACHER MD Unavailable Unavailable Debby SCHUMACHER MD Unavailable Unavailable Debby SCHUMACHER MD Unavailable Unavailable Debby SCHUMACHER MD Unavailable Unavailable Debby SCHUMACHER MD Unavailable Unavailable Debby SCHUMACHER MD Unavailable Unavailable Debby SCHUMACHER MD Unavailable Unavailable Debby SCHUMACHER MD Unavailable Unavailable Debby SCHUMACHER MD Unavailable Unavailable Debby SCHUMACHER MD Unavailable Unavailable Debby SCHUMACHER MD Unavailable Unavailable Debby SCHUMACHER MD Unavailable Unavailable Debby SCHUMACHER MD Unavailable Unavailable Debby SCHUMACHER MD Unavailable Unavailable Debby SCHUMACHER MD Unavailable Unavailable Debby SCHUMACHER MD Unavailable Unavailable Debby SCHUMACHER MD Unavailable Unavailable Debby SCHUMACHER MD Unavailable Unavailable Debby SCHUMACHER MD Unavailable Unavailable Debby SCHUMACHER MD Unavailable Unavailable Antonella Thornton Unavailable LEMUEL EPPERSON MD Unavailable Unavailable ZEENAT, LEMUEL MD Unavailable Unavailable ZEENAT, LEMUEL MD Unavailable Unavailable ZEENAT, LEMUEL MD Unavailable Unavailable ZEENAT, LEMUEL MD Unavailable Unavailable ZEENAT, LEMUEL MD Unavailable Unavailable ZEENAT, LEMUEL MD Unavailable Unavailable ZEENAT, LEMUEL MD Unavailable Unavailable ZEENAT, LEMUEL MD Unavailable Unavailable ZEENAT, LEMUEL MD Unavailable Unavailable ZEENAT, LEMUEL MD Unavailable Unavailable ZEENAT, LEMUEL MD Unavailable Unavailable ZEENAT, LEMUEL MD Unavailable Unavailable ZEENAT, LEMUEL MD Unavailable Unavailable ZEENAT, LEMUEL MD Unavailable Unavailable ZEENAT, LEMUEL MD Unavailable Unavailable ZEENAT, LEMUEL MD Unavailable Unavailable ZEENAT, LEMUEL MD Unavailable Unavailable ZEENAT, LEMUEL MD Unavailable Unavailable ZEENAT, LEMUEL MD Unavailable Unavailable ZEENAT, LEMUEL MD Unavailable Unavailable ZEENAT, LEMUEL MD Unavailable Unavailable ZEENAT, LEMUEL MD Unavailable Unavailable ZEENAT, LEMUEL MD Unavailable Unavailable ZEENAT, LEMUEL MD Unavailable Unavailable ZEENAT, LEMUEL MD Unavailable Unavailable ZEENAT, LEMUEL MD Unavailable Unavailable ZEENAT, LEMUEL MD Unavailable Unavailable ZEENAT, LEMUEL MD Unavailable Unavailable ZEENAT, LEMUEL MD Unavailable Unavailable ZEENAT, LEMUEL MD Unavailable Unavailable ZEENAT, LEMULE MD Unavailable Unavailable ZEENAT, LEMUEL MD Unavailable Unavailable ZEENAT, LEMUEL MD Unavailable Unavailable ZEENAT, LEMUEL MD Unavailable Unavailable ZEENAT, LEMUEL MD Unavailable Unavailable ZEENAT, LEMUEL MD Unavailable Unavailable ZEENAT, LEMUEL MD Unavailable Unavailable ZEENAT, LEMUEL MD Unavailable Unavailable ZEENAT, LEMUEL MD Unavailable Unavailable ZEENAT, LEMUEL MD Unavailable Unavailable ZEENAT, LEMUEL MD Unavailable Unavailable ZEENAT, LEMUEL MD Unavailable Unavailable PHYSICIAN, PHYSICIAN ER Unavailable Unavailable CARLEY, L RONY PA Unavailable Unavailable CARLEY, L RONY PA Unavailable Unavailable CARLEY, L RONY PA Unavailable Unavailable CARLEY, L RONY PA Unavailable Unavailable CARLEY, L RONY PA Unavailable Unavailable CARLEY, L RONY PA Unavailable Unavailable CARLEY, L RONY PA Unavailable Unavailable CARLEY, L RONY PA Unavailable Unavailable CARLEY, L RONY PA Unavailable Unavailable CARLEY, L RONY PA Unavailable Unavailable CARLEY, L RONY PA Unavailable Unavailable CARLEY, L RONY PA Unavailable Unavailable CARLEY, L RONY PA Unavailable Unavailable CARLEY, L RONY PA Unavailable Unavailable CARLEY, L RONY PA Unavailable Unavailable CARLEY, L RONY PA Unavailable Unavailable ANTECOLScott MD Unavailable Unavailable ANTECOLScott MD Unavailable Unavailable ANTECOLScott MD Unavailable Unavailable ANTECOL, Scott BARRETT MD Unavailable Unavailable ANTECOL, Scott BARRETT MD Unavailable Unavailable ANTECOL, Scott BARRETT MD Unavailable Unavailable ANTECOL, Scott BARRETT MD Unavailable Unavailable ANTECOL, Scott BARRETT MD Unavailable Unavailable ANTECOL, Scott BARRETT MD Unavailable Unavailable ANTECOL, Scott BARRETT MD Unavailable Unavailable ANTECOL, Scott BARRETT MD Unavailable Unavailable ANTECOL, Scott BARRETT MD Unavailable Unavailable ANTECOL, Scott BARRETT MD Unavailable Unavailable ANTECOL, Scott BARRETT MD Unavailable Unavailable ANTECOL, Scott BARRETT MD Unavailable Unavailable ANTECOL, Scott BARRETT MD Unavailable Unavailable ANTECOL, Scott BARRETT MD Unavailable Unavailable ANTECOL, Scott BARRETT MD Unavailable Unavailable ANTECOL, Scott BARRETT MD Unavailable Unavailable ANTECOL, Scott BARRETT MD Unavailable Unavailable ANTECOL, Scott BARRETT MD Unavailable Unavailable ANTECOL, Scott BARRETT MD Unavailable Unavailable ANTECOL, Scott BARRETT MD Unavailable Unavailable ANTECOL, Scott BARRETT MD Unavailable Unavailable ANTECOL, Scott BARRETT MD Unavailable Unavailable ANTECOL, Scott BARRETT MD Unavailable Unavailable ANTECOL, Scott BRARETT MD Unavailable Unavailable ANTECOL, Scott BARRETT MD Unavailable Unavailable ANTECOL, Scott BARRETT MD Unavailable Unavailable ANTECOL, Scott BARRETT MD Unavailable Unavailable ANTECOL, Scott BARRETT MD Unavailable Unavailable ANTECOL, Scott BARRETT MD Unavailable Unavailable ANTECOL, Scott BARRETT MD Unavailable Unavailable ANTECOL, Scott BARRETT MD Unavailable Unavailable ANTECOL, Scott BARRETT MD Unavailable Unavailable ANTECOL, Scott BARRETT MD Unavailable Unavailable ANTECOL, Scott BARRETT MD Unavailable Unavailable ANTECOL, Scott BARRETT MD Unavailable Unavailable ANTECOL, Scott BARRETT MD Unavailable Unavailable ANTECOL, Scott BARRETT MD Unavailable Unavailable ANTECOL, Scott BARRETT MD Unavailable Unavailable ANTECOL, Scott BARRETT MD Unavailable Unavailable ANTECOL, Scott BARRETT MD Unavailable Unavailable ANTECOL, Scott BARRETT MD Unavailable Unavailable ANTECOL, Scott BARRETT MD Unavailable Unavailable ANTECOL, Scott BARRETT MD Unavailable Unavailable ANTECOL, Scott BARRETT MD Unavailable Unavailable ANTECOL, Scott BARRETT MD Unavailable Unavailable ANTECOL, Scott BARRETT MD Unavailable Unavailable ANTECOL, Scott BARRETT MD Unavailable Unavailable ANTECOL, Scott BARRETT MD Unavailable Unavailable ANTECOL, Scott BARRETT MD Unavailable Unavailable ANTECOL, Scott BARRETT MD Unavailable Unavailable ANTECOL, Scott BARRETT MD Unavailable Unavailable Bill MITCHELL MD Unavailable Unavailable Bill MITCHELL MD Unavailable Unavailable Bill MITCHELL MD Unavailable Unavailable Bill MITCHELL MD Unavailable Unavailable Bill MITCHELL MD Unavailable Unavailable Bill MITCHELL MD Unavailable Unavailable Bill MITCHELL MD Unavailable Unavailable Bill MITCHELL MD Unavailable Unavailable Bill MITCHELL MD Unavailable Unavailable JISHIBill MD Unavailable Unavailable JISHIBill MD Unavailable Unavailable JISHI, Bill BENNETT MD Unavailable Unavailable JISHI, Bill BENNETT MD Unavailable Unavailable JISHI, iBll BENNETT MD Unavailable Unavailable JISHI, Bill BENNETT MD Unavailable Unavailable JISHI, Bill BENNETT MD Unavailable Unavailable JISHI, Bill BENNETT MD Unavailable Unavailable Arlene Smith Unavailable PHYSICIAN, ER Unavailable Unavailable Re-disclosure Warning The records that you are about to access may contain information from federally-assisted alcohol or drug abuse programs. If such information is present, then the following federally mandated warning applies: This information has been disclosed to you from records protected by federal confidentiality rules (42 CFR part 2). The federal rules prohibit you from making any further disclosure of this information unless further disclosure is expressly permitted by the written consent of the person to whom it pertains or as otherwise permitted by 42 CFR part 2. A general authorization for the release of medical or other information is NOT sufficient for this purpose. The Federal rules restrict any use of the information to criminally investigate or prosecute any alcohol or drug abuse patient.The records that you are about to access may contain highly sensitive health information, the redisclosure of which is protected by Article 27-F of the [facility] Public Health law. If you continue you may have access to information: Regarding HIV / AIDS; Provided by facilities licensed or operated by the [facility] Office of Mental Health; or Provided by the [facility] Office for People With Developmental Disabilities. If such information is present, then the following [facility] mandated warning applies: This information has been disclosed to you from confidential records which are protected by state law. State law prohibits you from making any further disclosure of this information without the specific written consent of the person to whom it pertains, or as otherwise permitted by law. Any unauthorized further disclosure in violation of state law may result in a fine or half-way sentence or both. A general authorization for the release of medical or other information is NOT sufficient authorization for further disc losure. Allergies and Adverse Reactions Type Description Substance Reaction Status Data Source(s ) Propensity to adverse reactions to substance Celexa Citalopram 10 MG Oral Tablet [Celexa] Rash Active [facility] ([facility]) Propensity to adverse reactions to substance penicillin v po tassium Penicillin V Potassium 250 MG Oral Tablet Rash Active [facility] ([facility]) Family History Family Member Name Family Member Gender Family Member Status Date o f Status Description Data Source(s) Unknown Unknown Problem [facility] Unknown Unknown Problem [facility]) Unknown Male Problem MED[facility] ([facility]) Unknown Male Problem [facility] ([facility] () Encounters Encounter Providers Location Date Indications Data Source(s ) Outpatient Attender: Anastasiia STANTON Main office - [facility] 06/18/2021 11:00:00 AM EDT MED[facility] ([facility] ) Outpatient [address] [address] 06/17/2021 12:00:00 AM EDT eCW1 ([facility]) Office Visit Attender: NENA VILLALTA MD Main Office 05/20/2021 02: 53:00 PM EDT [facility] ([facility]) Unknown [address] [facility] [place] [address] 05/14/2021 12:00:00 AM EDT eCW1 ([facility]) Attender: Arlene Smith 05/07/2021 12:00:00 AM EDT [facility] ([facility]) Unknown [address] [facility] [place] [address] 05/06/2021 12:00:00 AM EDT eCW1 ([facility]) Extended Individual Psychotherapy - 45 min Attender: Brian Smith [facility] 05/05/2021 02:00:00 AM EDT - 05/05/2021 02:00:00 AM EDT [facility] ([facility]) Health Monitoring - 30 Min Attender: Antonella Thornton [facility] 05/05/2021 01:30:00 AM EDT - 05/05/2021 01:30:00 AM EDT [facility] ([facility]) Attender: Antonella Thornton 05/05/2021 12:00:00 AM EDT [facility] ([facility]) Outpatient Attender: Ronnie Negrete Physical Therapy 04/28/2021 10:30:0 0 AM EDT [facility] ([facility]) Unknown [address] [facility] [place] [address] 04/15/2021 12:00:00 AM EDT eCW1 ([facility]) Outpatient Attender: Helen HERNANDEZ PA-C Physical Therapy 04/07/2021 02:00:00 PM EDT MED[facility] ([facility]) Office Visit Attender: NENA IVLLALTA MD Main Office 03/22/2021 04: 38:00 PM EDT MED[facility] ([facility]) Outpatient Attender: RONY STANTON Main Office 03/18/2021 1 2:45:00 PM EDT [facility] ([facility]) Unknown [address] [facility] [place] [address] 03/05/2021 12:00:00 AM EDT eCW1 ([facility]) [place] [address] [facility] [place] [address] 03/04/2021 12:00:00 AM EDT [facility] Unknown [address] [facility] [place] [address] 03/03/2021 12:00:00 AM EDT [facility]CW1 [facility]) Outpatient Attender: RONY STANTON Main Office 03/01/2021 0 2:15:00 PM EDT MED[facility] ([facility]) Outpatient Attender: HERMILO DEE NP [facility] 02/23/2021 03:00:00 AM EDT - 02/23/2021 03:00:00 AM EDT [facility] ([facility]) Attender: HERMILO DEE NP 02/23/2021 12:00:00 AM EDT [facility] ([facility]) [place] [address] [facility] [place] [address] 02/19/2021 12:00:00 AM EDT eCW1 ([facility]) Unknown [address] [facility] [place] [address] 02/18/2021 12:00:00 AM EDT eCW1 ([facility]) Office Visit Attender: NENA VILLALTA MD Main Office 02/11/2021 10: 19:00 AM EDT MED[facility] ([facility]) Outpatient Attender: KINGS OGDEN MD [facility] [place] 02/11/2021 02:36:00 AM EDT [facility] ([facility]) Outpatient Attender: KINGS OGDEN MD [facility] 02/10/2021 02:38:00 AM EDT [facility] ([facility]) ( in Healthcare facility) Attender: DONALD MITCHELL MDAttender: GLEN SCHUMACHER MDAdmitter: ANA LUISA KRISHNAN MDConsultant: OUT OF AREA PCP, PT Does Not have 02/10/2021 01:33:00 AM EDT - 02/11/2021 02:18:00 PM EDT [facility] Inpatient Attender: DONALD Reina varinder: GLEN SCHUMACHER MDAttender: ER PHYSICIANAdmitter: ANA LUISA KRISHNAN MD 02/10/2021 01:09:25 AM EDT [facility] Inpatient Attender: DONALD Reina varinder: GLEN SCHUMACHER MDAttender: ANA LUISA KRISHNAN MDAttender: ER PHYSICIANAdmitter: ANA LUISA KRISHNAN MD 02/10/2021 12:07:00 AM EDT - 02/11/2021 02:18:00 PM EDT [facility] NSTEMI Patient discharged. Outpatient 02/09/2021 11:29:00 PM [facility] Outpatient Attender: Anastasiia STANTON Main office - [facility] 02/05/2021 10:45:00 AM EDT [facility] ([facility] ) [place] [address] [facility] [place] [address] 02/03/2021 12:00:00 AM EDT eCW1 ([facility]) Outpatient Attender: Helen HERNANDEZ PA-C Physical Therapy 01/20/2021 03:15:00 PM EDT MED[facility] ([facility]) Outpatient Att[facility] 01/11/2021 02:30:00 AM EDT - 01/11/2021 02:30:00 AM EDT [facility] ([facility]) Attender: HERMILO DEE NP 01/11/2021 12:00:00 AM EDT [facility] ([facility]) OFFICE OUTPATIENT VISIT 15 MINUTES Attender: Helen HERNANDEZ PA-C Physical Therapy 01/04/2021 01:45:00 PM EDT MED[facility] ([facility]) Office Visit Attender: NENA VILLALTA MD Main Office 01/01/2021 08: 20:00 AM EDT MED[facility] ([facility]) Francesco Michel MD: [address] [place] [phone], Ph. Attender: Francesco Michel MD [facility] 12/30/2020 12:00:00 AM EDT JEFE ([facility]) Attender: Arlene Luis 12/17/2020 12:00:00 AM EDT [facility] ([facility]) Extended Individual Psychotherapy - 45 min Attender: Briandarryl Smith [facility] 12/16/2020 01:00:00 AM EDT - 12/16/2020 01:00:00 AM EDT [facility] ([facility]) Francesco Michel MD: [address] [place] [phone], Ph. Attender: Francesco Michle MD [facility] 11/30/2020 12:00:00 AM EDT JEFE ([facility]) Francesco Michel MD: [address] [place] [phone], Ph. Attender: Francesco Michel MD [facility] 11/30/2020 12:00:00 AM EDT JEFE ([facility]) Office Visit Attender: NENA VILLALTA MD Main Office 11/26/2020 03: 15:00 PM EDT [facility] ([facility]) Unknown [address] [facility] [place] [address] 11/24/2020 12:00:00 AM EDT eCW1 ([facility]) OFFICE OUTPATIENT VISIT 15 MINUTES Attender: Glynn molina MD Physical Therapy 11/19/2020 02:30:00 PM EDT MED[facility] ([facility]) Outpatient Attender: RONY STANTON Main Office 11/18/2020 0 9:15:00 AM EDT MED[facility] ([facility]) Outpatient Attender: HERMILO DEE NP [facility] 11/11/2020 02:00:00 AM EDT - 11/11/2020 02:00:00 AM EDT [facility] ([facility]) Unknown [address] [facility] [id number] 11/11/2020 12:00:00 AM EDT eCW1 ([facility]) Attender: HERMILO DEE NP 11/11/2020 12:00:00 AM EDT [facility] ([facility]) Office Visit Attender: NENA VILLALTA MD Main Office 11/04/2020 12: 49:00 PM EDT MED[facility] ([facility]) Outpatient [address] [facility] [address] 10/27/2020 12:00:00 AM EST eCW1 ([facility]) Outpatient Attender: Glynn Mars MD Physical Therap y 10/15/2020 12:00:00 PM EST MED[facility] ([facility]) (WC GYNANN) [facility] 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 Exam [address] [place] [address] 10/01/2020 12:00:00 AM EST eCW1 (Critical access hospital) Attender: Arlene Smith 09/18/2020 12:00:00 AM EST [facility] ([facility]) Extended Individual Psychotherapy - 45 min Attender: Brian Smith [facility] 09/17/2020 04:00:00 AM EST - 09/17/2020 04:00:00 AM EST [facility] ([facility]) Outpatient Attender: Glynn Mars MD Physical Therap y 09/11/2020 12:00:00 PM EST [facility] ([facility]) Outpatient Attender: HERMILO DEE NP [facility] 09/10/2020 02:00:00 AM EST - 09/10/2020 02:00:00 AM EST [facility] ([facility]) Attender: HERMILO DEE NP 09/10/2020 12:00:00 AM EST [facility] ([facility]) Outpatient Attender: RONY STANTON Main Office 09/01/2020 0 1:00:00 PM EST MED[facility] ([facility]) Office Visit Attender: NENA VILLALTA MD Main Office 08/24/2020 12: 57:00 PM EST [facility] ([facility]) Outpatient Attender: Anastasiia STANTON Main office - [facility] 07/28/2020 01:00:00 PM EST [facility] ([facility]) Unknown [address] [facility] [place] [address] 07/28/2020 12:00:00 AM EST [facility] Unknown [address] [address] 07/24/2020 12:00:00 AM EST [facility]CW1 [facility]) Unknown [address] [address] 07/24/2020 12:00:00 AM EST [facility]CW1 [facility]) Attender: Arlene Smith 07/23/2020 12:00:00 AM EST [facility] ([facility]) [id number]"Psychotherapy [facility] 03:00:00 AM EST - 07/22/2020 03:00:00 AM EST [facility] ([facility]) Outpatient Attender: Samina Godinez MEDICAL PARASITOLOGIST Mami/Eleonora/Charlie/Reindl 07/21/2020 12:00:00 PM EST [facility] ([facility] Outpatient Attender: HERMILO DEE NP [facility] 07/20/2020 03:00:00 AM EST - 07/20/2020 03:00:00 AM EST [facility] ([facility]) Attender: HERMILO DEE NP 07/20/2020 12:00:00 AM EST [facility] ([facility]) Office Visit Attender: NENA VILLALTA MD Main Office 07/15/2020 09: 25:00 AM EST [facility] ([facility]) Outpatient Attender: Glynn Mars MD Physical Therap y 07/14/2020 09:00:00 AM EST [facility] ([facility] ) Office Visit Attender: PRANEETH MERRITT [facility] Office 06/22 07:45:00 AM EST [facility] ([facility] [place] [address] [facility] [place] [address] 06/30/2020 12:00:00 AM EST eCW1 ([facility]) Unknown [address] [facility] [place] [address] 06/18/2020 12:00:00 AM EDT eCW1 ([facility]) OFFICE OUTPATIENT VISIT 15 MINUTES Attender: Lazara STANTON Physical Therapy 06/10/2020 02:45:00 PM EDT [facility] ([facility]) Outpatient Attender: LEMUEL EPPERSON MD Main office - [facility] 06/09/2020 12:30:00 PM EDT [facility] ([facility]) Office Visit Attender: NENA VILLALTA MD Main Office 06/09/2020 08: 12:00 AM EDT MED[facility] ([facility]) Outpatient Attender: PRANEETH MERRITT [facility] Office 05/21 10:30:00 AM EDT [facility] ([facility] [id number]"Psychotherapy [facility]: [facility] 05/27/2020 03:30:00 AM EDT - 05/27/2020 03:30:00 AM EDT [facility] ([facility]) Attender: Arlene Luis 05/27/2020 12:00:00 AM EDT [facility] ([facility]) Outpatient Attender: HERMILO DEE NP [facility] 05/25/2020 10:00:00 AM EDT - 05/25/2020 10:00:00 AM EDT [facility] ([facility]) Attender: HERMILO DEE NP 05/25/2020 12:00:00 AM EDT [facility] ([facility]) Unknown [address] [facility] [address] [place] [address] 05/25/2020 12:00:00 AM EDT eCW1 ([facility]) Office Visit Attender: NENA VILLALTA MD Main Office 05/20/2020 08: 14:00 AM EDT [facility] ([facility]) Unknown [address] [facility] [address] [place] [address] 05/20/2020 12:00:00 AM EDT eCW1 ([facility]) Outpatient Attender: Glynn Mars MD Physical Therap y 05/13/2020 09:00:00 AM EDT MED[facility] ([facility] ) Functional Status Immunizations Vaccine Date Status Description Data Source(s) COVID-19, mRNA, LNP-S, PF, 100 mcg/0.5 mL dose 01/01/2021 11 :36:50 AM EDT completed 10.5 mL JE[facility] ([facility]) COVID-19 (Moderna), mRNA, LNP-S, PF, 100 mcg/0.5 mL do se 01/01/2021 12:00:00 AM EDT completed [facility] COVID-19 VACCINE Moderna 01/01/2021 12:00:00 AM EDT completed [facility] Complete: YESThis Data wa s Submitted to [facility]. COVID-19 dose #2 given elsewhere Unspecified 12/30/2020 03:0 7:00 PM EDT completed eCW1 ([facility]) COVID-19 dose #2 given elsewhere Unspecified 12/30/2020 03:0 7:00 PM EDT completed eCW1 ([facility]) COVID-19 dose #2 given elsewhere Unspecified 12/30/2020 03:0 7:00 PM EDT completed eCW1 ([facility]) COVID-19 dose #2 given elsewhere Unspecified 12/30/2020 03:0 7:00 PM EDT completed eCW1 ([facility]) COVID-19 dose #2 given elsewhere Unspecified 12/30/2020 03:0 7:00 PM EDT completed eCW1 ([facility]) COVID-19 dose #2 given elsewhere Unspecified 12/30/2020 03:0 7:00 PM EDT completed eCW1 ([facility]) COVID-19 dose #2 given elsewhere Unspecified 12/30/2020 03:0 7:00 PM EDT completed eCW1 ([facility]) COVID-19, mRNA, LNP-S, PF, 100 mcg/0.5 mL dose 11/30/2020 03 :47:15 PM EDT completed .5 mL JEFE ([facility]) COVID-19, mRNA, LNP-S, PF, 100 mcg/0.5 mL dose 11/30/2020 03 :47:15 PM EDT completed .5 mL JEFE ([facility]) COVID-19 dose #1 given elsewhere Unspecified 11/30/2020 03:0 6:00 PM EDT completed eCW1 ([facility]) COVID-19 dose #1 given elsewhere Unspecified 11/30/2020 03:0 6:00 PM EDT completed eCW1 ([facility]) COVID-19 dose #1 given elsewhere Unspecified 11/30/2020 03:0 6:00 PM EDT completed eCW1 ([facility]) COVID-19 dose #1 given elsewhere Unspecified 11/30/2020 03:0 6:00 PM EDT completed eCW1 ([facility]) COVID-19 dose #1 given elsewhere Unspecified 11/30/2020 03:0 6:00 PM EDT completed eCW1 ([facility]) COVID-19 dose #1 given elsewhere Unspecified 11/30/2020 03:0 6:00 PM EDT completed eCW1 ([facility]) COVID-19 dose #1 given elsewhere Unspecified 11/30/2020 03:0 6:00 PM EDT completed eCW1 ([facility]) COVID-19 (Moderna), mRNA, LNP-S, PF, 100 mcg/0.5 mL do se 11/30/2020 12:00:00 AM EDT completed [facility] COVID-19 VACCINE Moderna 11/30/2020 12:00:00 AM EDT completed [facility] Vaccine Series Complete: NOThis Data was Submitted to [facility] [employer]. New in 2011. IIV4 07/21/2020 12:16:00 PM EST completed [facility] ) New in 2011. IIV4 07/21/2020 12:00:00 AM EST completed [facility] Medications Medication Brand Name Start Date Product Form Dose Route Admi nistrative Instructions Pharmacy Instructions Status Indications Reaction Description Data Source(s) quetiapine 25 MG Oral Tablet [Seroquel] Seroquel 25 MG Seroq uel 25 MG 06/11/2021 12:00:00 AM EDT 1.0 {tablet_at_bedtime} active Seroquel 25 MG eCW1 ([facility]) Alprazolam 0.25 MG Oral Tablet ALPRAZolam 0.25 MG ALPRAZolam 0.25 MG 05/14/2021 12:00:00 AM EDT 1.0 {tablet} active AL PRAZolam 0.25 MG eCW1 ([facility]) Zolpidem tartrate 5 MG Oral Tablet [Ambien] Ambien 05/07/2021 12:00:00 AM EDT 5 mg by mouth completed <td ID="Me dicationRxNorm_1">243014</td><td ID="MedicationMedication_1">Ambien</td><td ID="MedicationRoute_1">by mouth</td><td ID="MedicationRouteConcept_1">O05607</td><td ID="MedicationStartDate_1">05/07/2021</td><td ID="MedicationStopDate_1">06/05/2021</td><td ID="MedicationDosageFrequency_1">at bedtime</td><td ID="MedicationDuration_1">30</td><td ID="MedicationFormulaStrength_1">5 mg</td><td ID="MedicationDosageForm_1">tablet</td><td ID="MedicationDosageFormCode_1"></td><td ID="MedicationDosageDescription_1">as needed</td><td ID="MedicationMedicationId_1">[id number]</td><td ID="MedicationAccount_1">[id number]</td><td ID="MedicationNpid_1">[id number]</td><td ID="MedicationAuthorFirstName_1">Hermilo</td><td ID="MedicationAuthorLastName_1">Luiz</td><td ID="MedicationTaxonomyCode_1">[id number]</td><td ID="MedicationTaxonomyDesc_1">Nurse Practitioner</td><td ID="MedicationPhoneNumber_1">[phone]</td> [facility] ([facility]) Trazodone Hydrochloride 150 MG Oral Tablet trazodone 05/07 12:00:00 AM EDT 150 mg by mouth completed <td ID="Medic ationRxNorm_2">398889</td><td ID="MedicationMedication_2">trazodone</td><td ID="MedicationRoute_2">by mouth</td><td ID="MedicationRouteConcept_2">P71079</td><td ID="MedicationStartDate_2">05/07/2021</td><td ID="MedicationStopDate_2">07/06/2021</td><td ID="MedicationDosageFrequency_2">at bedtime</td><td ID="MedicationDuration_2">30</td><td ID="MedicationFormulaStrength_2">150 mg</td><td ID="MedicationDosageForm_2">tablet</td><td ID="MedicationDosageFormCode_2"></td><td ID="MedicationDosageDescription_2"></td><td ID="MedicationMedicationId_2">[id number]</td><td ID="MedicationAccount_2">[id number]</td><td ID="MedicationNpid_2">[id number]</td><td ID="MedicationAuthorFirstName_2">Hermilo</td><td ID="MedicationAuthorLastName_2">Luiz</td><td ID="MedicationTaxonomyCode_2">[id number]</td><td ID="MedicationTaxonomyDesc_2">Nurse Practitioner</td><td ID="MedicationPhoneNumber_2">[phone]</td> [facility] ([facility]) 24 HR venlafaxine 225 MG Extended Release Oral Tablet venlaf axine 05/07/2021 12:00:00 AM EDT 225 mg by mouth completed <td ID="MedicationRxNorm_3">651443</td><td ID="MedicationMedication_3">venlafaxine</td><td ID="MedicationRoute_3">by mouth</td><td ID="MedicationRouteConcept_3">M75185</td><td ID="MedicationStartDate_3">05/07/2021</td><td ID="MedicationStopDate_3">07/06/2021</td><td ID="MedicationDosageFrequency_3">every morning</td><td ID="MedicationDuration_3">30</td><td ID="MedicationFormulaStrength_3">225 mg</td><td ID="MedicationDosageForm_3">tablet extended release 24hr</td><td ID="MedicationDosageFormCode_3"></td><td ID="MedicationDosageDescription_3"></td><td ID="MedicationMedicationId_3">[id number]</td><td ID="MedicationAccount_3">[id number]</td><td ID="MedicationNpid_3">[id number]</td><td ID="MedicationAuthorFirstName_3">Hermilo</td><td ID="MedicationAuthorLastName_3">Luiz</td><td ID="MedicationTaxonomyCode_3">[id number]</td><td ID="MedicationTaxonomyDesc_3"> Nurse Practitioner</td><td ID="MedicationPhoneNumber_3">[phone]</td> [facility] ([facility]) gabapentin 100 MG Oral Capsule Gabapentin 04/07/2021 12:00:00 AM EDT active [facility] ([facility] ) Methylprednisolone 4 MG Oral Tablet [Medrol] Medrol 12:00:00 AM EDT completed [facility] ([facility] ) 24 HR venlafaxine 225 MG Extended Release Oral Tablet Venlaf axine HCL ER 03/17/2021 12:00:00 AM EDT ORAL active [facility] ([facility]) Zolpidem tartrate 5 MG Oral Tablet [Ambien] Ambien 03/17/2021 12:00:00 AM EDT ORAL active [facility] ([facility]) Azithromycin (5 day) 250 mg UNK 03/05/2021 12:00:00 AM EDT suspended Azithromycin (5 day) 250 mg eCW1 ([facility] Azithromycin (5 day) 250 mg UNK 03/05/2021 12:00:00 AM EDT active Azithromycin (5 day) 250 mg eCW1 ([facility]) Azithromycin (5 day) 250 mg UNK 03/05/2021 12:00:00 AM EDT suspended Azithromycin (5 day) 250 mg eCW1 ([facility]) Azithromycin (5 day) 250 mg UNK 03/05/2021 12:00:00 AM EDT suspended Azithromycin (5 day) 250 mg eCW1 ([facility]) Nitroglycerin 0.4 MG Sublingual Tablet Nitroglycerin 12:00:00 AM EDT SUBLINGUAL active MEDEN T ([facility]) Famotidine 10 MG Oral Tablet Famotidine 02/28/2021 12:00:00 AM EDT ORAL active [facility] ([facility]) Ticagrelor 90 MG Oral Tablet [Brilinta] Brilinta 02/09/2021 12:00:0 0 AM EDT ORAL active [facility] ([facility] Acetaminophen 325 MG Oral Tablet [Tylenol] Tylenol 02/09/2021 12:00:00 AM EDT ORAL active [facility] ([facility]) Lidocaine Lidocaine 01/20/2021 12:00:00 AM EDT com pleted [facility] ([facility]) 24 HR venlafaxine 225 MG Extended Release Oral Tablet venlaf axine 01/11/2021 12:00:00 AM EDT 225 mg by mouth completed <td ID="MedicationRxNorm_1">950223</td><td ID="MedicationMedication_1">venlafaxine</td><td ID="MedicationRoute_1">by mouth</td><td ID="MedicationRouteConcept_1">R19727</td><td ID="MedicationStartDate_1">01/11/2021</td><td ID="MedicationStopDate_1">03/12/2021</td><td ID="MedicationDosageFrequency_1">every morning</td><td ID="MedicationDuration_1">30</td><td ID="MedicationFormulaStrength_1">225 mg</td><td ID="MedicationDosageForm_1">tablet extended release 24hr</td><td ID="MedicationDosageFormCode_1"></td><td ID="MedicationDosageDescription_1"></td><td ID="MedicationMedicationId_1">[id number]</td><td ID="MedicationAccount_1">[id number]</td><td ID="MedicationNpid_1">[id number]</td><td ID="MedicationAuthorFirstName_1">Hermilo</td><td ID="MedicationAuthorLastName_1">Luiz</td><td ID="MedicationTaxonomyCode_1">[id number]</td><td ID="MedicationTaxonomyDesc_1"> Nurse Practitioner</td><td ID="MedicationPhoneNumber_1">[phone]</td> [facility] ([facility]) Trazodone Hydrochloride 150 MG Oral Tablet trazodone 01/11 12:00:00 AM EDT 150 mg by mouth completed <td ID="Medic ationRxNorm_3">062148</td><td ID="MedicationMedication_3">trazodone</td><td ID="MedicationRoute_3">by mouth</td><td ID="MedicationRouteConcept_3">I00135</td><td ID="MedicationStartDate_3">01/11/2021</td><td ID="MedicationStopDate_3">03/12/2021</td><td ID="MedicationDosageFrequency_3">at bedtime</td><td ID="MedicationDuration_3">30</td><td ID="MedicationFormulaStrength_3">150 mg</td><td ID="MedicationDosageForm_3">tablet</td><td ID="MedicationDosageFormCode_3"></td><td ID="MedicationDosageDescription_3"></td><td ID="MedicationMedicationId_3">[id number]</td><td ID="MedicationAccount_3">[id number]</td><td ID="MedicationNpid_3">[id number]</td><td ID="MedicationAuthorFirstName_3">Hermilo</td><td ID="MedicationAuthorLastName_3">Luiz</td><td ID="MedicationTaxonomyCode_3">[id number]</td><td ID="MedicationTaxonomyDesc_3">Nurse Practitioner</td><td ID="MedicationPhoneNumber_3">[phone]</td> [facility] ([facility]) quetiapine 25 MG Oral Tablet [Seroquel] Seroquel 01/11/2021 12: 00:00 AM EDT 25 mg by mouth completed <td ID="Me dicationRxNorm_2">569176</td><td ID="MedicationMedication_2">Seroquel</td><td ID="MedicationRoute_2">by mouth</td><td ID="MedicationRouteConcept_2">V03158</td><td ID="MedicationStartDate_2">01/11/2021</td><td ID="MedicationStopDate_2">03/12/2021</td><td ID="MedicationDosageFrequency_2">at bedtime</td><td ID="MedicationDuration_2">30</td><td ID="MedicationFormulaStrength_2">25 mg</td><td ID="MedicationDosageForm_2">tablet</td><td ID="MedicationDosageFormCode_2"></td><td ID="MedicationDosageDescription_2"></td><td ID="MedicationMedicationId_2">[id number]</td><td ID="MedicationAccount_2">[id number]</td><td ID="MedicationNpid_2">[id number]</td><td ID="MedicationAuthorFirstName_2">Hermilo</td><td ID="MedicationAuthorLastName_2">Luiz</td><td ID="MedicationTaxonomyCode_2">[id number]</td><td ID="MedicationTaxonomyDesc_2">Nurse Practitioner</td><td ID="MedicationPhoneNumber_2">[phone]</td> [facility] ([facility]) Losartan Potassium 50 MG Oral Tablet Losartan Potassium 12:00:00 AM EDT active [facility] ([facility]) quetiapine 50 MG Oral Tablet [Seroquel] Seroquel 11/11/2020 12: 00:00 AM EDT 50 mg by mouth completed <td ID="Me dicationRxNorm_3">913044</td><td ID="MedicationMedication_3">Seroquel</td><td ID="MedicationRoute_3">by mouth</td><td ID="MedicationRouteConcept_3">C48329</td><td ID="MedicationStartDate_3">11/11/2020</td><td ID="MedicationStopDate_3">01/10/2021</td><td ID="MedicationDosageFrequency_3">at bedtime</td><td ID="MedicationDuration_3">30</td><td ID="MedicationFormulaStrength_3">50 mg</td><td ID="MedicationDosageForm_3">tablet</td><td ID="MedicationDosageFormCode_3"></td><td ID="MedicationDosageDescription_3"></td><td ID="MedicationMedicationId_3">[id number]</td><td ID="MedicationAccount_3">[id number]</td><td ID="MedicationNpid_3">[id number]</td><td ID="MedicationAuthorFirstName_3">Hermilo</td><td ID="MedicationAuthorLastName_3">Luiz</td><td ID="MedicationTaxonomyCode_3">[id number]</td><td ID="MedicationTaxonomyDesc_3">Nurse Practitioner</td><td ID="MedicationPhoneNumber_3">[phone]</td> [facility] ([facility]) quetiapine 25 MG Oral Tablet [Seroquel] Seroquel 10/14/2020 12: 00:00 AM EST 25 mg by mouth completed <td ID="Me dicationRxNorm_1">620025</td><td ID="MedicationMedication_1">Seroquel</td><td ID="MedicationRoute_1">by mouth</td><td ID="MedicationRouteConcept_1">H89505</td><td ID="MedicationStartDate_1">10/14/2020</td><td ID="MedicationStopDate_1">11/11/2020</td><td ID="MedicationDosageFrequency_1">at bedtime</td><td ID="MedicationDuration_1">30</td><td ID="MedicationFormulaStrength_1">25 mg</td><td ID="MedicationDosageForm_1">tablet</td><td ID="MedicationDosageFormCode_1"></td><td ID="MedicationDosageDescription_1"></td><td ID="MedicationMedicationId_1">[id number]</td><td ID="MedicationAccount_1">[id number]</td><td ID="MedicationNpid_1">[id number]</td><td ID="MedicationAuthorFirstName_1">Hermilo</td><td ID="MedicationAuthorLastName_1">Luiz</td><td ID="MedicationTaxonomyCode_1">[id number]</td><td ID="MedicationTaxonomyDesc_1">Nurse Practitioner</td><td ID="MedicationPhoneNumber_1">[phone]</td> [facility] ([facility]) Metronidazole 500 MG Oral Tablet metroNIDAZOLE 500 MG metroN IDAZOLE 500 MG 10/01/2020 12:00:00 AM EST suspended metroNIDAZOLE 500 MG eCW1 ([facility]) Spironolactone 25 MG Oral Tablet Spironolactone 25 MG 2020 12:00:00 AM EST 1.0 {tablet} active Spironolact one 25 MG eCW1 ([facility]) Chlorthalidone 25 MG Oral Tablet Chlorthalidone 25 MG 2020 12:00:00 AM EST 1.0 {tablet_in_the_morning_with_food} active Chlorthalidone 25 MG eCW1 ([facility]) Spironolactone 25 MG Oral Tablet Spironolactone 25 MG 2020 12:00:00 AM EST 1.0 {tablet} active Spironolact one 25 MG eCW1 ([facility]) Metronidazole 500 MG Oral Tablet metroNIDAZOLE 500 MG metroN IDAZOLE 500 MG 10/01/2020 12:00:00 AM EST active metroNIDAZOLE 500 MG eCW1 ([facility]) Metronidazole 500 MG Oral Tablet metroNIDAZOLE 500 MG metroN IDAZOLE 500 MG 10/01/2020 12:00:00 AM EST suspended metroNIDAZOLE 500 MG eCW1 ([facility]) Metronidazole 500 MG Oral Tablet Metronidazole 500 MG 2020 12:00:00 AM EST active Metronidazole 500 MG eCW1 ([facility]) Chlorthalidone 25 MG Oral Tablet Chlorthalidone 25 MG 2020 12:00:00 AM EST 1.0 {tablet_in_the_morning_with_food} howell spended Chlorthalidone 25 MG eCW1 ([facility]) Spironolactone 25 MG Oral Tablet Spironolactone 25 MG 2020 12:00:00 AM EST 1.0 {tablet} suspended Spironol actone 25 MG eCW1 ([facility]) Chlorthalidone 25 MG Oral Tablet Chlorthalidone 25 MG 2020 12:00:00 AM EST 1.0 {tablet_in_the_morning_with_food} active Chlorthalidone 25 MG eCW1 ([facility]) Chlorthalidone 25 MG Oral Tablet Chlorthalidone 25 MG 2020 12:00:00 AM EST 1.0 {tablet_in_the_morning_with_food} active Chlorthalidone 25 MG eCW1 ([facility]) Spironolactone 25 MG Oral Tablet Spironolactone 25 MG 2020 12:00:00 AM EST 1.0 {tablet} suspended Spironol actone 25 MG eCW1 ([facility]) Chlorthalidone 25 MG Oral Tablet Chlorthalidone 25 MG 2020 12:00:00 AM EST 1.0 {tablet_in_the_morning_with_food} active Chlorthalidone 25 MG eCW1 ([facility]) Chlorthalidone 25 MG Oral Tablet Chlorthalidone 25 MG 2020 12:00:00 AM EST 1.0 {tablet_in_the_morning_with_food} active Chlorthalidone 25 MG eCW1 ([facility]) Metronidazole 500 MG Oral Tablet metroNIDAZOLE 500 MG metroN IDAZOLE 500 MG 10/01/2020 12:00:00 AM EST active metroNIDAZOLE 500 MG eCW1 ([facility]) Spironolactone 25 MG Oral Tablet Spironolactone 25 MG 2020 12:00:00 AM EST 1.0 {tablet} suspended Spironol actone 25 MG eCW1 ([facility]) Chlorthalidone 25 MG Oral Tablet Chlorthalidone 25 MG 2020 12:00:00 AM EST 1.0 {tablet_in_the_morning_with_food} howell spended Chlorthalidone 25 MG eCW1 ([facility]) Spironolactone 25 MG Oral Tablet Spironolactone 25 MG 2020 12:00:00 AM EST 1.0 {tablet} active Spironolact one 25 MG eCW1 ([facility]) Metronidazole 500 MG Oral Tablet Metronidazole 500 MG 2020 12:00:00 AM EST active Metronidazole 500 MG eCW1 ([facility]) Metronidazole 500 MG Oral Tablet Metronidazole 500 MG 2020 12:00:00 AM EST active Metronidazole 500 MG eCW1 ([facility]) Metronidazole 500 MG Oral Tablet metroNIDAZOLE 500 MG metroN IDAZOLE 500 MG 10/01/2020 12:00:00 AM EST active metroNIDAZOLE 500 MG eCW1 ([facility]) Chlorthalidone 25 MG Oral Tablet Chlorthalidone 25 MG 2020 12:00:00 AM EST 1.0 {tablet_in_the_morning_with_food} active Chlorthalidone 25 MG eCW1 ([facility]) Chlorthalidone 25 MG Oral Tablet Chlorthalidone 25 MG 2020 12:00:00 AM EST 1.0 {tablet_in_the_morning_with_food} howell spended Chlorthalidone 25 MG eCW1 ([facility]) Metronidazole 500 MG Oral Tablet metroNIDAZOLE 500 MG metroN IDAZOLE 500 MG 10/01/2020 12:00:00 AM EST suspended metroNIDAZOLE 500 MG eCW1 ([facility]) Metronidazole 500 MG Oral Tablet metroNIDAZOLE 500 MG metroN IDAZOLE 500 MG 10/01/2020 12:00:00 AM EST active metroNIDAZOLE 500 MG eCW1 ([facility]) Spironolactone 25 MG Oral Tablet Spironolactone 25 MG 2020 12:00:00 AM EST 1.0 {tablet} active Spironolact one 25 MG eCW1 ([facility]) Metronidazole 500 MG Oral Tablet Metronidazole 500 MG 2020 12:00:00 AM EST active Metronidazole 500 MG eCW1 ([facility]) Chlorthalidone 25 MG Oral Tablet Chlorthalidone 25 MG 2020 12:00:00 AM EST 1.0 {tablet_in_the_morning_with_food} howell spended Chlorthalidone 25 MG eCW1 ([facility]) Chlorthalidone 25 MG Oral Tablet Chlorthalidone 25 MG 2020 12:00:00 AM EST 1.0 {tablet_in_the_morning_with_food} howell spended Chlorthalidone 25 MG eCW1 ([facility]) Spironolactone 25 MG Oral Tablet Spironolactone 25 MG 2020 12:00:00 AM EST 1.0 {tablet} active Spironolact one 25 MG eCW1 ([facility]) Spironolactone 25 MG Oral Tablet Spironolactone 25 MG 2020 12:00:00 AM EST 1.0 {tablet} suspended Spironol actone 25 MG eCW1 ([facility]) Chlorthalidone 25 MG Oral Tablet Chlorthalidone 25 MG 2020 12:00:00 AM EST 1.0 {tablet_in_the_morning_with_food} active Chlorthalidone 25 MG eCW1 ([facility]) Spironolactone 25 MG Oral Tablet Spironolactone 25 MG 2020 12:00:00 AM EST 1.0 {tablet} active Spironolact one 25 MG eCW1 ([facility]) Spironolactone 25 MG Oral Tablet Spironolactone 25 MG 2020 12:00:00 AM EST 1.0 {tablet} suspended Spironol actone 25 MG eCW1 ([facility]) Metronidazole 500 MG Oral Tablet metroNIDAZOLE 500 MG metroN IDAZOLE 500 MG 10/01/2020 12:00:00 AM EST active metroNIDAZOLE 500 MG eCW1 ([facility]) Spironolactone 25 MG Oral Tablet Spironolactone 25 MG 2020 12:00:00 AM EST 1.0 {tablet} active Spironolact one 25 MG eCW1 ([facility]) Spironolactone 25 MG Oral Tablet Spironolactone 09/28/2020 12:00:00 A M EST ORAL completed [facility] Chlorthalidone 25 MG Oral Tablet Chlorthalidone 09/28/2020 12:00:00 A M EST ORAL completed [facility] ([facility] Chantix Starting Month William Chantix Starting Month William 2020 12:00:00 AM EST active [facility] ([facility] linaclotide 0.145 MG Oral Capsule [Linzess] Linzess 08/21 12:00:00 AM EST ORAL active [facility] ( [facility]) Levetiracetam 250 MG Oral Tablet Levetiracetam 08/31/2020 12:00:00 AM EST ORAL active [facility] ([facility] Trazodone Hydrochloride 150 MG Oral Tablet Trazodone HCL 08/31/2020 12:00:00 AM EST ORAL active [facility] ([facility] Trazodone Hydrochloride 100 MG Oral Tablet Trazodone HCL 08/31/2020 12:00:00 AM EST ORAL active [facility] ([facility]) Shower-William - Shower-William - 07/24/2020 12:00:00 AM EST active Shower-William - eCW1 ([facility]) Shower-William - Shower-William - 07/24/2020 12:00:00 AM EST suspended Shower-William - eCW1 ([facility]) Shower-William - Shower-William - 07/24/2020 12:00:00 AM EST suspended Shower-William - eCW1 ([facility]) Shower-William - Shower-William - 07/24/2020 12:00:00 AM EST active Shower-William - eCW1 ([facility]) Shower-William - Shower-William - 07/24/2020 12:00:00 AM EST suspended Shower-William - eCW1 ([facility]) Shower-William - Shower-William - 07/24/2020 12:00:00 AM EST suspended Shower-William - eCW1 ([facility]) Shower-William - Shower-William - 07/24/2020 12:00:00 AM EST suspended Shower-William - eCW1 ([facility]) Shower-William - Shower-William - 07/24/2020 12:00:00 AM EST suspended Shower-William - eCW1 ([facility]) Shower-William - Shower-William - 07/24/2020 12:00:00 AM EST active Shower-William - eCW1 ([facility]) Shower-William - Shower-William - 07/24/2020 12:00:00 AM EST active Shower-William - eCW1 ([facility]) Shower-William - Shower-William - 07/24/2020 12:00:00 AM EST suspended Shower-William - eCW1 ([facility]) Shower-William - Shower-William - 07/24/2020 12:00:00 AM EST suspended Shower-William - eCW1 ([facility]) Shower-William - Shower-William - 07/24/2020 12:00:00 AM EST suspended Shower-William - eCW1 ([facility]) Shower-William - Shower-William - 07/24/2020 12:00:00 AM EST suspended Shower-William - eCW1 ([facility]) Shower-William - Shower-William - 07/24/2020 12:00:00 AM EST suspended Shower-William - eCW1 ([facility]) Shower-William - Shower-William - 07/24/2020 12:00:00 AM EST suspended Shower-William - eCW1 ([facility]) pantoprazole 40 MG Delayed Release Oral Tablet Pantoprazole Sodium 06/22/2020 12:00:00 AM EST active M EDENT ([facility], ) Linzess Linzess 06/22/2020 12:00:00 AM EST ORAL active [facility] ([facility], ) Alprazolam 0.5 MG Oral Tablet Alprazolam 06/19/2020 12:00:00 AM EDT ORAL active [facility] ([facility], ) Hydrocortisone 10 MG/ML / Neomycin 3.5 M G/ML / Polymyxin B 78427 UNT/ML Otic Solution Faefbxmz-Bhabogovu-OR 06/19/2020 12:00:00 AM EDT active [facility] ([facility] Levetiracetam 250 MG Oral Tablet [Keppra] Keppra 06/16/2020 12:00 :00 AM EDT ORAL active [facility] ([facility], ) Mirtazapine 7.5 MG Oral Tablet mirtazapine 05/25/2020 12:00:00 AM EDT 7.5 mg by mouth completed <td ID="Medica tionRxNorm_1">833996</td><td ID="MedicationMedication_1">mirtazapine</td><td ID="MedicationRoute_1">by mouth</td><td ID="MedicationRouteConcept_1">O85458</td><td ID="MedicationStartDate_1">05/25/2020</td><td ID="MedicationStopDate_1">06/24/2020</td><td ID="MedicationDosageFrequency_1">at bedtime</td><td ID="MedicationDuration_1">30</td><td ID="MedicationFormulaStrength_1">7.5 mg</td><td ID="MedicationDosageForm_1">tablet</td><td ID="MedicationDosageFormCode_1"></td><td ID="MedicationDosageDescription_1"></td><td ID="MedicationMedicationId_1">[id number]</td><td ID="MedicationAccount_1">[id number]</td><td ID="MedicationNpid_1">[id number]</td><td ID="MedicationAuthorFirstName_1">Hermilo</td><td ID="MedicationAuthorLastName_1">Luiz</td><td ID="MedicationTaxonomyCode_1">[id number]</td><td ID="MedicationTaxonomyDesc_1">Nurse Practitioner</td><td ID="MedicationPhoneNumber_1">[phone]</td> [facility] ([facility]) Trazodone Hydrochloride 100 MG Oral Tablet trazodone 04/23 12:00:00 AM EDT 100 mg completed <td ID="Medica tionRxNorm_2">194844</td><td ID="MedicationMedication_2">trazodone</td><td ID="MedicationRoute_2"></td><td ID="MedicationRouteConcept_2"></td><td ID="MedicationStartDate_2">04/23/2020</td><td ID="MedicationStopDate_2">07/24/2020</td><td ID="MedicationDosageFrequency_2"></td><td ID="MedicationDuration_2">30</td><td ID="MedicationFormulaStrength_2">100 mg</td><td ID="MedicationDosageForm_2">tablet</td><td ID="MedicationDosageFormCode_2"></td><td ID="MedicationDosageDescription_2"></td><td ID="MedicationMedicationId_2">[id number]</td><td ID="MedicationAccount_2">[id number]</td><td ID="MedicationNpid_2">[id number]</td><td ID="MedicationAuthorFirstName_2">Hermilo</td><td ID="MedicationAuthorLastName_2">Luiz</td><td ID="MedicationTaxonomyCode_2">[id number]</td><td ID="MedicationTaxonomyDesc_2">Nurse Practitioner</td><td ID="MedicationPhoneNumber_2">[phone]</td> [facility] ([facility]) 24 HR venlafaxine 225 MG Extended Release Oral Tablet venlaf axine 04/23/2020 12:00:00 AM EDT 225 mg by mouth completed <td ID="MedicationRxNorm_4">213145</td><td ID="MedicationMedication_4">venlafaxine</td><td ID="MedicationRoute_4">by mouth</td><td ID="MedicationRouteConcept_4">F30557</td><td ID="MedicationStartDate_4">04/23/2020</td><td ID="MedicationStopDate_4">01/10/2021</td><td ID="MedicationDosageFrequency_4">every morning</td><td ID="MedicationDuration_4">30</td><td ID="MedicationFormulaStrength_4">225 mg</td><td ID="MedicationDosageForm_4">tablet extended release 24hr</td><td ID="MedicationDosageFormCode_4"></td><td ID="MedicationDosageDescription_4"></td><td ID="MedicationMedicationId_4">[id number]</td><td ID="MedicationAccount_4">[id number]</td><td ID="MedicationNpid_4">[id number]</td><td ID="MedicationAuthorFirstName_4">Hermilo</td><td ID="MedicationAuthorLastName_4">Luiz</td><td ID="MedicationTaxonomyCode_4">[id number]</td><td ID="MedicationTaxonomyDesc_4"> Nurse Practitioner</td><td ID="MedicationPhoneNumber_4">[phone]</td> [facility] ([facility]) Trazodone Hydrochloride 100 MG Oral Tablet trazodone 04/23 12:00:00 AM EDT 100 mg completed <td ID="Medica tionRxNorm_1">707563</td><td ID="MedicationMedication_1">trazodone</td><td ID="MedicationRoute_1"></td><td ID="MedicationRouteConcept_1"></td><td ID="MedicationStartDate_1">04/23/2020</td><td ID="MedicationStopDate_1">07/20/2020</td><td ID="MedicationDosageFrequency_1"></td><td ID="MedicationDuration_1">30</td><td ID="MedicationFormulaStrength_1">100 mg</td><td ID="MedicationDosageForm_1">tablet</td><td ID="MedicationDosageFormCode_1"></td><td ID="MedicationDosageDescription_1"></td><td ID="MedicationMedicationId_1">31117</td><td ID="MedicationAccount_1">[id number]</td><td ID="MedicationNpid_1">[id number]</td><td ID="MedicationAuthorFirstName_1">Hermilo</td><td ID="MedicationAuthorLastName_1">Luiz</td><td ID="MedicationTaxonomyCode_1">[id number]</td><td ID="MedicationTaxonomyDesc_1">Nurse Practitioner</td><td ID="MedicationPhoneNumber_1">[phone]</td> [facility] ([facility]) 24 HR venlafaxine 225 MG Extended Release Oral Tablet venlaf axine 04/23/2020 12:00:00 AM EDT 225 mg by mouth completed <td ID="MedicationRxNorm_5">214032</td><td ID="MedicationMedication_5">venlafaxine</td><td ID="MedicationRoute_5">by mouth</td><td ID="MedicationRouteConcept_5">E31181</td><td ID="MedicationStartDate_5">04/23/2020</td><td ID="MedicationStopDate_5">06/22/2020</td><td ID="MedicationDosageFrequency_5">every morning</td><td ID="MedicationDuration_5">30</td><td ID="MedicationFormulaStrength_5">225 mg</td><td ID="MedicationDosageForm_5">tablet extended release 24hr</td><td ID="MedicationDosageFormCode_5"></td><td ID="MedicationDosageDescription_5"></td><td ID="MedicationMedicationId_5">32716</td><td ID="MedicationAccount_5">[id number]</td><td ID="MedicationNpid_5">[id number]</td><td ID="MedicationAuthorFirstName_5">Hermilo</td><td ID="MedicationAuthorLastName_5">Luiz</td><td ID="MedicationTaxonomyCode_5">[id number]</td><td ID="MedicationTaxonomyDesc_5"> Nurse Practitioner</td><td ID="MedicationPhoneNumber_5">[phone]</td> [facility] ([facility]) Trazodone Hydrochloride 100 MG Oral Tablet trazodone 04/23 12:00:00 AM EDT 100 mg completed <td ID="Medica tionRxNorm_4">649052</td><td ID="MedicationMedication_4">trazodone</td><td ID="MedicationRoute_4"></td><td ID="MedicationRouteConcept_4"></td><td ID="MedicationStartDate_4">04/23/2020</td><td ID="MedicationStopDate_4">06/22/2020</td><td ID="MedicationDosageFrequency_4"></td><td ID="MedicationDuration_4">30</td><td ID="MedicationFormulaStrength_4">100 mg</td><td ID="MedicationDosageForm_4">tablet</td><td ID="MedicationDosageFormCode_4"></td><td ID="MedicationDosageDescription_4"></td><td ID="MedicationMedicationId_4">69620</td><td ID="MedicationAccount_4">[id number]</td><td ID="MedicationNpid_4">[id number]</td><td ID="MedicationAuthorFirstName_4">Hermilo</td><td ID="MedicationAuthorLastName_4">Luiz</td><td ID="MedicationTaxonomyCode_4">[id number]</td><td ID="MedicationTaxonomyDesc_4">Nurse Practitioner</td><td ID="MedicationPhoneNumber_4">[phone]</td> [facility] ([facility]) 24 HR venlafaxine 225 MG Extended Release Oral Tablet venlaf axine 04/23/2020 12:00:00 AM EDT 225 mg by mouth completed <td ID="MedicationRxNorm_2">525051</td><td ID="MedicationMedication_2">venlafaxine</td><td ID="MedicationRoute_2">by mouth</td><td ID="MedicationRouteConcept_2">W59033</td><td ID="MedicationStartDate_2">04/23/2020</td><td ID="MedicationStopDate_2">09/18/2020</td><td ID="MedicationDosageFrequency_2">every morning</td><td ID="MedicationDuration_2">30</td><td ID="MedicationFormulaStrength_2">225 mg</td><td ID="MedicationDosageForm_2">tablet extended release 24hr</td><td ID="MedicationDosageFormCode_2"></td><td ID="MedicationDosageDescription_2"></td><td ID="MedicationMedicationId_2">05922</td><td ID="MedicationAccount_2">[id number]</td><td ID="MedicationNpid_2">[id number]</td><td ID="MedicationAuthorFirstName_2">Hermilo</td><td ID="MedicationAuthorLastName_2">Luiz</td><td ID="MedicationTaxonomyCode_2">[id number]</td><td ID="MedicationTaxonomyDesc_2"> Nurse Practitioner</td><td ID="MedicationPhoneNumber_2">[phone]</td> [facility] ([facility]) Chantix Starting Month William Chantix Starting Month William 2019 12:00:00 AM EDT ORAL completed MEDENT ([facility]) Famotidine 20 MG Oral Tablet Famotidine 03/02/2020 12:00:00 AM EDT ORAL completed [facility] ([facility]) Insurance Providers Payer name Policy type / Coverage type Policy ID Covered libertarian ID Covered libertarian's relationship to rolon Policy Rolon Plan Information Medicaid Dental S [id number] S [id number] MEDICAID [id number] SP [id number] [facility] Community Plan Commercial [id number] Self [id number] D Managed Care [facility] P [id number] S [id number] [facility] COMMUNITY PLAN MCDHMO [id number] SP [id number] [facility] MEDICAID [id number] Laura [id number] [facility] COMMUNITY PLAN MCDHMO [id number] SP [id number] MEDICARE [id number] SP [id number] [place] [id number] SP [id number] SELF PAY ONLY [id number] SP [id number] MEDICAID M [id number] S [id number] MEDICARE C [id number] S [id number] [facility] [id number] S [id number] MEDICAID [id number] SP [id number] [facility] COMMUNITY PLAN MCDHMO [id number] SP [id number] [facility] COMMUNITY PLAN MCDHMO [id number] SP [id number] [facility] Community Plan Commercial [id number] Self [id number] [facility]-Medicaid [id number] [facility]-Medicaid [id number] ANSI-Medicaid [id number] ANSI-Medicaid [id number] Medicaid Medicaid [id number] S elf [id number] [facility] Medigap Part B [id number] Self [id number] Medicaid [place] Medigap Part B [id number] Self [id number] ANSI-Medicaid [id number] ANSI-Medicaid [id number] Medicaid Medicaid [id number] S elf [id number] ANSI-Medicaid [id number] ANSI-Medicaid [id number] [facility] COMMUNITY PLAN XIX -RECURRING [id number] ANSI-Medicaid [id number] [facility] [id number] [facility] Commercial [id number] Self [id number] [facility] Commercial [id number] 2...[id number] 7.99.991.393248.0 Self [id number] [facility] Commercial [id number]..[id number] 7.99.991.454898.0 Self [id number] ANSI-Medicaid [id number] ANSI-Medicaid [id number] ANSI-Medicaid [id number] ANSI-Medicaid [id number] [facility] Commercial [id number] 7.99.991.201074.0 Self [id number] ANSI-Medicaid [id number] ANSI-Medicaid [id number] [facility] Commercial [id number] 7.99.991.747562.0 Self [id number] ANSI-Medicaid [id number] ANSI-Medicaid [id number] ANSI-Medicaid [id number] ANSI-Medicaid [id number] ANSI-Medicaid [id number] ANSI-Medicaid [id number] ANSI-Medicaid [id number] ANSI-Medicaid [id number] ANSI-Medicaid [id number] ANSI-Medicaid [id number] [facility] Health Maintenance Organization (HMO) [id number] ..[id number] Self [id number] ANSI-Medicaid [id number] ANSI-Medicaid [id number] [facility] Commercial [id number] .[id number] 7.99.991.512616.0 Self [id number] ANSI-Medicaid [id number] ANSI-Medicaid [id number] ANSI-Medicaid [id number] ANSI-Medicaid [id number] [facility] Health Maintenance Organization ([facility]) [id number] Self [id number] Medicaid Medicaid [id number] ...[id number] S elf [id number] Medicaid Medicaid [id number] ...[id number] S elf [id number] ANSI-Medicaid [id number] ANSI-Medicaid [id number] Medicaid [place] Medigap Part B [id number] 2..[id number]. 49887.0 Self [id number] [facility] Community Plan Commercial [id number] 2..1.099562.22 7.99.991.533963.0 Self [id number] ANSI-Medicaid [id number] ANSI-Medicaid [id number] ANSI-Medicaid [id number] ANSI-Medicaid [id number] [facility] Community Plan Commercial [id number] 7.99.991.834140.0 Self [id number] ANSI-Medicaid [id number] ANSI-Medicaid [id number] ANSI-Medicaid [id number] ANSI-Medicaid [id number] ANSI-Medicaid [id number] ANSI-Medicaid [id number] ANSI-Medicaid [id number] ANSI-Medicaid [id number] ANSI-Medicaid [id number] ANSI-Medicaid [id number] ANSI-Medicaid [id number] ANSI-Medicaid [id number] Medicaid Medicaid [id number] S elf [id number] Medicaid Medicaid [id number] S elf [id number] Medicaid Medicaid [id number] S elf [id number] ANSI-Medicaid [id number] ANSI-Medicaid [id number] [facility] MEDICAID PI PI Medicaid Medicaid [id number] S elf [id number] Medicaid Medicaid [id number] S elf [id number] [facility] Health Maintenance Organization (O) [id number] Self [id number] [facility] Health Maintenance Organization (HMO) [id number] Self [id number] [facility] Community Plan Commercial [id number] 7.99.991.977433.0 Self [id number] [facility] Community Plan Commercial [id number] 7.99.991.331532.0 Self [id number] Medicaid Medicaid [id number] S elf [id number] Medicaid Medicaid [id number] S elf [id number] Medicaid [place] Medigap Part B [id number]9.177. 65049.0 Self [id number] Medicaid Medicaid [id number] S elf [id number] Medicaid Medicaid [id number] S elf [id number] Medicaid Medicaid [id number] S elf [id number] MEDICAID [id number] SP [id number] MEET [id number] SP [id number] Medicaid Medicaid [id number] S elf [id number] [place] [id number] SP [id number] MEDICARE [id number] SP [id number] MEDICAID HEA [id number] S [id number] MEDICARE MCA [id number] S [id number] MEDICARE MCA [id number] S [id number] MEET [id number] SP [id number] Problems, Conditions, and Diagnoses Code Display Name Description Problem Type Effective Dates Data Source(s) G47.00 [id number] Insomnia, unspecified type Problem 12:00:00 AM EDT eCW1 ([facility]) E78.2 Mixed hyperlipidemia Mixed hyperlipidemia Problem 05/21/2021 12:00:00 AM EDT ALPESH ([facility]) G47.33 17646073 NISHA (obstructive sleep apnea) Problem 05/14/2021 12:00:00 AM EDT eCW1 ([facility]) F41.1 24022086 Generalized anxiety disorder Problem 021 12:00:00 AM EDT eCW1 ([facility]) F41.0 699453801 Panic disorder [episodic paroxysmal anxie ty] Problem 05/13/2021 12:00:00 AM EDT eCW1 ([facility]) F17.200 70483857 Nicotine use disorder Problem 05/13/2021 12: 00:00 AM EDT eCW1 ([facility]) F33.2 Major depressive disorder, 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) F50.81 Binge eating disorder Binge-Eating Disorder Condition 05/05/2021 12:00:00 AM EDT [facility] (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) F43.12 Post-traumatic stress disorder, chronic Post-traumatic stress disorder, chronic Condition 05/05/2021 12:00:00 AM EDT [facility] ([facility]) 98453472 Obstructive sleep apnea syndrome Obstructive sle ep apnea syndrome Problem 07/21/2020 12:00:00 AM EST MEDENT ([facility] ) 049329327 Immunization Immunization Problem 07/21/2020 12:00:00 A M EST MEDENT ([facility], ) K58.2 09459644 Irritable bowel syndrome with radha th constipation and diarrhea Problem 07/17/2020 12:00:00 AM EST eCW1 ([facility]) 85978341 Pain in limb Pain in limb Problem 06/17/2020 12:00:00 A M EDT MEDENT ([facility] Surgeries/Procedures Procedure Description Date Indications Data Source(s) Magnetic Resonance Angiogtaphy Head W/O Contrast Material(S) 06/23/2021 12:00:00 AM EDT MEDENT ([facility] ) Magnetic Resonance Angiogtaphy Head W/O Contrast Material(S) 06/23/2021 12:00:00 AM EDT MEDENT ([facility] ) Magnetic Resonance Angiography Neck W/O Contrast Materials 06/23/2021 12:00:00 AM EDT MEDENT ([facility] ) Magnetic Resonance Angiography Neck W/O Contrast Materials 06/23/2021 12:00:00 AM EDT MEDENT ([facility] ) MRI BRAIN BRAIN STEM W/O CONTRAST MATERIAL 06/23/2021 12:00:00 AM EDT MEDENT ([facility], ) MRI BRAIN BRAIN STEM W/O CONTRAST MATERIAL 06/23/2021 12:00:00 AM EDT MEDENT ([facility], ) OFFICE OUTPATIENT VISIT 25 MINUTES 06/18/2021 12:00:00 AM EDT MEDENT ([facility] ) MYOCRD IMAGE PET PERFUS MULTPL STUDY REST/STRESS 05/28 12:00:00 AM EDT MEDENT ([facility]) CV STRS TST XERS&/OR RX CONT ECG I&R ONLY 05/28/2021 1 2:00:00 AM EDT MEDENT ([facility]) ECG ROUTINE ECG W/LEAST 12 LDS W/I&R 05/21/2021 12:00: 00 AM EDT MEDENT ([facility]) OFFICE OUTPATIENT VISIT 25 MINUTES 05/21/2021 12:00:00 AM EDT MEDENT ([facility]) TOBACCO USE CESSATION INTERMEDIATE 3-10 MINUTES 2020 12:00:00 AM EDT MEDENT ([facility]) Chronic Care Management Services Ea Addl 20 Min 2020 12:00:00 AM EDT MEDENT ([facility]) Chronic Care MGMT 20 Mins Clinical Staff Time Per Calendar M ont 05/20/2021 12:00:00 AM EDT MEDENT ([facility]) Extended Individual Psychotherapy - 45 min 05/07/2021 12:00:00 AM EDT - 05/07/2021 12:00:00 AM EDT [facility] ([facility]) 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 REDJ SPX 30 MIN 05/05/2021 12:00:00 AM EDT - 05/05/2021 12:00:00 AM EDT [facility] ([facility]) 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 04/28/2021 12:00:00 AM EDT [facility] ([facility] ) [address] Nerve conduction studies 5-6 studies NEW 201204/28/2021 12:00:00 AM EDT [facility] ([facility] ) OFFICE OUTPATIENT NEW 45 MINUTES 04/28/2021 12:00:00 A M EDT [facility] ([facility] ) OFFICE OUTPATIENT VISIT 25 MINUTES 04/07/2021 12:00:00 AM EDT [facility] ([facility] ) Chronic Care MGMT 20 Mins Clinical Staff Time Per Calendar M [facility] 03/22/2021 12:00:00 AM EDT [facility] ([facility]) EEG Complete STD Phys/QHP>36 HR<60 HR W/O Video 2020 12:00:00 AM EDT [facility] ([facility]) EEG Complete STD Phys/QHP>60 HR<84 HR W/O Video 2020 12:00:00 AM EDT [facility] ([facility]) OFFICE OUTPATIENT VISIT 25 MINUTES 03/18/2021 12:00:00 AM EDT [facility] ([facility]) ECG ROUTINE ECG W/LEAST 12 LDS W/I&R 03/01/2021 12:00: 00 AM EDT [facility] ([facility]) OFFICE OUTPATIENT VISIT 25 MINUTES 03/01/2021 12:00:00 AM EDT [facility] ([facility]) TOBACCO USE CESSATION INTERMEDIATE 3-10 MINUTES 2020 12:00:00 AM EDT [facility] ([facility]) OFFICE OUTPATIENT VISIT 15 MINUTES 02/23 12:00:00 AM EDT - 02/23/2021 12:00:00 AM EDT [facility] ([facility]) Psychotherapy ADD ON - 30 Minutes 02/23/2021 12:00:00 AM EDT [facility] ([facility]) OFFICE OUTPATIENT VISIT 15 MINUTES 02/23/2021 12:00:00 AM EDT [facility] ([facility]) MRI BRAIN BRAIN STEM W/O CONTRAST MATERIAL 02/18/2021 12:00:00 AM EDT [facility] ([facility] ) MRI BRAIN BRAIN STEM W/O CONTRAST MATERIAL 02/18/2021 12:00:00 AM EDT [facility] ([facility] ) Chronic Care Management Services Ea Addl 20 Min 2020 12:00:00 AM EDT [facility] ([facility]) Chronic Care MGMT 20 Mins Clinical Staff Time Per Calendar M [facility] 02/11/2021 12:00:00 AM EDT [facility] ([facility]) Electrocardiogram Interpretation & Report Only 021 12:00:00 AM EDT [facility] ([facility]) [facility] H[facility]ITAL CARE/DAY 15 MINUTES 02/11/2021 12:00:00 AM EDT [facility] ([facility]) Percutaneous Transcatheter Placement Of Intracoronary Stent 02/10/2021 12:00:00 AM EDT [facility]) Electrocardiogram Interpretation & Report Only 021 12:00:00 AM EDT [facility] ([facility]) Echocardiography, Tranthoracic Real-Time Image Documentation 02/10/2021 12:00:00 AM EDT [facility]) Catheter Placement In Coronary Artery 02/10/2021 12:00 :00 AM EDT [facility] ([facility]) Intravascular Doppler Coronary Flow, Initial Vessel 02/10/2021 12:00:00 AM EDT [facility] ([facility]) Intravascular Doppler Coronary Flow, Each Addtl Vessel 02/10/2021 12:00:00 AM EDT [facility] ([facility]) INITIAL HOSPITAL CARE/DAY 30 MINUTES 02/10/2021 12:00: 00 AM EDT [facility] ([facility]) OFFICE OUTPATIENT VISIT 25 MINUTES 02/05/2021 12:00:00 AM EDT [facility] ([facility]) OFFICE OUTPATIENT VISIT 25 MINUTES 01/20/2021 12:00:00 AM EDT [facility] ([facility]) OFFICE OUTPATIENT VISIT 15 MINUTES 01/11 12:00:00 AM EDT - 01/11/2021 12:00:00 AM EDT [facility] ([facility]) OFFICE OUTPATIENT VISIT 15 MINUTES 01/11/2021 12:00:00 AM EDT [facility] ([facility]) OFFICE OUTPATIENT VISIT 15 MINUTES 01/04/2021 12:00:00 AM EDT [facility] ([facility]) Chronic Care MGMT 20 Mins Clinical Staff Time Per Calendar M [facility] 01/01/2021 12:00:00 AM EDT [facility] ([facility]) Extended Individual Psychotherapy - 45 min 12/17/2020 12:00:00 AM EDT - 12/17/2020 12:00:00 AM EDT [facility] ([facility]) Extended Individual Psychotherapy - 45 min 12:00:00 AM EDT [facility] ([facility]) Chronic Care Management Services Ea Addl 20 Min 2020 12:00:00 AM EDT [facility] ([facility]) Chronic Care MGMT 20 Mins Clinical Staff Time Per Calendar M [facility] 11/26/2020 12:00:00 AM EDT [facility] ([facility]) OFFICE OUTPATIENT VISIT 15 MINUTES 11/19/2020 12:00:00 AM EDT [facility] ([facility]) OFFICE OUTPATIENT VISIT 15 MINUTES 11/18/2020 12:00:00 AM EDT [facility] ([facility]) [facility] Telemed E/M Lvl 3--Est pt 11/11/2020 12:00:00 AM EDT - 11/11/2020 12:00:00 AM EDT [facility] ([facility]) MHC Telemed E/M Lvl 3--Est pt 11/11/2020 12:00:00 AM E DT [facility] ([facility]) Complex Chronic Care Management SVC 1St 60 Min 021 12:00:00 AM EDT [facility] ([facility]) RADEX SPINE LUMBOSACRAL MINIMUM 4 VIEWS 10/15/2020 12: 00:00 AM EST [facility] ([facility]) OFFICE OUTPATIENT VISIT 25 MINUTES 10/15/2020 12:00:00 AM EST [facility] ([facility]) XTRNL PT ACTIVATED ECG RECORD MONITOR 30 DAYS 10/08/19 12:00:00 AM EST [facility] ([facility]) XTRNL PT ACTIVTD ECG DWNLD 30 DAYS PHYS R&I 10/08/2020 12:00:00 AM EST [facility] ([facility]) ECHO TTHRC R-T 2D W/WOM-MODE COMPL SPEC&COLR DOP 10/07 12:00:00 AM EST [facility] ([facility]) Extended Individual Psychotherapy - 45 min 09/18/2020 12:00:00 AM EST - 09/18/2020 12:00:00 AM EST [facility] ([facility]) Extended Individual Psychotherapy - 45 min 12:00:00 AM EST [facility] ([facility]) X-Ray Hip Unilateral With Pelvis 2-3 Views 09/11/2020 12:00:00 AM EST [facility] ([facility]) RADIOLOGIC EXAMINATION KNEE 3 VIEWS 09/11/2020 12:00:0 0 AM EST [facility] ([facility] ) OFFICE OUTPATIENT VISIT 25 MINUTES 09/11/2020 12:00:00 AM EST [facility] ([facility]) MHC Telemed E/M Lvl 3--Est pt 09/10/2020 12:00:00 AM EST - 09/10/2020 12:00:00 AM EST [facility] ([facility]) Psychotherapy ADD ON - 30 Minutes 09/10/2020 12:00:00 AM EST [facility] ([facility]) MHC Telemed E/M Lvl 3--Est pt 09/10/2020 12:00:[address] [facility] ([facility]) ECG ROUTINE ECG W/LEAST 12 LDS W/I&R 09/01/2020 12:00: 00 AM EST [facility] ([facility]) OFFICE OUTPATIENT VISIT 25 MINUTES 09/01/2020 12:00:00 AM EST [facility] ([facility]) TOBACCO USE CESSATION INTERMEDIATE 3-10 MINUTES 2020 12:00:00 AM EST [facility] ([facility]) Chronic Care Management Services Ea Addl 20 Min 2020 12:00:00 AM EST [facility] ([facility]) Chronic Care MGMT 20 Mins Clinical Staff Time Per Calendar M [facility] 08/24/2020 12:00:00 AM EST [facility] ([facility]) Magnetic Resonance Angiography Neck With Contrast Materials 08/03/2020 12:00:00 AM EST [facility] ([facility] ) Magnetic Resonance Angiography Neck With Contrast Materials 08/03/2020 12:00:00 AM EST [facility] ([facility]) MRI Brain W/Contrast 08/03/2020 12:00:00 AM EST [facility] ([facility]) MRI Brain W/Contrast 08/03/2020 12:00:00 AM EST [facility] ([facility]) [id number]"Psychotherapy 0 12:00:00 AM EST - 07/23/2020 12:00:00 AM EST [facility] ([facility]) [id number]"Psychotherapy 07/22/2020 12:00:00 AM EST [facility] ([facility]) MHC Telemed E/M Lvl 3--Est pt 07/20/2020 12:00:00 AM EST - 07/20/2020 12:00:00 AM EST [facility] ([facility]) Psychotherapy ADD ON - 30 Minutes 07/20/2020 12:00:00 AM EST [facility] ([facility]) MHC Telemed E/M Lvl 3--Est pt 07/20/2020 12:00:[address] [facility] ([facility]) ELECTROENCEPHALOGRAM W/REC AWAKE&ASLEEP 06/23/2020 12: 00:00 AM EST [facility] ([facility] ) ELECTROENCEPHALOGRAM W/REC AWAKE&ASLEEP 06/23/2020 12: 00:00 AM EST [facility] ([facility] ) Magnetic Resonance Angiogtaphy Head W/O Contrast Material(S) 06/20/2020 12:00:00 AM EDT [facility] ([facility] ) Magnetic Resonance Angiogtaphy Head W/O Contrast Material(S) 06/20/2020 12:00:00 AM EDT [facility] ([facility] ) Magnetic Resonance Angiography Neck W/O Contrast Materials 06/20/2020 12:00:00 AM EDT [facility] ([facility] ) Magnetic Resonance Angiography Neck W/O Contrast Materials 06/20/2020 12:00:00 AM EDT [facility] ([facility] ) MRI BRAIN BRAIN STEM W/O CONTRAST MATERIAL 06/20/2020 12:00:00 AM EDT [facility] ([facility] ) MRI BRAIN BRAIN STEM W/O CONTRAST MATERIAL 06/20/2020 12:00:00 AM EDT [facility] ([facility] ) EXCISION NAIL MATRIX PERMANENT REMOVAL 06/19/2020 12:0 0:00 AM EDT [facility] ([facility] EXCISION NAIL MATRIX PERMANENT REMOVAL 06/19/2020 12:0 0:00 AM EDT [facility] ([facility] TSTG ANS FUNCJ CARDIOVAGAL INNERVAJ PARASYMP 0 12:00:00 AM EDT [facility] ([facility] ) TSTG ANS FUNCJ CARDIOVAGAL INNERVAJ PARASYMP 0 12:00:00 AM EDT [facility] ([facility] ) TESTING AUTONOMIC NERVOUS SYSTEM FUNCTION 06/12/2020 1 2:00:00 AM EDT [facility] ([facility] ) TESTING AUTONOMIC NERVOUS SYSTEM FUNCTION 06/12/2020 1 2:00:00 AM EDT [facility] ([facility] ) [id number]"Psychotherapy 0 12:00:00 AM EDT - 05/27/2020 12:00:00 AM EDT [facility] ([facility]) [id number]"Psychotherapy 05/27/2020 12:00:00 AM EDT [facility] ([facility]) OFFICE OUTPATIENT VISIT 15 MINUTES 05/25 12:00:00 AM EDT - 05/25/2020 12:00:00 AM EDT [facility] ([facility]) Psychotherapy ADD ON - 30 Minutes 05/25/2020 12:00:00 AM EDT [facility] ([facility]) OFFICE OUTPATIENT VISIT 15 MINUTES 05/25/2020 12:00:00 AM EDT [facility] ([facility]) ARTHROCENTESIS ASPIR&/INJECTION MAJOR JT/BURSA 020 12:00:00 AM EDT [facility] ([facility]) MYOCARDIAL SPECT MULTIPLE STUDIES 05/05/2020 12:00:00 AM EDT [facility] ([facility]) CV STRS TST XERS&/OR RX CONT ECG PHYS SI&R 05/05/2020 12:00:00 AM EDT [facility] ([facility]) Results ID Date Data Source [id number] 03/18/2021 02:01:00 PM EDT [facility] ([facility]) Name Value Range Interpretation Code Description Data Malina rce(s) Supporting Document(s) Glucose, Fasting 88 mg/dL 70-100 [facility] Blood Urea Nitrogen 9 mg/dL 7-18 [facility] ([facility]) Creatinine For GFR 0.78 mg/dL 0.55-1.30 [facility] ([facility]) Glomerular Filtration Rate Laboratory test result [facility] ([facility]) <content>Units are mL/min/1.73 m2</content>
<content></content>
<content>Chronic Kidney Disease Staging per NKF:</content>
<content></content>
<content>Stage I & II GFR >=60 Normal to Mildly Decreased</content>
<content>Stage III GFR 30-59 Moderately Decreased</content>
<content>Stage IV GFR 15-29 Severely Decreased</content>
<content>Stage V GFR <15 Very Little GFR Left</content>
<content>ESRD GFR <15 on CHICKEN RAISER</content>
<content></content> Potassium Serum 3.9 meq/L 3.5-5.1 [facility] ([facility]) Sodium Level 146 meq/L 136-145 [facility] ([facility]) Anion Gap 1 meq/L 8-16 [facility] Chloride Level 114 meq/L 98-107 [facility] ([facility]) Carbon Dioxide Level 31 meq/L 21-32 [facility] ([facility]) Calcium Level 9.0 mg/dL 8.5-10.1 [facility] ([facility]) ID Date Data Source [id number] 03/18/2021 02:01:00 PM EDT [facility] ([facility]) Name Value Range Interpretation Code Description Data Malina rce(s) Supporting Document(s) Natriuretic peptide.B prohormone N-Terminal [Mass/volu me] in Serum or Plasma 95 pg/mL [facility] ([facility]) ID Date Data Source [id number] 03/18/2021 02:01:00 PM EDT [facility] ([facility]) Name Value Range Interpretation Code Description Data Malina rce(s) Supporting Document(s) Cholesterol Level 143 mg/dL [facility] ([facility]) Triglycerides Level 99 mg/dL [facility] ([facility]) LDL Cholesterol 65 mg/dL [facility] ([facility]) HDL Cholesterol 58 mg/dL [facility] ([facility]) Cholesterol Risk Ratio 2.465 [facility] ([facility]) Non-HDL-C 85 mg/dL [facility] ID Date Data Source [id number] 03/18/2021 02:01:00 PM EDT [facility] ([facility]) Name Value Range Interpretation Code Description Data Malina rce(s) Supporting Document(s) White Blood Count 4.9 10 4.0-10.0 [facility] Hemoglobin 12.6 g/dL 12.0-15.5 [facility]) Red Blood Count 4.62 10 4.00-5.40 [facility] Hematocrit 40.3 % 36.0-47.0 [facility] ([facility]) Mean Corpuscular Volume 87.2 fl 80.0-96.0 M [facility] ([facility]) Mean Corpuscular Hemoglobin 27.3 pg 27.0-33.0 [facility] ([facility]) Mean Corpuscular HGB Conc 31.3 g/dL 32.0-36.5 [facility] ([facility]) Red Cell Distribution Width 12.8 % 11.5-14.5 [facility] ([facility]) Platelet Count, Automated 259 10 150-450 [facility]) Neutrophils % 62.0 % 36.0-66.0 [facility] Lymph % 28.9 % 24.0-44.0 [facility] Collin % 7.7 % 2.0-8.0 [facility] Eos % 0.8 % 0.0-3.0 [facility] Immature Granulocyte % 0.4 % 0-3.0 [facility] ([facility]) Baso % 0.2 % 0.0-1.0 [facility] Nucleated Red Blood Cell % 0.0 % 0-0 MED [facility] ([facility]) Neutrophils # 3.1 10 1.5-8.5 [facility] ([facility] Lymph # 1.4 10 1.5-5.0 [facility] Collin # 0.4 10 0.0-0.8 [facility] Eos # 0.0 10 0.0-0.5 [facility] Baso # 0.0 10 0.0-0.2 [facility] ([facility]) ID Date Data Source [id number] 02/11/2021 01:54:00 PM EDT [facility] ([facility]) Name Value Range Interpretation Code Description Data Malina rce(s) Supporting Document(s) White Blood Count 3.7 4.1-11.0 [facility] ([facility]) Platelets 218 172-450 [facility] ([facility]) Red Blood Count 4.40 4.0-5.40 [facility] ([facility]) Hematocrit 37.5 36.0-47.0 [facility] ([facility]) Hemoglobin 12.3 12.0-16.0 [facility] ([facility]) ID Date Data Source [id number] 02/11/2021 01:54:00 PM EDT [facility] ([facility]) Name Value Range Interpretation Code Description Data Malina rce(s) Supporting Document(s) Alanine aminotransferase [Enzymatic activity/volume] in Serum or Pl asma 23 [facility] ([facility]) Albumin [Mass/volume] in Serum or Plasma 3.1 [facility] ([facility]) Chloride [Moles/volume] in Serum or Plasma 111 [facility] ([facility]) Carbon dioxide, total [Moles/volume] in Serum or Plasma 25 [facility] ([facility]) Calcium [Mass/volume] in Serum or Plasma 9.2 [facility] ([facility]) Alkaline phosphatase [Enzymatic activity/volume] in Serum or Plasma 6 4 [facility] ([facility]) Protein [Mass/volume] in Serum or Plasma 6.1 [facility] ([facility]) Potassium [Moles/volume] in Serum or Plasma 3.9 [facility] ([facility]) Sodium 145 [facility] ([facility]) Aspartate aminotransferase [Enzymatic activity/volume] in Serum or Plasma 25 [facility] ([facility]) Urea nitrogen [Mass/volume] in Serum or Plasma 17.7 [facility] ([facility]) Glucose 89 70-100 [facility] ([facility]) Creatinine For GFR Laboratory test result [facility] ([facility]) ID Date Data Source [id number] 02/11/2021 07:18:51 AM EDT [facility] Name Value Range Interpretation Code Description Data Malina rce(s) Supporting Document(s) SODIUM 145 mmol/L (136-145) [facility] POTASSIUM 3.9 mmol/L (3.6-5.2) [facility] CHLORIDE 111 mmol/L (100-108) H [facility] CO2 25 mmol/L (22-31) [facility] ANION GAP 9 mmol/L (7-16) [facility] UREA NITROGEN 11 mg/dL (7-24) [facility] CREATININE 0.62 mg/dL (0.60-1.00) [facility] BUN/CREAT RATIO 17.7 RATIO (10.0-20.0) [facility] GLUCOSE 83 mg/dL (70-99) [facility] CALCIUM 9.2 mg/dL (8.4-10.2) [facility] TOTAL PROTEIN 6.1 g/dL (6.4-8.2) L [facility] ALBUMIN 3.1 g/dL (3.5-4.6) L [facility] GLOBULIN 3.0 g/dL (2.7-4.3) [facility] ALB/GLOB RATIO 1.0 RATIO [facility] ALKALINE PHOSPHATASE 64 U/L (45-117) [facility] BILIRUBIN,TOTAL 0.4 mg/dL (0.0-1.0) [facility] PLEASE NOTE:Total bilirubin results may be falselyelevated in patients taking Eltrombopag. AST (SGOT) 25 U/L (11-39) [facility] ALT (SGPT) 23 U/L (12-78) [facility] GFR >60 ml/min/1.73m2 (>59) [facility] GFR ( AMER) >60 ml/min/1.73m2 (>59) [facility] GFR INTERPRETATION [facility] --NORMAL KIDNEY FUNCTION OR MILD DISEASE - GFR >OR= 60CHRONIC KIDNEY DISEASE - GFR 15 - 59RENAL FAILURE - GFR <15 Est. GFR calculation based on the MDRDstudy equation, which assumes a steadystate for creatinine. Est. GFR should notbe used for medication dosing. ID Date Data Source [id number] 02/11/2021 06:35:09 AM EDT [facility] Name Value Range Interpretation Code Description Data Malina rce(s) Supporting Document(s) WBC 3.7 10*3/uL (4.1-11.0) L [facility] [place] RBC 4.40 10*6/uL (4.00-5.40) [facility] HGB 12.3 g/dL (12.0-16.0) [facility] HCT 37.5 % (36.0-47.0) [facility] MCV 85.3 fL (80.0-95.0) [facility] MCH 27.9 pg (27.0-32.0) [facility] MCHC 32.7 g/dL (32.0-36.0) [facility] RDW 13.1 % (10.5-14.5) [facility] PLT 218 10*3/uL (150-450) [facility] MPV 7.7 fL (7.1-10.7) [facility] ID Date Data Source [id number] 02/10/2021 02:14:00 PM EDT [facility] ([facility]) Name Value Range Interpretation Code Description Data Malina rce(s) Supporting Document(s) White Blood Count 4.7 4.1-11.0 [facility] ([facility]) Platelets 218 150-450 [facility] ([facility]) Red Blood Count 4.46 4.00-5.40 [facility] ([facility]) Hemoglobin 12.8 12.0-16.0 [facility] ([facility]) Hematocrit 38.5 36.0-47.0 [facility] ([facility]) ID Date Data Source [id number] 02/10/2021 02:14:00 PM EDT [facility] ([facility]) Name Value Range Interpretation Code Description Data Malina rce(s) Supporting Document(s) Calcium [Mass/volume] in Serum or Plasma 9.5 [facility] ([facility]) Carbon dioxide, total [Moles/volume] in Serum or Plasma 25 [facility] ([facility]) Sodium 146 [facility] ([facility]) Chloride [Moles/volume] in Serum or Plasma 109 [facility] ([facility]) Potassium [Moles/volume] in Serum or Plasma 3.7 [facility] ([facility]) Glucose 93 70-100 [facility] Blood Urea Nitrogen 13 5-21 [facility] ([facility]) Glomerular filtration rate/1.73 sq M.pre dicted [Volume Rate/Area] in Serum or Plasma by Creatinine-based formula (MDRD) Laboratory test result [facility] ([facility]) Creatinine 0.69 0.6-1.5 [facility] ([facility]) ID Date Data Source [id number] 02/10/2021 02:14:00 PM EDT [facility] ([facility]) Name Value Range Interpretation Code Description Data Malina rce(s) Supporting Document(s) Triglycerides 154 [facility] ([facility]) Cholesterol 179 120-200 [facility] ([facility]) Cholesterol in LDL [Mass/volume] in Serum or Plasma by calculation 85 [facility] ([facility]) HDL 63 40-60 [facility] ([facility]) Chol/HDL Ratio 2.8 [facility] ([facility]) ID Date Data Source [id number] 02/10/2021 02:14:00 PM EDT [facility] ([facility]) Name Value Range Interpretation Code Description Data Malina rce(s) Supporting Document(s) Troponin 0.29 [facility] ([facility]) ID Date Data Source [id number] 02/10/2021 02:40:07 PM EDT [facility] Name Value Range Interpretation Code Description Data Malina rce(s) Supporting Document(s) TROPONIN I 0.29 ng/mL (<0.05) H [facility] Less than 0.05: Myocardial injury unlike lyGreater than or equal to 0.05: Highly suggestive of myocardial injuryCorrelation with rise and/or fall ofserial troponins, clinical symptomsand ECG changes is necessary. ID Date Data Source [id number] 02/14/2021 05:16:00 PM EDT [facility] [place], [address] [place], [place] [address]WHEIFRZ NAME: AZALEA KIMDATE OF : 1970REPORT: CONSULTATIONPATIENT NUMBER: [id number] STATUS: IPMEDICAL RECORD NUMBER: [id number]: 00DATE OF CONSULTATION: 02/10/2021EASON FOR CONSULTATION: NSTEMI.HISTORY OF PRESENT ILLNESS: This is a pleasant 50-year-old woman who has aknown history of coronary artery disease. She apparently also has ahistory of hypertension and hyperlipidemia. She has borderline diabetesmellitus. She received PCI with a total of four stents in [place] in 2016.She had sudden onset of chest discomfort which was described as heavinesssubsternally and toward the left of her breast. This lasted about 30minutes and occurred on Monday. She woke up with more severe symptoms,called her career coordinator and was told to go to the emergency room forfurther evaluation. EKG did not show any acute findings up in [facility] room, however, her troponin came back mildly abnormal. I wascalled at that point and we advised transfer down here.She has been discomfort free since arrival in the emergency room. Currently not having any chest pain, any shortness of breath. There was nocomplaints of any palpitations.She has been having these episodes of passing out associated with stoolincontinence. I am told she has seen her prim [place] career coordinator and has wornan event monitor that did not show any significant arrhythmia. She hasbeen seeing a neurologist for this. They thought this might be a seizuredisorder and presumptively put her on Keppra.REVIEW OF SYSTEMS: Otherwise all other systems were reviewed and negativeexcept for that mentioned above.PAST MEDICAL HISTORY:1. Hypertension.2. Hyperlipidemia.3. Coronary artery disease.4. History of sleep apnea.5. Gastroesophageal reflux disease.6. Anxiety/depression.7. Borderline diabetes.8. Obesity.SOCIAL HISTORY: She is a current smoker. She says that one pack ofcigarettes will last her about 2 weeks. Denies any excessive alcoholabuse. Lives at home with her family.FAMILY HISTORY: Father has hypertension. Mother has possible heartdisease.PHYSICAL EXAMINATION: On examination, awake, alert and oriented, not inany apparent distress. Current blood pressure is in the 140s/80s, heartrate is in the 60s. HEENT: Pupils are equal and round bilaterally. Oral mucosa is moist. Chest is clear to auscultation bilaterally. No rhonchi,no creps. S1, S2 are heard normal. No murmurs. Abdomen is soft,nontender, nondistended. Extremities are warm. No lower extremity edema. No deformities. No focal neurological deficits.LABS: Lab work reviewed. She has two troponins of 0.76 and 0.41.Creatinine is 0.56.INR is 1.0.H and H is 12.8 and 38.5. She has a normal white count of 47.5.EKG done early this morning shows normal sinus rhythm with some nonspecificT-wave changes.Echocardiogram done this morning shows normal LV function with a mildlyincreased LV wall thickness, no severe valve disease and normal right heartfunction.IMPRESSION:1. NSTEMI.2. Coronary artery disease.ASSESSMENT AND PLAN: A 50-year-old woman who has a known history ofcoronary artery disease and had sudden onset central chest discomfortyesterday morning. This lasted for about an hour and she came in foremergency room evaluation. Troponins are mildly abnormal and are currentlyfalling. She has no ongoing chest discomfort.1. NSTEMI. I will arrange for a heart catheterization. She did tell me she has just lost her younger brother therefore there is a possibility this could be a stress- induced event or even a coronary dissection. Will continue current medications, that is the baby aspirin, high intensity statin and beta ubaldo. Will plan for heart catheterization likely later this morning or early afternoon.DICTATED BY: [place], RICHIEictated: 02/10/2021 10:31DT: 02/10/2021 10:37Job #: [id number]:NOTE: [facility] computer generated reports are notconfirmed or authenticated unless they are signed by the providerElectronically Authenticated by:KINGS [facility]GD[facility] MD On 02/14/2021 05:16 PM EDT Name Value Range Interpretation Code Description Data Malina rce(s) Supporting Document(s) ID Date Data Source [id number] 02/10/2021 12:04:34 PM EDT [facility] Name Value Range Interpretation Code Description Data Malina rce(s) Supporting Document(s) CHOLESTEROL @ 179 mg/dL (0-200) [facility] TRIGLYCERIDE @ 154 mg/dL (30-200) [facility] HDL CHOLESTEROL @ 63 mg/dL (>40) [facility] PER NCEP ATP III GUIDELINES:RESULTS LOWE R THAN 40 MG/DL ARE SUGGESTIVEOF INCREASED RISK FOR CORONARY ARTERYDISEASE. RESULTS > OR = TO 60 MG/DL ARECONSIDERED A NEGATIVE RISK FACTOR. CHOL/HDL RATIO 2.8 RATIO [facility] INTERPRETATION OF CHOL-HDL RATIO CHD RISK FEMALE MALEVERY HIGH >8.3 >14.3HIGH 5.6- 8.3 6.7- 14.3AVERAGE 3.7- 5.6 4.0- 6.7BELOW AVERAGE 2.5- 3.7 2.7- 4.0PROTECTED <2.5 <2.7 LDL CHOL (CALC) 85 mg/dL (<130) [facility] PER NCEP ATP III GUIDELINES: OPTIMAL < 100 NEAR OPTIMAL 100 - 129BORDERLINE HIGH 130 - 159 HIGH 160 - 189 VERY HIGH > 189 ID Date Data Source [id number] 02/10/2021 09:48:36 AM EDT [facility] Name Value Range Interpretation Code Description Data Malina rce(s) Supporting Document(s) TROPONIN I 0.41 ng/mL (<0.05) H [facility] Less than 0.05: Myocardial injury unlike lyGreater than or equal to 0.05: Highly suggestive of myocardial injuryCorrelation with rise and/or fall ofserial troponins, clinical symptomsand ECG changes is necessary. ID Date Data Source [id number] 02/10/2021 09:44:04 AM EDT [facility] Name Value Range Interpretation Code Description Data Malina rce(s) Supporting Document(s) SODIUM 145 mmol/L (136-145) [facility] POTASSIUM 3.9 mmol/L (3.6-5.2) [facility] CHLORIDE 110 mmol/L (100-108) H [facility] CO2 29 mmol/L (22-31) [facility] ANION GAP 6 mmol/L (7-16) L [facility] UREA NITROGEN 11 mg/dL (7-24) [facility] CREATININE 0.56 mg/dL (0.60-1.00) L [facility] BUN/CREAT RATIO 19.6 RATIO (10.0-20.0) [facility] GLUCOSE 87 mg/dL (70-99) [facility] CALCIUM 9.2 mg/dL (8.4-10.2) [facility] GFR >60 ml/min/1.73m2 (>59) [facility] GFR ([facility]) >60 ml/min/1.73m2 (>59) [facility] GFR INTERPRETATION [facility] --NORMAL KIDNEY FUNCTION OR MILD DISEASE - GFR >OR= 60CHRONIC KIDNEY DISEASE - GFR 15 - 59RENAL FAILURE - GFR <15 Est. GFR calculation based on the MDRDstudy equation, which assumes a steadystate for creatinine. Est. GFR should notbe used for medication dosing. ID Date Data Source [id number] 02/10/2021 09:20:04 AM EDT [facility] Name Value Range Interpretation Code Description Data Malina rce(s) Supporting Document(s) APTT 24.7 s (22.0-34.3) [facility] ID Date Data Source [id number] 02/10/2021 11:56:00 PM EDT [facility] [place], [place] [address] NAME: AZALEA KIMDAURIAH OF : 1970REPORT: ADMISSION NOTEPATIENT NUMBER: [id number] STATUS: IPMEDICAL RECORD NUMBER: [id number] OF ADMISSION: 02/10/2021OOM: 00[facility] CARE PHYSICIAN: Out of town.CHIEF COMPLAINT: Substernal chest pain radiating to the left upperextremity.HISTORY OF PRESENT ILLNESS: 50-year-old obese female with history of hypertension, hyperlipidemia, CAD status post stents x4, sleep apnea, anxiety, and borderline diabetes who was transferred from [facility] after presenting with substernal chest pain. The patient reports of experiencing chest pain described as heaviness in the substernal region radiating to the left upper extremity associated with mild tingling of fingers with diaphoresis lasting about 30 minutes on Monday. Reports of symptoms improved slightly and was able to go to bed, however, woke up in the morning with severe pains and called the career coordinator and was referred to the emergency room for further evaluation. Denies any abdominal pains, nausea, vomiting, diarrhea, constipation, melena, hematochezia, or any urinary symptoms. Upon arrival at outlying facility she was noted to have stable vitals. Lab work was essentially normal and EKG showed sinus rhythm with no acute findings however troponin was elevated and continued to trend up and was started on heparin drip and transfered for further evaluation. Case was discussed with the career coordinator adn will be seen for further evaluation in the morning.PAST MEDICAL HISTORY: 1. Hypertension.2. Hyperlipidemia.3. CAD, status post stents x4 in 2016 in [place].4. Sleep apnea on CPAP at night.5. GERD.6. Anxiety, depression.7. Borderline diabetes.8. Obesity.9. Seizures.PAST SURGICAL HISTORY: 1. Cardiac stents placement.2. Right total knee arthroplasty.3. Appendectomy.4. Gastric bypass.5. Partial hysterectomy.SOCIAL HISTORY: Admit to smoking about a pack of cigarettes in about aweek for the last 20 years or so. Occasional alcohol use but no recreational drugs. Lives at home with family.FAMILY HISTORY: Father had hypertension. Mother had possible diabetes andeart disease.ALLERGIES: citalopram and penicillins.MEDICATIONS:Home Medicationsaspirin (Adult Low Dose Aspirin) 81 mg tablet,delayed release (DR/EC) 1tablet oral daily late morningMedication Status: activeLast Taken Date/Time: 02/08atorvastatin (Lipitor) 80 mg Tablet 1 tablet oral daily at bedtimeMedication Status: activeLast Taken Date/Time: 02/08 HSazelastine 205.5 mcg (0.15 %) spray,non-aerosol 1 spray nasal twice a dayPRNPRN Reason: nasal congestionMedication Status: activecalcium carbonate-vitamin D3 (Caltrate 600 plus D) 600 mg calcium (1,500mg)-800 unit oral twice a dayMedication Status: activeLast Taken Date/Time: 02/08chlorthalidone 25 mg Tablet 0.5 tablet oral daily every morningMedication Status: activeLast Taken Date/Time: 02/08 AMcyanoco balamin (vitamin B-12) 1,000 mcg Tablet 1 tablet oral daily everymorningMedication Status: activeLast Taken Date/Time: 02/08 AMdapagliflozin (Farxiga) 10 mg Tablet 1 tablet oral daily every morningMedication Status: activeLast Taken Date/Time: 02/08 AMergocalciferol (vitamin D2) 1,250 mcg (50,000 unit) Capsule 1 capsule oralevery MondayMedication Status: activeLast Taken Date/Time: 02/08 AMfamotidine 20 mg Tablet 1 tablet oral dailyMedication Status: activeLast Taken Date/Time: 02/08 AMlevetiracetam 250 mg Tablet 1 tablet oral twice a dayMedication Status: activeLast Taken Date/Time: 02/08lidocaine (Lidoca ine Pain Relief) 4 % adhesive patch,medicated 1 patchtopical every twelve hours PRNPRN Reason: painMedication Status: activelinaclotide (Linzess) 72 mcg Capsule 1 capsule oral daily before breakfastMedication Status: activeLast Taken Date/Time: 02/08 AMloratadine-pseudoephedrine (Claritin-D 24 Hour) 10 mg-240 mg TabletExtended Release 24 hr 1 tablet oral daily every morning PRNPRN Reason: ALLERGIESMedication Status: activelosartan 50 mg Tablet 1 tablet oral daily at bedtimeMedication Status: activeLast Taken Date/Time: 02/08 HSmetoprolol succinate 50 mg Tablet Extended Release 24 hr 1 tablet oraldaily every morningMedication Status: activeparoxetine HCl (Paxil) 40 mg Tablet 1 tablet oral daily every morningMedication Status: activeLast Taken Date/Time: 02/08 AMQUEtiapine (SEROquel) 25 mg Tablet 1 tablet oral daily at bedtimeMedication Status: activeMedication Start Date: 01/11 50 mg->25 mgLast Taken Date/Time: 02/08 HSspironolactone 25 mg Tablet 0.5 tablet oral daily every morningMedication Status: activeLast Taken Date/Time: 02/08 AMtraZODone 150 mg Tablet 1 tablet oral daily at bedtimeMedication Status: activeLast Taken Date/Time: 02/08 HSvenlafaxine 225 mg tablet extended release 24hr 1 tablet oral daily everymorningMedication Status: activeLast Taken Date/Time: 02/08 AMCOVID-19 vacc,mRNA(Moderna)-PF (Moderna COVID-19 Vaccine (EUA)) 100 mcg/0.5mL Suspension intramuscularExtended Instructions: for INFO onlyMedication Status: activeLast Taken Date/Time: 11/30, 01/01REVIEW OF SYSTEMS: All 14 systems were reviewed and were negative with theexception of as per HPI.PHYSICAL EXAMINATION:Vital Signs: On admission, temperature of 37, pulse of 71, respiratory rate of 18, blood pressure 135/80, and saturating 100 percent on room air. Denies any pains currently. General: Obese female of stated age lying in bed, in no acute distress. Alert and oriented x3.HEENT: Normocephalic, atraumatic. Pupils are equal, round, and reactiveto light and accommodation. Extraocular movements intact. Scleraeanicteric.Neck: Supple.Cardiovascular: Normal S1 and S2. No murmurs, rubs, or gallops noted.Lungs: Clear to auscultation bilaterally. No wheezes, rales, or cracklesnoted.Abdomen: Obese, soft, nontender, nondistended. Normal bowel sounds.Extremities: No clubbing. No cyanosis. No edema.Skin: Dry and intact. No rashes noted.Psych: Affect is normal. Cooperative with the history and exam.LABORATORY DATA AND IMAGING: Chemistry from outlying facility with asodium of 143, potassium 3.7, chloride 110, bicarb of 31, BUN andcreatinine of 12/0.7, serum glucose of 73. LFTs were normal. CK wasnormal. WBC of 5, H and H of 13/40 with platelets of 223. EKG was normalsinus rhythm. Troponin was elevated 0.06 initially now 0.76. Chest x-ray was negative. ASSESSMENT AND PLAN: 50-year-old obese female with history of hypertension, hyperlipidemia, CAD status post stents x4 and sleep apnea reports of having acute substernal chest pain radiating to the left upper extremity lasting about 30 minutes or so intermittently since Monday with acute episode yesterday with no acute EKG findings but elevated troponin and negative chest x- ray, likely due to NSTEMI.1. Chest pains, likely due to NSTEMI. She is currently on heparin drip and will continue that and start on aspirin and Lipitor with subligual nitro as needed. Will check lipids and echocardiogram and keep n.p.o. except medications for possible cardiac catheterization in the morning. 2. Sleep apnea. Continue CPAP at night. 3. History of hypertension. Blood pressure stable now. Continue home regimen for now. 4. Anxiety, depression, stable. Continue home regimen. 5. Seizures. Stable. continue Keppra.6. DVT prophylaxis. She is currently on heparin.Per my assessment, the patient will likely need more than two midnights'stay. Admit the patient to inpatient service.DICTATED BY: RICHIE Taylorictated: 02/10/2021 1:54DT: 02/10/2021 2:00Job #: [id number]: [facility] computer generated reports are notconfirmed or authenticated unless they are signed by the providerElectronically Authenticated and Edited by:ANA LUISA KRISHNAN MD On 02/10/2021 11:56 PM EDT Name Value Range Interpretation Code Description Data Malina rce(s) Supporting Document(s) ID Date Data Source [id number] 02/10/2021 01:30:34 AM EDT [facility] Name Value Range Interpretation Code Description Data Malina rce(s) Supporting Document(s) APTT 41.0 s (22.0-34.3) H [facility] [place] [facility] PERFOR[facility] AT [address] [facility] [id number] ID Date Data Source [id number] 02/10/2021 01:30:34 AM EDT [facility] Name Value Range Interpretation Code Description Data Malina rce(s) Supporting Document(s) PT 10.5 s (9.2-11.9) [facility] PERFORMED AT [address] [facility] [id number] INR 1.00 [facility] SUGGESTED THERAPEUTIC RANGES USING INR F ORSTABILIZED ANTICOAGULATED PATIENTS:STANDARD DOSE THERAPY INR 2.0-3.0 DVT, PE, PREVENT DVT OR EMBOLISMHIGH DOSE THERAPY INR 2.5-3.5 PREVENT EMBOLISM FROM MECHANICAL HEART VALVE ID Date Data Source [id number] 02/10/2021 01:30:34 AM EDT [facility] Name Value Range Interpretation Code Description Data Malina rce(s) Supporting Document(s) UNFRACT HEPARIN 0.66 IU/mL [facility] UNFRACTIONATED HEPARIN THERAPEUTIC RANGE : 0.30 - 0.70 IU/ML THIS THERAPEUTIC RANGE IS ONLY APPLICABLE TOPATIENTS ON UNFRACTIONATED HEPARIN (UF)THERAPY. ID Date Data Source [id number] 02/10/2021 01:52:38 AM EDT [facility] Name Value Range Interpretation Code Description Data Malina rce(s) Supporting Document(s) TROPONIN I 0.76 ng/mL (<0.05) H [facility] [facility] Less than 0.05: Myocardial injury unlike lyGreater than or equal to 0.05: Highly suggestive of myocardial injuryCorrelation with rise and/or fall ofserial troponins, clinical symptomsand ECG changes is necessary. ID Date Data Source [id number] 02/10/2021 01:52:38 AM EDT [facility] Name Value Range Interpretation Code Description Data Malina rce(s) Supporting Document(s) SODIUM 146 mmol/L (136-145) H [facility] POTASSIUM 3.7 mmol/L (3.6-5.2) [facility] CHLORIDE 109 mmol/L (100-108) H [facility] CO2 25 mmol/L (22-31) [facility] ANION GAP 12 mmol/L (7-16) [facility] UREA NITROGEN 13 mg/dL (7-24) [facility] CREATININE 0.69 mg/dL (0.60-1.00) [facility] BUN/CREAT RATIO 18.8 RATIO (10.0-20.0) [facility] GLUCOSE 93 mg/dL (70-99) [facility] CALCIUM 9.5 mg/dL (8.4-10.2) [facility] GFR >60 ml/min/1.73m2 (>59) [facility] GFR ( AMER) >60 ml/min/1.73m2 (>59) [facility] GFR INTERPRETATION [facility] --NORMAL KIDNEY FUNCTION OR MILD DISEASE - GFR >OR= 60CHRONIC KIDNEY DISEASE - GFR 15 - 59RENAL FAILURE - GFR <15 Est. GFR calculation based on the MDRDstudy equation, which assumes a steadystate for creatinine. Est. GFR should notbe used for medication dosing. ID Date Data Source [id number] 02/10/2021 01:09:24 AM EDT [facility] Name Value Range Interpretation Code Description Data Malina rce(s) Supporting Document(s) WBC 4.7 10*3/uL (4.1-11.0) [facility] [place] RBC 4.46 10*6/uL (4.00-5.40) [facility] HGB 12.8 g/dL (12.0-16.0) [facility] HCT 38.5 % (36.0-47.0) [facility] MCV 86.3 fL (80.0-95.0) [facility] MCH 28.6 pg (27.0-32.0) [facility] MCHC 33.2 g/dL (32.0-36.0) [facility] RDW 13.0 % (10.5-14.5) [facility] PLT 218 10*3/uL (150-450) [facility] MPV 8.0 fL (7.1-10.7) [facility] NEUT % 48.2 % (35.0-75.0) [facility] LYMPH % 41.8 % (16.0-52.0) [facility] MONO % 7.4 % (0.0-8.0) [facility] EOS % 1.9 % (0.0-5.0) [facility] BASO % 0.7 % (0.0-4.0) [facility] NEUT # 2.3 10*3/uL (1.8-7.7) [facility] LYMPH # 2.0 10*3/uL (1.2-4.8) [facility] MONO # 0.3 10*3/uL (0.0-0.8) [facility] Eosinophils [#/volume] in Blood by Automated count 0.1 10*3/uL (0.0-0 .5) [facility] BASO # 0.0 10*3/uL (0.0-0.2) [facility] ID Date Data Source [id number] 02/09/2021 08:23:00 PM EDT [facility] Name Value Range Interpretation Code Description Data Malina rce(s) Supporting Document(s) SARS coronavirus 2 RNA [Presence] in Res piratory specimen by HARLEEN with probe detection NEGATIVE [facility] This lab was ordered by [facility] a nd reported by [facility]. ID Date Data Source [id number] 01/20/2021 03:35:00 PM EDT [facility] ([facility]) Name Value Range Interpretation Code Description Data Malina rce(s) Supporting Document(s) Lyme Disease IgG/IgM Antibodie Laboratory test result 0.00-0.90 [facility] ([facility]) <content>Negative <0.91</content >
<content>Equivocal 0.91 - 1.09</content>
<content>Positive >1.09</content>
<content></content> Lyme Disease IgM Ab Quantitati Laboratory test result 0.00-0.79 [facility] ([facility]) <content>Negative <0.80</content >
<content>Equivocal 0.80 - 1.19</content>
<content>Positive >1.19</content>
<content>.</content>
<content>IgM levels may peak at 3-6 weeks post infection, then</content>
<content>gradually decline.</content>
<content></content> ID Date Data Source [id number] 01/20/2021 03:35:00 PM EDT [facility] ([facility]) Name Value Range Interpretation Code Description Data Malina rce(s) Supporting Document(s) Erythrocyte sedimentation rate by Westergren method 14 mm/hr 0-30 [facility] ([facility]) HLA-B27 related Ag [Presence] Laboratory test result [facility] ([facility]) HLA-B*27 Negative B27 allele interpretation for all loci based on IMGT/HLA database version 3.38 This test was developed and its performance characteristics determined by [facility]. It has not been cleared or approved by the Food and Drug Administration. [facility] CLIA ID Number [id number] . This test was performed using PCR (Polymerase Chain Reaction)/SSOP (Sequence Specific Oligonucleotide Probes) technique. SBT (Sequence Based Typing) and/or SSP (Sequence Specific Primers) may be used as supplemental methods when necessary. Please contact [facility] Customer Service at if you have any questions. . Director of [facility] Laboratory Dr Leander Murillo, PhD C reactive protein [Mass/volume] in Serum or Plasma by High sensitivity method Laboratory test result 0.00-0.30 [facility] ([facility]) ID Date Data Source [id number] 01/20/2021 03:35:00 PM EDT [facility] ([facility]) Name Value Range Interpretation Code Description Data Malina rce(s) Supporting Document(s) Antinuclear Antibodies Direct Laboratory test result [facility]) Performed at: - [facility] [id number] Media Services Specialist: Cata Santana MD, Phone: [phone] Performed at: [address] [place] [id number] [employer] Services Specialist: Leander Murillo PhD, Phone: [phone] ID Date Data Source [id number] 01/20/2021 03:35:00 PM EDT [facility] ([facility]) Name Value Range Interpretation Code Description Data Malina rce(s) Supporting Document(s) Urate [Mass/volume] in Serum or Plasma 5.2 mg/dL 2.6-6.0 [facility] ([facility]) Rheumatoid factor [Units/volume] in Serum or Plasma Laboratory test result [facility] ([facility]) ID Date Data Source [id number] 01/20/2021 03:35:00 PM EDT [facility] ([facility]) Name Value Range Interpretation Code Description Data Malina rce(s) Supporting Document(s) White Blood Count 5.2 10 4.0-10.0 [facility] ([facility]) Red Blood Count 4.89 10 4.00-5.40 [facility] ([facility]) Hemoglobin 13.5 g/dL 12.0-15.5 [facility] ([facility]) Hematocrit 43.1 % 36.0-47.0 [facility] ([facility]) Mean Corpuscular Volume 88.1 fl 80.0-96.0 M [facility] ([facility]) Mean Corpuscular HGB Conc 31.3 g/dL 32.0-36.5 [facility] ([facility]) Mean Corpuscular Hemoglobin 27.6 pg 27.0-33.0 [facility] ([facility]) Red Cell Distribution Width 13.0 % 11.5-14.5 [facility] ([facility]) Platelet Count, Automated 269 10 150-450 [facility] ([facility]) Lymph % 34.9 % 24.0-44.0 [facility] Neutrophils % 52.9 % 36.0-66.0 [facility] ([facility]) Collin % 9.9 % 2.0-8.0 [facility] ([facility]) Eos % 1.7 % 0.0-3.0 [facility] Baso % 0.4 % 0.0-1.0 [facility] Immature Granulocyte % 0.2 % 0-3.0 [facility]) Lymph # 1.8 10 1.5-5.0 [facility] Neutrophils # 2.8 10 1.5-8.5 [facility]) Nucleated Red Blood Cell % 0.0 % 0-0 [facility] ([facility]) Eos # 0.1 10 0.0-0.5 [facility] Baso # 0.0 10 0.0-0.2 [facility] Collin # 0.5 10 0.0-0.8 [facility]) ID Date Data Source PAP REQUEST FOR SERVICE 10/01/2020 12:00:00 AM EST W1 ([facility]) Name Value Range Interpretation Code Description Data Malina rce(s) Supporting Document(s) PAP REQUEST FOR SERVICE eCW1 ( [facility]) ID Date Data Source [id number] 08/17/2020 03:49:00 PM EST [facility]) Name Value Range Interpretation Code Description Data Malina rce(s) Supporting Document(s) Iron 51 50-170 [facility]) Tibc % Saturation 18.0 [facility] ([facility]) Iron binding capacity [Mass/volume] in Serum or Plasma 283 [facility] ([facility]) ID Date Data Source [id number] 08/17/2020 03:49:00 PM EST [facility] ([facility]) Name Value Range Interpretation Code Description Data Malina rce(s) Supporting Document(s) Calcium [Mass/volume] in Serum or Plasma 9.3 [facility] ([facility]) Sodium 144 [facility] ([facility]) Chloride [Moles/volume] in Serum or Plasma 112 [facility] ([facility]) Carbon dioxide, total [Moles/volume] in Serum or Plasma 28 [facility] ([facility]) Potassium [Moles/volume] in Serum or Plasma 4.3 [facility] ([facility]) Glucose 82 70-100 [facility] Blood Urea Nitrogen 12 7-18 [facility] ([facility]) Creatinine 0.78 0.55-1.30 [facility] ([facility]) Glomerular filtration rate/1.73 sq M.pre dicted [Volume Rate/Area] in Serum or Plasma by Creatinine-based formula (MDRD) Laboratory test result [facility] ([facility]) ID Date Data Source [id number] 08/17/2020 03:49:00 PM EST [facility] Name Value Range Interpretation Code Description Data Malina rce(s) Supporting Document(s) Alkaline phosphatase [Enzymatic activity/volume] in Serum or Plasma 7 9 [facility] ([facility]) Aspartate aminotransferase [Enzymatic activity/volume] in Serum or Plasma 13 [facility] ([facility]) Bilirubin.direct [Mass/volume] in Serum or Plasma Laboratory test res ult [facility] ([facility]) Bilirubin.total [Mass/volume] in Serum or Plasma 0.3 [facility] ([facility]) Alanine aminotransferase [Enzymatic activity/volume] in Serum or Pl asma 24 [facility] ([facility]) Protein [Mass/volume] in Serum or Plasma 6.5 [facility] ([facility]) Albumin [Mass/volume] in Serum or Plasma 3.4 [facility] ([facility]) Cholesterol [Mass/volume] in Serum or Plasma 1.1 [facility] ([facility]) ID Date Data Source [id number] 08/17/2020 03:49:00 PM EST [facility] ([facility]) Name Value Range Interpretation Code Description Data Malina rce(s) Supporting Document(s) Red Blood Count 4.80 4.00-5.40 [facility] ([facility]) White Blood Count 5.3 4.0-10.0 [facility] ([facility]) Platelets 254 150-450 [facility]) Hemoglobin 12.5 [facility] ([facility]) Hematocrit 41.5 [facility] ([facility]) ID Date Data Source [id number] 07/29/2020 01:43:00 PM EST [facility] ([facility], ) Name Value Range Interpretation Code Description Data Malina rce(s) Supporting Document(s) Creatinine For GFR 0.72 mg/dL 0.55-1.30 [facility] [facility], ) Glomerular Filtration Rate Laboratory test result [facility] ([facility]) <content>Units are mL/min/1.73 m2</content>
<content></content>
<content>Chronic Kidney Disease Staging per NKF:</content>
<content></content>
<content>Stage I & II GFR >=60 Normal to Mildly Decreased</content>
<content>Stage III GFR 30- 59 Moderately Decreased</content>
<content>Stage IV GFR 15-29 Severely Decreased</content>
<content>Stage V GFR <15 Very Little GFR Left</content>
<content>ESRD GFR <15 on CHICKEN RAISER</content>
<content></content> ID Date Data Source [id number] 07/29/2020 01:43:00 PM EST [facility] ([facility], ) Name Value Range Interpretation Code Description Data Malina rce(s) Supporting Document(s) Urea nitrogen [Mass/volume] in Serum or Plasma 13 mg/dL 7-18 [facility] ID Date Data Source [id number] 07/29/2020 12:00:00 AM EST [facility] Name Value Range Interpretation Code Description Data Malina rce(s) Supporting Document(s) 2018-nCoV RNA XXX HARLEEN+probe-Imp [facility] This lab was ordered by [facility] and reported by [employer] ID Date Data Source [id number] 07/02/2020 12:00:00 AM EST [facility] Name Value Range Interpretation Code Description Data Malina rce(s) Supporting Document(s) 2018-nCoV RNA XXX HARLEEN+probe-Imp [facility] This lab was ordered by [facility] and reported by [employer] Procedure Social History Code Duration Value Status Description Data Source(s ) Smoking 06/11/2021 12:00:00 AM EDT Current Smoker completed Curre nt Smoker eCW1 ([facility]) Smoking 05/13/2021 12:00:00 AM EDT Current Smoker completed Curre nt Smoker eCW1 ([facility]) Smoking 05/07/2021 12:00:00 AM EDT Unknown if ever smoked comp leted Unknown if ever smoked [facility] ([facility]) Smoking 05/05/2021 12:00:00 AM EDT Unknown if ever smoked comp leted Unknown if ever smoked [facility] ([facility]) Smoking 03/26/2021 12:00:00 AM EDT Current Smoker completed Curre nt Smoker eCW1 ([facility]) Smoking 03/26/2021 12:00:00 AM EDT Current Smoker completed Curre nt Smoker eCW1 ([facility]) Smoking 03/26/2021 12:00:00 AM EDT Current Smoker completed Curre nt Smoker eCW1 ([facility]) Smoking 03/04/2021 12:00:00 AM EDT Current Smoker completed Curre nt Smoker eCW1 ([facility]) Smoking 03/04/2021 12:00:00 AM EDT Current Smoker completed Curre nt Smoker eCW1 ([facility]) Smoking 02/23/2021 12:00:00 AM EDT Unknown if ever smoked comp leted Unknown if ever smoked [facility] ([facility]) Smoking 02/16/2021 12:00:00 AM EDT Current Smoker completed Curre nt Smoker eCW1 ([facility]) Smoking 02/16/2021 12:00:00 AM EDT Current Smoker completed Curre nt Smoker eCW1 ([facility]) Smoking 02/11/2021 12:43:00 AM EDT Denies Ever Smoked complete d Denies Ever Smoked [facility] Smoking 01/11/2021 12:00:00 AM EDT Unknown if ever smoked comp leted Unknown if ever smoked [facility] ([facility]) Smoking 12/17/2020 12:00:00 AM EDT Unknown if ever smoked comp leted Unknown if ever smoked [facility] ([facility]) Smoking 11/11/2020 12:00:00 AM EDT Unknown if ever smoked comp leted Unknown if ever smoked [facility] ([facility]) Smoking 10/27/2020 12:00:00 AM EST Current Smoker completed Curre nt Smoker eCW1 ([facility]) Smoking 10/27/2020 12:00:00 AM EST Current Smoker completed Curre nt Smoker eCW1 ([facility]) Smoking 10/27/2020 12:00:00 AM EST Current Smoker completed Curre nt Smoker eCW1 ([facility]) Smoking 10/27/2020 12:00:00 AM EST Current Smoker completed Curre nt Smoker eCW1 ([facility]) Smoking 10/01/2020 12:00:00 AM EST Current Smoker completed Curre nt Smoker eCW1 ([facility]) Smoking 09/18/2020 12:00:00 AM EST Unknown if ever smoked comp leted Unknown if ever smoked [facility] ([facility]) Smoking 09/10/2020 12:00:00 AM EST Unknown if ever smoked comp leted Unknown if ever smoked [facility] ([facility]) Smoking 07/23/2020 12:00:00 AM EST Unknown if ever smoked comp leted Unknown if ever smoked [facility] ([facility]) Smoking 07/21/2020 12:00:00 AM EST Patient is a former smoker completed Patient is a former smoker [facility] ([facility]) Smoking 07/20/2020 12:00:00 AM EST Unknown if ever smoked comp leted Unknown if ever smoked [facility] ([facility]) Smoking 06/02/2020 12:00:00 AM EDT Current Smoker completed Curre nt Smoker eCW1 ([facility]) Smoking 06/02/2020 12:00:00 AM EDT Current Smoker completed Curre nt Smoker eCW1 ([facility]) Smoking 06/02/2020 12:00:00 AM EDT Current Smoker completed Curre nt Smoker eCW1 ([facility]) Smoking 06/02/2020 12:00:00 AM EDT Current Smoker completed Curre nt Smoker eCW1 ([facility]) Smoking 06/02/2020 12:00:00 AM EDT Current Smoker completed Curre nt Smoker eCW1 ([facility]) Smoking 06/02/2020 12:00:00 AM EDT Current Smoker completed Curre nt Smoker eCW1 ([facility]) Smoking 06/02/2020 12:00:00 AM EDT Current Smoker completed Curre nt Smoker eCW1 ([facility]) Smoking 05/27/2020 12:00:00 AM EDT Unknown if ever smoked comp leted Unknown if ever smoked [facility] ([facility]) Smoking 05/25/2020 12:00:00 AM EDT Unknown if ever smoked comp leted Unknown if ever smoked [facility] ([facility]) Vital Signs ID Date Data Source UNK Name Value Range Interpretation Code Description Data Source(s) Respiratory rate 16 /min 16 /min [facility] ( [facility]) Systolic blood pressure 122 mm[Hg] 122 mm[Hg] M EDENT ([facility]) Diastolic blood pressure 78 mm[Hg] 78 mm[Hg] [facility] ([facility]) Heart rate 84 /min 84 /min [facility] ([facility], ) Body weight 233 [lb_av] 233 [lb_av] W1 ([facility]) Body weight 105.69 kg 105.69 kg W1 ([facility]) Body height 69 [in_i] 69 [in_i] W1 ([facility]) Body mass index (BMI) [Ratio] 34.40 kg/m2 34.40 kg/m2 W1 ([facility]) Systolic blood pressure 170 mm[Hg] 170 mm[Hg] e CW1 ([facility]) Diastolic blood pressure 100 mm[Hg] 100 mm[Hg] eCW1 ([facility]) Body height 68.00 in Normal (applies to non-numeric resu lts) 68.00 in [facility] ([facility]) Body weight Measured 228.00 lbs Normal (applies to n on-numeric results) 228.00 lbs [facility] ([facility]) Body mass index (BMI) [Ratio] 34.66 kg/m2 No rmal (applies to non-numeric results) 34.66 kg/m2 [facility] ([facility]) Systolic blood pressure 159 mm[Hg] Normal (applies t o non-numeric results) 159 mm[Hg] [facility] ([facility]) Diastolic blood pressure 95 mm[Hg] Normal (applies to non-numeric results) 95 mm[Hg] [facility] ([facility]) Body temperature 98.10 degF Normal (applies to non-n umeric results) 98.10 degF [facility] ([facility]) Body height --lying 73 min Normal (applies to non-nume doris results) 73 min [facility] ([facility]) Respiratory rate 12 min Normal (applies to non-numeric results) 12 min [facility] ([facility]) Body weight 231.00 [lb_av] 231.00 [lb_av] MEDEN T ([facility]) Body height 69 [in_i] 69 [in_i] [facility] ([facility] 5'9" Body mass index (BMI) [Ratio] 34.1 kg/m2 34.1 k g/m2 [facility] ([facility]) Systolic blood pressure--sitting 114 mm[Hg] 114 mm[Hg] [facility] ([facility]) Ra, large cuff Diastolic blood pressure--sitting 70 mm[Hg] 70 mm[Hg] [facility] ([facility]) Ra, large cuff Body temperature 97.0 [degF] 97.0 [degF] eCW1 ( [facility]) Systolic blood pressure 114 mm[Hg] 114 mm[Hg] e CW1 ([facility]) Heart rate 63 /min 63 /min eCW1 ([facility]) Diastolic blood pressure 78 mm[Hg] 78 mm[Hg] eCW1 ([facility]) Body weight 227 [lb_av] 227 [lb_av] eCW1 ([facility]) Body height 69 [in_i] 69 [in_i] eCW1 ([facility]) Body mass index (BMI) [Ratio] 33.52 kg/m2 33.52 kg/m2 eCW1 ([facility]) Respiratory rate 20 /min 20 /min eCW1 ([facility]) Body mass index (BMI) [Ratio] 33.4 kg/m2 33.4 k g/m2 [facility] ([facility]) Heart rate 80 /min 80 /min [facility] ([facility]) Body weight 226.00 [lb_av] 226.00 [lb_av] MED[facility] T ([facility]) Body height 69 [in_i] 69 [in_i] [facility] ([facility]) 5'9" Systolic blood pressure--sitting 106 mm[Hg] 106 mm[Hg] [facility] ([facility]) Ra, large cuff | 110/70 repeat reading Diastolic blood pressure--sitting 66 mm[Hg] 66 mm[Hg] [facility] ([facility]) Ra, large cuff | 110/70 repeat reading Systolic blood pressure 102 mm[Hg] Normal (applies t o non-numeric results) 102 mm[Hg] [facility] Diastolic blood pressure 66 mm[Hg] Normal (applies to non-numeric results) 66 mm[Hg] [facility] Heart rate 61 min Normal (applies to non-numeric resul ts) 61 min [facility] Respiratory rate 16 min Normal (applies to non-numeric results) 16 min [facility] Body temperature 36.6 merlyn Normal (applies to non-numeric results) 36.6 merlyn [facility] Deprecated Oxygen saturation in Capillary blood by Oximetry 100 % Normal (applies to non-numeric results) 100 % [facility] Body height 171.9072 cm Normal (applies to non-numeric res ults) 171.9072 cm [facility] Body mass index (BMI) [Ratio] 34.86 kg/m2 No rmal (applies to non-numeric results) 34.86 kg/m2 [facility] Body weight Measured 104 kg Normal (applies to non-num rajinder results) 104 kg [facility] Systolic blood pressure 110 mm[Hg] 110 mm[Hg] Antwan SQUIRES ([facility]) Heart rate 68 /min 68 /min [facility] ([facility]) Diastolic blood pressure 78 mm[Hg] 78 mm[Hg] [facility] ([facility]) Respiratory rate 16 /min 16 /min [facility] ( [facility]) Body temperature 96.4 [degF] 96.4 [degF] [facility] ([facility] ) Body mass index (BMI) [Ratio] 35.3 kg/m2 35.3 k g/m2 [facility] ([facility] ) Body height 68 [in_i] 68 [in_i] MED[facility] ([facility]) 5'8" Body weight 232.38 [lb_av] 232.38 [lb_av] MEDEN T ([facility]) Body height 0.00 in Normal (applies to non-numeric resu lts) 0.00 in [facility] ([facility]) Body weight Measured 0.00 lbs Normal (applies to n on-numeric results) 0.00 lbs [facility] ([facility]) Body mass index (BMI) [Ratio] 0.00 kg/m2 No rmal (applies to non-numeric results) 0.00 kg/m2 [facility]) Systolic blood pressure 0 mm[Hg] Normal (applies t o non-numeric results) 0 mm[Hg] [facility] ([facility]) Diastolic blood pressure 0 mm[Hg] Normal (applies to non-numeric results) 0 mm[Hg] [facility] ([facility]) Diastolic blood pressure--sitting 60 mm[Hg] 60 mm[Hg] [facility] ([facility]) Ra, large cuff | repeat: Body weight 230.00 [lb_av] 230.00 [lb_av] MED[facility] T ([facility]) Body height 69 [in_i] 69 [in_i] [facility] ([facility]) 5'9" Body mass index (BMI) [Ratio] 34.0 kg/m2 34.0 k g/m2 [facility] ([facility]) Systolic blood pressure--sitting 100 mm[Hg] 100 mm[Hg] [facility] ([facility]) Ra, large cuff | repeat: 98/58 Body height 0.00 in Normal (applies to non-numeric resu lts) 0.00 in [facility] ([facility]) Body weight Measured 0.00 lbs Normal (applies to n on-numeric results) 0.00 lbs [facility] ([facility]) Body mass index (BMI) [Ratio] 0.00 kg/m2 No rmal (applies to non-numeric results) 0.00 kg/m2 [facility] ([facility]) Systolic blood pressure 0 mm[Hg] Normal (applies t o non-numeric results) 0 mm[Hg] [facility] ([facility]) Diastolic blood pressure 0 mm[Hg] Normal (applies to non-numeric results) 0 mm[Hg] [facility] ([facility]) Body weight 240 [lb_av] 240 [lb_av] W1 ([facility]) Body weight 108.86 kg 108.86 kg [facility] ([facility]) Body height 69 [in_i] 69 [in_i] W1 ([facility]) Body mass index (BMI) [Ratio] 35.44 kg/m2 35.44 kg/m2 [facility] ([facility]) Systolic blood pressure 140 mm[Hg] 140 mm[Hg] e CW1 ([facility]) Diastolic blood pressure 90 mm[Hg] 90 mm[Hg] eCW1 ([facility]) Body weight 237 [lb_av] 237 [lb_av] eCW1 ([facility]) Body weight 107.5 kg 107.5 kg eCW1 ([facility]) Body height 69 [in_i] 69 [in_i] eCW1 ([facility]) Body mass index (BMI) [Ratio] 34.99 kg/m2 34.99 kg/m2 [facility] ([facility]) Systolic blood pressure 144 mm[Hg] 144 mm[Hg] e CW1 ([facility]) Diastolic blood pressure 87 mm[Hg] 87 mm[Hg] eCW1 ([facility]) Body temperature 97.1 [degF] 97.1 [degF] [facility] ([facility]) Body height 0.00 in Normal (applies to non-numeric resu lts) 0.00 in [facility] ([facility]) Body weight Measured 0.00 lbs Normal (applies to n on-numeric results) 0.00 lbs [facility] ([facility]) Body mass index (BMI) [Ratio] 0.00 kg/m2 No rmal (applies to non-numeric results) 0.00 kg/m2 [facility] ([facility]) Systolic blood pressure 0 mm[Hg] Normal (applies t o non-numeric results) 0 mm[Hg] [facility] ([facility]) Diastolic blood pressure 0 mm[Hg] Normal (applies to non-numeric results) 0 mm[Hg] [facility] ([facility]) Heart rate 77 /min 77 /min [facility] ([facility]) Body height 69 [in_i] 69 [in_i] [facility] ([facility]) 5'9" Body mass index (BMI) [Ratio] 34.3 kg/m2 34.3 k g/m2 [facility] ([facility]) Body weight 232.00 [lb_av] 232.00 [lb_av] MED[facility] T ([facility]) Systolic blood pressure--sitting 166 mm[Hg] 166 mm[Hg] [facility] ([facility]) large cuff, Ra Diastolic blood pressure--sitting 94 mm[Hg] 94 mm[Hg] [facility] ([facility]) large cuff, Ra Systolic blood pressure 128 mm[Hg] 128 mm[Hg] M EDENT ([facility], ) Diastolic blood pressure 80 mm[Hg] 80 mm[Hg] [facility] ([facility], ) Heart rate 85 /min 85 /min [facility] ([facility], ) Oxygen saturation in Arterial blood by Pulse oximetry 95 % 95 % [facility] ([facility], ) Body temperature 99.1 [degF] 99.1 [degF] [facility] ([facility], ) Body height 69 [in_i] 69 [in_i] [facility] 5'9" Body weight 240.00 [lb_av] 240.00 [lb_av] [facility] T ([facility] Body mass index (BMI) [Ratio] 35.4 kg/m2 35.4 k g/m2 [facility] ([facility] [place] body weight 145 [lb_av] 145 [lb_av] [facility] T ([facility]) Body weight 108.864 kg 108.864 kg [facility] ([facility]) Body surface area Derived from formula 2.23 m2 2.23 m2 [facility] ([facility]) Body height 0.00 in Normal (applies to non-numeric resu lts) 0.00 in [facility] ([facility]) Body weight Measured 0.00 lbs Normal (applies to n on-numeric results) 0.00 lbs [facility] ([facility]) Body mass index (BMI) [Ratio] 0.00 kg/m2 No rmal (applies to non-numeric results) 0.00 kg/m2 [facility] ([facility]) Systolic blood pressure 0 mm[Hg] Normal (applies t o non-numeric results) 0 mm[Hg] [facility] ([facility]) Diastolic blood pressure 0 mm[Hg] Normal (applies to non-numeric results) 0 mm[Hg] [facility] ([facility]) Systolic blood pressure 136 mm[Hg] 136 mm[Hg] M EDENT ([facility]) Diastolic blood pressure 74 mm[Hg] 74 mm[Hg] [facility] Body height 69 [in_i] 69 [in_i] [facility] ([facility]) 5'9" Body weight 244.00 [lb_av] 244.00 [lb_av] [facility] T ([facility]) Body mass index (BMI) [Ratio] 36.0 kg/m2 36.0 k g/m2 [facility] [place] body weight 145 [lb_av] 145 [lb_av] MEDEN T ([facility], ) Body weight 110.678 kg 110.678 kg [facility] ([facility], ) Body surface area Derived from formula 2.25 m2 2.25 m2 [facility] ([facility]) Body temperature 96.9 [degF] 96.9 [degF] [facility] ([facility]) Body mass index (BMI) [Ratio] 0.00 kg/m2 No rmal (applies to non-numeric results) 0.00 kg/m2 [facility] ([facility]) Body height 0.00 in Normal (applies to non-numeric resu lts) 0.00 in [facility] ([facility]) Systolic blood pressure 0 mm[Hg] Normal (applies t o non-numeric results) 0 mm[Hg] [facility] ([facility]) Body weight Measured 0.00 lbs Normal (applies to n on-numeric results) 0.00 lbs [facility] ([facility]) Diastolic blood pressure 0 mm[Hg] Normal (applies to non-numeric results) 0 mm[Hg] [facility] ([facility]) ID Date Data Source [id number] 02/09/2021 11:29:15 PM EDT [facility] Name Value Range Interpretation Code Description Data Source(s) TRANSFER FROM [facility] Patient Treatment Plan of Care Planned Activity Planned Date Details Description Data Source (s) quetiapine 25 MG Oral Tablet [Seroquel] 06/11/2021 12:00:00 AM EDT eCW1 ([facility]) Alprazolam 0.25 MG Oral Tablet 05/14/2021 12:00:00 AM EDT eCW1 ([facility]) Azithromycin (5 day) 250 mg 03/05/2021 12:00:00 AM EDT eCW1 ([facility]) Metronidazole 500 MG Oral Tablet 10/01/2020 12:00:00 AM EST eCW1 ([facility]) Shower-William - 07/24/2020 12:00:00 AM EST e CW1 ([facility]) - 07/24/2020 12:00:00 AM EST e CW1 ([facility]) - 07/24/2020 12:00:00 AM EST e CW1 ([facility]) - 07/24/2020 12:00:00 AM EST e CW1 ([facility])
[2021-07-01] MEDS ORDERED: LABETALOL 100MG/20ML VIAL IV STA ×2 (14:24→15:13)
[2021-07-01 14:49] LABS: HEMATOCRIT 44.1 % (36.0-47.0); HEMOGLOBIN 13.7 g/dl (12.0-15.5); MEAN CORPUSCULAR HEMOGLOBIN 26.8 pg (27.0-33.0); MEAN CORPUSCULAR HGB CONC 31.1 g/dl (32.0-36.5); MEAN CORPUSCULAR VOLUME 86.1 fl (80.0-96.0); PLATELET COUNT, AUTOMATED 240 10^3/uL (150-450); RED BLOOD COUNT 5.12 10^6/uL (4.00-5.40); WHITE BLOOD COUNT 4.7 10^3/uL (4.0-10.0)
[2021-07-01 15:04] LABS: CK-MB VALUE MASS < 1.0 NG/ML (<3.6); CPK CREATINE PHOSPHOKINASE 125 U/L (26-192); TROPONIN I < 0.02 NG/ML (< 0.10)
--- OUTSIDE RECORDS SUMMARY | 2021-07-01 15:11 | CCD ---
Author Author [facility] Organization [facility] Address Unknown Phone Unavailable Care Team Providers Care Author Name Role Phone Abel Sales Unavailable PROBLEMS Type Condition ICD9-CM Code SBS57-AJ Code Onset Dates Condition S tatus W/U Status Risk SNOMED Code Notes Problem Anxiety, generalized F41.1 Active confirmed 82815466 Problem Family history of malignant neoplasm of ovary Z80. 41 Active confirmed 158542765 Problem Swelling of both lower extremities M79.89 Activ e confirmed 096249211 Problem Fibrocystic disease of right breast N60.11 Acti ve confirmed 18325265 Problem Family history of breast cancer Z80.3 Active confi rmed 326602849 Problem 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 A ctive confirmed 510831569 Problem Ambulatory dysfunction R26.2 Active confirmed 071864400 Problem Vasomotor symptoms due to menopause N95.1 Acti ve confirmed 844878021 Problem Dyslipidemia E78.5 Active confirmed 3683570 07 Problem Irritable bowel syndrome with diarrhea K58.0 A ctive confirmed 055784254 Problem Severe depression F32.2 Active confirmed 31 3215600 Problem Gastroesophageal reflux disease, esophagitis pre sence not specified K21.9 Active confirmed 658699646 Problem Primary osteoarthritis of right knee M17.11 Act carlos confirmed 306354380 Problem PMB (postmenopausal bleeding) N95.0 Active confirm ed 43822500 Problem Epigastric pain R10.13 Active confirmed 7992 2009 Problem H/O heart artery stent Z95.5 Active confirmed 845714960 Problem Prediabetes R73.03 Active confirmed 07515339 2 Problem Cigarette nicotine dependence without complication F17.210 Active confirmed 78694092 Problem History of hysterectomy Z90.710 Active confirmed 633569557 Problem Essential hypertension I10 Active confirmed 31890702 Problem Mild episode of recurrent major depressive disorder F33.0 Active confirmed 462275602 Problem Other chronic pain G89.29 Active confirmed 8 7933135 Problem Abnormal mammogram R92.8 Active confirmed 1 36156274 Problem Constipation, unspecified constipation type K59.00 Active confirmed 03145641 Problem Nabothian cyst N88.8 Active confirmed 75324 6009 Problem Obstructive sleep apnea syndrome G47.33 Active conf irmed 27767158 Problem Dyspareunia in female N94.10 Active confirmed 96443365 Problem Encounter for gynecological examination (general) (routine) with abnormal findings Z01.411 Active confirmed 050160615 Problem Gross hematuria R31.0 Active confirmed 1979 19726 Problem Nicotine use disorder F17.200 Active confirmed 39535476 Problem Obesity (BMI 30-39.9) E66.9 Active confirmed 325018731 Problem Insomnia, unspecified type G47.00 Active confirmed 196773031 Problem Seasonal allergies J30.2 Active confirmed 4 66004240 Problem Hyperplastic colonic polyp, unspecified part of colon K63.5 Active confirmed 612120434 Problem Irritable bowel syndrome with both constipation and diarrh ea K58.2 Active confirmed 04633941 Problem Panic disorder [episodic paroxysmal anxiety] F41.0 Active confirmed 621459774 Problem NISHA (obstructive sleep apnea) G47.33 Active confirm ed 58479852 Problem Generalized anxiety disorder F41.1 Active confirme d 77132731 ALLERGIES Allergen (clinical drug ingredient) Drug/Non Drug Allergy do cumented on EMR Reaction Allergy Type Onset Date Status citalopram Citalopram Hydrobromide([facility] Code:[address]-11) Nausea/Vomiting Drug Allergy Active Penicillin (For Allergies Use Only) Rash Drug Allerg y Active ENCOUNTERS from 1968 to 2021-06-17 Encounter Location Date Provider Diagnosis [facility] [place] [facility] [address] [phone] [place] [address] May, Abel Sales IMMUNIZATIONS Vaccine Route Administration Date [...] Education Language: Question Answer Notes Languages spoken: Luxem[place]ish Zoroastrianism: Question Answer Notes Zoroastrianism 13 Restoration Sexual Hx: Question Answer Notes Had sex [...] REASON FOR REFERRAL No Information VITAL SIGNS Weight 233 lbs May, Weight-kg 105.69 kg May, Height 69 in May, BMI 34.40 kg/m2 May, Blood pressure systolic 170 mm Hg May, Blood pressure diastolic 100 mm Hg May, MEDICATIONS Medication SIG (Take, Route, Frequency, Duration) Notes Start Da te End Date Status Metoprolol Succinate ER 50 MG take 1 1/2 tablets by mouth once daily Oral Once a day for 30 days Active [employer] Blood Glucose Monitor w/Device as directed Daily for 99 months Jul, Active Aspir-Low 81 MG 1 tablet Orally Once a day for 30 day(s) Active Farxiga 5 MG 1 tablet Orally Once a day for 30 day(s) Active Brilinta 90 MG take one tablet by mouth twi ce a day Oral Twice a day for 30 days Active Vitamin D 40742 UNIT 1 capsule Orally once a week for 30 Days Active traZODone HCl 150 MG 1 tablet at bedtime Orally Once a day for 30 day s Active Atorvastatin Calcium 80 MG 1 tablet Orally Once a day for 30 day(s) Active Seroquel 25 MG 1 tablet at bedtime Orally qhs for 30 day(s) May, Active Vitamin B-12 100 MCG as directed Orally Once a day for 30 days Active Calcium 1 tab Oral twice daily Ac tive Zofran ODT 4 MG 1 tablet on the tongue and a llow to dissolve Orally Once a day for 30 day(s) Active Estradiol 0.1 MG/GM 1/2 gm Vaginal Two times a Week for 90 days Active Nicorette 2 MG 1 lozenge as needed Mouth/Th roat 8 times a day as need for 30 Days Not-Taking May Have - as directed Diabetic Needle (R73.03) Daily for 3 0 day(s) Jul, Active Centrum Adults - 1 tablet Orally once a day Active Azelastine HCl 0.1 % 1 puff in each nostril Nasally Twice a day for 30 day(s) Active OneTouch Ultra II Test Strips as directed topically Da alex (R 73.03) for 30 day(s) Jul, Active Auto-Lancet - as directed subcutaneously (R 73.03) Daily for 3 0 day(s) Jul, Active Losartan Potassium 50 MG 1 tablet Orally Once a day for 30 day(s) Active Potassium Chloride Malathi ER 20 MEQ 1 tablet with food O rally twice a day for 30 days Active Acetaminophen 325 MG 2 tablets as needed Orally every 6 hrs as n eeded December, Active PARoxetine HCl 40 MG 1 tablet in the morning Orally Once a day for 30 days Active Claritin-D 24 Hour 10-240 MG 1 tablet as needed Orally Once a day for 30 day(s) Oct, Active Keppra 250 MG 1 tablet Orally every 12 hrs for 30 day(s) Active Linzess 72 MCG 1 capsule at least 30 minute s before the first meal of the day on an empty stomach Orally Once a day for 30 day(s) hosp d/c 02-19-20= 145 mg qd Active Famotidine 20 MG 1 tablet at bedtime as needed Orally Onc e a day for 30 day(s) Feb, Active PROCEDURES No Information RESULTS No Results REASON FOR VISIT bp check MEDICAL (GENERAL) HISTORY Type Description Date Medical [...] Medication Name Sig Start Date Stop Date Linzess 72 MCG 1 capsule at least 30 minute s before the first meal of the day on an empty stomach Orally Once a day for 30 day(s) Famotidine 20 MG 1 tablet at bedtime as needed Orally Onc e a day for 30 day(s) Feb, Keppra 250 MG 1 tablet Orally every 12 hrs for 30 day(s) Claritin-D 24 Hour 10-240 MG 1 tablet as needed Orally Once a day for 30 day(s) Oct, traZODone HCl 150 MG 1 tablet at bedtime Orally Once a day for 3 0 days Metoprolol Succinate ER 50 MG take 1 1/2 tablets by mouth once daily Oral Once a day for 30 days Losartan Potassium 50 MG 1 tablet Orally Once a day for 30 day(s ) PARoxetine HCl 40 MG 1 tablet in the morning Orally Once a day f or 30 days Aspir-Low 81 MG 1 tablet Orally Once a day for 30 day(s) Potassium Chloride Malathi ER 20 MEQ 1 tablet with food O rally twice a day for 30 days Brilinta 90 MG take one tablet by mouth twi ce a day Oral Twice a day for 30 days Farxiga 5 MG 1 tablet Orally Once a day for 30 day(s) Seroquel 25 MG 1 tablet at bedtime Orally qhs for 30 day(s) May, Atorvastatin Calcium 80 MG 1 tablet Orally Once a day for 30 day (s) Next Appt Details Provider Name:Abel Sales, 2021-07-13 03 :45:00 PM, [address], , [place], [address], Insurance Providers Payer Name Payer Address Payer Phone Insured Name Patient Relati onship to Insured Coverage Start Date Coverage End Date MEDICARE Part A and B [address] [facility] [id number] [phone] CARLA ANNE self MEDICAID [employer] [address] [facility] [id number] CARLA ANNE self
--- OUTSIDE RECORDS SUMMARY | 2021-07-01 15:13 | CCD ---
Author Author [facility] Organization [facility] Address Unknown Phone Unavailable Care Team Providers Care Head Char Filter Tank Tender Name Role Phone Debby SCHUMACHER MD Unavailable [...] Unavailable Unavailable Debby SCHUMACHER MD Unavailable Unavailable eDbby SCHUMACHER MD Unavailable Unavailable Debby SCHUMACHER MD Unavailable Unavailable Debby SCHUMACHER MD Unavailable Unavailable Debby SCHUMACHER MD Unavailable Unavailable Debby SCHUMACHER MD Unavailable Unavailable Debby SCHUMACHER MD Unavailable Unavailable Debby SCHUMACHER MD Unavailable Unavailable Debby SCHUMACHER MD Unavailable Unavailable Debby SCHUMACHER MD Unavailable Unavailable Debby SCHUMACHER MD Unavailable Unavailable lGynn Michel MD Unavailable Unavailable Glynn Michel MD [...] Unavailable Glynn Michel MD Unavailable Unavailable Glynn Micehl MD Unavailable Unavailable Glynn Michel MD Unavailable Unavailable Glynn Michel MD Unavailable Unavailable Glynn Michel MD Unavailable Unavailable Glynn Michel MD Unavailable Unavailable Glynn Michel MD Unavailable Unavailable Glynn Michel MD Unavailable Unavailable Glynn Michel MD Unavailable Unavailable Glynn Michel MD Unavailable Unavailable Glynn Michel MD Unavailable Unavailable Glynn Mcihel MD Unavailable Unavailable Glynn Michel MD Unavailable [...] Michel MD Unavailable Unavailable Herbert, L Samina BUILDING ECONOMIST Unavailable Unavailable Herbert, L Samina BUILDING ECONOMIST Unavailable Unavailable Herbert, L Samina BUILDING ECONOMIST Unavailable Unavailable Herbert, L Samina BUILDING ECONOMIST Unavailable Unavailable Herbert, L Samina BUILDING ECONOMIST Unavailable Unavailable Herbert, L Samina BUILDING ECONOMIST Unavailable Unavailable Herbert, L Samina BUILDING ECONOMIST Unavailable Unavailable Herbert, L Samina BUILDING ECONOMIST Unavailable Unavailable Herbert, L Samina BUILDING ECONOMIST Unavailable Unavailable Herbert, L Samina BUILDING ECONOMIST Unavailable Unavailable Herbert, L Samina BUILDING ECONOMIST Unavailable Unavailable Herbert, L Samina BUILDING ECONOMIST Unavailable Unavailable Herbert, L Samina BUILDING ECONOMIST Unavailable Unavailable Herbert, L Samina BUILDING ECONOMIST Unavailable Unavailable Herbert, L Samina BUILDING ECONOMIST Unavailable Unavailable Herbert, L Samina BUILDING ECONOMIST Unavailable Unavailable Herbert, L Samina BUILDING ECONOMIST Unavailable Unavailable Herbert, L Samina BUILDING ECONOMIST Unavailable Unavailable Herbert, L Samina BUILDING ECONOMIST Unavailable Unavailable Herbert, L Samina BUILDING ECONOMIST Unavailable Unavailable Herbert, L Samina BUILDING ECONOMIST Unavailable Unavailable Herbert, L Samina BUILDING ECONOMIST Unavailable Unavailable Herbert, L Samina BUILDING ECONOMIST Unavailable Unavailable HerbertTom BUILDING ECONOMIST Unavailable Unavailable Herbert, Tom Haas BUILDING ECONOMIST Unavailable Unavailable Fish, [facility], PA-C Unavailable Unavailabl e Fish, [facility], PA-C Unavailable Unavailabl e Fish, [facility], PA-C Unavailable Unavailabl e Fish, [facility], PA-C Unavailable Unavailabl e Fish, [facility], PA-C Unavailable Unavailabl e Fish, [facility], PA-C Unavailable Unavailabl e Fish, [facility], PA-C Unavailable Unavailabl e Fish, [facility], PA-C Unavailable Unavailabl e Fish, [facility], PA-C Unavailable Unavailabl e Fish, [facility], PA-C Unavailable Unavailabl e Fish, [facility], PA-C Unavailable Unavailabl e Fish, [facility], PA-C Unavailable Unavailabl e Fish, [facility], PA-C Unavailable Unavailabl e Fish, [facility], PA-C Unavailable Unavailabl e Fish, [facility], PA-C Unavailable Unavailabl e Fish, [facility], PA-C Unavailable Unavailabl e Fish, [facility], PA-C Unavailable Unavailabl e Fish, [facility], PA-C Unavailable Unavailabl e Fish, [facility], PA-C Unavailable Unavailabl e Fish, [facility], PA-C Unavailable Unavailabl e Fish, [facility], PA-C Unavailable Unavailabl e Fish, [facility], PA-C Unavailable Unavailabl e Fish, [facility], PA-C Unavailable Unavailabl e Fish, [facility], PA-C Unavailable Unavailabl e Fish, [facility], PA-C Unavailable Unavailabl e Fish, [facility], PA-C Unavailable Unavailabl e Fish, [facility], PA-C Unavailable Unavailabl e Fish, [facility], PA-C Unavailable Unavailabl e Fish, [facility], PA-C Unavailable Unavailabl e Fish, [facility], PA-C Unavailable Unavailabl e Fish, [facility], [facility]-C Unavailable Unavailabl e Fish, [facility], PA-C Unavailable Unavailabl e Fish, [facility], PA-C Unavailable Unavailabl e Fish, [facility], PA-C Unavailable Unavailabl e Fish, [facility], PA-C Unavailable Unavailabl e Fish, [facility], PA-C Unavailable Unavailabl e Bill MITCHELL MD [...] Barratt PA Unavailable Unavailable LUIZ, H HERMILO BUILDING ECONOMIST Unavailable Unavailable LUIZ, H HERMILO BUILDING ECONOMIST Unavailable Unavailable LUIZ, H HERMILO BUILDING ECONOMIST Unavailable Unavailable LUIZ, H HERMILO BUILDING ECONOMIST Unavailable Unavailable LUIZ, H HERMILO BUILDING ECONOMIST Unavailable Unavailable LUIZ, H HERMILO BUILDING ECONOMIST Unavailable Unavailable LUIZ, H HERMILO BUILDING ECONOMIST Unavailable Unavailable LUIZ, H HERMILO BUILDING ECONOMIST Unavailable Unavailable LUIZ, H HERMILO BUILDING ECONOMIST Unavailable Unavailable ANA LUISA KRISHNAN MD Unavailable [...] Vaneenenaam, Glynn Zapien MD Unavailable Unavailable Vaneenenaam, Gylnn Zapien MD Unavailable Unavailable Vaneenenaam, Glynn Zapien [...] Vanlillie, Glynn Zapien MD Unavailable Unavailable Vanlillie, Glynn Zapien MD Unavailable Unavailable Vaneenlissetteam, Glynn [...] Unavailable Debby SCHUMACHER MD Unavailable Unavailable Debby SCHMUACHER MD Unavailable Unavailable Debby SCHUMACHER MD Unavailable [...] ANTECOL, Scott BARRETT MD Unavailable Unavailable ANTECOL, cSott BARRETT MD Unavailable Unavailable ANTECOL, Scott BARRETT [...] is protected by Article 27-F of the [facility] Public Health law. If you continue you may have access to information: Regarding HIV / AIDS; Provided by facilities licensed or operated by the [facility] Office of Mental Health; or Provided by the [facility] Office for People With Developmental Disabilities. If such information is present, then the following [facility] mandated warning applies: This information has been [...] law may result in a fine or retirement sentence or both. A general authorization for the release of medical or other information is NOT sufficient authorization for further disc losure. Allergies and Adverse Reactions Type Description Substance Reaction Status Data Source(s ) Propensity to adverse reactions to substance Celexa Citalopram 10 MG Oral Tablet [Celexa] Rash Active [facility] ([facility]) Propensity to adverse reactions to substance penicillin v po tassium Penicillin V Potassium 250 MG Oral Tablet Rash Active [facility] ([facility]) Family History Family Member Name Family Member Gender Family Member Status Date o f Status Description Data Source(s) Unknown Unknown Problem [facility] Unknown Unknown Problem [facility] Unknown Male Problem MEDENT ([facility]) Unknown Male Problem [facility] ([facility] () Encounters Encounter Providers Location Date Indications Data Source(s ) Outpatient Attender: Anastasiia STANTON Main office - [facility] 06/18/2021 11:00:00 AM EDT MED[facility] ([facility] Outpatient [address] [facility] [place] [address] 06/17/2021 12:00:00 AM EDT eCW1 ([facility]) Office Visit Attender: NENA VILLALTA MD Main Office 05/20/2021 02: 53:00 PM EDT MEDENT ([facility]) Unknown [address] [facility] [place] [address] 05/14/2021 12:00:00 AM EDT eCW1 ([facility]) Attender: Arlene Smith 05/07/2021 12:00:00 AM EDT [facility] ([facility]) Unknown [address] [facility] [place] [address] 05/06/2021 12:00:00 AM EDT eCW1 ([facility]) Extended Individual Psychotherapy - 45 min Attender: [facility] 05/05/2021 02:00:00 AM EDT - 05/05/2021 02:00:00 AM EDT [facility] ([facility]) Health Monitoring - 30 Min Attender: Antonella Thornton [facility] 05/05/2021 01:30:00 AM EDT - 05/05/2021 01:30:00 AM EDT [facility] ([facility]) Attender: Antonella Thornton 05/05/2021 12:00:00 AM EDT [facility] ([facility]) Outpatient Attender: Ronnie Negrete Physical Therapy 04/28/2021 10:30:0 0 AM EDT MED[facility] ([facility]) [place] [address] [facility] [place] [address] 04/15/2021 12:00:00 AM EDT eCW1 ([facility] Outpatient Attender: Helen HERNANDEZ PA-C Physical Therapy 04/07/2021 02:00:00 PM EDT MEDENT ([facility]) Office Visit Attender: NENA VILLALTA MD Main Office 03/22/2021 04: 38:00 PM EDT MEDENT ([facility]) Outpatient Attender: RONY STANTON Main Office 03/18/2021 1 2:45:00 PM EDT MED[facility] ([facility]) [place] [address] [facility] [place] [address] 03/05/2021 12:00:00 AM EDT eCW1 ([facility]) [place]patient [address] [facility] [place] [address] 03/04/2021 12:00:00 AM EDT [facility]CW1 ([facility]) Unknown [address] [facility] [place] [address] 03/03/2021 12:00:00 AM EDT eCW1 ([facility]) Outpatient Attender: RONY STANTON Main Office 03/01/2021 0 2:15:00 PM EDT MEDENT ([facility]) Outpatient Attender: HERMILO DEE NP [facility] 02/23/2021 03:00:00 AM EDT - 02/23/2021 03:00:00 AM EDT [facility] ([facility]) Attender: HERMILO DEE NP 02/23/2021 12:00:00 AM EDT [facility] ([facility]) [place] [address] [facility] [place] [address] 02/19/2021 12:00:00 AM EDT eCW1 ([facility]) [place] [address] [facility] [place] [address] 02/18/2021 12:00:00 AM EDT eCW1 ([facility]) Office Visit Attender: NENA VILLALTA MD Main Office 02/11/2021 10: 19:00 AM EDT MEDENT ([facility]) Outpatient Attender: KINGS OGDEN MD [facility] [place] 02/11/2021 02:36:00 AM EDT [facility] ([facility] Outpatient Attender: KINGS OGDEN MD [facility] [place] 02/10/2021 02:38:00 AM EDT [facility] ([facility]) ( in Healthcare facility) Attender: DONALD MITCHELL MDAttender: GLEN SCHUMACHER MDAdmitter: ANA LUISA KRISHNAN MDConsultant: OUT OF AREA PCP, PT Does Not have 02/10/2021 01:33:00 AM EDT - 02/11/2021 02:18:00 PM EDT [facility] Inpatient Attender: DONALD Reina varinder: GLEN SCHUMACHER MDAttender: ER PHYSICIANAdmitter: ANA LUISA KRISHNAN MD 02/10/2021 01:09:25 AM EDT [facility] Inpatient Attender: DONALD Reina varinder: GLEN SCHUMACHER MDAttender: ANA LUISA KRISHNAN MDAttender: ER PHYSICIANAdmitter: ANA LUISA KRISHNAN MD 02/10/2021 12:07:00 AM EDT - 02/11/2021 02:18:00 PM EDT [facility] NSTEMI Patient discharged. Outpatient 02/09/2021 11:29:00 PM [facility] Outpatient Attender: Anastasiia STANTON Main office - [facility] 02/05/2021 10:45:00 AM EDT MED[facility] ([facility] [place] [address] [facility] [place] [address] 02/03/2021 12:00:00 AM EDT eCW1 ([facility]) Outpatient Attender: Helen HERNANDEZ PA-C Physical Therapy 01/20/2021 03:15:00 PM EDT MED[facility] ([facility]) [facility] 01/11/2021 02:30:00 AM EDT - 01/11/2021 02:30:00 AM EDT [facility] ([facility]) Attender: HERMILO DEE NP 01/11/2021 12:00:00 AM EDT [facility] ([facility]) OFFICE OUTPATIENT VISIT 15 MINUTES Attender: Helen HERNANDEZ PA-C Physical Therapy 01/04/2021 01:45:00 PM EDT MEDENT ([facility]) Office Visit Attender: NENA VILLALTA MD Main Office 01/01/2021 08: 20:00 AM EDT MEDENT ([facility]) Francesco Michel MD: [address] [place] [phone], Ph. Attender: Francesco Michel MD [facility] 12/30/2020 12:00:00 AM EDT JEFE ([facility]) Attender: Arlene Luis 12/17/2020 12:00:00 AM EDT [facility] ([facility]) Extended Individual Psychotherapy - 45 min Attender: Briandarryl [facility] 12/16/2020 01:00:00 AM EDT - 12/16/2020 01:00:00 AM EDT [facility] ([facility]) Francesco Michel MD: [address] [place] [phone], Ph. Attender: Francesco Michel MD [facility] 11/30/2020 12:00:00 AM EDT JEFE ([facility]) Francesco Michel MD: [address] [place] [phone], Ph. Attender: Francesco Michel MD [facility] 11/30/2020 12:00:00 AM EDT JEFE ([facility]) Office Visit Attender: NENA VILLALTA MD Main Office 11/26/2020 03: 15:00 PM EDT MEDENT ([facility]) Unknown [address] [facility] [place] [address] 11/24/2020 12:00:00 AM EDT eCW1 ([facility]) OFFICE OUTPATIENT VISIT 15 MINUTES Attender: Glynn molina MD Physical Therapy 11/19/2020 02:30:00 PM EDT MEDENT ([facility]) Outpatient Attender: RONY STANTON Main Office 11/18/2020 0 9:15:00 AM EDT MEDENT ([facility]) Outpatient Attender: HERMILO DEE NP [facility] 11/11/2020 02:00:00 AM EDT - 11/11/2020 02:00:00 AM EDT [facility] ([facility]) Unknown [address] [facility] [address] 11/11/2020 12:00:00 AM EDT eCW1 ([facility]) Attender: HERMILO DEE NP 11/11/2020 12:00:00 AM EDT [facility] ([facility]) Office Visit Attender: NENA VILLALTA MD Main Office 11/04/2020 12: 49:00 PM EDT MEDENT ([facility]) Outpatient [address] [facility] [address] 10/27/2020 12:00:00 AM EST eCW1 ([facility]) Outpatient Attender: Glynn Mars MD Physical Therap y 10/15/2020 12:00:00 PM EST MED[facility] ([facility]) (WC GYNANN) [facility] Yearly SAMPLE WASHER Exam [address] [place] [address] 10/01/2020 12:00:00 AM EST eCW1 ([facility]) Attender: Arlene Smith 09/18/2020 12:00:00 AM EST [facility] ([facility]) Extended Individual Psychotherapy - 45 min Attender: Brian [facility] 09/17/2020 04:00:00 AM EST - 09/17/2020 04:00:00 AM EST [facility] ([facility]) Outpatient Attender: Glynn Mars MD Physical Therap y 09/11/2020 12:00:00 PM EST MED[facility] ([facility]) Outpatient Attender: HERMILO DEE NP [facility] 09/10/2020 02:00:00 AM EST - 09/10/2020 02:00:00 AM EST [facility] ([facility]) Attender: HERMILO DEE NP 09/10/2020 12:00:00 AM EST [facility] ([facility]) Outpatient Attender: RONY STANTON Main Office 09/01/2020 0 1:00:00 PM EST MEDENT ([facility]) Office Visit Attender: NENA VILLALTA MD Main Office 08/24/2020 12: 57:00 PM EST MEDENT ([facility]) Outpatient Attender: Anastasiia STANTON Main office - [facility] 07/28/2020 01:00:00 PM EST [facility] ([facility]) Unknown [address] [facility] [place] [address] 07/28/2020 12:00:00 AM EST [facility] Unknown [address] [facility] [place] [address] 07/24/2020 12:00:00 AM EST eCW1 ([facility]) Unknown [address] [facility] [place] [address] 07/24/2020 12:00:00 AM EST eCW1 ([facility]) Attender: Arlene Smith 07/23/2020 12:00:00 AM EST [facility] ([facility]) [id number]"Psychotherapy [facility]/22/2020 03:00:00 AM EST - 07/22/2020 03:00:00 AM EST [facility] ([facility]) Outpatient Attender: Samina Godinez BUILDING ECONOMIST Mami/Eleonora/Charlie/Reindl 07/21/2020 12:00:00 PM EST MEDENT ([facility]) Outpatient Attender: HERMILO DEE NP [facility] 07/20/2020 03:00:00 AM EST - 07/20/2020 03:00:00 AM EST [facility] ([facility]) Attender: HERMILO DEE NP 07/20/2020 12:00:00 AM EST [facility] ([facility]) Office Visit Attender: NENA VILLALTA MD Main Office 07/15/2020 09: 25:00 AM EST MED[facility] ([facility]) Outpatient Attender: Glynn Mars MD Physical Therap y 07/14/2020 09:00:00 AM EST [facility] ([facility] Office Visit Attender: PRANEETH MERRITT [facility] Office 06/22 07:45:00 AM EST [facility] ([facility] [place] [address] [facility] [place] [address] 06/30/2020 12:00:00 AM EST eCW1 ([facility]) Unknown [address] [facility] [place] [address] 06/18/2020 12:00:00 AM EDT eCW1 ([facility]) OFFICE OUTPATIENT VISIT 15 MINUTES Attender: Lazara STANTON Physical Therapy 06/10/2020 02:45:00 PM EDT MEDENT ([facility]) Outpatient Attender: LEMUEL EPPERSON MD Main office - [facility] 06/09/2020 12:30:00 PM EDT MED[facility] ([facility]) Office Visit Attender: NENA VILLALTA MD Main Office 06/09/2020 08: 12:00 AM EDT MED[facility] ([facility]) Outpatient Attender: PRANEETH MERRITT [facility] Office 05/21 10:30:00 AM EDT MED[facility] ([facility] [id number]"Psychotherapy Attender: [facility]lene [facility] 05/27/2020 03:30:00 AM EDT - 05/27/2020 03:30:00 AM EDT [facility] ([facility]) Attender: Arlene Luis 05/27/2020 12:00:00 AM EDT [facility] ([facility]) Outpatient Attender: HERMIOL DEE NP [facility] 05/25/2020 10:00:00 AM EDT - 05/25/2020 10:00:00 AM EDT [facility] ([facility]) Attender: HERMILO DEE NP 05/25/2020 12:00:00 AM EDT [facility] ([facility]) Unknown [address] [facility] [place] [address] 05/25/2020 12:00:00 AM EDT eCW1 ([facility]) Office Visit Attender: NENA VILLALTA MD Main Office 05/20/2020 08: 14:00 AM EDT [facility] ([facility]) Unknown [address] [facility] [place] [address] 05/20/2020 12:00:00 AM EDT eCW1 ([facility]) Outpatient Attender: Glynn Mars MD Physical Therap y 05/13/2020 09:00:00 AM EDT MEDENT ([facility] ) Functional Status Immunizations Vaccine Date Status Description Data Source(s) COVID-19, mRNA, LNP-S, PF, 100 mcg/0.5 mL dose 01/01/2021 11 :36:50 AM EDT completed 10.5 mL JEFE ([facility]) COVID-19 (Moderna), mRNA, LNP-S, PF, 100 mcg/0.5 mL do se 01/01/2021 12:00:00 AM EDT completed [facility] COVID-19 VACCINE Moderna 01/01/2021 12:00:00 AM EDT [facility] Complete: YESThis Data wa s Submitted to [facility] Via [employer]. COVID-19 dose #2 given elsewhere Unspecified 12/30/2020 03:0 7:00 PM EDT completed eCW1 ([facility]) COVID-19 dose #2 given elsewhere Unspecified 12/30/2020 03:0 7:00 PM EDT completed eCW1 ([facility]) COVID-19 dose #2 given elsewhere Unspecified 12/30/2020 03:0 7:00 PM EDT completed eCW1 ([facility]) COVID-19 dose #2 given elsewhere Unspecified 12/30/2020 03:0 7:00 PM EDT completed eCW1 ([facility]) COVID-19 dose #2 given elsewhere Unspecified 12/30/2020 03:0 7:00 PM EDT completed eCW1 ([facility]) COVID-19 dose #2 given elsewhere Unspecified 12/30/2020 03:0 7:00 PM EDT completed eCW1 ([facility]) COVID-19 dose #2 given elsewhere Unspecified 12/30/2020 03:0 7:00 PM EDT completed eCW1 ([facility]) COVID-19, mRNA, LNP-S, PF, 100 mcg/0.5 mL dose 11/30/2020 03 :47:15 PM EDT completed .5 mL JEFE ([facility]) COVID-19, mRNA, LNP-S, PF, 100 mcg/0.5 mL dose 11/30/2020 03 :47:15 PM EDT completed .5 mL JEFE ([facility]) COVID-19 dose #1 given elsewhere Unspecified 11/30/2020 03:0 6:00 PM EDT completed eCW1 ([facility]) COVID-19 dose #1 given elsewhere Unspecified 11/30/2020 03:0 6:00 PM EDT completed eCW1 ([facility]) COVID-19 dose #1 given elsewhere Unspecified 11/30/2020 03:0 6:00 PM EDT completed eCW1 ([facility]) COVID-19 dose #1 given elsewhere Unspecified 11/30/2020 03:0 6:00 PM EDT completed eCW1 ([facility]) COVID-19 dose #1 given elsewhere Unspecified 11/30/2020 03:0 6:00 PM EDT completed eCW1 ([facility]) COVID-19 dose #1 given elsewhere Unspecified 11/30/2020 03:0 6:00 PM EDT completed eCW1 ([facility]) COVID-19 dose #1 given elsewhere Unspecified 11/30/2020 03:0 6:00 PM EDT completed eCW1 ([facility]) COVID-19 (Moderna), mRNA, LNP-S, PF, 100 mcg/0.5 mL do se 11/30/2020 12:00:00 AM EDT completed [facility] COVID-19 VACCINE Moderna 11/30/2020 12:00:00 AM EDT completed [facility] Vaccine Series Complete: NOThis Data was Submitted to [facility] Via [employer]. New in 2011. IIV4 07/21/2020 12:16:00 PM EST [facility], ) New in 2011. IIV4 07/21/2020 12:00:00 AM EST completed [facility] Medications Medication Brand Name Start Date Product Form Dose Route Admi nistrative Instructions Pharmacy Instructions Status Indications Reaction Description Data Source(s) quetiapine 25 MG Oral Tablet [Seroquel] Seroquel 25 MG Seroq uel 25 MG 06/11/2021 12:00:00 AM EDT 1.0 {tablet_at_bedtime} active Seroquel 25 MG eCW1 ([facility]) Alprazolam 0.25 MG Oral Tablet ALPRAZolam 0.25 MG ALPRAZolam 0.25 MG 05/14/2021 12:00:00 AM EDT 1.0 {tablet} active AL PRAZolam 0.25 MG eCW1 ([facility]) Zolpidem tartrate 5 MG Oral Tablet [Ambien] Ambien 05/07/2021 12:00:00 AM EDT 5 mg by mouth completed <td ID="Me dicationRxNorm_1">434212</td><td ID="MedicationMedication_1">Ambien</td><td ID="MedicationRoute_1">by mouth</td><td ID="MedicationRouteConcept_1">B41287</td><td ID="MedicationStartDate_1">05/07/2021</td><td ID="MedicationStopDate_1">06/05/2021</td><td ID="MedicationDosageFrequency_1">at bedtime</td><td ID="MedicationDuration_1">30</td><td ID="MedicationFormulaStrength_1">5 mg</td><td ID="MedicationDosageForm_1">tablet</td><td ID="MedicationDosageFormCode_1"></td><td ID="MedicationDosageDescription_1">as needed</td><td ID="MedicationMedicationId_1">[id number]</td><td ID="MedicationAccount_1">[id number]</td><td ID="MedicationNpid_1">[id number]</td><td ID="MedicationAuthorFirstName_1">Hermilo</td><td ID="MedicationAuthorLastName_1">Luiz</td><td ID="MedicationTaxonomyCode_1">[id number]</td><td ID="MedicationTaxonomyDesc_1">Nurse Practitioner</td><td ID="MedicationPhoneNumber_1">[phone]</td> [facility] ([facility]) Trazodone Hydrochloride 150 MG Oral Tablet trazodone 05/07 12:00:00 AM EDT 150 mg by mouth completed <td ID="Medic ationRxNorm_2">746856</td><td ID="MedicationMedication_2">trazodone</td><td ID="MedicationRoute_2">by mouth</td><td ID="MedicationRouteConcept_2">Q60396</td><td ID="MedicationStartDate_2">05/07/2021</td><td ID="MedicationStopDate_2">07/06/2021</td><td ID="MedicationDosageFrequency_2">at bedtime</td><td ID="MedicationDuration_2">30</td><td ID="MedicationFormulaStrength_2">150 mg</td><td ID="MedicationDosageForm_2">tablet</td><td ID="MedicationDosageFormCode_2"></td><td ID="MedicationDosageDescription_2"></td><td ID="MedicationMedicationId_2">[id number]</td><td ID="MedicationAccount_2">[id number]</td><td ID="MedicationNpid_2">[id number]</td><td ID="MedicationAuthorFirstName_2">Hermilo</td><td ID="MedicationAuthorLastName_2">Luiz</td><td ID="MedicationTaxonomyCode_2">[id number]</td><td ID="MedicationTaxonomyDesc_2">Nurse Practitioner</td><td ID="MedicationPhoneNumber_2">[phone]</td> [facility] ([facility]) 24 HR venlafaxine 225 MG Extended Release Oral Tablet venlaf axine 05/07/2021 12:00:00 AM EDT 225 mg by mouth completed <td ID="MedicationRxNorm_3">438840</td><td ID="MedicationMedication_3">venlafaxine</td><td ID="MedicationRoute_3">by mouth</td><td ID="MedicationRouteConcept_3">D84464</td><td ID="MedicationStartDate_3">05/07/2021</td><td ID="MedicationStopDate_3">07/06/2021</td><td ID="MedicationDosageFrequency_3">every morning</td><td ID="MedicationDuration_3">30</td><td ID="MedicationFormulaStrength_3">225 mg</td><td ID="MedicationDosageForm_3">tablet extended release 24hr</td><td ID="MedicationDosageFormCode_3"></td><td ID="MedicationDosageDescription_3"></td><td ID="MedicationMedicationId_3">[id number]</td><td ID="MedicationAccount_3">[id number]</td><td ID="MedicationNpid_3">[id number]</td><td ID="MedicationAuthorFirstName_3">Hermilo</td><td ID="MedicationAuthorLastName_3">Luiz</td><td ID="MedicationTaxonomyCode_3">[id number]</td><td ID="MedicationTaxonomyDesc_3"> Nurse Practitioner</td><td ID="MedicationPhoneNumber_3">[phone]</td> [facility] ([facility]) gabapentin 100 MG Oral Capsule Gabapentin 04/07/2021 12:00:00 AM EDT active [facility] ([facility] ) Methylprednisolone 4 MG Oral Tablet [Medrol] Medrol 12:00:00 AM EDT completed [facility] ([facility] ) 24 HR venlafaxine 225 MG Extended Release Oral Tablet Venlaf axine HCL ER 03/17/2021 12:00:00 AM EDT ORAL active [facility] ([facility]) Zolpidem tartrate 5 MG Oral Tablet [Ambien] Ambien 03/17/2021 12:00:00 AM EDT ORAL active [facility] ([facility]) Azithromycin (5 day) 250 mg UNK 03/05/2021 12:00:00 AM EDT suspended Azithromycin (5 day) 250 mg eCW1 ([facility]) Azithromycin (5 day) 250 mg UNK 03/05/2021 12:00:00 AM EDT active Azithromycin (5 day) 250 mg eCW1 ([facility]) Azithromycin (5 day) 250 mg UNK 03/05/2021 12:00:00 AM EDT suspended Azithromycin (5 day) 250 mg eCW1 ([facility]) Azithromycin (5 day) 250 mg UNK 03/05/2021 12:00:00 AM EDT suspended Azithromycin (5 day) 250 mg eCW1 ([facility]) Nitroglycerin 0.4 MG Sublingual Tablet Nitroglycerin 12:00:00 AM EDT SUBLINGUAL active MEDEN T ([facility]) Famotidine 10 MG Oral Tablet Famotidine 02/28/2021 12:00:00 AM EDT ORAL active [facility] ([facility]) Ticagrelor 90 MG Oral Tablet [Brilinta] Brilinta 02/09/2021 12:00:0 0 AM EDT ORAL active [facility] ([facility]) Acetaminophen 325 MG Oral Tablet [Tylenol] Tylenol 02/09/2021 12:00:00 AM EDT ORAL active [facility] ([facility]) Lidocaine Lidocaine 01/20/2021 12:00:00 AM EDT com pleted MEDENT ([facility]) 24 HR venlafaxine 225 MG Extended Release Oral Tablet venlaf axine 01/11/2021 12:00:00 AM EDT 225 mg by mouth completed <td ID="MedicationRxNorm_1">518517</td><td ID="MedicationMedication_1">venlafaxine</td><td ID="MedicationRoute_1">by mouth</td><td ID="MedicationRouteConcept_1">X66415</td><td ID="MedicationStartDate_1">01/11/2021</td><td ID="MedicationStopDate_1">03/12/2021</td><td ID="MedicationDosageFrequency_1">every morning</td><td ID="MedicationDuration_1">30</td><td ID="MedicationFormulaStrength_1">225 mg</td><td ID="MedicationDosageForm_1">tablet extended release 24hr</td><td ID="MedicationDosageFormCode_1"></td><td ID="MedicationDosageDescription_1"></td><td ID="MedicationMedicationId_1">[id number]</td><td ID="MedicationAccount_1">[id number]</td><td ID="MedicationNpid_1">[id number]</td><td ID="MedicationAuthorFirstName_1">Hermilo</td><td ID="MedicationAuthorLastName_1">Luiz</td><td ID="MedicationTaxonomyCode_1">[id number]</td><td ID="MedicationTaxonomyDesc_1"> Nurse Practitioner</td><td ID="MedicationPhoneNumber_1">[phone]</td> [facility] ([facility]) Trazodone Hydrochloride 150 MG Oral Tablet trazodone 01/11 12:00:00 AM EDT 150 mg by mouth completed <td ID="Medic ationRxNorm_3">428391</td><td ID="MedicationMedication_3">trazodone</td><td ID="MedicationRoute_3">by mouth</td><td ID="MedicationRouteConcept_3">R74375</td><td ID="MedicationStartDate_3">01/11/2021</td><td ID="MedicationStopDate_3">03/12/2021</td><td ID="MedicationDosageFrequency_3">at bedtime</td><td ID="MedicationDuration_3">30</td><td ID="MedicationFormulaStrength_3">150 mg</td><td ID="MedicationDosageForm_3">tablet</td><td ID="MedicationDosageFormCode_3"></td><td ID="MedicationDosageDescription_3"></td><td ID="MedicationMedicationId_3">[id number]</td><td ID="MedicationAccount_3">[id number]</td><td ID="MedicationNpid_3">[id number]</td><td ID="MedicationAuthorFirstName_3">Hermilo</td><td ID="MedicationAuthorLastName_3">Luiz</td><td ID="MedicationTaxonomyCode_3">[id number]</td><td ID="MedicationTaxonomyDesc_3">Nurse Practitioner</td><td ID="MedicationPhoneNumber_3">[phone]</td> [facility]) quetiapine 25 MG Oral Tablet [Seroquel] Seroquel 01/11/2021 12: 00:00 AM EDT 25 mg by mouth completed <td ID="Me dicationRxNorm_2">953343</td><td ID="MedicationMedication_2">Seroquel</td><td ID="MedicationRoute_2">by mouth</td><td ID="MedicationRouteConcept_2">N80306</td><td ID="MedicationStartDate_2">01/11/2021</td><td ID="MedicationStopDate_2">03/12/2021</td><td ID="MedicationDosageFrequency_2">at bedtime</td><td ID="MedicationDuration_2">30</td><td ID="MedicationFormulaStrength_2">25 mg</td><td ID="MedicationDosageForm_2">tablet</td><td ID="MedicationDosageFormCode_2"></td><td ID="MedicationDosageDescription_2"></td><td ID="MedicationMedicationId_2">[id number]</td><td ID="MedicationAccount_2">[id number]</td><td ID="MedicationNpid_2">[id number]</td><td ID="MedicationAuthorFirstName_2">Hermilo</td><td ID="MedicationAuthorLastName_2">Luiz</td><td ID="MedicationTaxonomyCode_2">[id number]</td><td ID="MedicationTaxonomyDesc_2">Nurse Practitioner</td><td ID="MedicationPhoneNumber_2">[phone]</td> [facility] ([facility]) Losartan Potassium 50 MG Oral Tablet Losartan Potassium 12:00:00 AM EDT active [facility] ([facility]) quetiapine 50 MG Oral Tablet [Seroquel] Seroquel 11/11/2020 12: 00:00 AM EDT 50 mg by mouth completed <td ID="Me dicationRxNorm_3">133738</td><td ID="MedicationMedication_3">Seroquel</td><td ID="MedicationRoute_3">by mouth</td><td ID="MedicationRouteConcept_3">M98826</td><td ID="MedicationStartDate_3">11/11/2020</td><td ID="MedicationStopDate_3">01/10/2021</td><td ID="MedicationDosageFrequency_3">at bedtime</td><td ID="MedicationDuration_3">30</td><td ID="MedicationFormulaStrength_3">50 mg</td><td ID="MedicationDosageForm_3">tablet</td><td ID="MedicationDosageFormCode_3"></td><td ID="MedicationDosageDescription_3"></td><td ID="MedicationMedicationId_3">[id number]</td><td ID="MedicationAccount_3">[id number]</td><td ID="MedicationNpid_3">[id number]</td><td ID="MedicationAuthorFirstName_3">Hermilo</td><td ID="MedicationAuthorLastName_3">Luiz</td><td ID="MedicationTaxonomyCode_3">[id number]</td><td ID="MedicationTaxonomyDesc_3">Nurse Practitioner</td><td ID="MedicationPhoneNumber_3">[phone]</td> [facility] ([facility]) quetiapine 25 MG Oral Tablet [Seroquel] Seroquel 10/14/2020 12: 00:00 AM EST 25 mg by mouth completed <td ID="Me dicationRxNorm_1">404256</td><td ID="MedicationMedication_1">Seroquel</td><td ID="MedicationRoute_1">by mouth</td><td ID="MedicationRouteConcept_1">K81385</td><td ID="MedicationStartDate_1">10/14/2020</td><td ID="MedicationStopDate_1">11/11/2020</td><td ID="MedicationDosageFrequency_1">at bedtime</td><td ID="MedicationDuration_1">30</td><td ID="MedicationFormulaStrength_1">25 mg</td><td ID="MedicationDosageForm_1">tablet</td><td ID="MedicationDosageFormCode_1"></td><td ID="MedicationDosageDescription_1"></td><td ID="MedicationMedicationId_1">[id number]</td><td ID="MedicationAccount_1">[id number]</td><td ID="MedicationNpid_1">[id number]</td><td ID="MedicationAuthorFirstName_1">Hermilo</td><td ID="MedicationAuthorLastName_1">Luiz</td><td ID="MedicationTaxonomyCode_1">[id number]</td><td ID="MedicationTaxonomyDesc_1">Nurse Practitioner</td><td ID="MedicationPhoneNumber_1">[phone]</td> [facility] ([facility]) Metronidazole 500 MG Oral Tablet metroNIDAZOLE 500 MG metroN IDAZOLE 500 MG 10/01/2020 12:00:00 AM EST suspended metroNIDAZOLE 500 MG eCW1 ([facility]) Spironolactone 25 MG Oral Tablet Spironolactone 25 MG 2020 12:00:00 AM EST 1.0 {tablet} active Spironolact one 25 MG eCW1 ([facility]) Chlorthalidone 25 MG Oral Tablet Chlorthalidone 25 MG 2020 12:00:00 AM EST 1.0 {tablet_in_the_morning_with_food} active Chlorthalidone 25 MG eCW1 ([facility]) Spironolactone 25 MG Oral Tablet Spironolactone 25 MG 2020 12:00:00 AM EST 1.0 {tablet} active Spironolact one 25 MG eCW1 ([facility]) Metronidazole 500 MG Oral Tablet metroNIDAZOLE 500 MG metroN IDAZOLE 500 MG 10/01/2020 12:00:00 AM EST active metroNIDAZOLE 500 MG eCW1 ([facility]) Metronidazole 500 MG Oral Tablet metroNIDAZOLE 500 MG metroN IDAZOLE 500 MG 10/01/2020 12:00:00 AM EST suspended metroNIDAZOLE 500 MG eCW1 ([facility]) Metronidazole 500 MG Oral Tablet Metronidazole 500 MG 2020 12:00:00 AM EST active Metronidazole 500 MG eCW1 ([facility]) Chlorthalidone 25 MG Oral Tablet Chlorthalidone 25 MG 2020 12:00:00 AM EST 1.0 {tablet_in_the_morning_with_food} howell spended Chlorthalidone 25 MG eCW1 ([facility]) Spironolactone 25 MG Oral Tablet Spironolactone 25 MG 2020 12:00:00 AM EST 1.0 {tablet} suspended Spironol actone 25 MG eCW1 ([facility]) Chlorthalidone 25 MG Oral Tablet Chlorthalidone 25 MG 2020 12:00:00 AM EST 1.0 {tablet_in_the_morning_with_food} active Chlorthalidone 25 MG eCW1 ([facility]) Chlorthalidone 25 MG Oral Tablet Chlorthalidone 25 MG 2020 12:00:00 AM EST 1.0 {tablet_in_the_morning_with_food} active Chlorthalidone 25 MG eCW1 ([facility]) Spironolactone 25 MG Oral Tablet Spironolactone 25 MG 2020 12:00:00 AM EST 1.0 {tablet} suspended Spironol actone 25 MG eCW1 ([facility]) Chlorthalidone 25 MG Oral Tablet Chlorthalidone 25 MG 2020 12:00:00 AM EST 1.0 {tablet_in_the_morning_with_food} active Chlorthalidone 25 MG eCW1 ([facility]) Chlorthalidone 25 MG Oral Tablet Chlorthalidone 25 MG 2020 12:00:00 AM EST 1.0 {tablet_in_the_morning_with_food} active Chlorthalidone 25 MG eCW1 ([facility]) Metronidazole 500 MG Oral Tablet metroNIDAZOLE 500 MG metroN IDAZOLE 500 MG 10/01/2020 12:00:00 AM EST active metroNIDAZOLE 500 MG eCW1 ([facility]) Spironolactone 25 MG Oral Tablet Spironolactone 25 MG 2020 12:00:00 AM EST 1.0 {tablet} suspended Spironol actone 25 MG eCW1 ([facility]) Chlorthalidone 25 MG Oral Tablet Chlorthalidone 25 MG 2020 12:00:00 AM EST 1.0 {tablet_in_the_morning_with_food} howell spended Chlorthalidone 25 MG eCW1 ([facility]) Spironolactone 25 MG Oral Tablet Spironolactone 25 MG 2020 12:00:00 AM EST 1.0 {tablet} active Spironolact one 25 MG eCW1 ([facility]) Metronidazole 500 MG Oral Tablet Metronidazole 500 MG 2020 12:00:00 AM EST active Metronidazole 500 MG eCW1 ([facility]) Metronidazole 500 MG Oral Tablet Metronidazole 500 MG 2020 12:00:00 AM EST active Metronidazole 500 MG eCW1 ([facility]) Metronidazole 500 MG Oral Tablet metroNIDAZOLE 500 MG metroN IDAZOLE 500 MG 10/01/2020 12:00:00 AM EST active metroNIDAZOLE 500 MG eCW1 ([facility]) Chlorthalidone 25 MG Oral Tablet Chlorthalidone 25 MG 2020 12:00:00 AM EST 1.0 {tablet_in_the_morning_with_food} active Chlorthalidone 25 MG eCW1 ([facility]) Chlorthalidone 25 MG Oral Tablet Chlorthalidone 25 MG 2020 12:00:00 AM EST 1.0 {tablet_in_the_morning_with_food} howell spended Chlorthalidone 25 MG eCW1 ([facility]) Metronidazole 500 MG Oral Tablet metroNIDAZOLE 500 MG metroN IDAZOLE 500 MG 10/01/2020 12:00:00 AM EST suspended metroNIDAZOLE 500 MG eCW1 ([facility]) Metronidazole 500 MG Oral Tablet metroNIDAZOLE 500 MG metroN IDAZOLE 500 MG 10/01/2020 12:00:00 AM EST active metroNIDAZOLE 500 MG eCW1 ([facility]) Spironolactone 25 MG Oral Tablet Spironolactone 25 MG 2020 12:00:00 AM EST 1.0 {tablet} active Spironolact one 25 MG eCW1 ([facility]) Metronidazole 500 MG Oral Tablet Metronidazole 500 MG 2020 12:00:00 AM EST active Metronidazole 500 MG eCW1 ([facility]) Chlorthalidone 25 MG Oral Tablet Chlorthalidone 25 MG 2020 12:00:00 AM EST 1.0 {tablet_in_the_morning_with_food} howell spended Chlorthalidone 25 MG eCW1 ([facility]) Chlorthalidone 25 MG Oral Tablet Chlorthalidone 25 MG 2020 12:00:00 AM EST 1.0 {tablet_in_the_morning_with_food} howell spended Chlorthalidone 25 MG eCW1 ([facility]) Spironolactone 25 MG Oral Tablet Spironolactone 25 MG 2020 12:00:00 AM EST 1.0 {tablet} active Spironolact one 25 MG eCW1 ([facility]) Spironolactone 25 MG Oral Tablet Spironolactone 25 MG 2020 12:00:00 AM EST 1.0 {tablet} suspended Spironol actone 25 MG eCW1 ([facility]) Chlorthalidone 25 MG Oral Tablet Chlorthalidone 25 MG 2020 12:00:00 AM EST 1.0 {tablet_in_the_morning_with_food} active Chlorthalidone 25 MG eCW1 ([facility]) Spironolactone 25 MG Oral Tablet Spironolactone 25 MG 2020 12:00:00 AM EST 1.0 {tablet} active Spironolact one 25 MG eCW1 ([facility]) Spironolactone 25 MG Oral Tablet Spironolactone 25 MG 2020 12:00:00 AM EST 1.0 {tablet} suspended Spironol actone 25 MG eCW1 ([facility]) Metronidazole 500 MG Oral Tablet metroNIDAZOLE 500 MG metroN IDAZOLE 500 MG 10/01/2020 12:00:00 AM EST active metroNIDAZOLE 500 MG eCW1 ([facility]) Spironolactone 25 MG Oral Tablet Spironolactone 25 MG 2020 12:00:00 AM EST 1.0 {tablet} active Spironolact one 25 MG eCW1 ([facility]) Spironolactone 25 MG Oral Tablet Spironolactone 09/28/2020 12:00:00 A M EST ORAL completed [facility] ([facility] Chlorthalidone 25 MG Oral Tablet Chlorthalidone 09/28/2020 12:00:00 A M EST ORAL completed [facility] ([facility] Chantix Starting Month William Chantix Starting Month William 2020 12:00:00 AM EST active [facility] ([facility] linaclotide 0.145 MG Oral Capsule [Linzess] Linzess 08/21 12:00:00 AM EST ORAL active [facility] ( [facility]) Levetiracetam 250 MG Oral Tablet Levetiracetam 08/31/2020 12:00:00 AM EST ORAL active [facility] ([facility] Trazodone Hydrochloride 150 MG Oral Tablet Trazodone HCL 08/31/2020 12:00:00 AM EST ORAL active [facility] ([facility] Trazodone Hydrochloride 100 MG Oral Tablet Trazodone HCL 08/31/2020 12:00:00 AM EST ORAL active [facility] ([facility] Shower-William - Shower-William - 07/24/2020 12:00:00 AM EST active Shower-William - eCW1 ([facility]) Shower-William - Shower-William - 07/24/2020 12:00:00 AM EST suspended Shower-William - eCW1 ([facility]) Shower-William - Shower-William - 07/24/2020 12:00:00 AM EST suspended Shower-William - eCW1 ([facility]) Shower-William - Shower-William - 07/24/2020 12:00:00 AM EST active Shower-William - eCW1 ([facility]) Shower-William - Shower-William - 07/24/2020 12:00:00 AM EST suspended Shower-William - eCW1 ([facility]) Shower-William - Shower-William - 07/24/2020 12:00:00 AM EST suspended Shower-William - eCW1 ([facility]) Shower-William - Shower-William - 07/24/2020 12:00:00 AM EST suspended Shower-William - eCW1 ([facility]) Shower-William - Shower-William - 07/24/2020 12:00:00 AM EST suspended Shower-William - eCW1 ([facility]) Shower-William - Shower-William - 07/24/2020 12:00:00 AM EST active Shower-William - eCW1 ([facility]) Shower-William - Shower-William - 07/24/2020 12:00:00 AM EST active Shower-William - eCW1 ([facility]) Shower-William - Shower-William - 07/24/2020 12:00:00 AM EST suspended Shower-William - eCW1 ([facility]) Shower-William - Shower-William - 07/24/2020 12:00:00 AM EST suspended Shower-William - eCW1 ([facility]) Shower-William - Shower-William - 07/24/2020 12:00:00 AM EST suspended Shower-William - eCW1 ([facility]) Shower-William - Shower-William - 07/24/2020 12:00:00 AM EST suspended Shower-William - eCW1 ([facility]) Shower-William - Shower-William - 07/24/2020 12:00:00 AM EST suspended Shower-William - eCW1 ([facility]) Shower-William - Shower-William - 07/24/2020 12:00:00 AM EST suspended Shower-William - eCW1 ([facility]) pantoprazole 40 MG Delayed Release Oral Tablet Pantoprazole Sodium 06/22/2020 12:00:00 AM EST active M EDENT ([facility], ) Linzess Linzess 06/22/2020 12:00:00 AM EST ORAL active MED[facility] ([facility], ) Alprazolam 0.5 MG Oral Tablet Alprazolam 06/19/2020 12:00:00 AM EDT ORAL active MED[facility] ([facility], ) Hydrocortisone 10 MG/ML / Neomycin 3.5 M G/ML / Polymyxin B 26746 UNT/ML Otic Solution Eifwucjt-Mizkvortf-XQ 06/19/2020 12:00:00 AM EDT active [facility] ([facility] Levetiracetam 250 MG Oral Tablet [Keppra] Keppra 06/16/2020 12:00 :00 AM EDT ORAL active MED[facility] ([facility], ) Mirtazapine 7.5 MG Oral Tablet mirtazapine 05/25/2020 12:00:00 AM EDT 7.5 mg by mouth completed <td ID="Medica tionRxNorm_1">[id number]</td><td ID="MedicationMedication_1">mirtazapine</td><td ID="MedicationRoute_1">by mouth</td><td ID="MedicationRouteConcept_1">U15873</td><td ID="MedicationStartDate_1">05/25/2020</td><td ID="MedicationStopDate_1">06/24/2020</td><td ID="MedicationDosageFrequency_1">at bedtime</td><td ID="MedicationDuration_1">30</td><td ID="MedicationFormulaStrength_1">7.5 mg</td><td ID="MedicationDosageForm_1">tablet</td><td ID="MedicationDosageFormCode_1"></td><td ID="MedicationDosageDescription_1"></td><td ID="MedicationMedicationId_1">[id number]</td><td ID="MedicationAccount_1">[id number]</td><td ID="MedicationNpid_1">[id number]</td><td ID="MedicationAuthorFirstName_1">Hermilo</td><td ID="MedicationAuthorLastName_1">Luiz</td><td ID="MedicationTaxonomyCode_1">[id number]</td><td ID="MedicationTaxonomyDesc_1">Nurse Practitioner</td><td ID="MedicationPhoneNumber_1">[phone]</td> [facility] ([facility]) Trazodone Hydrochloride 100 MG Oral Tablet trazodone 04/23 12:00:00 AM EDT 100 mg completed <td ID="Medica tionRxNorm_2">674707</td><td ID="MedicationMedication_2">trazodone</td><td ID="MedicationRoute_2"></td><td ID="MedicationRouteConcept_2"></td><td ID="MedicationStartDate_2">04/23/2020</td><td ID="MedicationStopDate_2">07/24/2020</td><td ID="MedicationDosageFrequency_2"></td><td ID="MedicationDuration_2">30</td><td ID="MedicationFormulaStrength_2">100 mg</td><td ID="MedicationDosageForm_2">tablet</td><td ID="MedicationDosageFormCode_2"></td><td ID="MedicationDosageDescription_2"></td><td ID="MedicationMedicationId_2">[id number]</td><td ID="MedicationAccount_2">[id number]</td><td ID="MedicationNpid_2">[id number]</td><td ID="MedicationAuthorFirstName_2">Hermilo</td><td ID="MedicationAuthorLastName_2">Luiz</td><td ID="MedicationTaxonomyCode_2">[id number]</td><td ID="MedicationTaxonomyDesc_2">Nurse Practitioner</td><td ID="MedicationPhoneNumber_2">[phone]</td> [facility]) 24 HR venlafaxine 225 MG Extended Release Oral Tablet venlaf axine 04/23/2020 12:00:00 AM EDT 225 mg by mouth completed <td ID="MedicationRxNorm_4">[id number]</td><td ID="MedicationMedication_4">venlafaxine</td><td ID="MedicationRoute_4">by mouth</td><td ID="MedicationRouteConcept_4">B37943</td><td ID="MedicationStartDate_4">04/23/2020</td><td ID="MedicationStopDate_4">01/10/2021</td><td ID="MedicationDosageFrequency_4">every morning</td><td ID="MedicationDuration_4">30</td><td ID="MedicationFormulaStrength_4">225 mg</td><td ID="MedicationDosageForm_4">tablet extended release 24hr</td><td ID="MedicationDosageFormCode_4"></td><td ID="MedicationDosageDescription_4"></td><td ID="MedicationMedicationId_4">[id number]</td><td ID="MedicationAccount_4">[id number]</td><td ID="MedicationNpid_4">[id number]</td><td ID="MedicationAuthorFirstName_4">Hermilo</td><td ID="MedicationAuthorLastName_4">Luiz</td><td ID="MedicationTaxonomyCode_4">[id number]</td><td ID="MedicationTaxonomyDesc_4"> Nurse Practitioner</td><td ID="MedicationPhoneNumber_4">[phone]</td> [facility] ([facility]) Trazodone Hydrochloride 100 MG Oral Tablet trazodone 04/23 12:00:00 AM EDT 100 mg completed <td ID="Medica tionRxNorm_1">624878</td><td ID="MedicationMedication_1">trazodone</td><td ID="MedicationRoute_1"></td><td ID="MedicationRouteConcept_1"></td><td ID="MedicationStartDate_1">04/23/2020</td><td ID="MedicationStopDate_1">07/20/2020</td><td ID="MedicationDosageFrequency_1"></td><td ID="MedicationDuration_1">30</td><td ID="MedicationFormulaStrength_1">100 mg</td><td ID="MedicationDosageForm_1">tablet</td><td ID="MedicationDosageFormCode_1"></td><td ID="MedicationDosageDescription_1"></td><td ID="MedicationMedicationId_1">[id number]</td><td ID="MedicationAccount_1">[id number]</td><td ID="MedicationNpid_1">[id number]</td><td ID="MedicationAuthorFirstName_1">Hermilo</td><td ID="MedicationAuthorLastName_1">Luiz</td><td ID="MedicationTaxonomyCode_1">[id number]</td><td ID="MedicationTaxonomyDesc_1">Nurse Practitioner</td><td ID="MedicationPhoneNumber_1">[phone]</td> [facility]) 24 HR venlafaxine 225 MG Extended Release Oral Tablet venlaf axine 04/23/2020 12:00:00 AM EDT 225 mg by mouth completed <td ID="MedicationRxNorm_5">[id number]</td><td ID="MedicationMedication_5">venlafaxine</td><td ID="MedicationRoute_5">by mouth</td><td ID="MedicationRouteConcept_5">B52760</td><td ID="MedicationStartDate_5">04/23/2020</td><td ID="MedicationStopDate_5">06/22/2020</td><td ID="MedicationDosageFrequency_5">every morning</td><td ID="MedicationDuration_5">30</td><td ID="MedicationFormulaStrength_5">225 mg</td><td ID="MedicationDosageForm_5">tablet extended release 24hr</td><td ID="MedicationDosageFormCode_5"></td><td ID="MedicationDosageDescription_5"></td><td ID="MedicationMedicationId_5">[id number]</td><td ID="MedicationAccount_5">[id number]</td><td ID="MedicationNpid_5">[id number]</td><td ID="MedicationAuthorFirstName_5">Hermilo</td><td ID="MedicationAuthorLastName_5">Luiz</td><td ID="MedicationTaxonomyCode_5">[id number]</td><td ID="MedicationTaxonomyDesc_5"> Nurse Practitioner</td><td ID="MedicationPhoneNumber_5">[phone]</td> [facility] ([facility]) Trazodone Hydrochloride 100 MG Oral Tablet trazodone 04/23 12:00:00 AM EDT 100 mg completed <td ID="Medica tionRxNorm_4">529202</td><td ID="MedicationMedication_4">trazodone</td><td ID="MedicationRoute_4"></td><td ID="MedicationRouteConcept_4"></td><td ID="MedicationStartDate_4">04/23/2020</td><td ID="MedicationStopDate_4">06/22/2020</td><td ID="MedicationDosageFrequency_4"></td><td ID="MedicationDuration_4">30</td><td ID="MedicationFormulaStrength_4">100 mg</td><td ID="MedicationDosageForm_4">tablet</td><td ID="MedicationDosageFormCode_4"></td><td ID="MedicationDosageDescription_4"></td><td ID="MedicationMedicationId_4">[id number]</td><td ID="MedicationAccount_4">[id number]</td><td ID="MedicationNpid_4">[id number]</td><td ID="MedicationAuthorFirstName_4">Hermilo</td><td ID="MedicationAuthorLastName_4">Luiz</td><td ID="MedicationTaxonomyCode_4">[id number]</td><td ID="MedicationTaxonomyDesc_4">Nurse Practitioner</td><td ID="MedicationPhoneNumber_4">[phone]</td> [facility] ([facility]) 24 HR venlafaxine 225 MG Extended Release Oral Tablet venlaf axine 04/23/2020 12:00:00 AM EDT 225 mg by mouth completed <td ID="MedicationRxNorm_2">330284</td><td ID="MedicationMedication_2">venlafaxine</td><td ID="MedicationRoute_2">by mouth</td><td ID="MedicationRouteConcept_2">D84695</td><td ID="MedicationStartDate_2">04/23/2020</td><td ID="MedicationStopDate_2">09/18/2020</td><td ID="MedicationDosageFrequency_2">every morning</td><td ID="MedicationDuration_2">30</td><td ID="MedicationFormulaStrength_2">225 mg</td><td ID="MedicationDosageForm_2">tablet extended release 24hr</td><td ID="MedicationDosageFormCode_2"></td><td ID="MedicationDosageDescription_2"></td><td ID="MedicationMedicationId_2">51387</td><td ID="MedicationAccount_2">[id number]</td><td ID="MedicationNpid_2">[id number]</td><td ID="MedicationAuthorFirstName_2">Hermilo</td><td ID="MedicationAuthorLastName_2">Luiz</td><td ID="MedicationTaxonomyCode_2">[id number]</td><td ID="MedicationTaxonomyDesc_2"> Nurse Practitioner</td><td ID="MedicationPhoneNumber_2">[phone]</td> [facility] ([facility]) Chantix Starting Month William Chantix Starting Month William 2019 12:00:00 AM EDT ORAL completed [facility] ([facility]) Famotidine 20 MG Oral Tablet Famotidine 03/02/2020 12:00:00 AM EDT ORAL completed [facility] ([facility] Insurance Providers Payer name Policy type / Coverage type Policy ID Covered democrat ID Covered democrat's relationship to rolon Policy Rolon Plan Information Medicaid Dental S [id number] S [id number] MEDICAID [id number] SP [id number] [facility] Community Plan Commercial [id number] Self [id number] D Managed Care [facility] P [id number] S [id number] [facility] MCDHMO [id number] SP [id number] [facility] MEDICAID [id number] Laura [id number] [facility] MCDHMO [id number] SP [id number] MEDICARE [id number] SP [id number] [place] [id number] SP [id number] SELF PAY ONLY [id number] SP [id number] MEDICAID M [id number] S [id number] MEDICARE C [id number] S [id number] [facility] O [id number] S [id number] MEDICAID [id number] SP [id number] [facility] MCDHMO [id number] SP [id number] [facility] MCDHMO [id number] SP [id number] [facility] Community Plan Commercial [id number] Self [id number] [facility]-Medicaid [id number] [facility]-Medicaid [id number] ANSI-Medicaid [id number] ANSI-Medicaid [id number] Medicaid Medicaid [id number] S elf [id number] [facility] [id number] Self [id number] [place] B [id number] Self [id number] ANSI-Medicaid [id number] ANSI-Medicaid [id number] Medicaid Medicaid [id number] S elf [id number] ANSI-Medicaid [id number] ANSI-Medicaid [id number] [facility] XIX -RECURRING [id number] 18 [id number] ANSI-Medicaid [id number] [facility] [id number] [facility] Commercial [id number] 7.99.991.054911.0 Self [id number] [facility] Commercial [id number] 2...533879.3.22 7.99.991.596260.0 Self [id number] [facility] Commercial [id number]..[id number] 7.99.991.308590.0 Self [id number] ANSI-Medicaid [id number] ANSI-Medicaid [id number] ANSI-Medicaid [id number] ANSI-Medicaid [id number] [facility] Commercial [id number] 7.99.991.331141.0 Self [id number] ANSI-Medicaid [id number] ANSI-Medicaid [id number] Formerly [facility] Plan Commercial [id number] 7.99.991.072973.0 Self [id number] ANSI-Medicaid [id number] ANSI-Medicaid [id number] ANSI-Medicaid [id number] ANSI-Medicaid [id number] ANSI-Medicaid [id number] ANSI-Medicaid [id number] ANSI-Medicaid [id number] ANSI-Medicaid [id number] ANSI-Medicaid [id number] ANSI-Medicaid [id number] [facility] Health Maintenance Organization (HMO) [id number] ..[id number] Self [id number] ANSI-Medicaid [id number] ANSI-Medicaid [id number] [facility] Community [facility] Commercial [id number] .101601.3.22 7.99.991.631545.0 Self [id number] ANSI-Medicaid [id number] ANSI-Medicaid [id number] ANSI-Medicaid [id number] ANSI-Medicaid [id number] [facility] Health Maintenance Organization ([facility]) [id number] ..[id number] Self [id number] Medicaid Medicaid [id number] ...[id number] S elf [id number] Medicaid Medicaid [id number] ...[id number] S elf [id number] ANSI-Medicaid [id number] ANSI-Medicaid [id number] Medicaid [place] Medigap Part B [id number] 2..[id number]. 88449.0 Self [id number] [facility] Community Plan Commercial [id number] 2..1.315447.22 7.99.991.166628.0 Self [id number] ANSI-Medicaid [id number] ANSI-Medicaid [id number] ANSI-Medicaid [id number] ANSI-Medicaid [id number] [facility] Community Plan Commercial [id number] 7.99.991.298434.0 Self [id number] ANSI-Medicaid [id number] ANSI-Medicaid [id number] ANSI-Medicaid [id number] ANSI-Medicaid [id number] ANSI-Medicaid [id number] ANSI-Medicaid [id number] ANSI-Medicaid [id number] ANSI-Medicaid [id number] ANSI-Medicaid [id number] ANSI-Medicaid [id number] ANSI-Medicaid [id number] ANSI-Medicaid [id number] Medicaid Medicaid [id number] S elf [id number] Medicaid Medicaid [id number].572.91380.0 S elf [id number] Medicaid Medicaid [id number] S elf [id number] ANSI-Medicaid [id number] ANSI-Medicaid [id number] [facility] MEDICAID PI PI Medicaid Medicaid [id number] S elf [id number] Medicaid Medicaid [id number]9.572.44256.0 S elf [id number] [facility] Health Maintenance Organization (O) [id number] Self [id number] [facility] Health Maintenance Organization (HMO) [id number] Self [id number] [facility] Community Plan Commercial [id number] 7.99.991.592524.0 Self [id number] [facility] Community Plan Commercial [id number] 7.99.991.922789.0 Self [id number] Medicaid Medicaid [id number]9.572.89950.0 S elf [id number] Medicaid Medicaid [id number] 2.16.840.1.349441.3.227.99.572.15546.0 S elf [id number] Medicaid [place] Medigap Part B [id number]9.177. 04287.0 Self [id number] Medicaid Medicaid [id number] S elf [id number] Medicaid Medicaid [id number] 2.16.840.1.062614.3.227.99.572.11080.0 S elf [id number] Medicaid Medicaid [id number] 2.16.840.1.51[id number] S elf [id number] MEDICAID [id number] SP [id number] MEET [id number] SP [id number] Medicaid Medicaid [id number] S elf [id number] [place] [id number] SP [id number] MEDICARE [id number] SP [id number] MEDICAID HEA [id number] S [id number] MEDICARE MCA [id number] S [id number] MEDICARE MCA [id number] S [id number] MEET [id number] SP [id number] Problems, Conditions, and Diagnoses Code Display Name Description Problem Type Effective Dates Data Source(s) G47.00 [id number] Insomnia, unspecified type Problem 12:00:00 AM EDT eCW1 ([facility]) E78.2 Mixed hyperlipidemia Mixed hyperlipidemia Problem 05/21/2021 12:00:00 AM EDT ALPESH ([facility]) G47.33 [id number] NISHA (obstructive sleep apnea) Problem 05/14/2021 12:00:00 AM EDT eCW1 ([facility]) F41.1 93112509 Generalized anxiety disorder Problem 021 12:00:00 AM EDT eCW1 ([facility]) F41.0 796385293 Panic disorder [episodic paroxysmal anxie ty] Problem 05/13/2021 12:00:00 AM EDT eCW1 ([facility]) F17.200 44872630 Nicotine use disorder Problem 05/13/2021 12: 00:00 AM EDT eCW1 ([facility]) F33.2 Major depressive disorder, 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 Major Depressive Disorder, Recurrent episode, Severe Condition 0 05/05/2021 12:00:00 AM EDT [facility] ([facility]) F50.81 Binge eating disorder Binge-Eating Disorder Condition 05/05/2021 12:00:00 AM EDT [facility] ([facility]) 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 ) 318555530 Immunization Immunization Problem 07/21/2020 12:00:00 A M EST [facility] ([facility], ) K58.2 50936930 Irritable bowel syndrome with radha th constipation and diarrhea Problem 07/17/2020 12:00:00 AM EST eCW1 ([facility]) 71492918 Pain in limb Pain in limb Problem 06/17/2020 12:00:00 A M EDT [facility] ([facility] Surgeries/Procedures Procedure Description Date Indications Data Source(s) Magnetic Resonance Angiogtaphy Head W/O Contrast Material(S) 06/23/2021 12:00:00 AM EDT [facility] ([facility] ) Magnetic Resonance Angiogtaphy Head W/O Contrast Material(S) 06/23/2021 12:00:00 AM EDT [facility] ([facility], ) Magnetic Resonance Angiography Neck W/O Contrast Materials 06/23/2021 12:00:00 AM EDT [facility] ([facility], ) Magnetic Resonance Angiography Neck W/O Contrast Materials 06/23/2021 12:00:00 AM EDT [facility] ([facility], ) MRI BRAIN BRAIN STEM W/O CONTRAST MATERIAL 06/23/2021 12:00:00 AM EDT [facility] ([facility], ) MRI BRAIN BRAIN STEM W/O CONTRAST MATERIAL 06/23/2021 12:00:00 AM EDT [facility] ([facility], ) OFFICE OUTPATIENT VISIT 25 MINUTES 06/18/2021 12:00:00 AM EDT [facility] ([facility], ) MYOCRD IMAGE PET PERFUS MULTPL STUDY REST/STRESS 05/28 12:00:00 AM EDT [facility] ([facility]) CV STRS TST XERS&/OR RX CONT ECG I&R ONLY 05/28/2021 1 2:00:00 AM EDT [facility] ([facility]) ECG ROUTINE ECG W/LEAST 12 LDS W/I&R 05/21/2021 12:00: 00 AM EDT [facility] ([facility]) OFFICE OUTPATIENT VISIT 25 MINUTES 05/21/2021 12:00:00 AM EDT [facility] ([facility]) TOBACCO USE CESSATION INTERMEDIATE 3-10 MINUTES 2020 12:00:00 AM EDT [facility] ([facility]) Chronic Care Management Services Ea Addl 20 Min 2020 12:00:00 AM EDT [facility] ([facility]) Chronic Care MGMT 20 Mins Clinical Staff Time Per Calendar M ont 05/20/2021 12:00:00 AM EDT [facility] ([facility]) Extended Individual Psychotherapy - 45 min 05/07/2021 12:00:00 AM EDT - 05/07/2021 12:00:00 AM EDT [facility] ([facility]) PREVENT MED PERMIT TECHNICIAN&/RISK FACTOR REDJ SPX 30 MIN 05/05/2021 12:00:00 AM EDT - 05/05/2021 12:00:00 AM EDT [facility] ([facility]) PREVENT MED PERMIT TECHNICIAN&/RISK FACTOR REDJ SPX 30 MIN 05/05 12:00:00 AM EDT [facility] ([facility] [address]) Extended Individual Psychotherapy - 45 min 12:00:00 AM EDT [facility] ([facility] [address]) Needle electromyography, each extremity, with related paraspinal areas, when performed, done with nerve conduction, amplitude and latency/velocity study; complete, five or more muscles studied, innervated by three or more nerves or four or more spinal levels (list separately in addition to the code for primary procedure). 04/28/2021 12:00:00 AM EDT MEDEN T ([facility] ) [address] Nerve conduction studies 5-6 studies NEW 201204/28/2021 12:00:00 AM EDT [facility] ([facility] ) OFFICE OUTPATIENT NEW 45 MINUTES 04/28/2021 12:00:00 A M EDT [facility] ([facility] ) OFFICE OUTPATIENT VISIT 25 MINUTES 04/07/2021 12:00:00 AM EDT [facility] ([facility] ) Chronic Care MGMT 20 Mins Clinical Staff Time Per Calendar M [facility] 03/22/2021 12:00:00 AM EDT [facility] ([facility]) EEG Complete STD Phys/QHP>36 HR<60 HR W/O Video 2020 12:00:00 AM EDT [facility] ([facility]) EEG Complete STD Phys/QHP>60 HR<84 HR W/O Video 2020 12:00:00 AM EDT [facility] ([facility]) OFFICE OUTPATIENT VISIT 25 MINUTES 03/18/2021 12:00:00 AM EDT [facility] ([facility]) ECG ROUTINE ECG W/LEAST 12 LDS W/I&R 03/01/2021 12:00: 00 AM EDT [facility] ([facility]) OFFICE OUTPATIENT VISIT 25 MINUTES 03/01/2021 12:00:00 AM EDT [facility] ([facility]) TOBACCO USE CESSATION INTERMEDIATE 3-10 MINUTES 2020 12:00:00 AM EDT [facility] ([facility]) OFFICE OUTPATIENT VISIT 15 MINUTES 02/23 12:00:00 AM EDT - 02/23/2021 12:00:00 AM EDT [facility] ([facility]) Psychotherapy ADD ON - 30 Minutes 02/23/2021 12:00:00 AM EDT [facility] ([facility] [address]) OFFICE OUTPATIENT VISIT 15 MINUTES 02/23/2021 12:00:00 AM EDT [facility] ([facility] [address]) MRI BRAIN BRAIN STEM W/O CONTRAST MATERIAL 02/18/2021 12:00:00 AM EDT [facility] ([facility] ) MRI BRAIN BRAIN STEM W/O CONTRAST MATERIAL 02/18/2021 12:00:00 AM EDT [facility] ([facility] ) Chronic Care Management Services Ea Addl 20 Min 2020 12:00:00 AM EDT [facility] ([facility]) Chronic Care MGMT 20 Mins Clinical Staff Time Per Calendar M [facility] 02/11/2021 12:00:00 AM EDT [facility] ([facility]) Electrocardiogram Interpretation & Report Only 021 12:00:00 AM EDT [facility] ([facility]) [facility]/DAY 15 MINUTES 02/11/2021 12:00:00 AM [...] Initial Vessel 02/10/2021 12:00:00 AM EDT [facility] ([facility]) Intravascular Doppler Coronary Flow, Each Addtl Vessel 02/10/2021 12:00:00 AM EDT [facility] ([facility]) INITIAL HOSPITAL CARE/DAY 30 MINUTES 02/10/2021 12:00: 00 AM EDT [facility] ([facility]) OFFICE OUTPATIENT VISIT 25 MINUTES 02/05/2021 12:00:00 AM EDT [facility] ([facility]) OFFICE OUTPATIENT VISIT 25 MINUTES 01/20/2021 12:00:00 AM EDT [facility] ([facility]) OFFICE OUTPATIENT VISIT 15 MINUTES 01/11 12:00:00 AM EDT - 01/11/2021 12:00:00 AM EDT [facility] ([facility]) OFFICE OUTPATIENT VISIT 15 MINUTES 01/11/2021 12:00:00 AM EDT [facility] ([facility]) OFFICE OUTPATIENT VISIT 15 MINUTES 01/04/2021 12:00:00 AM EDT [facility] ([facility]) Chronic Care MGMT 20 Mins Clinical Staff Time Per Calendar [facility] 01/01/2021 12:00:00 AM EDT [facility] ([facility]) Extended Individual Psychotherapy - 45 min 12/17/2020 12:00:00 AM EDT - 12/17/2020 12:00:00 AM EDT [facility] ([facility]) Extended Individual Psychotherapy - 45 min 12:00:00 AM EDT [facility] ([facility]) Chronic Care Management Services Ea Addl 20 Min 2020 12:00:00 AM EDT [facility] ([facility]) Chronic Care MGMT 20 Mins Clinical Staff Time Per Calendar [facility] 11/26/2020 12:00:00 AM EDT [facility] ([facility]) OFFICE OUTPATIENT VISIT 15 MINUTES 11/19/2020 12:00:00 AM EDT [facility] ([facility]) OFFICE OUTPATIENT VISIT 15 MINUTES 11/18/2020 12:00:00 AM EDT [facility] ([facility]) [facility] Lvl 3--Est pt 11/11/2020 12:00:00 AM EDT - 11/11/2020 12:00:00 AM EDT [facility] ([facility]) MHC Telemed E/M Lvl 3--Est pt 11/11/2020 12:00:00 AM E DT [facility] ([facility]) Complex Chronic Care Management SVC 1St 60 Min 021 12:00:00 AM EDT [facility] ([facility]) RADEX SPINE LUMBOSACRAL MINIMUM 4 VIEWS 10/15/2020 12: 00:00 AM EST [facility] ([facility]) OFFICE OUTPATIENT VISIT 25 MINUTES 10/15/2020 12:00:00 AM EST [facility] ([facility]) XTRNL PT ACTIVATED ECG RECORD MONITOR 30 DAYS 10/08/19 12:00:00 AM EST [facility] ([facility]) XTRNL PT ACTIVTD ECG DWNLD 30 DAYS PHYS R&I 10/08/2020 12:00:00 AM EST [facility] ([facility]) ECHO TTHRC R-T 2D W/WOM-MODE COMPL SPEC&COLR DOP 10/07 12:00:00 AM EST [facility] ([facility]) Extended Individual Psychotherapy - 45 min 09/18/2020 12:00:00 AM EST - 09/18/2020 12:00:00 AM EST [facility] ([facility]) Extended Individual Psychotherapy - 45 min 12:00:00 AM EST [facility] ([facility]) X-Ray Hip Unilateral With Pelvis 2-3 Views 09/11/2020 12:00:00 AM EST [facility] ([facility]) RADIOLOGIC EXAMINATION KNEE 3 VIEWS 09/11/2020 12:00:0 0 AM EST [facility] ([facility] OFFICE OUTPATIENT VISIT 25 MINUTES 09/11/2020 12:00:00 AM EST [facility] ([facility]) MHC Telemed E/M Lvl 3--Est pt 09/10/2020 12:00:00 AM EST - 09/10/2020 12:00:00 AM EST [facility] ([facility]) Psychotherapy ADD ON - 30 Minutes 09/10/2020 12:00:00 AM EST [facility] ([facility]) MHC Telemed E/M Lvl 3--Est pt 09/10/2020 12:00:[address] [facility] ([facility]) ECG ROUTINE ECG W/LEAST 12 LDS W/I&R 09/01/2020 12:00: 00 AM EST [facility] ([facility]) OFFICE OUTPATIENT VISIT 25 MINUTES 09/01/2020 12:00:00 AM EST [facility] ([facility]) TOBACCO USE CESSATION INTERMEDIATE 3-10 MINUTES 2020 12:00:00 AM EST [facility] ([facility]) Chronic Care Management Services Ea Addl 20 Min 2020 12:00:00 AM EST [facility] ([facility]) Chronic Care MGMT 20 Mins Clinical Staff Time Per Calendar [facility] 08/24/2020 12:00:00 AM EST [facility] ([facility]) Magnetic Resonance Angiography Neck With Contrast Materials 08/03/2020 12:00:00 AM EST [facility] ([facility] Magnetic Resonance Angiography Neck With Contrast Materials 08/03/2020 12:00:00 AM EST [facility] ([facility]) MRI Brain W/Contrast 08/03/2020 12:00:00 AM EST [facility] ([facility]) MRI Brain W/Contrast 08/03/2020 12:00:00 AM EST [facility] ([facility]) [id number]"Psychotherapy 0 12:00:00 AM EST - 07/23/2020 12:00:00 AM EST [facility] ([facility]) [id number]"Psychotherapy 07/22/2020 12:00:00 AM EST [facility] ([facility]) MHC Telemed E/M Lvl 3--Est pt 07/20/2020 12:00:00 AM EST - 07/20/2020 12:00:00 AM EST [facility] ([facility]) Psychotherapy ADD ON - 30 Minutes 07/20/2020 12:00:00 AM EST [facility] ([facility]) MHC Telemed E/M Lvl 3--Est pt 07/20/2020 12:00:[address] [facility] ([facility]) ELECTROENCEPHALOGRAM W/REC AWAKE&ASLEEP 06/23/2020 12: 00:00 AM EST [facility] ([facility] ) ELECTROENCEPHALOGRAM W/REC AWAKE&ASLEEP 06/23/2020 12: 00:00 AM EST [facility] ([facility] ) Magnetic Resonance Angiogtaphy Head W/O Contrast Material(S) 06/20/2020 12:00:00 AM EDT [facility] ([facility] ) Magnetic Resonance Angiogtaphy Head W/O Contrast Material(S) 06/20/2020 12:00:00 AM EDT [facility] ([facility] ) Magnetic Resonance Angiography Neck W/O Contrast Materials 06/20/2020 12:00:00 AM EDT [facility] ([facility] ) Magnetic Resonance Angiography Neck W/O Contrast Materials 06/20/2020 12:00:00 AM EDT [facility] ([facility] ) MRI BRAIN BRAIN STEM W/O CONTRAST MATERIAL 06/20/2020 12:00:00 AM EDT [facility] ([facility] ) MRI BRAIN BRAIN STEM W/O CONTRAST MATERIAL 06/20/2020 12:00:00 AM EDT [facility] ([facility] ) EXCISION NAIL MATRIX PERMANENT REMOVAL 06/19/2020 12:0 0:00 AM EDT [facility] ([facility] EXCISION NAIL MATRIX PERMANENT REMOVAL 06/19/2020 12:0 0:00 AM EDT [facility] ([facility] TSTG ANS FUNCJ CARDIOVAGAL INNERVAJ PARASYMP 0 12:00:00 AM EDT [facility] ([facility] ) TSTG ANS FUNCJ CARDIOVAGAL INNERVAJ PARASYMP 0 12:00:00 AM EDT [facility] ([facility] ) TESTING AUTONOMIC NERVOUS SYSTEM FUNCTION 06/12/2020 1 2:00:00 AM EDT [facility] ([facility] ) TESTING AUTONOMIC NERVOUS SYSTEM FUNCTION 06/12/2020 1 2:00:00 AM EDT [facility] ([facility] ) [id number]"Psychotherapy 0 12:00:00 AM EDT - 05/27/2020 12:00:00 AM EDT [facility] ([facility]) [id number]"Psychotherapy 05/27/2020 12:00:00 AM EDT [facility] ([facility]) OFFICE OUTPATIENT VISIT 15 MINUTES 05/25 12:00:00 AM EDT - 05/25/2020 12:00:00 AM EDT [facility] ([facility]) Psychotherapy ADD ON - 30 Minutes 05/25/2020 12:00:00 AM EDT [facility] ([facility]) OFFICE OUTPATIENT VISIT 15 MINUTES 05/25/2020 12:00:00 AM EDT [facility] ([facility]) ARTHROCENTESIS ASPIR&/INJECTION MAJOR JT/BURSA 020 12:00:00 AM EDT [facility] ([facility]) MYOCARDIAL SPECT MULTIPLE STUDIES 05/05/2020 12:00:00 AM EDT [facility] ([facility]) CV STRS TST XERS&/OR RX CONT ECG PHYS SI&R 05/05/2020 12:00:00 AM EDT [facility] ([facility]) Results ID Date Data Source [id number] 03/18/2021 02:01:00 PM EDT [facility] ([facility] Name Value Range Interpretation Code Description Data Malina rce(s) Supporting Document(s) Glucose, Fasting 88 mg/dL 70-100 [facility] Blood Urea Nitrogen 9 mg/dL 7-18 [facility] ([facility]) Creatinine For GFR 0.78 mg/dL 0.55-1.30 [facility] ([facility]) Glomerular Filtration Rate Laboratory test result [facility] ([facility]) <content>Units are mL/min/1.73 m2</content>
<content></content>
<content>Chronic Kidney Disease Staging per NKF:</content>
<content></content>
<content>Stage I & II GFR >=60 Normal to Mildly Decreased</content>
<content>Stage III GFR 30-59 Moderately Decreased</content>
<content>Stage IV GFR 15-29 Severely Decreased</content>
<content>Stage V GFR <15 Very Little GFR Left</content>
<content>ESRD GFR <15 on PHLEBOTOMIST ASSOCIATE</content>
<content></content> Potassium Serum 3.9 meq/L 3.5-5.1 [facility] ([facility]) Sodium Level 146 meq/L 136-145 [facility] ([facility]) Anion Gap 1 meq/L 8-16 [facility] Chloride Level 114 meq/L 98-107 [facility] ([facility]) Carbon Dioxide Level 31 meq/L 21-32 [facility] ([facility]) Calcium Level 9.0 mg/dL 8.5-10.1 [facility] ([facility]) ID Date Data Source [id number] 03/18/2021 02:01:00 PM EDT [facility] ([facility]) Name Value Range Interpretation Code Description Data Malina rce(s) Supporting Document(s) Natriuretic peptide.B prohormone N-Terminal [Mass/volu me] in Serum or Plasma 95 pg/mL [facility] ([facility]) ID Date Data Source [id number] 03/18/2021 02:01:00 PM EDT [facility] ([facility]) Name Value Range Interpretation Code Description Data Malina rce(s) Supporting Document(s) Cholesterol Level 143 mg/dL [facility] ([facility]) Triglycerides Level 99 mg/dL [facility] ([facility]) LDL Cholesterol 65 mg/dL [facility] ([facility]) HDL Cholesterol 58 mg/dL [facility] ([facility]) Cholesterol Risk Ratio 2.465 [facility] ([facility]) Non-HDL-C 85 mg/dL [facility] ID Date Data Source [id number] 03/18/2021 02:01:00 PM EDT [facility] ([facility]) Name Value Range Interpretation Code Description [...] 24.0-44.0 [facility] ([facility] [place] % 7.7 % 2.0-8.0 MED[facility] (Cardiology A [...] 1.5-5.0 [facility] [place] [place] # 0.4 10 0.0-0.8 [facility] ([facility] [place] Eos # 0.0 10 0.0-0.5 [facility] ([facility] [place] Baso # 0.0 10 0.0-0.2 [facility] ([facility]) ID Date Data Source [id number] 02/11/2021 01:54:00 PM EDT [facility] ([facility]) Name Value Range Interpretation Code Description Data Malina rce(s) Supporting Document(s) White Blood Count 3.7 4.1-11.0 [facility] ([facility]) Platelets 218 172-450 [facility] ([facility]) Red Blood Count 4.40 4.0-5.40 [facility] ([facility]) Hematocrit 37.5 36.0-47.0 [facility] ([facility]) Hemoglobin 12.3 12.0-16.0 [facility] ([facility]) ID Date Data Source [id number] 02/11/2021 01:54:00 PM EDT [facility] ([facility]) Name Value Range Interpretation Code Description Data Malina rce(s) Supporting Document(s) Alanine aminotransferase [Enzymatic activity/volume] in Serum or Pl asma 23 [facility] ([facility]) Albumin [Mass/volume] in Serum or Plasma 3.1 [facility] ([facility]) Chloride [Moles/volume] in Serum or Plasma 111 [facility] ([facility]) Carbon dioxide, total [Moles/volume] in Serum or Plasma 25 [facility] ([facility]) Calcium [Mass/volume] in Serum or Plasma 9.2 [facility] ([facility]) Alkaline phosphatase [Enzymatic activity/volume] in Serum or Plasma 6 4 [facility] ([facility]) Protein [Mass/volume] in Serum or Plasma 6.1 [facility] ([facility]) Potassium [Moles/volume] in Serum or Plasma 3.9 [facility] ([facility]) Sodium 145 [facility] ([facility]) Aspartate aminotransferase [Enzymatic activity/volume] in Serum or Plasma 25 [facility] ([facility]) Urea nitrogen [Mass/volume] in Serum or Plasma 17.7 [facility] ([facility]) Glucose 89 70-100 [facility] ([facility]) Creatinine For GFR Laboratory test result [facility] ([facility]) ID Date Data Source [id number] 02/11/2021 07:18:51 AM EDT [facility] Name Value Range Interpretation Code Description Data Malina rce(s) Supporting Document(s) SODIUM 145 mmol/L (136-145) [facility] POTASSIUM 3.9 mmol/L (3.6-5.2) [facility] CHLORIDE 111 mmol/L (100-108) H [facility] CO2 25 mmol/L (22-31) [facility] ANION GAP 9 mmol/L (7-16) [facility] UREA NITROGEN 11 mg/dL (7-24) [facility] CREATININE 0.62 mg/dL (0.60-1.00) [facility] BUN/CREAT RATIO 17.7 RATIO (10.0-20.0) [facility] GLUCOSE 83 mg/dL (70-99) [facility] CALCIUM 9.2 mg/dL (8.4-10.2) [facility] TOTAL PROTEIN 6.1 g/dL (6.4-8.2) L [facility] ALBUMIN 3.1 g/dL (3.5-4.6) L [facility] GLOBULIN 3.0 g/dL (2.7-4.3) [facility] ALB/GLOB RATIO 1.0 RATIO [facility] ALKALINE PHOSPHATASE 64 U/L (45-117) [facility] BILIRUBIN,TOTAL 0.4 mg/dL (0.0-1.0) [facility] [facility] PLEASE NOTE:Total bilirubin results may be falselyelevated in patients taking Eltrombopag. AST (SGOT) 25 U/L (11-39) [facility] ALT (SGPT) 23 U/L (12-78) [facility] GFR >60 ml/min/1.73m2 (>59) [facility] GFR ( AMER) >60 ml/min/1.73m2 (>59) [facility] GFR INTERPRETATION [facility] --NORMAL KIDNEY FUNCTION OR MILD DISEASE - GFR >OR= 60CHRONIC KIDNEY DISEASE - GFR 15 - 59RENAL FAILURE - GFR <15 Est. GFR calculation based on the MDRDstudy equation, which assumes a steadystate for creatinine. Est. GFR should notbe used for medication dosing. ID Date Data Source [id number] 02/11/2021 06:35:09 AM EDT [facility] [place] [facility] [place] Name Value Range Interpretation Code Description Data Malina rce(s) Supporting Document(s) WBC 3.7 10*3/uL (4.1-11.0) L [facility] [place] [facility] [place] RBC 4.40 10*6/uL (4.00-5.40) [facility] HGB 12.3 g/dL (12.0-16.0) [facility] HCT 37.5 % (36.0-47.0) [facility] MCV 85.3 fL (80.0-95.0) [facility] MCH 27.9 pg (27.0-32.0) [facility] MCHC 32.7 g/dL (32.0-36.0) [facility] RDW 13.1 % (10.5-14.5) [facility] PLT 218 10*3/uL (150-450) [facility] MPV 7.7 fL (7.1-10.7) [facility] ID Date Data Source [id number] 02/10/2021 02:14:00 PM EDT [facility] ([facility]) Name Value Range Interpretation Code Description Data Malina rce(s) Supporting Document(s) White Blood Count 4.7 4.1-11.0 [facility] ([facility]) Platelets 218 150-450 [facility] ([facility]) Red Blood Count 4.46 4.00-5.40 [facility] ([facility]) Hemoglobin 12.8 12.0-16.0 [facility] ([facility]) Hematocrit 38.5 36.0-47.0 [facility] ([facility]) ID Date Data Source [id number] 02/10/2021 02:14:00 PM EDT [facility] ([facility]) Name Value Range Interpretation Code Description Data Malina rce(s) Supporting Document(s) Calcium [Mass/volume] in Serum or Plasma 9.5 [facility] ([facility]) Carbon dioxide, total [Moles/volume] in Serum or Plasma 25 [facility] ([facility]) Sodium 146 [facility] ([facility]) Chloride [Moles/volume] in Serum or Plasma 109 [facility] ([facility]) Potassium [Moles/volume] in Serum or Plasma 3.7 [facility] ([facility]) Glucose 93 70-100 [facility] Blood Urea Nitrogen 13 5-21 [facility] ([facility]) Glomerular filtration rate/1.73 sq M.pre dicted [Volume Rate/Area] in Serum or Plasma by Creatinine-based formula (MDRD) Laboratory test result [facility] ([facility]) Creatinine 0.69 0.6-1.5 [facility] ([facility]) ID Date Data Source [id number] 02/10/2021 02:14:00 PM EDT [facility] ([facility]) Name Value Range Interpretation Code Description Data Malina rce(s) Supporting Document(s) Triglycerides 154 [facility] ([facility]) Cholesterol 179 120-200 [facility] ([facility]) Cholesterol in LDL [Mass/volume] in Serum or Plasma by calculation 85 [facility] ([facility]) HDL 63 40-60 [facility] ([facility]) Chol/HDL Ratio 2.8 [facility] ([facility]) ID Date Data Source [id number] 02/10/2021 02:14:00 PM EDT [facility] ([facility]) Name Value Range Interpretation Code Description Data Malina rce(s) Supporting Document(s) Troponin 0.29 [facility] ([facility]) ID Date Data Source [id number] 02/10/2021 02:40:07 PM EDT [facility] [facility] Name Value Range Interpretation Code Description Data Malina rce(s) Supporting Document(s) TROPONIN I 0.29 ng/mL (<0.05) H [facility] [facility] [place] Less than 0.05: Myocardial injury unlike lyGreater than or equal to 0.05: Highly suggestive of myocardial injuryCorrelation with rise and/or fall ofserial troponins, clinical symptomsand ECG changes is necessary. ID Date Data Source [id number] 02/14/2021 05:16:00 PM EDT [facility] [place] [id number] [place], [place] [id number] NAME: AZALEA KIMDATE OF : 1970REPORT: CONSULTATIONPATIENT NUMBER: [id number] STATUS: IPMEDICAL RECORD NUMBER: [id number]: 00DATE OF CONSULTATION: 02/10/2021EASON FOR CONSULTATION: NSTEMI.HISTORY OF PRESENT ILLNESS: This is a pleasant 50-year-old woman who has aknown history of coronary artery disease. She apparently also has ahistory of hypertension and hyperlipidemia. She has borderline diabetesmellitus. She received PCI with a total of four stents in [place] in 2016.She had sudden onset of chest discomfort which was described as heavinesssubsternally and toward the left of her breast. This lasted about 30minutes and occurred on Monday. She woke up with more severe symptoms,called her immigration inspector and was told to go to the emergency room forfurther evaluation. EKG did not show any acute findings up in [facility] room, however, her troponin came back mildly [...] am told she has seen her prim [place] immigration inspector and has wornan event monitor that did [...] [place], RICHIEictated: 02/10/2021 10:31DT: 02/10/2021 10:37Job #: [id number]:NOTE: [facility] computer generated reports are notconfirmed or authenticated unless they are signed by the providerElectronically Authenticated by:KINGS OGDEN MD On 02/14/2021 05:16 PM EDT Name Value Range Interpretation Code Description Data Malina rce(s) Supporting Document(s) ID Date Data Source [id number] 02/10/2021 12:04:34 PM EDT [facility] Name Value Range Interpretation Code Description Data Malina rce(s) Supporting Document(s) CHOLESTEROL @ 179 mg/dL (0-200) [facility] TRIGLYCERIDE @ 154 mg/dL (30-200) [facility] HDL CHOLESTEROL @ 63 mg/dL (>40) [facility] [facility] PER NCEP ATP III GUIDELINES:RESULTS LOWE R THAN 40 MG/DL ARE SUGGESTIVEOF INCREASED RISK FOR CORONARY ARTERYDISEASE. RESULTS > OR = TO 60 MG/DL ARECONSIDERED A NEGATIVE RISK FACTOR. CHOL/HDL RATIO 2.8 RATIO [facility] INTERPRETATION OF CHOL-HDL RATIO CHD RISK FEMALE MALEVERY HIGH >8.3 >14.3HIGH 5.6- 8.3 6.7- 14.3AVERAGE 3.7- 5.6 4.0- 6.7BELOW AVERAGE 2.5- 3.7 2.7- 4.0PROTECTED <2.5 <2.7 LDL CHOL (CALC) 85 mg/dL (<130) [facility] [place] [facility] PER NCEP ATP III GUIDELINES: OPTIMAL < 100 NEAR OPTIMAL 100 - 129BORDERLINE HIGH 130 - 159 HIGH 160 - 189 VERY HIGH > 189 ID Date Data Source [id number] 02/10/2021 09:48:36 AM EDT [facility] Name Value Range Interpretation Code Description Data Malina rce(s) Supporting Document(s) TROPONIN I 0.41 ng/mL (<0.05) H [facility] [facility] Less than 0.05: Myocardial injury unlike lyGreater than or equal to 0.05: Highly suggestive of myocardial injuryCorrelation with rise and/or fall ofserial troponins, clinical symptomsand ECG changes is necessary. ID Date Data Source [id number] 02/10/2021 09:44:04 AM EDT [facility] Name Value Range Interpretation Code Description Data Malina rce(s) Supporting Document(s) SODIUM 145 mmol/L (136-145) [facility] POTASSIUM 3.9 mmol/L (3.6-5.2) [facility] CHLORIDE 110 mmol/L (100-108) H [facility] [facility] CO2 29 mmol/L (22-31) [facility] ANION GAP 6 mmol/L (7-16) L [facility] UREA NITROGEN 11 mg/dL (7-24) [facility] CREATININE 0.56 mg/dL (0.60-1.00) L [facility] [facility] BUN/CREAT RATIO 19.6 RATIO (10.0-20.0) [facility] GLUCOSE 87 mg/dL (70-99) [facility] CALCIUM 9.2 mg/dL (8.4-10.2) [facility] GFR >60 ml/min/1.73m2 (>59) [facility] [facility] GFR ([facility]) >60 ml/min/1.73m2 (>59) [facility] [facility] GFR INTERPRETATION [facility] --NORMAL KIDNEY FUNCTION OR MILD DISEASE - GFR >OR= 60CHRONIC KIDNEY DISEASE - GFR 15 - 59RENAL FAILURE - GFR <15 Est. GFR calculation based on the MDRDstudy equation, which assumes a steadystate for creatinine. Est. GFR should notbe used for medication dosing. ID Date Data Source [id number] 02/10/2021 09:20:04 AM EDT [facility] [facility] [place] Name Value Range Interpretation Code Description Data Malina rce(s) Supporting Document(s) APTT 24.7 s (22.0-34.3) [facility] [facility] ID Date Data Source [id number] 02/10/2021 11:56:00 PM EDT [facility] [place], [place] [id number] NAME: AZALEA KIMDAURIAH OF : 1970REPORT: ADMISSION NOTEPATIENT NUMBER: [id number] STATUS: IPMEDICAL RECORD NUMBER: [id number] OF ADMISSION: 02/10/2021OOM: 00[facility] CARE PHYSICIAN: Out of town.CHIEF COMPLAINT: Substernal chest pain radiating to the left upperextremity.HISTORY OF PRESENT ILLNESS: 50-year-old obese female with history of hypertension, hyperlipidemia, CAD status post stents x4, sleep apnea, anxiety, and borderline diabetes who was transferred from [facility] after presenting with substernal chest pain. The [...] morning with severe pains and called the immigration inspector and was referred to the emergency room [...] further evaluation. Case was discussed with the immigration inspector adn will be seen for further evaluation in the morning.PAST MEDICAL HISTORY: 1. Hypertension.2. Hyperlipidemia.3. CAD, status post stents x4 in 2016 in [place].4. Sleep apnea on CPAP at night.5. GERD.6. [...] RICHIE Taylorictated: 02/10/2021 1:54DT: 02/10/2021 2:00Job #: [id number]: [facility] computer generated reports are notconfirmed or authenticated unless they are signed by the providerElectronically Authenticated and Edited by:ANA LUISA KRISHNAN MD On 02/10/2021 11:56 PM EDT Name Value Range Interpretation Code Description Data Malina rce(s) Supporting Document(s) ID Date Data Source [id number] 02/10/2021 01:30:34 AM EDT [facility] [place] [facility] Name Value Range Interpretation Code Description Data Malina rce(s) Supporting Document(s) APTT 41.0 s (22.0-34.3) H [facility] [place] [facility] PERFORMED AT [address] [facility] [id number] ID Date Data Source [id number] 02/10/2021 01:30:34 AM EDT [facility] [place] [facility] Name Value Range Interpretation Code Description Data Malnia rce(s) Supporting Document(s) PT 10.5 s (9.2-11.9) [facility] [place] [facility] PERFORMED AT [address] [facility] [id number] INR 1.00 [facility] [place] [facility] SUGGESTED THERAPEUTIC RANGES USING INR F ORSTABILIZED ANTICOAGULATED PATIENTS:STANDARD DOSE THERAPY INR 2.0-3.0 DVT, PE, PREVENT DVT OR EMBOLISMHIGH DOSE THERAPY INR 2.5-3.5 PREVENT EMBOLISM FROM MECHANICAL HEART VALVE ID Date Data Source [id number] 02/10/2021 01:30:34 AM EDT [facility] [place] [facility] Name Value Range Interpretation Code Description Data Malina rce(s) Supporting Document(s) UNFRACT HEPARIN 0.66 IU/mL [facility] [place] [facility] UNFRACTIONATED HEPARIN THERAPEUTIC RANGE : 0.30 - 0.70 IU/ML THIS THERAPEUTIC RANGE IS ONLY APPLICABLE TOPATIENTS ON UNFRACTIONATED HEPARIN (UF)THERAPY. ID Date Data Source [id number] 02/10/2021 01:52:38 AM EDT [facility] [place] [facility] Name Value Range Interpretation Code Description Data Malina rce(s) Supporting Document(s) TROPONIN I 0.76 ng/mL (<0.05) H [facility] [place] [facility] Less than 0.05: Myocardial injury unlike lyGreater than or equal to 0.05: Highly suggestive of myocardial injuryCorrelation with rise and/or fall ofserial troponins, clinical symptomsand ECG changes is necessary. ID Date Data Source [id number] 02/10/2021 01:52:38 AM EDT [facility] [place] [facility] Name Value Range Interpretation Code Description Data Malina rce(s) Supporting Document(s) SODIUM 146 mmol/L (136-145) H [facility] [place] [facility] POTASSIUM 3.7 mmol/L (3.6-5.2) [facility] [place] [facility] CHLORIDE 109 mmol/L (100-108) H [facility] [place] [facility] CO2 25 mmol/L (22-31) [facility] [place] [facility] ANION GAP 12 mmol/L (7-16) [facility] [place] [facility] UREA NITROGEN 13 mg/dL (7-24) [facility] [place] [facility] CREATININE 0.69 mg/dL (0.60-1.00) [facility] [place] [facility] BUN/CREAT RATIO 18.8 RATIO (10.0-20.0) [facility] GLUCOSE 93 mg/dL (70-99) [facility] [place] [facility] CALCIUM 9.5 mg/dL (8.4-10.2) [facility] [place] [facility] GFR >60 ml/min/1.73m2 (>59) [facility] [place] [facility] GFR ( AMER) >60 ml/min/1.73m2 (>59) [facility] [place] [facility] GFR INTERPRETATION [facility] --NORMAL KIDNEY FUNCTION OR MILD DISEASE - GFR >OR= 60CHRONIC KIDNEY DISEASE - GFR 15 - 59RENAL FAILURE - GFR <15 Est. GFR calculation based on the MDRDstudy equation, which assumes a steadystate for creatinine. Est. GFR should notbe used for medication dosing. ID Date Data Source [id number] 02/10/2021 01:09:24 AM EDT [facility] [place] [facility] Name Value Range Interpretation Code Description Data Malina rce(s) Supporting Document(s) WBC 4.7 10*3/uL (4.1-11.0) [facility] [place] [facility] [place] RBC 4.46 10*6/uL (4.00-5.40) [facility] [place] [facility] HGB 12.8 g/dL (12.0-16.0) [facility] [place] [facility] HCT 38.5 % (36.0-47.0) [facility] [place] [facility] MCV 86.3 fL (80.0-95.0) [facility] [place] [facility] MCH 28.6 pg (27.0-32.0) [facility] [place] [facility] MCHC 33.2 g/dL (32.0-36.0) [facility] [place] [facility] RDW 13.0 % (10.5-14.5) [facility] [place] [facility] PLT 218 10*3/uL (150-450) [facility] [place] [facility] MPV 8.0 fL (7.1-10.7) [facility] [place] [facility] NEUT % 48.2 % (35.0-75.0) [facility] [place] [facility] LYMPH % 41.8 % (16.0-52.0) [facility] [place] [facility] MONO % 7.4 % (0.0-8.0) [facility] [place] [facility] EOS % 1.9 % (0.0-5.0) [facility] [place] [facility] BASO % 0.7 % (0.0-4.0) [facility] [place] [facility] NEUT # 2.3 10*3/uL (1.8-7.7) [facility] [place] [facility] LYMPH # 2.0 10*3/uL (1.2-4.8) [facility] [place] [facility] MONO # 0.3 10*3/uL (0.0-0.8) [facility] [place] [facility] Eosinophils [#/volume] in Blood by Automated count 0.1 10*3/uL (0.0-0 .5) [facility] [place] [facility] BASO # 0.0 10*3/uL (0.0-0.2) [facility] [place] [facility] ID Date Data Source [id number] 02/09/2021 08:23:00 PM EDT [facility] Name Value Range Interpretation Code Description Data Malina rce(s) Supporting Document(s) SARS coronavirus 2 RNA [Presence] in Res piratory specimen by HARLEEN with probe detection NEGATIVE [facility] This lab was ordered by [facility] a nd reported by [facility]. ID Date Data Source [id number] 01/20/2021 03:35:00 PM EDT [facility] ([facility]) Name Value Range Interpretation Code Description Data Malina rce(s) Supporting Document(s) Lyme Disease IgG/IgM Antibodie Laboratory test result 0.00-0.90 [facility] ([facility]) <content>Negative <0.91</content >
<content>Equivocal 0.91 - 1.09</content>
<content>Positive >1.09</content>
<content></content> Lyme Disease IgM Ab Quantitati Laboratory test result 0.00-0.79 [facility] ([facility]) <content>Negative <0.80</content >
<content>Equivocal 0.80 - 1.19</content>
<content>Positive >1.19</content>
<content>.</content>
<content>IgM levels may peak at 3-6 weeks post infection, then</content>
<content>gradually decline.</content>
<content></content> ID Date Data Source [id number] 01/20/2021 03:35:00 PM EDT [facility] ([facility]) Name Value Range Interpretation Code Description Data Malina rce(s) Supporting Document(s) Erythrocyte sedimentation rate by Westergren method 14 mm/hr 0-30 [facility] ([facility]) HLA-B27 related Ag [Presence] Laboratory test result [facility] ([facility]) HLA-B*27 Negative B27 allele interpretation for all loci based on IMGT/HLA database version 3.38 This test was developed and its performance characteristics determined by [employer]. It has not been cleared or approved by the Food and Drug Administration. HLA Lab CLIA ID Number [id number] . This test was performed using PCR [...] High sensitivity method Laboratory test result 0.00-0.30 [facility] ([facility]) ID Date Data Source [id number] 01/20/2021 03:35:00 PM EDT [facility] ([facility]) Name Value Range Interpretation Code Description Data Malina rce(s) Supporting Document(s) Antinuclear Antibodies Direct Laboratory test result [facility]) Performed at: - [facility] [id number] Oil Analyst: Cata Santana MD, Phone: [phone] Performed at: [address] [place] [id number] Oil Analyst: Leander Murillo PhD, Phone: [phone] ID Date Data Source [id number] 01/20/2021 03:35:00 PM EDT [facility] ([facility]) Name Value Range Interpretation Code Description Data Malina rce(s) Supporting Document(s) Urate [Mass/volume] in Serum or Plasma 5.2 mg/dL 2.6-6.0 [facility] ([facility]) Rheumatoid factor [Units/volume] in Serum or Plasma Laboratory test result [facility] ([facility]) ID Date Data Source [id number] 01/20/2021 03:35:00 PM EDT [facility] ([facility]) Name Value Range Interpretation Code Description Data Malina rce(s) Supporting Document(s) White Blood Count 5.2 10 4.0-10.0 [facility] ([facility]) Red Blood Count 4.89 10 4.00-5.40 [facility] ([facility]) Hemoglobin 13.5 g/dL 12.0-15.5 [facility] ([facility]) Hematocrit 43.1 % 36.0-47.0 [facility] ([facility]) Mean Corpuscular Volume 88.1 fl 80.0-96.0 M EDENT ([facility]) Mean Corpuscular HGB Conc 31.3 g/dL 32.0-36.5 [facility] ([facility]) Mean Corpuscular Hemoglobin 27.6 pg 27.0-33.0 [facility] ([facility]) Red Cell Distribution Width 13.0 % 11.5-14.5 [facility] ([facility]) Platelet Count, Automated 269 10 150-450 [facility] ([facility]) Lymph % 34.9 % 24.0-44.0 [facility] ([facility] Neutrophils % 52.9 % 36.0-66.0 [facility] ([facility]) [place] % 9.9 % 2.0-8.0 [facility] ([facility]) Eos % 1.7 % 0.0-3.0 [facility] Baso % 0.4 % 0.0-1.0 [facility]) Immature Granulocyte % 0.2 % 0-3.0 [facility] ([facility]) Lymph # 1.8 10 1.5-5.0 [facility] Neutrophils # 2.8 10 1.5-8.5 [facility] ([facility]) Nucleated Red Blood Cell % 0.0 % 0-0 [facility] ([facility]) Eos # 0.1 10 0.0-0.5 [facility] ([facility] Baso # 0.0 10 0.0-0.2 [facility] ([facility]) [place] # 0.5 10 0.0-0.8 [facility] ([facility]) ID Date Data Source PAP REQUEST FOR SERVICE 10/01/2020 12:00:00 AM EST W1 ([facility]) Name Value Range Interpretation Code Description Data Malina rce(s) Supporting Document(s) PAP REQUEST FOR SERVICE eCW1 ( [facility]) ID Date Data Source [id number] 08/17/2020 03:49:00 PM EST [facility] ([facility]) Name Value Range Interpretation Code Description Data Malina rce(s) Supporting Document(s) Iron 51 50-170 [facility] ([facility]) Tibc % Saturation 18.0 [facility] ([facility]) Iron binding capacity [Mass/volume] in Serum or Plasma 283 [facility] ([facility]) ID Date Data Source [id number] 08/17/2020 03:49:00 PM EST [facility] ([facility]) Name Value Range Interpretation Code Description Data Malina rce(s) Supporting Document(s) Calcium [Mass/volume] in Serum or Plasma 9.3 [facility] ([facility]) Sodium 144 [facility] ([facility]) Chloride [Moles/volume] in Serum or Plasma 112 [facility] ([facility]) Carbon dioxide, total [Moles/volume] in Serum or Plasma 28 [facility] ([facility]) Potassium [Moles/volume] in Serum or Plasma 4.3 [facility] ([facility]) Glucose 82 70-100 [facility] Blood Urea Nitrogen 12 7-18 [facility] ([facility]) Creatinine 0.78 0.55-1.30 [facility] ([facility]) Glomerular filtration rate/1.73 sq M.pre dicted [Volume Rate/Area] in Serum or Plasma by Creatinine-based formula (MDRD) Laboratory test result [facility] ([facility]) ID Date Data Source [id number] 08/17/2020 03:49:00 PM EST [facility] Name Value Range Interpretation Code Description Data Malina rce(s) Supporting Document(s) Alkaline phosphatase [Enzymatic activity/volume] in Serum or Plasma 7 9 [facility] ([facility]) Aspartate aminotransferase [Enzymatic activity/volume] in Serum or Plasma 13 [facility] ([facility]) Bilirubin.direct [Mass/volume] in Serum or Plasma Laboratory test res ult [facility] ([facility]) Bilirubin.total [Mass/volume] in Serum or Plasma 0.3 [facility] ([facility]) Alanine aminotransferase [Enzymatic activity/volume] in Serum or Pl asma 24 [facility] ([facility]) Protein [Mass/volume] in Serum or Plasma 6.5 [facility] ([facility]) Albumin [Mass/volume] in Serum or Plasma 3.4 [facility] ([facility]) Cholesterol [Mass/volume] in Serum or Plasma 1.1 [facility] ([facility]) ID Date Data Source [id number] 08/17/2020 03:49:00 PM EST [facility] ([facility]) Name Value Range Interpretation Code Description Data Malina rce(s) Supporting Document(s) Red Blood Count 4.80 4.00-5.40 [facility] ([facility]) White Blood Count 5.3 4.0-10.0 [facility] ([facility]) Platelets 254 150-450 [facility] ([facility]) Hemoglobin 12.5 [facility] ([facility]) Hematocrit 41.5 [facility] ([facility]) ID Date Data Source [id number] 07/29/2020 01:43:00 PM EST [facility] ([facility] ) Name Value Range Interpretation Code Description Data Malina rce(s) Supporting Document(s) Creatinine For GFR 0.72 mg/dL 0.55-1.30 [facility] ) Glomerular Filtration Rate Laboratory test result [facility] ([facility]) <content>Units are mL/min/1.73 m2</content>
<content></content>
<content>Chronic Kidney Disease Staging per NKF:</content>
<content></content>
<content>Stage I & II GFR >=60 Normal to Mildly Decreased</content>
<content>Stage III GFR 30- 59 Moderately Decreased</content>
<content>Stage IV GFR 15-29 Severely Decreased</content>
<content>Stage V GFR <15 Very Little GFR Left</content>
<content>ESRD GFR <15 on PHLEBOTOMIST ASSOCIATE</content>
<content></content> ID Date Data Source [id number] 07/29/2020 01:43:00 PM EST [facility] ([facility] ) Name Value Range Interpretation Code Description Data Malina rce(s) Supporting Document(s) Urea nitrogen [Mass/volume] in Serum or Plasma 13 mg/dL 7-18 [facility] ) ID Date Data Source [id number] 07/29/2020 12:00:00 AM EST [facility] Name Value Range Interpretation Code Description Data Malina rce(s) Supporting Document(s) 2018-nCoV RNA XXX HARLEEN+probe-Imp [facility] This lab was ordered by [facility] and reported by [employer] ID Date Data Source [id number] 07/02/2020 12:00:00 AM EST [facility] Name Value Range Interpretation Code Description Data Malina rce(s) Supporting Document(s) 2018-nCoV RNA XXX HARLEEN+probe-Imp [facility] This lab was ordered by [facility] and reported by [employer] Procedure Social History Code Duration Value Status Description Data Source(s ) Smoking 06/11/2021 12:00:00 AM EDT Current Smoker completed Curre nt Smoker eCW1 ([facility]) Smoking 05/13/2021 12:00:00 AM EDT Current Smoker completed Curre nt Smoker eCW1 ([facility]) Smoking 05/07/2021 12:00:00 AM EDT Unknown if ever smoked comp leted Unknown if ever smoked [facility] ([facility]) Smoking 05/05/2021 12:00:00 AM EDT Unknown if ever smoked comp leted Unknown if ever smoked [facility] ([facility]) Smoking 03/26/2021 12:00:00 AM EDT Current Smoker completed Curre nt Smoker eCW1 ([facility]) Smoking 03/26/2021 12:00:00 AM EDT Current Smoker completed Curre nt Smoker eCW1 ([facility]) Smoking 03/26/2021 12:00:00 AM EDT Current Smoker completed Curre nt Smoker eCW1 ([facility]) Smoking 03/04/2021 12:00:00 AM EDT Current Smoker completed Curre nt Smoker eCW1 ([facility]) Smoking 03/04/2021 12:00:00 AM EDT Current Smoker completed Curre nt Smoker eCW1 ([facility]) Smoking 02/23/2021 12:00:00 AM EDT Unknown if ever smoked comp leted Unknown if ever smoked [facility] ([facility]) Smoking 02/16/2021 12:00:00 AM EDT Current Smoker completed Curre nt Smoker eCW1 ([facility]) Smoking 02/16/2021 12:00:00 AM EDT Current Smoker completed Curre nt Smoker eCW1 ([facility]) Smoking 02/11/2021 12:43:00 AM EDT Denies Ever Smoked complete d Denies Ever Smoked [facility] Smoking 01/11/2021 12:00:00 AM EDT Unknown if ever smoked comp leted Unknown if ever smoked [facility] ([facility]) Smoking 12/17/2020 12:00:00 AM EDT Unknown if ever smoked comp leted Unknown if ever smoked [facility] ([facility]) Smoking 11/11/2020 12:00:00 AM EDT Unknown if ever smoked comp leted Unknown if ever smoked [facility] ([facility]) Smoking 10/27/2020 12:00:00 AM EST Current Smoker completed Curre nt Smoker eCW1 ([facility]) Smoking 10/27/2020 12:00:00 AM EST Current Smoker completed Curre nt Smoker eCW1 ([facility]) Smoking 10/27/2020 12:00:00 AM EST Current Smoker completed Curre nt Smoker eCW1 ([facility]) Smoking 10/27/2020 12:00:00 AM EST Current Smoker completed Curre nt Smoker eCW1 ([facility]) Smoking 10/01/2020 12:00:00 AM EST Current Smoker completed Curre nt Smoker eCW1 ([facility]) Smoking 09/18/2020 12:00:00 AM EST Unknown if ever smoked comp leted Unknown if ever smoked [facility] ([facility]) Smoking 09/10/2020 12:00:00 AM EST Unknown if ever smoked comp leted Unknown if ever smoked [facility] ([facility]) Smoking 07/23/2020 12:00:00 AM EST Unknown if ever smoked comp leted Unknown if ever smoked [facility] ([facility]) Smoking 07/21/2020 12:00:00 AM EST Patient is a former smoker completed Patient is a former smoker [facility] ([facility]) Smoking 07/20/2020 12:00:00 AM EST Unknown if ever smoked comp leted Unknown if ever smoked [facility] ([facility]) Smoking 06/02/2020 12:00:00 AM EDT Current Smoker completed Curre nt Smoker eCW1 ([facility]) Smoking 06/02/2020 12:00:00 AM EDT Current Smoker completed Curre nt Smoker eCW1 ([facility]) Smoking 06/02/2020 12:00:00 AM EDT Current Smoker completed Curre nt Smoker eCW1 ([facility]) Smoking 06/02/2020 12:00:00 AM EDT Current Smoker completed Curre nt Smoker eCW1 ([facility]) Smoking 06/02/2020 12:00:00 AM EDT Current Smoker completed Curre nt Smoker eCW1 ([facility]) Smoking 06/02/2020 12:00:00 AM EDT Current Smoker completed Curre nt Smoker eCW1 ([facility]) Smoking 06/02/2020 12:00:00 AM EDT Current Smoker completed Curre nt Smoker eCW1 ([facility]) Smoking 05/27/2020 12:00:00 AM EDT Unknown if ever smoked comp leted Unknown if ever smoked [facility] ([facility]) Smoking 05/25/2020 12:00:00 AM EDT Unknown if ever smoked comp leted Unknown if ever smoked [facility] ([facility]) Vital Signs ID Date Data Source UNK Name Value Range Interpretation Code Description Data Source(s) Respiratory rate 16 /min 16 /min [facility] ( [facility]) Systolic blood pressure 122 mm[Hg] 122 mm[Hg] M [facility]ENT ([facility]) Diastolic blood pressure 78 mm[Hg] 78 mm[Hg] [facility] ([facility]) Heart rate 84 /min 84 /min [facility] ([facility] ) Body weight 233 [lb_av] 233 [lb_av] W1 (Count includes the [facility]) Body weight 105.69 kg 105.69 kg W1 ([facility]) Body height 69 [in_i] 69 [in_i] W1 ([facility]) Body mass index (BMI) [Ratio] 34.40 kg/m2 34.40 kg/m2 W1 ([facility]) Systolic blood pressure 170 mm[Hg] 170 mm[Hg] e CW1 ([facility]) Diastolic blood pressure 100 mm[Hg] 100 mm[Hg] eCW1 ([facility]) Body height 68.00 in Normal (applies to non-numeric resu lts) 68.00 in [facility] ([facility]) Body weight Measured 228.00 lbs Normal (applies to n on-numeric results) 228.00 lbs [facility] ([facility]) Body mass index (BMI) [Ratio] 34.66 kg/m2 No rmal (applies to non-numeric results) 34.66 kg/m2 [facility] ([facility]) Systolic blood pressure 159 mm[Hg] Normal (applies t o non-numeric results) 159 mm[Hg] [facility] ([facility]) Diastolic blood pressure 95 mm[Hg] Normal (applies to non-numeric results) 95 mm[Hg] [facility] ([facility]) Body temperature 98.10 degF Normal (applies to non-n umeric results) 98.10 degF [facility] ([facility]) Body height --lying 73 min Normal (applies to non-nume doris results) 73 min [facility] ([facility]) Respiratory rate 12 min Normal (applies to non-numeric results) 12 min [facility] ([facility]) Body weight 231.00 [lb_av] 231.00 [lb_av] MEDEN T ([facility]) Body height 69 [in_i] 69 [in_i] [facility] ([facility]) 5'9" Body mass index (BMI) [Ratio] 34.1 kg/m2 34.1 k g/m2 [facility] ([facility]) Systolic blood pressure--sitting 114 mm[Hg] 114 mm[Hg] [facility] ([facility]) Ra, large cuff Diastolic blood pressure--sitting 70 mm[Hg] 70 mm[Hg] [facility] ([facility]) Ra, large cuff Body temperature 97.0 [degF] 97.0 [degF] eCW1 ( [facility]) Systolic blood pressure 114 mm[Hg] 114 mm[Hg] e CW1 ([facility]) Diastolic blood pressure 78 mm[Hg] 78 mm[Hg] eCW1 ([facility]) Body weight 227 [lb_av] 227 [lb_av] eCW1 (Count includes the [facility]) Body height 69 [in_i] 69 [in_i] eCW1 ([facility]) Body mass index (BMI) [Ratio] 33.52 kg/m2 33.52 kg/m2 eCW1 ([facility]) Heart rate 63 /min 63 /min eCW1 ([facility]) Respiratory rate 20 /min 20 /min eCW1 ([facility]) Body mass index (BMI) [Ratio] 33.4 kg/m2 33.4 k g/m2 [facility] ([facility]) Heart rate 80 /min 80 /min [facility] ([facility]) Body weight 226.00 [lb_av] 226.00 [lb_av] MEDEN T ([facility]) Body height 69 [in_i] 69 [in_i] [facility] ([facility]) 5'9" Systolic blood pressure--sitting 106 mm[Hg] 106 mm[Hg] [facility] ([facility] [facility]) Ra, large cuff | 110/70 repeat reading Diastolic blood pressure--sitting 66 mm[Hg] 66 mm[Hg] [facility] ([facility]) Ra, large cuff | 110/70 repeat reading Systolic blood pressure 102 mm[Hg] Normal (applies t o non-numeric results) 102 mm[Hg] [facility] Diastolic blood pressure 66 mm[Hg] Normal (applies to non-numeric results) 66 mm[Hg] [facility] Heart rate 61 min Normal (applies to non-numeric resul ts) 61 min [facility] Respiratory rate 16 min Normal (applies to non-numeric results) 16 min [facility] Body temperature 36.6 merlyn Normal (applies to non-numeric results) 36.6 merlyn [facility] Deprecated Oxygen saturation in Capillary blood by Oximetry 100 % Normal (applies to non-numeric results) 100 % [facility] Body height 171.9072 cm Normal (applies to non-numeric res ults) 171.9072 cm [facility] Body mass index (BMI) [Ratio] 34.86 kg/m2 No rmal (applies to non-numeric results) 34.86 kg/m2 [facility] Body weight Measured 104 kg Normal (applies to non-num rajinder results) 104 kg [facility] Heart rate 68 /min 68 /min [facility] ([facility]) Systolic blood pressure 110 mm[Hg] 110 mm[Hg] M EDENT ([facility]) Respiratory rate 16 /min 16 /min [facility] ( [facility]) Diastolic blood pressure 78 mm[Hg] 78 mm[Hg] [facility] ([facility]) Body temperature 96.4 [degF] 96.4 [degF] [facility] ([facility]) Body height 68 [in_i] 68 [in_i] [facility] ([facility]) 5'8" Body weight 232.38 [lb_av] 232.38 [lb_av] MEDEN T ([facility]) Body mass index (BMI) [Ratio] 35.3 kg/m2 35.3 k g/m2 [facility] ([facility]) Body height 0.00 in Normal (applies to non-numeric resu lts) 0.00 in [facility] ([facility] [address] [facility]) Body weight Measured 0.00 lbs Normal (applies to n on-numeric results) 0.00 lbs [facility] ([facility]) Body mass index (BMI) [Ratio] 0.00 kg/m2 No rmal (applies to non-numeric results) 0.00 kg/m2 [facility] ([facility]) Systolic blood pressure 0 mm[Hg] Normal (applies t o non-numeric results) 0 mm[Hg] [facility] ([facility]) Diastolic blood pressure 0 mm[Hg] Normal (applies to non-numeric results) 0 mm[Hg] [facility] ([facility]) Diastolic blood pressure--sitting 60 mm[Hg] 60 mm[Hg] [facility] ([facility]) Ra, large cuff | repeat: Body weight 230.00 [lb_av] 230.00 [lb_av] MEDEN T ([facility]) Body height 69 [in_i] 69 [in_i] [facility] ([facility]) 5'9" Body mass index (BMI) [Ratio] 34.0 kg/m2 34.0 k g/m2 [facility] ([facility]) Systolic blood pressure--sitting 100 mm[Hg] 100 mm[Hg] [facility] ([facility]) Ra, large cuff | repeat: 98/58 Body height 0.00 in Normal (applies to non-numeric resu lts) 0.00 [facility] [address]) Body weight Measured 0.00 lbs Normal (applies to n on-numeric results) 0.00 lbs [facility] ([facility]) Body mass index (BMI) [Ratio] 0.00 kg/m2 No rmal (applies to non-numeric results) 0.00 kg/m2 [facility]) Systolic blood pressure 0 mm[Hg] Normal (applies t o non-numeric results) 0 mm[Hg] [facility] ([facility]) Diastolic blood pressure 0 mm[Hg] Normal (applies to non-numeric results) 0 mm[Hg] [facility] ([facility]) Body weight 240 [lb_av] 240 [lb_av] W1 (Count includes the [facility]) Body weight 108.86 kg 108.86 kg [facility] ([facility]) Body height 69 [in_i] 69 [in_i] W1 ([facility]) Body mass index (BMI) [Ratio] 35.44 kg/m2 35.44 kg/m2 [facility] ([facility]) Systolic blood pressure 140 mm[Hg] 140 mm[Hg] e CW1 ([facility]) Diastolic blood pressure 90 mm[Hg] 90 mm[Hg] eCW1 ([facility]) Body weight 237 [lb_av] 237 [lb_av] eCW1 (Count includes the [facility]) Body weight 107.5 kg 107.5 kg eCW1 ([facility]) Body height 69 [in_i] 69 [in_i] eCW1 ([facility]) Body mass index (BMI) [Ratio] 34.99 kg/m2 34.99 kg/m2 [facility] ([facility]) Systolic blood pressure 144 mm[Hg] 144 mm[Hg] e CW1 ([facility]) Diastolic blood pressure 87 mm[Hg] 87 mm[Hg] eCW1 ([facility]) Body temperature 97.1 [degF] 97.1 [degF] [facility] ([facility]) Body height 0.00 in Normal (applies to non-numeric resu lts) 0.00 in [facility] ([facility] [address] [facility]) Body weight Measured 0.00 lbs Normal (applies to n on-numeric results) 0.00 lbs [facility] ([facility]) Body mass index (BMI) [Ratio] 0.00 kg/m2 No rmal (applies to non-numeric results) 0.00 kg/m2 [facility] ([facility]) Systolic blood pressure 0 mm[Hg] Normal (applies t o non-numeric results) 0 mm[Hg] [facility] ([facility]) Diastolic blood pressure 0 mm[Hg] Normal (applies to non-numeric results) 0 mm[Hg] [facility] ([facility]) Body height 69 [in_i] 69 [in_i] [facility]) 5'9" Body mass index (BMI) [Ratio] 34.3 kg/m2 34.3 k g/m2 [facility] ([facility]) Heart rate 77 /min 77 /min [facility] ([facility]) Body weight 232.00 [lb_av] 232.00 [lb_av] MEDEN T ([facility]) Systolic blood pressure--sitting 166 mm[Hg] 166 mm[Hg] [facility] ([facility]) large cuff, Ra Diastolic blood pressure--sitting 94 mm[Hg] 94 mm[Hg] [facility] ([facility]) large cuff, Ra Systolic blood pressure 128 mm[Hg] 128 mm[Hg] M EDENT ([facility], ) Diastolic blood pressure 80 mm[Hg] 80 mm[Hg] [facility] ([facility], ) Heart rate 85 /min 85 /min [facility] ([facility], ) Oxygen saturation in Arterial blood by Pulse oximetry 95 % 95 % [facility] ([facility], ) Body temperature 99.1 [degF] 99.1 [degF] [facility] ([facility], ) Body height 69 [in_i] 69 [in_i] [facility] 5'9" Body weight 240.00 [lb_av] 240.00 [lb_av] MED[facility] T ([facility]) Body mass index (BMI) [Ratio] 35.4 kg/m2 35.4 k g/m2 [facility] ([facility]) [place] body weight 145 [lb_av] 145 [lb_av] [facility] T ([facility]) Body weight 108.864 kg 108.864 kg [facility] ([facility]) Body surface area Derived from formula 2.23 m2 2.23 m2 [facility] ([facility]) Body height 0.00 in Normal (applies to non-numeric resu lts) 0.00 in [facility] ([facility]) Body weight Measured 0.00 lbs Normal (applies to n on-numeric results) 0.00 lbs [facility] ([facility]) Body mass index (BMI) [Ratio] 0.00 kg/m2 No rmal (applies to non-numeric results) 0.00 kg/m2 [facility] ([facility]) Systolic blood pressure 0 mm[Hg] Normal (applies t o non-numeric results) 0 mm[Hg] [facility] ([facility]) Diastolic blood pressure 0 mm[Hg] Normal (applies to non-numeric results) 0 mm[Hg] [facility] ([facility]) Systolic blood pressure 136 mm[Hg] 136 mm[Hg] M EDENT ([facility]) Diastolic blood pressure 74 mm[Hg] 74 mm[Hg] [facility] Body height 69 [in_i] 69 [in_i] [facility] ([facility]) 5'9" Body weight 244.00 [lb_av] 244.00 [lb_av] [facility] T ([facility]) Body mass index (BMI) [Ratio] 36.0 kg/m2 36.0 k g/m2 [facility] ([facility]) [place] body weight 145 [lb_av] 145 [lb_av] MEDEN T ([facility], ) Body weight 110.678 kg 110.678 kg [facility] ([facility]) Body surface area Derived from formula 2.25 m2 2.25 m2 [facility] ([facility]) Body temperature 96.9 [degF] 96.9 [degF] [facility] ([facility]) Body height 0.00 in Normal (applies to non-numeric resu lts) 0.00 in [facility] ([facility]) Body mass index (BMI) [Ratio] 0.00 kg/m2 No rmal (applies to non-numeric results) 0.00 kg/m2 [facility] ([facility]) Systolic blood pressure 0 mm[Hg] Normal (applies t o non-numeric results) 0 mm[Hg] [facility] ([facility]) Diastolic blood pressure 0 mm[Hg] Normal (applies to non-numeric results) 0 mm[Hg] [facility] ([facility]) Body weight Measured 0.00 lbs Normal (applies to n on-numeric results) 0.00 lbs [facility] ([facility]) ID Date Data Source [id number] 02/09/2021 11:29:15 PM EDT [facility] Name Value Range Interpretation Code Description Data Source(s) TRANSFER FROM [facility] Patient Treatment Plan of Care Planned Activity Planned Date Details Description Data Source (s) quetiapine 25 MG Oral Tablet [Seroquel] 06/11/2021 12:00:00 AM EDT eCW1 ([facility]) Alprazolam 0.25 MG Oral Tablet 05/14/2021 12:00:00 AM EDT eCW1 ([facility]) Azithromycin (5 day) 250 mg 03/05/2021 12:00:00 AM EDT eCW1 ([facility]) Metronidazole 500 MG Oral Tablet 10/01/2020 12:00:00 AM EST eCW1 ([facility]) Shower-William - 07/24/2020 12:00:00 AM EST e CW1 ([facility]) - 07/24/2020 12:00:00 AM EST e CW1 ([facility]) - 07/24/2020 12:00:00 AM EST e CW1 ([facility]) - 07/24/2020 12:00:00 AM EST e CW1 ([facility])
[2021-07-01] MEDS ORDERED: METOPROLOL TART 25 MG TABLET PO ONE (15:15)
[2021-07-01 16:25] VITALS: BP 168/88
--- NOTE | 2021-07-02 07:51 | ECGEPIP ---
[facility] - ED Test Date: 2021-07-01 Pat Name: CARLA ANNE Department: Room: - Gender: Female [employer]: ARANZA : 1970 Requested By: Mary Kate Miller Order Number: [id number] Reading MD: Raf Schroeder Measurements Intervals Secretary Rate: 51 P: 65 RI: 162 QRS: -11 QRSD: 78 T: 24 QT: 456 QTc: 420 Interpretive Statements Sinus bradycardia with occasional premature ventricular complexes BASELINE ARTIFACT AFFECTS INTERPRETATION SIMILAR TO 02/09/21 Electronically Signed on 07-02-2021 7:51:11 EST by Raf Schroeder
== END 2021-07-01 16:34 | disposition home or self-care (01) ==
LOC: M ED 13:11
DX: I10 Essential (primary) hypertension (principal); R00.1 Bradycardia, unspecified; Z95.5 Presence of coronary angioplasty implant and graft; Z98.84 Bariatric surgery status; Z79.82 Long term (current) use of aspirin; Z79.899 Other long term (current) drug therapy; Z88.0 Allergy status to penicillin; Z88.8 Allergy status to other drugs, medicaments and biological substances

== ENCOUNTER → 2021-08-24 | Outpatient (CLI) | payer MEDICARE, MEDICAID ==
[~2021-08-24] MED LIST changes: +BRIL90TA
[2021-08-24 16:35] LABS: BLOOD UREA NITROGEN 14 MG/DL (7-18); CREATININE FOR GFR 0.78 MG/DL (0.55-1.30); GLOMERULAR FILTRATION RATE > 60.0 (>51)
== END ==
LOC: M LAB 15:45
PROVIDERS: ATTEND Physician Assistant Surgical
DX: R22.32 Localized swelling, mass and lump, left upper limb (principal); M51.36 Other intervertebral disc degeneration, lumbar region

== ENCOUNTER → 2021-08-25 | Outpatient (CLI) | payer MEDICARE, OTHER ==
[~2021-08-25] MED LIST changes: +OMEGA-3 1000MG CAPSULE ONE; +PROHANCE 279.3MG/ML 15ML VIAL ONE; +PROHANCE 279.3MG/ML 5ML VIAL ONE
== END ==
LOC: M PLAIMG 13:01
PROVIDERS: ATTEND Physician Assistant Surgical
DX: R22.32 Localized swelling, mass and lump, left upper limb (principal)
CPT/HCPCS: 73223; A9576

== ENCOUNTER → 2021-10-06 | Outpatient (CLI) | payer MEDICAID, MEDICARE, OTHER ==
[~2021-10-06] MED LIST changes: -CEFD1CAP8; +CEFD300C41; -ISOS10TA PO; +ISOS10TA9 PO; +LOSA50TA28; +LOSA50TA28 PO; -LOSA50TA88; -LOSA50TA88 PO; -OMEGA-3 1000MG CAPSULE ONE; -PROHANCE 279.3MG/ML 15ML VIAL ONE; -PROHANCE 279.3MG/ML 5ML VIAL ONE
[2021-10-06 11:42] LABS: PLATELET COUNT, AUTOMATED 259 10^3/uL (150-450)
[2021-10-06 11:55] LABS: INR 0.98; PROTHROMBIN TIME 13.4 SECONDS (12.7-14.5)
[2021-10-06 11:56] LABS: PARTIAL THROMBOPLASTIN TIME 24.2 SECONDS (25.9-37.0)
== END ==
LOC: M LAB 10:50
PROVIDERS: ATTEND Physical Medicine & Rehabilitation
DX: M51.16 Intervertebral disc disorders with radiculopathy, lumbar region (principal)

== ENCOUNTER → 2021-11-10 | Outpatient (CLI) | payer MEDICARE, MEDICAID ==
[2021-11-10 14:06] LABS: PLATELET COUNT, AUTOMATED 230 10^3/uL (150-450)
[2021-11-10 14:17] LABS: INR 0.9; PROTHROMBIN TIME 12.5 SECONDS (12.7-14.5)
[2021-11-10 14:18] LABS: PARTIAL THROMBOPLASTIN TIME 22.5 SECONDS (25.9-37.0)
== END ==
LOC: M LAB 13:39
PROVIDERS: ATTEND Physical Medicine & Rehabilitation
DX: M51.16 Intervertebral disc disorders with radiculopathy, lumbar region (principal)

== ENCOUNTER → 2021-12-06 | Outpatient (CLI) | payer MEDICARE, MEDICAID | LOC: M WHC 10:33 | PROVIDERS: ATTEND Specialist | DX: Z12.31 Encounter for screening mammogram for malignant neoplasm of breast (principal); Z80.41 Family history of malignant neoplasm of ovary; Z86.018 Personal history of other benign neoplasm ==

== ENCOUNTER → 2021-12-06 | Outpatient (REF) | payer MEDICARE, MEDICAID | LOC: M SFHCWAGY 18:34 | PROVIDERS: ATTEND Specialist | DX: Z01.419 Encounter for gynecological examination (general) (routine) without abnormal findings (principal) ==

== ENCOUNTER → 2021-12-06 | Outpatient (REF) | payer MEDICARE, MEDICAID | LOC: M PLALAB 12:19 | PROVIDERS: ATTEND Specialist | DX: Z01.419 Encounter for gynecological examination (general) (routine) without abnormal findings (principal) ==

== ENCOUNTER → 2022-02-19 | Outpatient (CLI) | payer MEDICARE, MEDICAID | LOC: M SLEEP 19:52 | PROVIDERS: ATTEND Nurse Practitioner Adult Health | DX: G47.33 Obstructive sleep apnea (adult) (pediatric) (principal) ==

== ENCOUNTER → 2022-03-17 | Outpatient (CLI) | payer MEDICARE, OTHER ==
[2022-03-17 16:11] LABS: C REACTIVE PROTEIN QUANTITATIV < 0.30 MG/DL (0.00-0.30); MAGNESIUM LEVEL 1.9 MG/DL (1.8-2.4); RHEUMATOID FACTOR QUANT < 10.0 IU/ML (<15.0)
[2022-03-17 17:12] LABS: FOLLICLE STIMULATING HORMONE 67.1 mIU/mL; LUTEINIZING HORMONE 30.8 mIU/mL; PROLACTIN 3.7 NG/ML
== END ==
LOC: M LAB 15:06
PROVIDERS: ATTEND Student in an Organized Health Care Education/Training Program
DX: R61 Generalized hyperhidrosis (principal); M25.541 Pain in joints of right hand; M25.542 Pain in joints of left hand

== ENCOUNTER → 2022-04-04 | Outpatient (CLI) | payer MEDICARE, OTHER ==
[~2022-04-04] MED LIST changes: +ACET-907 PO; -BRIL90TA
== END ==
LOC: M LABSMTC 09:49
PROVIDERS: ATTEND Anesthesiology
DX: Z11.52 Encounter for screening for COVID-19 (principal)

== ENCOUNTER 2022-04-07 13:05 | Day surgery (SDC) | payer MEDICARE, OTHER ==
[~2022-04-07] VITALS: Ht 170.2 cm; Wt 101.2 kg
[~2022-04-07 13:05] MED LIST changes: +ceFAZolin SOD 2 GM in IV 1 EA IV ONE
[2022-04-07] MEDS ORDERED: LR 1,000 ML IV SCH (13:40)
[2022-04-07] MEDS ORDERED: FARX1TAB5 PO (13:55)
[2022-04-07] MEDS ORDERED: KEPP250T5 PO (13:55)
[2022-04-07] MEDS ORDERED: FARX1TAB3 PO (13:55)
[2022-04-07] MEDS ORDERED: AMLO25TA PO (13:55)
[2022-04-07] MEDS ORDERED: POTA-151 PO (13:55)
[2022-04-07] MEDS ORDERED: LIDOCAINE 1% SDV 30ML VIAL As Ordered ONE (14:22)
[2022-04-07] MEDS ORDERED: propofoL 200 MG/20 ML VIAL As Ordered ONE (15:05)
[2022-04-07] MEDS ORDERED: LIDOCAINE 2% 100MG/5ML SDV (FOR ANES.) As Ordered ONE (15:05)
[2022-04-07] MEDS ORDERED: MIDAZOLAM INJ 2MG/2ML VIAL (J2250 PER 1MG) As Ordered ONE (15:06)
[2022-04-07] MEDS ORDERED: fentaNYL 100 MCG/2 ML INJECTION As Ordered ONE (15:06)
[2022-04-07] MEDS ORDERED: KETOROLAC 60MG 2ML VIAL As Ordered ONE (15:59)
[2022-04-07 16:06] VITALS: BP 144/75
== END 2022-04-07 16:39 | disposition home or self-care (01) ==
LOC: M SDC 13:05
PROVIDERS: ATTEND Internal Medicine Cardiovascular Disease
DX: R55 Syncope and collapse (principal); I25.10 Atherosclerotic heart disease of native coronary artery without angina pectoris; I25.2 Old myocardial infarction; I10 Essential (primary) hypertension; E78.5 Hyperlipidemia, unspecified; Z98.61 Coronary angioplasty status; F43.10 Post-traumatic stress disorder, unspecified; F31.9 Bipolar disorder, unspecified; G47.33 Obstructive sleep apnea (adult) (pediatric); F17.210 Nicotine dependence, cigarettes, uncomplicated; K21.9 Gastro-esophageal reflux disease without esophagitis; K58.8 Other irritable bowel syndrome; K44.9 Diaphragmatic hernia without obstruction or gangrene; Z88.0 Allergy status to penicillin; Z88.8 Allergy status to other drugs, medicaments and biological substances; Z79.82 Long term (current) use of aspirin; Z79.899 Other long term (current) drug therapy
CPT/HCPCS: 33285; C1764; J0690; J1885; J2250; J3010

== ENCOUNTER → 2022-04-13 | Outpatient (CLI) | payer MEDICAID, MEDICARE ==
[~2022-04-13] MED LIST changes: +AMLO25TA PO; +FARX1TAB3 PO; +FARX1TAB5 PO; +KEPP250T5 PO; +POTA-151 PO; -ceFAZolin SOD 2 GM in IV 1 EA IV ONE
== END ==
LOC: M RAD 14:46
PROVIDERS: ATTEND Student in an Organized Health Care Education/Training Program
DX: Z12.2 Encounter for screening for malignant neoplasm of respiratory organs (principal); I51.7 Cardiomegaly; F17.210 Nicotine dependence, cigarettes, uncomplicated

== ENCOUNTER → 2022-07-01 | Outpatient (CLI) | payer MEDICAID, MEDICARE ==
[~2022-07-01] MED LIST changes: +CLOP75TA99 PO; +GABA-1171 PO; +LINZ72CA PO; +PARO5TAB PO; -PLAV1TAB2 PO; +TRAZ1TAB14 PO
== END ==
LOC: M RAD 11:34
PROVIDERS: ATTEND Internal Medicine Gastroenterology
DX: K58.2 Mixed irritable bowel syndrome (principal); R10.31 Right lower quadrant pain; R19.00 Intra-abdominal and pelvic swelling, mass and lump, unspecified site

== ENCOUNTER → 2022-07-22 | Outpatient (CLI) | payer MEDICARE ==
[~2022-07-22] MED LIST changes: -GABA-1171 PO; -LINZ72CA PO; -PARO5TAB PO; -TRAZ1TAB14 PO
[2022-07-22 15:01] LABS: PLATELET COUNT, AUTOMATED 247 10^3/uL (150-450)
[2022-07-22 15:18] LABS: INR 0.96; PARTIAL THROMBOPLASTIN TIME 22.9 SECONDS (24.8-34.2); PROTHROMBIN TIME 12.9 SECONDS (12.5-14.5)
== END ==
LOC: M LAB 14:13
PROVIDERS: ATTEND Physician Assistant Surgical
DX: M46.1 Sacroiliitis, not elsewhere classified (principal)

== ENCOUNTER → 2022-07-22 | Outpatient (CLI) | payer MEDICARE ==
[~2022-07-22] MED LIST changes: +GABA-1171 PO; +LINZ72CA PO; +PARO5TAB PO; +TRAZ1TAB14 PO
[2022-07-22 15:01] LABS: HEMATOCRIT 41.8 % (36.0-47.0); MEAN CORPUSCULAR HEMOGLOBIN 27.1 pg (27.0-33.0); MEAN CORPUSCULAR HGB CONC 31.1 g/dl (32.0-36.5); MEAN CORPUSCULAR VOLUME 87.3 fl (80.0-96.0); PLATELET COUNT, AUTOMATED 240 10^3/uL (150-450); RED BLOOD COUNT 4.79 10^6/uL (4.00-5.40); WHITE BLOOD COUNT 4.3 10^3/uL (4.0-10.0)
[2022-07-22 15:28] LABS: HEMOGLOBIN A1c 5.1 % (4.0-6.0)
[2022-07-22 15:33] LABS: ALBUMIN 3.9 G/DL (3.2-5.2); ALKALINE PHOSPHATASE 81 U/L (46-116); ALT/SGPT 67 U/L (7.0-40); AST/SGOT 32 U/L (<34); BILIRUBIN,TOTAL 0.4 MG/DL (0.3-1.2); BLOOD UREA NITROGEN 20 MG/DL (9-23); CALCIUM LEVEL 9.4 MG/DL (8.5-10.1); CARBON DIOXIDE LEVEL 25 MMOL/L (20-31); CHLORIDE LEVEL 107 MMOL/L (98-107); CHOLESTEROL LEVEL 132 MG/DL (<200); CHOLESTEROL RISK RATIO 2.11 (<5); CREATININE FOR GFR 0.72 MG/DL (0.55-1.30); GLOMERULAR FILTRATION RATE > 60.0 (>51); GLUCOSE, FASTING 91 MG/DL (60-100); HDL CHOLESTEROL 62.3 MG/DL (>40); LDL CHOLESTEROL 58.3 MG/DL (<100); NON-HDL-C 70 MG/DL; POTASSIUM SERUM 4.2 MMOL/L (3.5-5.1); SODIUM LEVEL 141 MMOL/L (136-145); THYROID STIMULATING HORMONE 0.909 uIU/ML (0.55-4.78); TOTAL PROTEIN 6.6 G/DL (5.7-8.2); TRIGLYCERIDES LEVEL 57 MG/DL (<150)
[2022-07-22 19:34] LABS: HEPATITIS C VIRUS ABY INDEX 0.1 INDEX (<0.8)
== END ==
LOC: M LAB 14:15
PROVIDERS: ATTEND Student in an Organized Health Care Education/Training Program
DX: R73.03 Prediabetes (principal); F41.1 Generalized anxiety disorder; Z95.5 Presence of coronary angioplasty implant and graft; Z87.898 Personal history of other specified conditions; Z11.59 Encounter for screening for other viral diseases; Z79.899 Other long term (current) drug therapy

== ENCOUNTER → 2022-07-25 | Outpatient (CLI) | payer MEDICAID, MEDICARE ==
[~2022-07-25] MED LIST changes: +E-Z-GAS II EFFERVESCENT PACKET (SODIUM BICARB./CITRIC ACID/SIMETHICONE) As Ordered ONE; +E-Z-HD 98% w/w 340GM SUSP BTL As Ordered ONE; +E-Z-PAQUE 96% w/w SUSP 176GM BTL As Ordered ONE; -GABA-1171 PO; -LINZ72CA PO; -PARO5TAB PO; -TRAZ1TAB14 PO
== END ==
LOC: M RAD 09:01
PROVIDERS: ATTEND Internal Medicine Gastroenterology
DX: R10.32 Left lower quadrant pain (principal); K58.2 Mixed irritable bowel syndrome; K44.9 Diaphragmatic hernia without obstruction or gangrene

== ENCOUNTER 2022-08-02 09:39 | Inpatient (IN) | payer MEDICARE ==
[~2022-08-02] VITALS: Ht 170.2 cm; Wt 101.2 kg
[~2022-08-02 09:39] MED LIST changes: -E-Z-GAS II EFFERVESCENT PACKET (SODIUM BICARB./CITRIC ACID/SIMETHICONE) As Ordered ONE; -E-Z-HD 98% w/w 340GM SUSP BTL As Ordered ONE; -E-Z-PAQUE 96% w/w SUSP 176GM BTL As Ordered ONE
[2022-08-02 11:24] LABS: HEMATOCRIT 39.8 % (36.0-47.0); HEMOGLOBIN 12.6 g/dl (12.0-15.5); MEAN CORPUSCULAR HEMOGLOBIN 27.3 pg (27.0-33.0); MEAN CORPUSCULAR HGB CONC 31.7 g/dl (32.0-36.5); MEAN CORPUSCULAR VOLUME 86.3 fl (80.0-96.0); PLATELET COUNT, AUTOMATED 253 10^3/uL (150-450); RED BLOOD COUNT 4.61 10^6/uL (4.00-5.40); WHITE BLOOD COUNT 6.9 10^3/uL (4.0-10.0)
[2022-08-02 11:46] LABS: ACETAMINOPHEN LEVEL < 2.0 UG/ML (10.0-20.0)
[2022-08-02 11:47] LABS: ALBUMIN 3.4 G/DL (3.2-5.2); ALKALINE PHOSPHATASE 73 U/L (46-116); ALT/SGPT 22 U/L (7.0-40); AST/SGOT 19 U/L (<34); BILIRUBIN,DIRECT 0.1 MG/DL (<0.4); BILIRUBIN,TOTAL 0.3 MG/DL (0.3-1.2); BLOOD UREA NITROGEN 14 MG/DL (9-23); CARBON DIOXIDE LEVEL 27 MMOL/L (20-31); CHLORIDE LEVEL 109 MMOL/L (98-107); CREATININE FOR GFR 0.72 MG/DL (0.55-1.30); GLOMERULAR FILTRATION RATE > 60.0 (>51); GLUCOSE, FASTING 82 MG/DL (60-100); POTASSIUM SERUM 4.1 MMOL/L (3.5-5.1); SALICYLATE LEVEL < 3.0 MG/DL (<30); SODIUM LEVEL 143 MMOL/L (136-145); TOTAL PROTEIN 6.4 G/DL (5.7-8.2)
[2022-08-02 11:50] LABS: THYROID STIMULATING HORMONE 0.882 uIU/ML (0.55-4.78)
[2022-08-02 11:51] LABS: RSV AMPLIFICATION NEGATIVE (NEGATIVE)
[2022-08-02 13:15] LABS: AMPHETAMINES LEVEL URINE NEGATIVE (NEGATIVE); BARBITURATES URINE NEGATIVE (NEGATIVE); CANNABINOIDS URINE NEGATIVE (NEGATIVE); COCAINE METABOLITE URINE NEGATIVE (NEGATIVE); METHADONE URINE NEGATIVE (NEGATIVE); OPIATES URINE NEGATIVE (NEGATIVE); PHENCYCLIDINE URINE NEGATIVE (NEGATIVE)
[2022-08-02 13:32] LABS: BENZODIAZEPINES URINE POSITIVE (NEGATIVE)
[2022-08-02] MEDS ORDERED: ACETAMINOPHEN TAB 650MG DOSE (2X325MG) PO ONE (14:35)
[2022-08-02] MEDS ORDERED: TRAZ1TAB14 PO (14:54)
[2022-08-02] MEDS ORDERED: LINZ72CA PO (14:54)
[2022-08-02] MEDS ORDERED: FAMO20TA PO (14:54)
[2022-08-02] MEDS ORDERED: HOME MED LIST COMPLETE! XX SCH (14:55)
[2022-08-02] MEDS ORDERED: LOSARTAN 50MG TABLET PO ONE (22:10)
[2022-08-02] MEDS ORDERED: METOPROLOL SUCC (TopROL XL) 50MG **XL** TAB PO ONE (22:10)
[2022-08-02] MEDS ORDERED: amLODIPine 5 MG TAB PO ONE (22:10)
[2022-08-03] MEDS ORDERED: LORazepam 2 MG TAB PO PRN ×3 (07:50→14:00)
[2022-08-03] MEDS ORDERED: THIAMINE 100 MG TAB PO SCH ×2 (09:00→21:00)
[2022-08-03] MEDS ORDERED: MULTIVITAMINS/MINERALS THERAP 1 TAB PO SCH (09:00)
[2022-08-03] MEDS ORDERED: FOLIC ACID 1MG TAB PO SCH (09:00)
[2022-08-03] MEDS ORDERED: MAALOX 30 ML SUSP *UDC PO PRN ×2 (09:10→12:50)
[2022-08-03] MEDS ORDERED: IBUPROFEN 400MG TAB PO PRN (09:10)
[2022-08-03] MEDS ORDERED: MOM 30ML SUSPENSION UDC PO PRN ×2 (09:10→12:50)
[2022-08-03] MEDS ORDERED: ONDANSETRON 4MG ORAL DISINTEGRATING TAB PO PRN (09:10)
[2022-08-03] MEDS ORDERED: ACETAMINOPHEN TAB 650MG DOSE (2X325MG) PO PRN (09:10)
[2022-08-03] MEDS: ASPIRIN 81MG CHEW TABLET PO SCH (10:17)
[2022-08-03] MEDS: CYANOCOBALAMIN 500 MCG TAB PO SCH (10:18)
[2022-08-03] MEDS: FOLIC ACID 1MG TAB PO SCH (10:18)
[2022-08-03] MEDS: levETIRAcetam 250MG TABLET (KEPPRA) PO SCH (10:18)
[2022-08-03] MEDS: THIAMINE 100 MG TAB PO SCH ×2 (10:19→20:48)
[2022-08-03] MEDS: MULTIVITAMINS/MINERALS THERAP 1 TAB PO SCH (10:19)
[2022-08-03] MEDS: FAMOTIDINE 20 MG TAB PO SCH (10:19)
[2022-08-03] MEDS: METOPROLOL SUCC (TopROL XL) 50MG **XL** TAB PO SCH (10:19)
[2022-08-03] MEDS: POTASSIUM CHLORIDE 10MEQ SR TABLET PO SCH ×2 (10:20→20:48)
[2022-08-03 10:57] VITALS: BP 165/96
[2022-08-03] MEDS ORDERED: AZELASTINE 137MCG NASAL SPY 30 ML (ASTELIN) PRN (11:50)
[2022-08-03] MEDS ORDERED: LINZESS 72 MCG PO PRN (11:55)
[2022-08-03] MEDS: TICAGRELOR 90 MG TABLET (BRILINTA) PO SCH ×2 (15:32→20:55)
[2022-08-03] MEDS: VENLAFAXINE **XR** 75MG CAPSULE PO SCH (15:32)
[2022-08-03] MEDS: NICOTINE 7 MG/24 HR TRANSDERMAL TD SCH (15:32)
[2022-08-03 18:01] VITALS: BP 164/88
[2022-08-03] MEDS: traZODone 50 MG TAB PO SCH (20:48)
[2022-08-03] MEDS: ATORVASTATIN 20 MG TAB PO SCH (20:49)
[2022-08-03] MEDS: CALCIUM CARBONATE 500 MG CHEW U/D PO SCH (20:49)
[2022-08-03] MEDS: DAPAGLIFLOZIN PROPANEDIOL 10MG TABLET (FARXIGA) PO SCH (20:49)
[2022-08-03] MEDS: LOSARTAN 50MG TABLET PO SCH (20:52)
[2022-08-04] MEDS ORDERED: UNRESOLVED PATIENT OWN MED ORDER XX SCH (00:01)
[2022-08-04 06:24] VITALS: BP 132/79
[2022-08-04 06:27] VITALS: BP 132/79
[2022-08-04] MEDS ORDERED: MULTIVITAMINS/MINERALS THERAP 1 TAB PO SCH (09:00)
[2022-08-04] MEDS ORDERED: FOLIC ACID 1MG TAB PO SCH (09:00)
[2022-08-04] MEDS: CYANOCOBALAMIN 500 MCG TAB PO SCH (09:00)
[2022-08-04] MEDS: VITAMIN D (CHOLECALCIFEROL) 400 INTERNATIONAL UNITS TAB PO SCH (09:00)
[2022-08-04] MEDS: NICOTINE 7 MG/24 HR TRANSDERMAL TD SCH (09:11)
[2022-08-04] MEDS: CALCIUM CARBONATE 500 MG CHEW U/D PO SCH ×2 (09:11→20:46)
[2022-08-04] MEDS: ASPIRIN 81MG CHEW TABLET PO SCH (09:11)
[2022-08-04] MEDS: MULTIVITAMINS/MINERALS THERAP 1 TAB PO SCH (09:11)
[2022-08-04] MEDS: FOLIC ACID 1MG TAB PO SCH (09:11)
[2022-08-04] MEDS: levETIRAcetam 250MG TABLET (KEPPRA) PO SCH (09:14)
[2022-08-04] MEDS: TICAGRELOR 90 MG TABLET (BRILINTA) PO SCH ×2 (09:14→20:47)
[2022-08-04] MEDS: METOPROLOL SUCC (TopROL XL) 50MG **XL** TAB PO SCH (09:14)
[2022-08-04] MEDS: FAMOTIDINE 20 MG TAB PO SCH (09:14)
[2022-08-04] MEDS: THIAMINE 100 MG TAB PO SCH ×2 (09:14→20:47)
[2022-08-04] MEDS: DAPAGLIFLOZIN PROPANEDIOL 10MG TABLET (FARXIGA) PO SCH ×2 (09:15→20:48)
[2022-08-04] MEDS: VENLAFAXINE **XR** 75MG CAPSULE PO SCH (09:21)
[2022-08-04] MEDS: POTASSIUM CHLORIDE 10MEQ SR TABLET PO SCH ×2 (09:21→20:47)
[2022-08-04] MEDS ORDERED: NITROGLYCERIN 0.4MG SUBL TABLET SL PRN (13:35)
[2022-08-04 15:03] VITALS: BP 136/79
[2022-08-04] MEDS: ATORVASTATIN 20 MG TAB PO SCH (20:46)
[2022-08-04] MEDS: traZODone 50 MG TAB PO SCH (20:46)
[2022-08-04] MEDS: LOSARTAN 50MG TABLET PO SCH (20:47)
[2022-08-05] MEDS ORDERED: UNRESOLVED PATIENT OWN MED ORDER XX SCH (00:01)
[2022-08-05 06:23] VITALS: BP 135/93
[2022-08-05 06:24] VITALS: BP 135/93
[2022-08-05] MEDS: CYANOCOBALAMIN 500 MCG TAB PO SCH (08:26)
[2022-08-05] MEDS: FOLIC ACID 1MG TAB PO SCH (08:31)
[2022-08-05] MEDS: ASPIRIN 81MG CHEW TABLET PO SCH (08:31)
[2022-08-05] MEDS: levETIRAcetam 250MG TABLET (KEPPRA) PO SCH (08:31)
[2022-08-05] MEDS: MULTIVITAMINS/MINERALS THERAP 1 TAB PO SCH (08:31)
[2022-08-05] MEDS: VENLAFAXINE **XR** 75MG CAPSULE PO SCH (08:31)
[2022-08-05] MEDS: METOPROLOL SUCC (TopROL XL) 50MG **XL** TAB PO SCH (08:31)
[2022-08-05] MEDS: TICAGRELOR 90 MG TABLET (BRILINTA) PO SCH ×2 (08:32→20:22)
[2022-08-05] MEDS: VITAMIN D (CHOLECALCIFEROL) 400 INTERNATIONAL UNITS TAB PO SCH (08:32)
[2022-08-05] MEDS: POTASSIUM CHLORIDE 10MEQ SR TABLET PO SCH ×2 (08:32→20:22)
[2022-08-05] MEDS: THIAMINE 100 MG TAB PO SCH ×2 (08:32→20:22)
[2022-08-05] MEDS: CALCIUM CARBONATE 500 MG CHEW U/D PO SCH ×2 (08:32→20:21)
[2022-08-05] MEDS: NICOTINE 7 MG/24 HR TRANSDERMAL TD SCH (08:32)
[2022-08-05] MEDS: FAMOTIDINE 20 MG TAB PO SCH (08:32)
[2022-08-05] MEDS: LINZESS 72 MCG PO PRN (08:33)
[2022-08-05] MEDS: DAPAGLIFLOZIN PROPANEDIOL 10MG TABLET (FARXIGA) PO SCH ×2 (08:33→20:21)
[2022-08-05] MEDS: GABAPENTIN 100 MG CAP PO SCH ×3 (11:25→20:22)
[2022-08-05 19:48] VITALS: BP 164/85
[2022-08-05] MEDS: ATORVASTATIN 20 MG TAB PO SCH (20:22)
[2022-08-05] MEDS: LOSARTAN 50MG TABLET PO SCH (20:22)
[2022-08-05] MEDS: traZODone 50 MG TAB PO SCH (20:22)
[2022-08-06 06:28] VITALS: BP 147/82
[2022-08-06] MEDS: METOPROLOL SUCC (TopROL XL) 50MG **XL** TAB PO SCH (08:08)
[2022-08-06] MEDS: TICAGRELOR 90 MG TABLET (BRILINTA) PO SCH ×2 (08:08→21:36)
[2022-08-06] MEDS: DAPAGLIFLOZIN PROPANEDIOL 10MG TABLET (FARXIGA) PO SCH ×2 (08:09→21:36)
[2022-08-06] MEDS: VITAMIN D (CHOLECALCIFEROL) 400 INTERNATIONAL UNITS TAB PO SCH (08:10)
[2022-08-06] MEDS: PARoxetine 20MG TABLET PO SCH (08:11)
[2022-08-06] MEDS: GABAPENTIN 100 MG CAP PO SCH ×3 (08:11→21:36)
[2022-08-06] MEDS: VENLAFAXINE **XR** 75MG CAPSULE PO SCH (08:12)
[2022-08-06] MEDS: ASPIRIN 81MG CHEW TABLET PO SCH (08:12)
[2022-08-06] MEDS: LINZESS 72 MCG PO PRN (08:12)
[2022-08-06] MEDS: CYANOCOBALAMIN 500 MCG TAB PO SCH (08:12)
[2022-08-06] MEDS: CALCIUM CARBONATE 500 MG CHEW U/D PO SCH ×2 (08:12→21:37)
[2022-08-06] MEDS: FOLIC ACID 1MG TAB PO SCH (08:12)
[2022-08-06] MEDS: MULTIVITAMINS/MINERALS THERAP 1 TAB PO SCH (08:12)
[2022-08-06] MEDS: levETIRAcetam 250MG TABLET (KEPPRA) PO SCH (08:13)
[2022-08-06] MEDS: POTASSIUM CHLORIDE 10MEQ SR TABLET PO SCH ×2 (08:13→21:37)
[2022-08-06] MEDS: FAMOTIDINE 20 MG TAB PO SCH (08:13)
[2022-08-06] MEDS: NICOTINE 7 MG/24 HR TRANSDERMAL TD SCH (08:14)
[2022-08-06 18:19] VITALS: BP 135/64
[2022-08-06] MEDS: ATORVASTATIN 20 MG TAB PO SCH (21:36)
[2022-08-06] MEDS: traZODone 50 MG TAB PO SCH (21:37)
[2022-08-06] MEDS: LOSARTAN 50MG TABLET PO SCH (21:37)
[2022-08-06 23:17] VITALS: BP 126/68
[2022-08-07 06:00] VITALS: BP 144/91
[2022-08-07] MEDS: POTASSIUM CHLORIDE 10MEQ SR TABLET PO SCH ×2 (08:51→21:58)
[2022-08-07] MEDS: MULTIVITAMINS/MINERALS THERAP 1 TAB PO SCH (08:51)
[2022-08-07] MEDS: GABAPENTIN 100 MG CAP PO SCH ×3 (08:51→21:59)
[2022-08-07] MEDS: PARoxetine 20MG TABLET PO SCH (08:51)
[2022-08-07] MEDS: ASPIRIN 81MG CHEW TABLET PO SCH (08:52)
[2022-08-07] MEDS: levETIRAcetam 250MG TABLET (KEPPRA) PO SCH (08:52)
[2022-08-07] MEDS: VENLAFAXINE **XR** 75MG CAPSULE PO SCH (08:52)
[2022-08-07] MEDS: CALCIUM CARBONATE 500 MG CHEW U/D PO SCH ×2 (08:52→21:58)
[2022-08-07] MEDS: FOLIC ACID 1MG TAB PO SCH (08:52)
[2022-08-07] MEDS: FAMOTIDINE 20 MG TAB PO SCH (08:52)
[2022-08-07] MEDS: CYANOCOBALAMIN 500 MCG TAB PO SCH (08:52)
[2022-08-07] MEDS: TICAGRELOR 90 MG TABLET (BRILINTA) PO SCH ×2 (08:53→21:58)
[2022-08-07] MEDS: METOPROLOL SUCC (TopROL XL) 50MG **XL** TAB PO SCH (08:53)
[2022-08-07] MEDS: NICOTINE 7 MG/24 HR TRANSDERMAL TD SCH (08:53)
[2022-08-07] MEDS: DAPAGLIFLOZIN PROPANEDIOL 10MG TABLET (FARXIGA) PO SCH ×2 (08:55→21:58)
[2022-08-07] MEDS: VITAMIN D (CHOLECALCIFEROL) 400 INTERNATIONAL UNITS TAB PO SCH (08:56)
[2022-08-07 18:00] VITALS: BP 125/77
[2022-08-07] MEDS: ATORVASTATIN 20 MG TAB PO SCH (21:58)
[2022-08-07] MEDS: LOSARTAN 50MG TABLET PO SCH (21:59)
[2022-08-07] MEDS: traZODone 50 MG TAB PO SCH (21:59)
[2022-08-08 06:40] VITALS: BP 140/88
[2022-08-08] MEDS ORDERED: VITAMIN D 50,000 UNITS CAPSULE (ERGOCALCIFEROL 1.25MG) PO SCH (08:00)
[2022-08-08] MEDS: POTASSIUM CHLORIDE 10MEQ SR TABLET PO SCH ×2 (08:20→21:38)
[2022-08-08] MEDS: FOLIC ACID 1MG TAB PO SCH (08:20)
[2022-08-08] MEDS: GABAPENTIN 100 MG CAP PO SCH ×3 (08:20→21:38)
[2022-08-08] MEDS: VENLAFAXINE **XR** 75MG CAPSULE PO SCH (08:20)
[2022-08-08] MEDS: MULTIVITAMINS/MINERALS THERAP 1 TAB PO SCH (08:20)
[2022-08-08] MEDS: CALCIUM CARBONATE 500 MG CHEW U/D PO SCH ×2 (08:21→21:38)
[2022-08-08] MEDS: PARoxetine 10MG TABLET PO SCH (08:21)
[2022-08-08] MEDS: levETIRAcetam 250MG TABLET (KEPPRA) PO SCH (08:21)
[2022-08-08] MEDS: CYANOCOBALAMIN 500 MCG TAB PO SCH (08:21)
[2022-08-08] MEDS: DAPAGLIFLOZIN PROPANEDIOL 10MG TABLET (FARXIGA) PO SCH ×2 (08:22→21:38)
[2022-08-08] MEDS: FAMOTIDINE 20 MG TAB PO SCH (08:22)
[2022-08-08] MEDS: ASPIRIN 81MG CHEW TABLET PO SCH (08:22)
[2022-08-08] MEDS: TICAGRELOR 90 MG TABLET (BRILINTA) PO SCH ×2 (08:23→21:38)
[2022-08-08] MEDS: VITAMIN D (CHOLECALCIFEROL) 400 INTERNATIONAL UNITS TAB PO SCH (08:23)
[2022-08-08] MEDS: NICOTINE 7 MG/24 HR TRANSDERMAL TD SCH (08:23)
[2022-08-08] MEDS: METOPROLOL SUCC (TopROL XL) 50MG **XL** TAB PO SCH (08:24)
[2022-08-08 16:09] VITALS: BP 119/58
[2022-08-08] MEDS: ATORVASTATIN 20 MG TAB PO SCH (21:37)
[2022-08-08] MEDS: LOSARTAN 50MG TABLET PO SCH (21:38)
[2022-08-08] MEDS: traZODone 50 MG TAB PO SCH (23:02)
[2022-08-09 06:16] VITALS: BP 132/89
[2022-08-09] MEDS: GABAPENTIN 100 MG CAP PO SCH ×3 (09:26→21:01)
[2022-08-09] MEDS: CALCIUM CARBONATE 500 MG CHEW U/D PO SCH ×2 (09:26→21:00)
[2022-08-09] MEDS: TICAGRELOR 90 MG TABLET (BRILINTA) PO SCH ×2 (09:26→21:00)
[2022-08-09] MEDS: VITAMIN D (CHOLECALCIFEROL) 400 INTERNATIONAL UNITS TAB PO SCH (09:26)
[2022-08-09] MEDS: ASPIRIN 81MG CHEW TABLET PO SCH (09:26)
[2022-08-09] MEDS: MULTIVITAMINS/MINERALS THERAP 1 TAB PO SCH (09:26)
[2022-08-09] MEDS: DAPAGLIFLOZIN PROPANEDIOL 10MG TABLET (FARXIGA) PO SCH ×2 (09:27→21:00)
[2022-08-09] MEDS: CYANOCOBALAMIN 500 MCG TAB PO SCH (09:27)
[2022-08-09] MEDS: POTASSIUM CHLORIDE 10MEQ SR TABLET PO SCH ×2 (09:27→21:01)
[2022-08-09] MEDS: levETIRAcetam 250MG TABLET (KEPPRA) PO SCH (09:27)
[2022-08-09] MEDS: PARoxetine 10MG TABLET PO SCH (09:27)
[2022-08-09] MEDS: FOLIC ACID 1MG TAB PO SCH (09:27)
[2022-08-09] MEDS: VENLAFAXINE **XR** 75MG CAPSULE PO SCH (09:27)
[2022-08-09] MEDS: FAMOTIDINE 20 MG TAB PO SCH (09:27)
[2022-08-09] MEDS: NICOTINE 7 MG/24 HR TRANSDERMAL TD SCH (09:27)
[2022-08-09] MEDS: METOPROLOL SUCC (TopROL XL) 50MG **XL** TAB PO SCH (09:27)
[2022-08-09 16:36] VITALS: BP 133/81
[2022-08-09] MEDS: ATORVASTATIN 20 MG TAB PO SCH (21:00)
[2022-08-09] MEDS: LOSARTAN 50MG TABLET PO SCH (21:03)
[2022-08-09] MEDS: traZODone 50 MG TAB PO SCH (23:02)
[2022-08-10 06:34] VITALS: BP 144/75
[2022-08-10] MEDS ORDERED: PARO5TAB PO (08:44)
[2022-08-10] MEDS ORDERED: FARX1TAB3 PO ×2 (08:44→08:46)
[2022-08-10] MEDS ORDERED: GABA-1171 PO (08:44)
[2022-08-10] MEDS: NICOTINE 7 MG/24 HR TRANSDERMAL TD SCH (08:56)
[2022-08-10] MEDS: CYANOCOBALAMIN 500 MCG TAB PO SCH (08:56)
[2022-08-10] MEDS: levETIRAcetam 250MG TABLET (KEPPRA) PO SCH (08:56)
[2022-08-10] MEDS: FAMOTIDINE 20 MG TAB PO SCH (08:56)
[2022-08-10] MEDS: PARoxetine 10MG TABLET PO SCH (08:57)
[2022-08-10] MEDS: CALCIUM CARBONATE 500 MG CHEW U/D PO SCH (08:57)
[2022-08-10] MEDS: FOLIC ACID 1MG TAB PO SCH (08:58)
[2022-08-10] MEDS: ASPIRIN 81MG CHEW TABLET PO SCH (08:58)
[2022-08-10] MEDS: GABAPENTIN 100 MG CAP PO SCH (08:58)
[2022-08-10] MEDS: MULTIVITAMINS/MINERALS THERAP 1 TAB PO SCH (08:58)
[2022-08-10] MEDS: TICAGRELOR 90 MG TABLET (BRILINTA) PO SCH (08:59)
[2022-08-10] MEDS: POTASSIUM CHLORIDE 10MEQ SR TABLET PO SCH (08:59)
[2022-08-10] MEDS: VITAMIN D (CHOLECALCIFEROL) 400 INTERNATIONAL UNITS TAB PO SCH (08:59)
[2022-08-10] MEDS: VENLAFAXINE **XR** 75MG CAPSULE PO SCH (08:59)
[2022-08-10 09:00] VITALS: BP 124/74
[2022-08-10] MEDS: METOPROLOL SUCC (TopROL XL) 50MG **XL** TAB PO SCH (09:00)
[2022-08-10] MEDS: DAPAGLIFLOZIN PROPANEDIOL 10MG TABLET (FARXIGA) PO SCH (09:01)
== END 2022-08-10 13:21 | disposition home or self-care (01) | DRG 885 ==
LOC: M ED 09:39 → M ED INP 08-03 09:07 → EDBEDREQ 08-03 09:32 → M PSY 08-03 10:47
PROVIDERS: ADMIT Psychiatry & Neurology Psychiatry; ATTEND Psychiatry & Neurology Psychiatry
DX: F33.9 Major depressive disorder, recurrent, unspecified (principal); F43.10 Post-traumatic stress disorder, unspecified; F41.9 Anxiety disorder, unspecified; F10.10 Alcohol abuse, uncomplicated; F17.210 Nicotine dependence, cigarettes, uncomplicated; I10 Essential (primary) hypertension; E55.9 Vitamin D deficiency, unspecified; R73.03 Prediabetes; G47.33 Obstructive sleep apnea (adult) (pediatric); I25.10 Atherosclerotic heart disease of native coronary artery without angina pectoris; K21.9 Gastro-esophageal reflux disease without esophagitis; K58.9 Irritable bowel syndrome, unspecified; G89.29 Other chronic pain; D64.9 Anemia, unspecified; Z79.82 Long term (current) use of aspirin; Z79.899 Other long term (current) drug therapy; Z98.84 Bariatric surgery status; Z96.651 Presence of right artificial knee joint; Z90.49 Acquired absence of other specified parts of digestive tract; Z88.0 Allergy status to penicillin; Z88.8 Allergy status to other drugs, medicaments and biological substances; Z95.5 Presence of coronary angioplasty implant and graft

== ENCOUNTER → 2022-10-11 | Outpatient (CLI) | payer MEDICARE, MEDICAID ==
[~2022-10-11] MED LIST changes: +FOLI400T5 PO; +GABA-1171 PO; +LINZ72CA PO; +PARO5TAB PO; +TRAZ1TAB14 PO; +VENTAER INH; +VITMTA PO
== END ==
LOC: M LABSMTC 11:38
PROVIDERS: ATTEND Anesthesiology
DX: Z01.812 Encounter for preprocedural laboratory examination (principal); Z11.52 Encounter for screening for COVID-19

== ENCOUNTER 2022-10-13 07:56 | Day surgery (SDC) | payer MEDICARE, MEDICAID ==
[~2022-10-13] VITALS: Ht 172.7 cm; Wt 103.0 kg
[~2022-10-13 07:56] MED LIST changes: +NS 1,000 ML IV ONE
[2022-10-13] MEDS ORDERED: LIDOCAINE 2% 100MG/5ML SDV (FOR ANES.) As Ordered ONE (09:14)
[2022-10-13] MEDS ORDERED: propofoL 200 MG/20 ML VIAL As Ordered ONE ×2 (09:14→10:01)
[2022-10-13] MEDS ORDERED: METOPROLOL 5 MG/5 ML VIAL As Ordered ONE (09:36)
[2022-10-13 10:30] VITALS: BP 176/90
== END 2022-10-13 10:35 | disposition home or self-care (01) ==
LOC: M OPP 07:56
PROVIDERS: ATTEND Internal Medicine Gastroenterology
DX: Z12.11 Encounter for screening for malignant neoplasm of colon (principal); Z86.010 Personal history of colon polyps; I25.2 Old myocardial infarction; I10 Essential (primary) hypertension; E78.00 Pure hypercholesterolemia, unspecified; F31.9 Bipolar disorder, unspecified; D64.9 Anemia, unspecified; F17.200 Nicotine dependence, unspecified, uncomplicated; G47.33 Obstructive sleep apnea (adult) (pediatric); Z79.02 Long term (current) use of antithrombotics/antiplatelets; Z79.891 Long term (current) use of opiate analgesic; Z79.899 Other long term (current) drug therapy; Z99.89 Dependence on other enabling machines and devices; Z88.0 Allergy status to penicillin; Z88.8 Allergy status to other drugs, medicaments and biological substances; Z86.69 Personal history of other diseases of the nervous system and sense organs; Z95.5 Presence of coronary angioplasty implant and graft

== ENCOUNTER 2022-12-21 08:55 | Day surgery (SDC) | payer MEDICARE, MEDICAID ==
[~2022-12-21] VITALS: Ht 170.2 cm; Wt 99.2 kg
[~2022-12-21 08:55] MED LIST changes: +BRIL1TAB PO; +BSS IRRIG/VANCO(10MG)/TOBRA(5MG)/EPINEPH(1:1000-0.5CC)500ML BAG-ORONLY IR ONE; +ISOS1TAB35 PO; +LIDOCAINE 1% SDV 5ML VIAL As Ordered ONE; +LIDOCAINE 3.5 % 1ML OPHTH TOPICAL GEL OU ONE; +MIDAZOLAM INJ 2MG/2ML VIAL As Ordered ONE; +NICO7DIS24 TD; +NITR0.4S14 SL; -NS 1,000 ML IV ONE; +OFLOXACIN 0.3 % (OCUFLOX) OPTH SOL 5ML OS ONE; +PHENYLEPHRINE 10% OPHTH SOL 5ML OS PRN; +fentaNYL 100 MCG/2 ML INJECTION As Ordered ONE
[2022-12-21] MEDS: CYCLOPENTOLATE 1% OPHTH SOLN 2ML BTL OS SCH ×3 (09:33→09:45)
[2022-12-21] MEDS: PHENYLEPHRINE 2.5% OPHTH SOL 2ML OS SCH ×3 (09:33→09:45)
[2022-12-21] MEDS: TROPICAMIDE 1% OPHTH SOLN 15ML OS SCH ×3 (09:34→09:45)
[2022-12-21] MEDS ORDERED: CEFUROXIME 1MG/0.1ML INTRACAMERAL INJ As Ordered ONE (10:25)
[2022-12-21 10:40] VITALS: BP 142/74
== END 2022-12-21 10:54 | disposition home or self-care (01) ==
LOC: M SDC 08:55
PROVIDERS: ATTEND Ophthalmology
DX: H25.12 Age-related nuclear cataract, left eye (principal); H57.03 Miosis; I20.9 Angina pectoris, unspecified; I10 Essential (primary) hypertension; E78.5 Hyperlipidemia, unspecified; K58.9 Irritable bowel syndrome, unspecified; K21.9 Gastro-esophageal reflux disease without esophagitis; D64.9 Anemia, unspecified; F31.9 Bipolar disorder, unspecified; F32.A Depression, unspecified; Z98.84 Bariatric surgery status; Z79.82 Long term (current) use of aspirin; Z79.02 Long term (current) use of antithrombotics/antiplatelets; Z79.891 Long term (current) use of opiate analgesic; Z79.899 Other long term (current) drug therapy; Z79.52 Long term (current) use of systemic steroids; Z88.6 Allergy status to analgesic agent; Z88.0 Allergy status to penicillin; Z88.8 Allergy status to other drugs, medicaments and biological substances
CPT/HCPCS: 66982; J0697; J2250; J3010; V2632

== ENCOUNTER → 2022-12-22 | Outpatient (REF) | payer MEDICARE, MEDICAID ==
[~2022-12-22] MED LIST changes: -BSS IRRIG/VANCO(10MG)/TOBRA(5MG)/EPINEPH(1:1000-0.5CC)500ML BAG-ORONLY IR ONE; -LIDOCAINE 1% SDV 5ML VIAL As Ordered ONE; -LIDOCAINE 3.5 % 1ML OPHTH TOPICAL GEL OU ONE; -MIDAZOLAM INJ 2MG/2ML VIAL As Ordered ONE; -OFLOXACIN 0.3 % (OCUFLOX) OPTH SOL 5ML OS ONE; -PHENYLEPHRINE 10% OPHTH SOL 5ML OS PRN; -fentaNYL 100 MCG/2 ML INJECTION As Ordered ONE
== END ==
LOC: M SFHCPLAZ 16:48
PROVIDERS: ATTEND Internal Medicine Hematology
DX: G47.33 Obstructive sleep apnea (adult) (pediatric) (principal); I10 Essential (primary) hypertension; R73.03 Prediabetes; F10.10 Alcohol abuse, uncomplicated; E66.9 Obesity, unspecified

== ENCOUNTER 2023-01-04 09:46 | Day surgery (SDC) | payer MEDICARE, MEDICAID ==
[~2023-01-04] VITALS: Ht 170.2 cm; Wt 101.1 kg
[~2023-01-04 09:46] MED LIST changes: +BSS IRRIG/VANCO(10MG)/TOBRA(5MG)/EPINEPH(1:1000-0.5CC)500ML BAG-ORONLY IR ONE; +CYCLOPENTOLATE 1% OPHTH SOLN 2ML BTL OD SCH; +LIDOCAINE 1% SDV 5ML VIAL As Ordered ONE; +LIDOCAINE 3.5 % 1ML OPHTH TOPICAL GEL OU ONE; +OFLOXACIN 0.3 % (OCUFLOX) OPTH SOL 5ML OD ONE; +PHENYLEPHRINE 10% OPHTH SOL 5ML OD PRN; +PHENYLEPHRINE 2.5% OPHTH SOL 2ML OD SCH; +TROPICAMIDE 1% OPHTH SOLN 15ML OD SCH
[2023-01-04] MEDS ORDERED: fentaNYL 100 MCG/2 ML INJECTION As Ordered ONE (11:16)
[2023-01-04] MEDS ORDERED: MIDAZOLAM INJ 2MG/2ML VIAL As Ordered ONE (11:16)
[2023-01-04 11:55] VITALS: BP 160/89
== END 2023-01-04 12:00 | disposition home or self-care (01) ==
LOC: M SDC 09:46
PROVIDERS: ATTEND Ophthalmology
DX: H25.11 Age-related nuclear cataract, right eye (principal); I10 Essential (primary) hypertension; E78.5 Hyperlipidemia, unspecified; K58.9 Irritable bowel syndrome, unspecified; I25.2 Old myocardial infarction; K21.9 Gastro-esophageal reflux disease without esophagitis; K59.00 Constipation, unspecified; F31.9 Bipolar disorder, unspecified; F32.A Depression, unspecified; Z98.84 Bariatric surgery status; Z79.891 Long term (current) use of opiate analgesic; Z79.811 Long term (current) use of aromatase inhibitors; Z79.899 Other long term (current) drug therapy; Z88.0 Allergy status to penicillin; Z88.6 Allergy status to analgesic agent; Z88.8 Allergy status to other drugs, medicaments and biological substances
CPT/HCPCS: 66984; J2250; J3010; V2632

== ENCOUNTER → 2023-01-05 | Outpatient (REF) | payer MEDICARE, MEDICAID ==
[~2023-01-05] MED LIST changes: -BSS IRRIG/VANCO(10MG)/TOBRA(5MG)/EPINEPH(1:1000-0.5CC)500ML BAG-ORONLY IR ONE; -CYCLOPENTOLATE 1% OPHTH SOLN 2ML BTL OD SCH; -LIDOCAINE 1% SDV 5ML VIAL As Ordered ONE; -LIDOCAINE 3.5 % 1ML OPHTH TOPICAL GEL OU ONE; -OFLOXACIN 0.3 % (OCUFLOX) OPTH SOL 5ML OD ONE; -PHENYLEPHRINE 10% OPHTH SOL 5ML OD PRN; -PHENYLEPHRINE 2.5% OPHTH SOL 2ML OD SCH; -TROPICAMIDE 1% OPHTH SOLN 15ML OD SCH
== END ==
LOC: M SFHCWAGY 14:25
PROVIDERS: ATTEND Specialist
DX: Z12.4 Encounter for screening for malignant neoplasm of cervix (principal)
CPT/HCPCS: 87624; G0123

== ENCOUNTER → 2023-01-23 | Outpatient (CLI) | payer MEDICARE, MEDICAID | LOC: M RAD 18:59 | PROVIDERS: ATTEND Family Medicine | DX: Z12.2 Encounter for screening for malignant neoplasm of respiratory organs (principal); F17.200 Nicotine dependence, unspecified, uncomplicated ==

== ENCOUNTER → 2023-02-07 | Outpatient (CLI) | payer MEDICARE, MEDICAID ==
[2023-02-07 09:54] LABS: BASO % 0.5 % (0.0-1.0); EOS # 0.1 10^3/uL (0.0-0.5); EOS % 1.6 % (0.0-3.0); HEMATOCRIT 41.1 % (36.0-47.0); HEMOGLOBIN 13.1 g/dl (12.0-15.5); LYMPH # 1.4 10^3/uL (1.5-5.0); LYMPH % 35.2 % (24.0-44.0); MEAN CORPUSCULAR HEMOGLOBIN 27.6 pg (27.0-33.0); MEAN CORPUSCULAR HGB CONC 31.9 g/dl (32.0-36.5); MEAN CORPUSCULAR VOLUME 86.7 fl (80.0-96.0); MONO # 0.4 10^3/uL (0.0-0.8); MONO % 9.4 % (2.0-8.0); PLATELET COUNT, AUTOMATED 233 10^3/uL (150-450); RED BLOOD COUNT 4.74 10^6/uL (4.00-5.40); WHITE BLOOD COUNT 3.8 10^3/uL (4.0-10.0)
[2023-02-07 09:55] LABS: HEMATOCRIT 42.1 % (36.0-47.0)
[2023-02-07 10:08] LABS: HEMOGLOBIN A1c 5.3 % (4.0-6.0)
[2023-02-07 10:09] LABS: ALBUMIN 3.7 G/DL (3.2-5.2); ALKALINE PHOSPHATASE 82 U/L (46-116); ALT/SGPT 29 U/L (7.0-40); AST/SGOT 10 U/L (<34); BILIRUBIN,TOTAL 0.5 MG/DL (0.3-1.2); BLOOD UREA NITROGEN 13 MG/DL (9-23); CARBON DIOXIDE LEVEL 28 MMOL/L (20-31); CHLORIDE LEVEL 110 MMOL/L (98-107); CHOLESTEROL LEVEL 133 MG/DL (<200); CHOLESTEROL RISK RATIO 2.15 (<5); CREATININE FOR GFR 0.79 MG/DL (0.55-1.30); GLOMERULAR FILTRATION RATE > 60.0 (>51); GLUCOSE, FASTING 92 MG/DL (60-100); HDL CHOLESTEROL 61.8 MG/DL (>40); LDL CHOLESTEROL 56.6 MG/DL (<100); NON-HDL-C 71.2 MG/DL; POTASSIUM SERUM 4.3 MMOL/L (3.5-5.1); SODIUM LEVEL 141 MMOL/L (136-145); TOTAL PROTEIN 6.2 G/DL (5.7-8.2); TRIGLYCERIDES LEVEL 73 MG/DL (<150)
[2023-02-07 10:10] LABS: RHEUMATOID FACTOR QUANT < 3.5 IU/ML (<14)
[2023-02-07 10:20] LABS: MALB URINE SIEMENS < 3.0 MG/L
[2023-02-07 10:37] LABS: CREATININE, URINE 270.3 MG/DL; MAU/CREAT RATIO 1.1 MCG/MG (0.0-30.0)
[2023-02-14 00:11] LABS: ANTINUCLEAR ANTIBODIES DIRECT Negative (Negative); LIPOPROTEIN (a) 360.6 nmol/L (<75.0); VITAMIN B1 LEVEL WHOLE BLOOD 198.7 nmol/L (66.5-200.0)
== END ==
LOC: M LAB 08:58
PROVIDERS: ATTEND Student in an Organized Health Care Education/Training Program
DX: G47.33 Obstructive sleep apnea (adult) (pediatric) (principal); I10 Essential (primary) hypertension; R73.03 Prediabetes; F10.10 Alcohol abuse, uncomplicated; E66.9 Obesity, unspecified; M19.90 Unspecified osteoarthritis, unspecified site

== ENCOUNTER → 2023-02-16 | Outpatient (REF) | payer MEDICARE, MEDICAID | LOC: M SFHCPLAZ 13:18 | PROVIDERS: ATTEND Internal Medicine Hematology | DX: R53.83 Other fatigue (principal) ==

== ENCOUNTER → 2023-02-17 | Outpatient (CLI) | payer MEDICARE, MEDICAID ==
[2023-02-17 13:30] LABS: FREE T4 0.85 NG/DL (0.89-1.76); THYROID STIMULATING HORMONE 0.985 uIU/ML (0.55-4.78)
== END ==
LOC: M LAB 12:37
PROVIDERS: ATTEND Student in an Organized Health Care Education/Training Program
DX: R53.83 Other fatigue (principal)

== ENCOUNTER → 2023-02-22 | Outpatient (REF) | payer MEDICARE, MEDICAID | LOC: M SFHCPLAZ 13:04 | PROVIDERS: ATTEND Internal Medicine Hematology | DX: R53.83 Other fatigue (principal); Z53.9 Procedure and treatment not carried out, unspecified reason ==

== ENCOUNTER → 2023-03-03 | Outpatient (CLI) | payer MEDICAID, MEDICARE, OTHER ==
[~2023-03-03] MED LIST changes: +BUPR15TA PO; +NALT50TA4 PO
[2023-03-03 16:21] LABS: PERCENT SATURATION 31.2 % (13.2-45.0)
[2023-03-03 16:23] LABS: FERRITIN 65.2 NG/ML (7.3-270.7); FOLATE 19.5 NG/ML (>5.4)
[2023-03-03 16:24] LABS: FREE T4 0.8 NG/DL (0.89-1.76)
[2023-03-03 16:52] LABS: THYROID STIMULATING HORMONE 0.405 uIU/ML (0.55-4.78)
== END ==
LOC: M LAB 15:11
PROVIDERS: ATTEND Student in an Organized Health Care Education/Training Program
DX: R53.83 Other fatigue (principal)

== ENCOUNTER → 2023-03-06 | Outpatient (REF) | payer MEDICARE, MEDICAID | LOC: M SFHCPLAZ 15:42 | PROVIDERS: ATTEND Student in an Organized Health Care Education/Training Program | DX: Z13.29 Encounter for screening for other suspected endocrine disorder (principal); Z53.9 Procedure and treatment not carried out, unspecified reason ==

== ENCOUNTER → 2023-03-07 | Day surgery (SDC) | payer MEDICARE, MEDICAID ==
[~2023-03-07] VITALS: Ht 170.2 cm; Wt 97.7 kg
[~2023-03-07] MED LIST changes: +NS 1,000 ML IV ONE; +propofoL 200 MG/20 ML VIAL As Ordered ONE
[2023-03-07 10:39] VITALS: TEMP 98
[2023-03-07 11:05] VITALS: BP 172/68; O2SAT 100
== END | disposition home or self-care (01) ==
LOC: M OPP 09:00
PROVIDERS: ATTEND Internal Medicine Gastroenterology
DX: Z86.010 Personal history of colon polyps (principal); Z53.8 Procedure and treatment not carried out for other reasons

== ENCOUNTER → 2023-03-10 | Outpatient (CLI) | payer MEDICAID, MEDICARE, OTHER ==
[~2023-03-10] MED LIST changes: -NS 1,000 ML IV ONE; -propofoL 200 MG/20 ML VIAL As Ordered ONE
== END ==
LOC: M WHC 09:23
PROVIDERS: ATTEND Specialist
DX: Z12.31 Encounter for screening mammogram for malignant neoplasm of breast (principal)

== ENCOUNTER 2023-03-30 14:13 | Emergency (ER) | payer MEDICARE ==
[~2023-03-30] VITALS: Ht 167.6 cm; Wt 98.7 kg
[2023-03-30 14:14] VITALS: TEMP 97.8
[2023-03-30 15:44] LABS: BASO % 0.4 % (0.0-1.0); EOS # 0.1 10^3/uL (0.0-0.5); EOS % 2.2 % (0.0-3.0); HEMATOCRIT 42.9 % (36.0-47.0); HEMOGLOBIN 13.6 g/dl (12.0-15.5); LYMPH # 1.9 10^3/uL (1.5-5.0); LYMPH % 43.1 % (24.0-44.0); MEAN CORPUSCULAR HEMOGLOBIN 27.4 pg (27.0-33.0); MEAN CORPUSCULAR HGB CONC 31.7 g/dl (32.0-36.5); MEAN CORPUSCULAR VOLUME 86.3 fl (80.0-96.0); MONO # 0.4 10^3/uL (0.0-0.8); MONO % 8.9 % (2.0-8.0); NEUTROPHILS % 45.2 % (36.0-66.0); PLATELET COUNT, AUTOMATED 232 10^3/uL (150-450); RED BLOOD COUNT 4.97 10^6/uL (4.00-5.40); WHITE BLOOD COUNT 4.5 10^3/uL (4.0-10.0)
[2023-03-30 15:59] LABS: LIPASE 61 U/L (12-53)
[2023-03-30 16:02] LABS: ALBUMIN 3.7 G/DL (3.2-5.2); ALKALINE PHOSPHATASE 98 U/L (46-116); ALT/SGPT 26 U/L (7.0-40); AST/SGOT 19 U/L (<34); BILIRUBIN,DIRECT < 0.1 MG/DL (<0.4); BILIRUBIN,TOTAL 0.2 MG/DL (0.3-1.2); BLOOD UREA NITROGEN 12 MG/DL (9-23); CALCIUM LEVEL 9.2 MG/DL (8.5-10.1); CARBON DIOXIDE LEVEL 27 MMOL/L (20-31); CHLORIDE LEVEL 110 MMOL/L (98-107); CREATININE FOR GFR 0.66 MG/DL (0.55-1.30); GLOMERULAR FILTRATION RATE > 60.0 (>51); GLUCOSE, FASTING 87 MG/DL (60-100); POTASSIUM SERUM 4.6 MMOL/L (3.5-5.1); SODIUM LEVEL 144 MMOL/L (136-145); TOTAL PROTEIN 6.6 G/DL (5.7-8.2)
[2023-03-30] MEDS ORDERED: ONDANSETRON 4MG 2ML VIAL IV ONE (18:30)
[2023-03-30] MEDS ORDERED: NS 1,000 ML IV ONE (18:30)
[2023-03-30] MEDS ORDERED: ISOVUE-370 76% 100ML VIAL As Ordered ONE (19:13)
[2023-03-30 19:32] LABS: CK-MB VALUE MASS < 1.0 NG/ML (<3.6)
[2023-03-30 19:34] LABS: CPK CREATINE PHOSPHOKINASE 118 U/L (34-145); MB/CK RELATIVE INDEX 0.84 (< OR =4)
[2023-03-30 19:36] LABS: FREE T4 0.93 NG/DL (0.89-1.76); THYROID STIMULATING HORMONE 0.606 uIU/ML (0.55-4.78)
[2023-03-30 21:53] VITALS: BP 183/84; O2SAT 100
== END 2023-03-30 22:49 | disposition home or self-care (01) ==
LOC: M ED 14:13
DX: R10.10 Upper abdominal pain, unspecified (principal); I10 Essential (primary) hypertension; E03.9 Hypothyroidism, unspecified; R56.9 Unspecified convulsions; F41.9 Anxiety disorder, unspecified; F32.A Depression, unspecified; Z98.84 Bariatric surgery status; F17.200 Nicotine dependence, unspecified, uncomplicated; Z88.0 Allergy status to penicillin; Z88.6 Allergy status to analgesic agent; Z88.8 Allergy status to other drugs, medicaments and biological substances; Z79.899 Other long term (current) drug therapy; Z79.82 Long term (current) use of aspirin
CPT/HCPCS: 36415; 74177; 80048; 80076; 81001; 82550; 82553; 83690; 84439; 84443; 84484; 85025; 93005; 99284; J2405; Q9967

== ENCOUNTER → 2023-04-06 | Outpatient (CLI) | payer MEDICARE, MEDICAID | LOC: M RAD 19:13 | PROVIDERS: ATTEND Student in an Organized Health Care Education/Training Program | DX: R26.81 Unsteadiness on feet (principal); Z53.9 Procedure and treatment not carried out, unspecified reason ==

== ENCOUNTER → 2023-04-11 | Outpatient (CLI) | payer MEDICARE, MEDICAID ==
[~2023-04-11] MED LIST changes: -PREG100C; +PREG100C2
[2023-04-11 17:39] LABS: BASO % 0.4 % (0.0-1.0); EOS # 0.1 10^3/uL (0.0-0.5); EOS % 1.7 % (0.0-3.0); LYMPH # 1.7 10^3/uL (1.5-5.0); MEAN CORPUSCULAR HEMOGLOBIN 26.9 pg (27.0-33.0); MEAN CORPUSCULAR VOLUME 86.8 fl (80.0-96.0); MONO # 0.5 10^3/uL (0.0-0.8); MONO % 9.8 % (2.0-8.0); NEUTROPHILS # 2.4 10^3/uL (1.5-8.5); NEUTROPHILS % 52.1 % (36.0-66.0); PLATELET COUNT, AUTOMATED 225 10^3/uL (150-450); RED BLOOD COUNT 4.84 10^6/uL (4.00-5.40); WHITE BLOOD COUNT 4.7 10^3/uL (4.0-10.0)
[2023-04-11 17:51] LABS: ERYTHROCYTE SEDIMENTATION RATE 18 mm/hr (0-30)
== END ==
LOC: M PLALAB 16:11
PROVIDERS: ATTEND Student in an Organized Health Care Education/Training Program
DX: H66.90 Otitis media, unspecified, unspecified ear (principal); R51.9 Headache, unspecified

== ENCOUNTER → 2023-04-12 | Outpatient (REF) | payer MEDICARE, MEDICAID ==
[~2023-04-12] MED LIST changes: +PREG100C; -PREG100C2
== END ==
LOC: M SFHCPLAZ 09:58
PROVIDERS: ATTEND Family Medicine
DX: Z53.9 Procedure and treatment not carried out, unspecified reason (principal)

== ENCOUNTER → 2023-04-12 | Outpatient (CLI) | payer MEDICARE, MEDICAID | LOC: M PLAIMG 09:35 | PROVIDERS: ATTEND Student in an Organized Health Care Education/Training Program | DX: R26.81 Unsteadiness on feet (principal) ==

== ENCOUNTER 2023-05-09 15:21 | Emergency (ER) | payer MEDICAID, MEDICARE, OTHER ==
[~2023-05-09] VITALS: Ht 170.2 cm; Wt 100.7 kg
[2023-05-09 15:21] VITALS: BP 165/78; TEMP 98.4; O2SAT 98
[~2023-05-09 15:21] MED LIST changes: -PREG100C; +PREG100C2
[2023-05-09] MEDS ORDERED: ACETAMINOPHEN 500 MG TAB PO ONE (17:45)
[2023-05-09] MEDS ORDERED: HYDR-3713 PO (18:38)
== END 2023-05-09 19:03 | disposition home or self-care (01) ==
LOC: M ED 15:21
DX: S92.911A Unspecified fracture of right toe(s), initial encounter for closed fracture (principal); W22.8XXA Striking against or struck by other objects, initial encounter; Y92.009 Unspecified place in unspecified non-institutional (private) residence as the place of occurrence of the external cause; Y93.01 Activity, walking, marching and hiking; Y99.8 Other external cause status; I25.2 Old myocardial infarction; I10 Essential (primary) hypertension; J45.909 Unspecified asthma, uncomplicated; R51.9 Headache, unspecified; Z98.84 Bariatric surgery status; Z88.6 Allergy status to analgesic agent; Z88.0 Allergy status to penicillin; Z88.8 Allergy status to other drugs, medicaments and biological substances; Z79.899 Other long term (current) drug therapy; Z79.82 Long term (current) use of aspirin; Z79.51 Long term (current) use of inhaled steroids

== ENCOUNTER → 2023-05-24 | Outpatient (REF) | payer MEDICARE, MEDICAID ==
[~2023-05-24] MED LIST changes: +HYDR-3713 PO
== END ==
LOC: M SFHCPLAZ 12:25
PROVIDERS: ATTEND Family Medicine
DX: E03.8 Other specified hypothyroidism (principal)

== ENCOUNTER 2023-05-30 16:23 | Emergency (ER) | payer MEDICAID, MEDICARE, OTHER ==
[~2023-05-30] VITALS: Ht 170.2 cm; Wt 100.1 kg
[~2023-05-30 16:23] MED LIST changes: -CEFD300C41; +CEFD300C42
[2023-05-30] MEDS ORDERED: NS 1,000 ML IV ONE (19:55)
[2023-05-30] MEDS ORDERED: METOCLOPRAMIDE INJ 10MG/2ML VIAL IV ONE (19:55)
[2023-05-30] MEDS ORDERED: ACETAMINOPHEN *IV* 1,000 MG in IV 1 EA IV ONE (19:55)
[2023-05-30 20:38] LABS: BASO % 0.5 % (0.0-1.0); EOS # 0.1 10^3/uL (0.0-0.5); EOS % 1.8 % (0.0-3.0); HEMATOCRIT 38.6 % (36.0-47.0); HEMOGLOBIN 12.2 g/dl (12.0-15.5); LYMPH # 1.9 10^3/uL (1.5-5.0); LYMPH % 42.2 % (24.0-44.0); MEAN CORPUSCULAR HEMOGLOBIN 27.1 pg (27.0-33.0); MEAN CORPUSCULAR HGB CONC 31.6 g/dl (32.0-36.5); MEAN CORPUSCULAR VOLUME 85.8 fl (80.0-96.0); MONO # 0.4 10^3/uL (0.0-0.8); MONO % 8.8 % (2.0-8.0); NEUTROPHILS # 2.1 10^3/uL (1.5-8.5); NEUTROPHILS % 46.5 % (36.0-66.0); PLATELET COUNT, AUTOMATED 217 10^3/uL (150-450); WHITE BLOOD COUNT 4.4 10^3/uL (4.0-10.0)
[2023-05-30 20:57] LABS: INR 1.07; PROTHROMBIN TIME 13.6 SECONDS (12.5-14.5)
[2023-05-30 20:58] LABS: PARTIAL THROMBOPLASTIN TIME 23.8 SECONDS (24.8-34.2)
[2023-05-30 20:59] LABS: C REACTIVE PROTEIN QUANTITATIV < 0.40 MG/DL (<1.0); ETHYL ALCOHOL (ETHANOL) < 0.003 % (0.000-0.010)
[2023-05-30 21:00] LABS: BLOOD UREA NITROGEN 11 MG/DL (9-23); CALCIUM LEVEL 9.1 MG/DL (8.5-10.1); CARBON DIOXIDE LEVEL 24 MMOL/L (20-31); CHLORIDE LEVEL 112 MMOL/L (98-107); CK-MB VALUE MASS < 1.0 NG/ML (<3.6); CPK CREATINE PHOSPHOKINASE 91 U/L (34-145); CREATININE FOR GFR 0.66 MG/DL (0.55-1.30); GLOMERULAR FILTRATION RATE > 60.0 (>51); GLUCOSE, FASTING 85 MG/DL (60-100); MAGNESIUM LEVEL 1.8 MG/DL (1.8-2.4); MB/CK RELATIVE INDEX 1.09 (< OR =4); POTASSIUM SERUM 4.2 MMOL/L (3.5-5.1); SODIUM LEVEL 141 MMOL/L (136-145)
[2023-05-30 21:02] LABS: THYROID STIMULATING HORMONE 0.385 uIU/ML (0.55-4.78)
[2023-05-30 21:03] LABS: FREE T4 0.89 NG/DL (0.89-1.76)
[2023-05-30 21:06] LABS: RSV AMPLIFICATION NEGATIVE (NEGATIVE)
[2023-05-30] MEDS ORDERED: ISOVUE-370 76% 100ML VIAL As Ordered ONE (21:09)
[2023-05-30 21:32] LABS: ERYTHROCYTE SEDIMENTATION RATE 17 mm/hr (0-30)
[2023-05-31 00:56] LABS: AMPHETAMINES LEVEL URINE NEGATIVE (NEGATIVE); BARBITURATES URINE NEGATIVE (NEGATIVE); BENZODIAZEPINES URINE NEGATIVE (NEGATIVE); CANNABINOIDS URINE NEGATIVE (NEGATIVE); COCAINE METABOLITE URINE NEGATIVE (NEGATIVE); METHADONE URINE NEGATIVE (NEGATIVE); OPIATES URINE NEGATIVE (NEGATIVE); PHENCYCLIDINE URINE NEGATIVE (NEGATIVE)
[2023-05-31 01:30] VITALS: BP 141/86; TEMP 97.9; O2SAT 100
== END 2023-05-31 01:43 | disposition home or self-care (01) ==
LOC: M ED 16:23
DX: R51.9 Headache, unspecified (principal); M54.2 Cervicalgia; R20.0 Anesthesia of skin; I10 Essential (primary) hypertension; E11.9 Type 2 diabetes mellitus without complications; I25.2 Old myocardial infarction; F31.9 Bipolar disorder, unspecified; R56.9 Unspecified convulsions; J45.909 Unspecified asthma, uncomplicated; G47.33 Obstructive sleep apnea (adult) (pediatric); K21.9 Gastro-esophageal reflux disease without esophagitis; Z88.0 Allergy status to penicillin; Z88.8 Allergy status to other drugs, medicaments and biological substances; F17.210 Nicotine dependence, cigarettes, uncomplicated; Z79.899 Other long term (current) drug therapy; Z82.49 Family history of ischemic heart disease and other diseases of the circulatory system
CPT/HCPCS: 70450; 70496; 70498; 80048; 80307; 81001; 82077; 82550; 82553; 83605; 83735; 84439; 84443; 84484; 85025; 85610; 85652; 85730; 86140; 87086; 87631; 93005; 96361; 96374; 96375; 99285; J0131; J2765; Q9967

== ENCOUNTER → 2023-06-02 | Outpatient (CLI) | payer MEDICARE, MEDICAID | LOC: M LAB 12:07 | PROVIDERS: ATTEND Psychiatry & Neurology Neurology | DX: D35.2 Benign neoplasm of pituitary gland (principal) ==

== ENCOUNTER → 2023-06-02 | Outpatient (CLI) | payer MEDICARE, MEDICAID ==
[2023-06-02 13:14] LABS: FREE T4 0.81 NG/DL (0.89-1.76); THYROID STIMULATING HORMONE 0.866 uIU/ML (0.55-4.78)
== END ==
LOC: M LAB 12:12
PROVIDERS: ATTEND Student in an Organized Health Care Education/Training Program
DX: E03.8 Other specified hypothyroidism (principal)

== ENCOUNTER → 2023-07-19 | Outpatient (CLI) | payer MEDICARE, MEDICAID | LOC: M RAD 16:26 | PROVIDERS: ATTEND Student in an Organized Health Care Education/Training Program | DX: Z12.2 Encounter for screening for malignant neoplasm of respiratory organs (principal); F17.210 Nicotine dependence, cigarettes, uncomplicated ==

== ENCOUNTER → 2023-09-05 | Outpatient (CLI) | payer MEDICARE, MEDICAID ==
[~2023-09-05] MED LIST changes: +CEFD1CAP9; -CEFD300C42; +RISP-105; -RISP-8
== END ==
LOC: M LAB 13:10
PROVIDERS: ATTEND Student in an Organized Health Care Education/Training Program
DX: R55 Syncope and collapse (principal); R63.1 Polydipsia

== ENCOUNTER → 2023-09-05 | Outpatient (CLI) | payer MEDICARE, MEDICAID | LOC: M RAD 12:35 | PROVIDERS: ATTEND Student in an Organized Health Care Education/Training Program | DX: K11.8 Other diseases of salivary glands (principal); Z79.899 Other long term (current) drug therapy ==

== ENCOUNTER → 2023-09-05 | Outpatient (CLI) | payer MEDICARE, MEDICAID ==
[~2023-09-05] MED LIST changes: -RISP-105; +RISP-8
[2023-09-05 14:14] LABS: HEMOGLOBIN A1c 5.6 % (4.0-6.0)
[2023-09-05 14:38] LABS: THYROID STIMULATING HORMONE 1.004 uIU/ML (0.55-4.78)
[2023-09-05 14:41] LABS: FREE T4 0.98 NG/DL (0.89-1.76)
== END ==
LOC: M LAB 13:13
PROVIDERS: ATTEND Student in an Organized Health Care Education/Training Program
DX: E03.8 Other specified hypothyroidism (principal)

== ENCOUNTER 2023-09-13 14:18 | Outpatient (RCR) | payer MEDICAID, MEDICARE ==
[~2023-09-13 14:18] MED LIST changes: +RISP-105; -RISP-8
== END 2023-09-20 ==
LOC: M PT 14:18
PROVIDERS: ATTEND Orthopaedic Surgery Orthopaedic Surgery of the Spine
DX: M54.50 Low back pain, unspecified (principal)

== ENCOUNTER → 2023-10-16 | Outpatient (CLI) | payer MEDICARE ==
[2023-10-16 15:40] LABS: HEMATOCRIT 43.8 % (36.0-47.0); HEMOGLOBIN 13.8 g/dl (12.0-15.5); MEAN CORPUSCULAR HEMOGLOBIN 27.2 pg (27.0-33.0); MEAN CORPUSCULAR HGB CONC 31.5 g/dl (32.0-36.5); MEAN CORPUSCULAR VOLUME 86.2 fl (80.0-96.0); PLATELET COUNT, AUTOMATED 235 10^3/uL (150-450); RED BLOOD COUNT 5.08 10^6/uL (4.00-5.40); WHITE BLOOD COUNT 4.8 10^3/uL (4.0-10.0)
[2023-10-16 15:59] LABS: PROTHROMBIN TIME 12.9 SECONDS (12.5-14.5)
== END ==
LOC: M LAB 14:55
PROVIDERS: ATTEND Student in an Organized Health Care Education/Training Program
DX: K11.8 Other diseases of salivary glands (principal); Z79.01 Long term (current) use of anticoagulants

== ENCOUNTER → 2023-10-18 | Outpatient (CLI) | payer MEDICARE ==
[~2023-10-18] MED LIST changes: +LIDOCAINE 1% MDV 20ML VIAL As Ordered ONE
[2023-10-18 13:30] VITALS: TEMP 98.5
[2023-10-18 14:36] VITALS: BP 163/104; O2SAT 99
== END ==
LOC: M IRPRO 13:21
PROVIDERS: ATTEND Student in an Organized Health Care Education/Training Program
DX: K11.8 Other diseases of salivary glands (principal)

== ENCOUNTER → 2024-01-24 | Outpatient (REF) | payer MEDICARE, MEDICAID ==
[~2024-01-24] MED LIST changes: -AZEL0.055; +AZEL1SPR4; -LIDOCAINE 1% MDV 20ML VIAL As Ordered ONE; +ONDA-282 PO; -ONDA4TAB6 PO
== END ==
LOC: M SFHCPLAZ 17:15
PROVIDERS: ATTEND Family Medicine
DX: Z87.898 Personal history of other specified conditions (principal); Z98.84 Bariatric surgery status; E55.9 Vitamin D deficiency, unspecified

== ENCOUNTER → 2024-02-26 | Outpatient (CLI) | payer MEDICAID, MEDICARE, OTHER ==
[2024-02-26 15:18] LABS: EOS % 1.3 % (0.0-3.0); HEMOGLOBIN 14.7 g/dl (12.0-15.5); LYMPH # 1.3 10^3/uL (1.5-5.0); LYMPH % 43.2 % (24.0-44.0); MEAN CORPUSCULAR HEMOGLOBIN 27.1 pg (27.0-33.0); MEAN CORPUSCULAR HGB CONC 31.3 g/dl (32.0-36.5); MEAN CORPUSCULAR VOLUME 86.6 fl (80.0-96.0); MONO # 0.3 10^3/uL (0.0-0.8); MONO % 8.7 % (2.0-8.0); NEUTROPHILS # 1.4 10^3/uL (1.5-8.5); NEUTROPHILS % 46.5 % (36.0-66.0); PLATELET COUNT, AUTOMATED 234 10^3/uL (150-450); RED BLOOD COUNT 5.43 10^6/uL (4.00-5.40); WHITE BLOOD COUNT 3.1 10^3/uL (4.0-10.0)
[2024-02-26 15:22] LABS: HEMOGLOBIN A1c 5.4 % (4.0-6.0)
[2024-02-26 15:31] LABS: ERYTHROCYTE SEDIMENTATION RATE 39 mm/hr (0-30)
[2024-02-26 15:43] LABS: ALBUMIN 3.6 G/DL (3.2-5.2); ALKALINE PHOSPHATASE 90 U/L (46-116); ALT/SGPT 19 U/L (7.0-40); AST/SGOT 12 U/L (<34); BILIRUBIN,TOTAL 0.4 MG/DL (0.3-1.2); BLOOD UREA NITROGEN 11 MG/DL (9-23); CALCIUM LEVEL 9.1 MG/DL (8.5-10.1); CARBON DIOXIDE LEVEL 29 MMOL/L (20-31); CHLORIDE LEVEL 108 MMOL/L (98-107); CREATININE FOR GFR 0.92 MG/DL (0.55-1.30); GLOMERULAR FILTRATION RATE > 60.0 (>51); GLUCOSE, FASTING 97 MG/DL (60-100); POTASSIUM SERUM 4.3 MMOL/L (3.5-5.1); RHEUMATOID FACTOR QUANT < 3.5 IU/ML (<14); SODIUM LEVEL 139 MMOL/L (136-145); TOTAL PROTEIN 6.7 G/DL (5.7-8.2)
[2024-02-26 15:45] LABS: FOLATE 22.1 NG/ML (>5.4); THYROID STIMULATING HORMONE 0.422 uIU/ML (0.55-4.78); VITAMIN B12 LEVEL 254 PG/ML (211-911)
[2024-02-28 06:37] LABS: T P ELECTROPHORESIS SO 6.7 g/dL (6.1-8.1)
[2024-02-29 07:57] LABS: COPPER PLASMA 106 mcg/dL (70-175)
[2024-02-29 08:02] LABS: ALBUMIN SPEP 3.8 g/dL (3.8-4.8); ALPHA-1-GLOBULINS SO 0.3 g/dL (0.2-0.3); ALPHA-2-GLOBULINS SO 0.7 g/dL (0.5-0.9); BETA 2 GLOBULIN 0.5 g/dL (0.2-0.5); BETA-GLOBULIN SO 0.4 g/dL (0.4-0.6)
[2024-02-29 09:08] LABS: ANA SCREEN, IFA NEGATIVE (NEGATIVE)
[2024-02-29 17:13] LABS: LEAD BLOOD ADULT 1.4 mcg/dL (<3.5); MERCURY LEVEL < 4 mcg/L (<=10)
[2024-02-29 20:52] LABS: VITAMIN E(ALPHA TOCOPHEROL) 10.3 mg/L (5.7-19.9); VITAMIN E(GAMMA TOCOPHEROL) < 1.0 mg/L (<=4.3)
[2024-03-01 19:37] LABS: VITAMIN B6,PYRIDOXAL PHOSPHATE 9.5 ng/mL (2.1-21.7)
[2024-03-03 10:18] LABS: VITAMIN B1 LEVEL WHOLE BLOOD 185 nmol/L (78-185)
== END ==
LOC: M LAB 14:04
PROVIDERS: ATTEND Psychiatry & Neurology Neurology
DX: R25.1 Tremor, unspecified (principal); Z79.899 Other long term (current) drug therapy

== ENCOUNTER → 2024-02-26 | Outpatient (CLI) | payer MEDICAID, MEDICARE, OTHER | LOC: M LAB 14:02 | PROVIDERS: ATTEND Student in an Organized Health Care Education/Training Program | DX: R07.2 Precordial pain (principal) ==

== ENCOUNTER → 2024-02-28 | Outpatient (REF) | payer MEDICARE | LOC: M LAB REF 15:27 | PROVIDERS: ATTEND Nurse Practitioner Family | DX: R19.7 Diarrhea, unspecified (principal) ==

== ENCOUNTER → 2024-04-02 | Outpatient (CLI) | payer MEDICARE, MEDICAID | LOC: M RAD 08:54 | PROVIDERS: ATTEND Nurse Practitioner Family | DX: R10.11 Right upper quadrant pain (principal) ==

== ENCOUNTER → 2024-04-15 | Outpatient (REF) | payer MEDICARE, MEDICAID ==
[2024-04-18 14:53] LABS: HPV APTIMA Not Detected (Not Detected)
== END ==
LOC: M PLALAB 13:57
PROVIDERS: ATTEND Specialist
DX: Z12.4 Encounter for screening for malignant neoplasm of cervix (principal)

== ENCOUNTER → 2024-04-26 | Outpatient (CLI) | payer MEDICARE | LOC: M PLAIMG 12:32 | PROVIDERS: ATTEND Registered Nurse | DX: I50.32 Chronic diastolic (congestive) heart failure (principal); I77.810 Thoracic aortic ectasia; I27.20 Pulmonary hypertension, unspecified; I08.3 Combined rheumatic disorders of mitral, aortic and tricuspid valves ==

== ENCOUNTER → 2024-05-06 | Outpatient (CLI) | payer MEDICARE ==
[2024-05-06 16:46] LABS: BLOOD UREA NITROGEN 15 MG/DL (9-23); CALCIUM LEVEL 9.4 MG/DL (8.5-10.1); CARBON DIOXIDE LEVEL 28 MMOL/L (20-31); CHLORIDE LEVEL 109 MMOL/L (98-107); CREATININE FOR GFR 0.75 MG/DL (0.55-1.30); GLOMERULAR FILTRATION RATE > 60.0 (>51); GLUCOSE, FASTING 88 MG/DL (60-100); POTASSIUM SERUM 4.3 MMOL/L (3.5-5.1); SODIUM LEVEL 141 MMOL/L (136-145)
[2024-05-06 16:48] LABS: ALBUMIN 3.5 G/DL (3.2-5.2); ALKALINE PHOSPHATASE 92 U/L (46-116); ALT/SGPT 21 U/L (7.0-40); AST/SGOT 12 U/L (<34); BILIRUBIN,TOTAL 0.2 MG/DL (0.3-1.2); BLOOD UREA NITROGEN 15 MG/DL (9-23); CALCIUM LEVEL 9.8 MG/DL (8.5-10.1); CARBON DIOXIDE LEVEL 29 MMOL/L (20-31); CHLORIDE LEVEL 109 MMOL/L (98-107); CHOLESTEROL LEVEL 144 MG/DL (<200); CHOLESTEROL RISK RATIO 2.29 (<5); CREATININE FOR GFR 0.75 MG/DL (0.55-1.30); GLOMERULAR FILTRATION RATE > 60.0 (>51); GLUCOSE, FASTING 88 MG/DL (60-100); HDL CHOLESTEROL 62.7 MG/DL (>40); LDL CHOLESTEROL 66.5 MG/DL (<100); NON-HDL-C 81.3 MG/DL; POTASSIUM SERUM 4.3 MMOL/L (3.5-5.1); SODIUM LEVEL 141 MMOL/L (136-145); TOTAL PROTEIN 6.7 G/DL (5.7-8.2); TRIGLYCERIDES LEVEL 74 MG/DL (<150)
== END ==
LOC: M LAB 15:54
PROVIDERS: ATTEND Registered Nurse
DX: I50.32 Chronic diastolic (congestive) heart failure (principal); E78.00 Pure hypercholesterolemia, unspecified

== ENCOUNTER → 2024-05-13 | Outpatient (CLI) | payer MEDICARE | LOC: M RAD 06:31 | PROVIDERS: ATTEND Nurse Practitioner Family | DX: R10.11 Right upper quadrant pain (principal); K82.8 Other specified diseases of gallbladder | CPT/HCPCS: 78227; A9537 ==

== ENCOUNTER 2024-06-24 21:14 | Emergency (ER) | payer MEDICAID, MEDICARE, OTHER ==
[~2024-06-24] VITALS: Ht 170.2 cm; Wt 106.8 kg
[2024-06-24 21:20] VITALS: TEMP 97.8
[2024-06-24 21:50] LABS: BASO % 0.4 % (0.0-1.0); EOS # 0.1 10^3/uL (0.0-0.5); EOS % 1.5 % (0.0-3.0); HEMATOCRIT 40.1 % (36.0-47.0); HEMOGLOBIN 12.9 g/dl (12.0-15.5); LYMPH # 1.7 10^3/uL (1.5-5.0); LYMPH % 35.5 % (24.0-44.0); MEAN CORPUSCULAR HEMOGLOBIN 27.7 pg (27.0-33.0); MEAN CORPUSCULAR HGB CONC 32.2 g/dl (32.0-36.5); MEAN CORPUSCULAR VOLUME 86.2 fl (80.0-96.0); MONO # 0.5 10^3/uL (0.0-0.8); MONO % 9.8 % (2.0-8.0); NEUTROPHILS # 2.5 10^3/uL (1.5-8.5); NEUTROPHILS % 52.4 % (36.0-66.0); PLATELET COUNT, AUTOMATED 227 10^3/uL (150-450); RED BLOOD COUNT 4.65 10^6/uL (4.00-5.40); WHITE BLOOD COUNT 4.8 10^3/uL (4.0-10.0)
[2024-06-24 22:15] LABS: CK-MB VALUE MASS < 1.0 NG/ML (<3.6)
[2024-06-24 22:16] LABS: BLOOD UREA NITROGEN 15 MG/DL (9-23); CALCIUM LEVEL 9.3 MG/DL (8.5-10.1); CARBON DIOXIDE LEVEL 28 MMOL/L (20-31); CHLORIDE LEVEL 109 MMOL/L (98-107); GLOMERULAR FILTRATION RATE > 60.0 (>51); GLUCOSE, FASTING 76 MG/DL (60-100); POTASSIUM SERUM 3.7 MMOL/L (3.5-5.1); SODIUM LEVEL 144 MMOL/L (136-145)
[2024-06-24 22:17] LABS: CPK CREATINE PHOSPHOKINASE 114 U/L (34-145); MB/CK RELATIVE INDEX 0.87 (< OR =4)
[2024-06-24 23:24] LABS: CK-MB VALUE MASS < 1.0 NG/ML (<3.6)
[2024-06-24 23:25] LABS: CPK CREATINE PHOSPHOKINASE 108 U/L (34-145); MB/CK RELATIVE INDEX 0.92 (< OR =4)
[2024-06-25 01:14] LABS: THYROID STIMULATING HORMONE 1.157 uIU/ML (0.55-4.78)
[2024-06-25 01:15] VITALS: BP 102/60; O2SAT 100
== END 2024-06-25 01:31 | disposition home or self-care (01) ==
LOC: M ED 21:14
DX: R07.89 Other chest pain (principal); R55 Syncope and collapse; I25.10 Atherosclerotic heart disease of native coronary artery without angina pectoris; I25.2 Old myocardial infarction; I10 Essential (primary) hypertension; E78.5 Hyperlipidemia, unspecified; R56.9 Unspecified convulsions; Z98.84 Bariatric surgery status; Z98.61 Coronary angioplasty status; Z96.659 Presence of unspecified artificial knee joint; Z79.82 Long term (current) use of aspirin; Z79.899 Other long term (current) drug therapy; Z88.6 Allergy status to analgesic agent; Z88.0 Allergy status to penicillin; Z88.8 Allergy status to other drugs, medicaments and biological substances

== ENCOUNTER → 2024-09-16 | Outpatient (CLI) | payer MEDICARE, MEDICAID ==
[2024-09-16 17:53] LABS: HEMOGLOBIN 13.3 g/dl (12.0-15.5); MEAN CORPUSCULAR HEMOGLOBIN 27.1 pg (27.0-33.0); MEAN CORPUSCULAR HGB CONC 30.9 g/dl (32.0-36.5); MEAN CORPUSCULAR VOLUME 87.6 fl (80.0-96.0); PLATELET COUNT, AUTOMATED 258 10^3/uL (150-450); RED BLOOD COUNT 4.91 10^6/uL (4.00-5.40); WHITE BLOOD COUNT 4.7 10^3/uL (4.0-10.0)
[2024-09-16 18:08] LABS: BLOOD UREA NITROGEN 19 MG/DL (9-23); CALCIUM LEVEL 9.2 MG/DL (8.5-10.1); CARBON DIOXIDE LEVEL 30 MMOL/L (20-31); CHLORIDE LEVEL 106 MMOL/L (98-107); CREATININE FOR GFR 0.96 MG/DL (0.55-1.30); GLOMERULAR FILTRATION RATE > 60.0 (>51); GLUCOSE, FASTING 137 MG/DL (60-100); POTASSIUM SERUM 3.8 MMOL/L (3.5-5.1); SODIUM LEVEL 146 MMOL/L (136-145); THYROID STIMULATING HORMONE 0.898 uIU/ML (0.55-4.78); TOTAL 25(OH) VITAMIN D 31.2 NG/ML (20.0-100.0)
[2024-09-16 18:10] LABS: FREE T4 1.03 NG/DL (0.89-1.76)
== END ==
LOC: M PLALAB 15:15
PROVIDERS: ATTEND Student in an Organized Health Care Education/Training Program
DX: M19.012 Primary osteoarthritis, left shoulder (principal); M25.512 Pain in left shoulder; Z79.899 Other long term (current) drug therapy

== ENCOUNTER → 2024-11-12 | Outpatient (CLI) | payer MEDICARE, MEDICAID ==
[2024-11-12 15:05] LABS: BASO % 0.6 % (0.0-1.0); EOS # 0.1 10^3/uL (0.0-0.5); EOS % 1.1 % (0.0-3.0); HEMATOCRIT 43.5 % (36.0-47.0); HEMOGLOBIN 13.4 g/dl (12.0-15.5); LYMPH # 1.9 10^3/uL (1.5-5.0); LYMPH % 35.2 % (24.0-44.0); MEAN CORPUSCULAR HEMOGLOBIN 26.6 pg (27.0-33.0); MEAN CORPUSCULAR HGB CONC 30.8 g/dl (32.0-36.5); MEAN CORPUSCULAR VOLUME 86.5 fl (80.0-96.0); MONO # 0.4 10^3/uL (0.0-0.8); MONO % 8.4 % (2.0-8.0); NEUTROPHILS # 2.8 10^3/uL (1.5-8.5); NEUTROPHILS % 54.1 % (36.0-66.0); PLATELET COUNT, AUTOMATED 288 10^3/uL (150-450); RED BLOOD COUNT 5.03 10^6/uL (4.00-5.40); URIC ACID 5.6 MG/DL (3.1-7.8); WHITE BLOOD COUNT 5.3 10^3/uL (4.0-10.0)
[2024-11-12 15:08] LABS: BLOOD UREA NITROGEN 18 MG/DL (9-23); C REACTIVE PROTEIN QUANTITATIV < 0.50 MG/DL (<1.0); CALCIUM LEVEL 9.8 MG/DL (8.5-10.1); CARBON DIOXIDE LEVEL 32 MMOL/L (20-31); CHLORIDE LEVEL 104 MMOL/L (98-107); CREATININE FOR GFR 0.81 MG/DL (0.55-1.30); GLOMERULAR FILTRATION RATE > 60.0 (>51); GLUCOSE, FASTING 85 MG/DL (60-100); POTASSIUM SERUM 4.1 MMOL/L (3.5-5.1); RHEUMATOID FACTOR QUANT < 3.5 IU/ML (<14); SODIUM LEVEL 144 MMOL/L (136-145)
[2024-11-12 15:28] LABS: ERYTHROCYTE SEDIMENTATION RATE 35 mm/hr (0-30)
[2024-11-14 12:57] LABS: ANA PATTERN Nuclear, Speckled (NEGATIVE); ANA SCREEN, IFA POSITIVE (NEGATIVE)
[2024-11-15 17:33] LABS: CPK CREATINE PHOSPHOKINASE 102 U/L (34-145)
== END ==
LOC: M PLALAB 10:54
PROVIDERS: ATTEND Student in an Organized Health Care Education/Training Program
DX: M25.512 Pain in left shoulder (principal)

== ENCOUNTER → 2024-11-20 | Outpatient (CLI) | payer MEDICARE, MEDICAID | LOC: M PLAIMG 10:27 | PROVIDERS: ATTEND Student in an Organized Health Care Education/Training Program | DX: M25.432 Effusion, left wrist (principal) ==

== ENCOUNTER → 2024-11-29 | Outpatient (CLI) | payer MEDICAID, MEDICARE | LOC: M PLARAD 08:40 | PROVIDERS: ATTEND Student in an Organized Health Care Education/Training Program | DX: M75.82 Other shoulder lesions, left shoulder (principal); M75.42 Impingement syndrome of left shoulder; M75.52 Bursitis of left shoulder ==

== ENCOUNTER → 2024-12-30 | Outpatient (CLI) | payer MEDICARE ==
[~2024-12-30] MED LIST changes: -AMBI5TAB PO; +PREG-35 PO; -PREG100CA PO; +ZOLP-532 PO
== END ==
LOC: M RAD 16:44
PROVIDERS: ATTEND Family Medicine
DX: Z12.2 Encounter for screening for malignant neoplasm of respiratory organs (principal); Z87.891 Personal history of nicotine dependence; I25.10 Atherosclerotic heart disease of native coronary artery without angina pectoris

== ENCOUNTER → 2025-04-07 | Outpatient (CLI) | payer MEDICARE, MEDICAID ==
[2025-04-07 16:12] LABS: CREATININE FOR GFR 0.83 MG/DL (0.55-1.30); GLOMERULAR FILTRATION RATE 82.7 (>51)
== END ==
LOC: M LAB 15:24
PROVIDERS: ATTEND Psychiatry & Neurology Neurology
DX: I10 Essential (primary) hypertension (principal)

== ENCOUNTER → 2025-04-25 | Outpatient (CLI) | payer MEDICARE, MEDICAID ==
[~2025-04-25] MED LIST changes: +ALIR75PE3; +AMLO1TAB25 PO; +ATIV1TAB10 PO; +B-1100TA2 PO; +CHLO125TA PO; +LEVO75TA4 PO; +METO1TAB33 PO; +MIRT-10 PO; +MULTTAB61 PO; +SPIR-10 PO; +VENL100T PO; +VIVI380I IM; +ZONI50CA11 PO
[2025-04-25 14:06] LABS: PLATELET COUNT, AUTOMATED 289 10^3/uL (150-450)
[2025-04-25 14:33] LABS: ALT/SGPT 14 U/L (7.0-40); AST/SGOT 17 U/L (<34); CALCIUM LEVEL 9.4 MG/DL (8.5-10.1); CARBON DIOXIDE LEVEL 29 MMOL/L (20-31); CHLORIDE LEVEL 105 MMOL/L (98-107); CREATININE FOR GFR 0.82 MG/DL (0.55-1.30); GLOMERULAR FILTRATION RATE 83.9 (>51); IRON (FE) 55 UG/DL (50-170); PERCENT SATURATION 17.8 % (13.2-45.0); POTASSIUM SERUM 3.6 MMOL/L (3.5-5.1); SODIUM LEVEL 145 MMOL/L (136-145)
[2025-04-25 14:36] LABS: FREE T4 1.16 NG/DL (0.89-1.76)
[2025-04-25 14:37] LABS: TOTAL 25(OH) VITAMIN D 30.2 NG/ML (20.0-100.0); VITAMIN B12 LEVEL 219 PG/ML (211-911)
== END ==
LOC: M EKG 12:14
PROVIDERS: ATTEND Nurse Practitioner Psychiatric/Mental Health
DX: F41.1 Generalized anxiety disorder (principal); F10.20 Alcohol dependence, uncomplicated; Z79.899 Other long term (current) drug therapy

== ENCOUNTER 2025-06-09 11:24 | Emergency (ER) | payer MEDICARE, MEDICAID ==
[~2025-06-09] VITALS: Ht 170.2 cm; Wt 104.3 kg
[2025-06-09 12:54] LABS: BASO # 0.0 10^3/uL (0.0-0.2); BASO % 0.2 % (0.0-1.0); EOS # 0.1 10^3/uL (0.0-0.5); EOS % 1.3 % (0.0-3.0); LYMPH # 1.4 10^3/uL (1.5-5.0); LYMPH % 25.7 % (24.0-44.0); MONO # 0.4 10^3/uL (0.0-0.8); MONO % 7.6 % (2.0-8.0); NEUTROPHILS # 3.4 10^3/uL (1.5-8.5); NEUTROPHILS % 65.0 % (36.0-66.0); PLATELET COUNT, AUTOMATED 292 10^3/uL (150-450)
[2025-06-09 13:13] LABS: ALT/SGPT 20 U/L (7.0-40); AST/SGOT 16 U/L (<34); CALCIUM LEVEL 9.3 MG/DL (8.5-10.1); CARBON DIOXIDE LEVEL 26 MMOL/L (20-31); CHLORIDE LEVEL 113 MMOL/L (98-107); CREATININE FOR GFR 0.74 MG/DL (0.55-1.30); GLOMERULAR FILTRATION RATE > 90.0 (>51); POTASSIUM SERUM 3.8 MMOL/L (3.5-5.1); SODIUM LEVEL 149 MMOL/L (136-145)
[2025-06-09 13:33] LABS: THYROXINE (T4) 6.0 UG/DL (4.5-10.9)
[2025-06-09 14:24] VITALS: TEMP 98.1
[2025-06-09 16:31] VITALS: BP 125/80; O2SAT 98
== END 2025-06-09 16:50 | disposition home or self-care (01) ==
LOC: M ED 11:24
DX: R53.1 Weakness (principal); R53.83 Other fatigue; Z86.16 Personal history of COVID-19; E11.9 Type 2 diabetes mellitus without complications; I25.2 Old myocardial infarction; I10 Essential (primary) hypertension; J45.909 Unspecified asthma, uncomplicated; F31.9 Bipolar disorder, unspecified; Z98.84 Bariatric surgery status; Z79.82 Long term (current) use of aspirin; Z79.899 Other long term (current) drug therapy; Z88.6 Allergy status to analgesic agent; Z88.0 Allergy status to penicillin; Z88.8 Allergy status to other drugs, medicaments and biological substances

== ENCOUNTER → 2025-06-16 | Outpatient (CLI) | payer MEDICAID, MEDICARE, OTHER ==
[~2025-06-16] MED LIST changes: +HYDR2TAB2 PO; +NITR100C3 PO; +PHEN-372 PO; +POTA-232 PO; -POTA10TA67 PO; +SUZE50TA PO
[2025-06-16 11:35] LABS: CHOLESTEROL LEVEL 156.0 MG/DL (<200); CHOLESTEROL RISK RATIO 2.59 (<5); LDL CHOLESTEROL 79.3 MG/DL (<100); MAGNESIUM LEVEL 2.0 MG/DL (1.8-2.4); NON-HDL-C 95.9 MG/DL; TRIGLYCERIDES LEVEL 83.0 MG/DL (<150)
== END ==
LOC: M LAB 10:37
PROVIDERS: ATTEND Nurse Practitioner Family
DX: E78.00 Pure hypercholesterolemia, unspecified (principal); I50.32 Chronic diastolic (congestive) heart failure

== ENCOUNTER 2025-06-18 08:58 | Day surgery (SDC) | payer MEDICARE, MEDICAID ==
[~2025-06-18] VITALS: Ht 170.2 cm; Wt 107.0 kg
[~2025-06-18 08:58] MED LIST changes: -HYDR2TAB2 PO; -NITR100C3 PO; -PHEN-372 PO; -POTA-232 PO; +POTA10TA67 PO; -SUZE50TA PO
[2025-06-18] MEDS: LR 1,000 ML IV SCH (10:14)
[2025-06-18] MEDS ORDERED: dexAMETHasone 10 MG/1 ML VIAL PRES.FREE PN ONE (11:20)
[2025-06-18] MEDS: LIDOCAINE 1% SDV 5 ML VIAL PN ONE (11:34)
[2025-06-18] MEDS: MIDAZOLAM INJ 2 MG/2 ML VIAL IV PRN (11:34)
[2025-06-18] MEDS: ROPIvacaine 0.5% 30ML VIAL PN ONE (11:34)
[2025-06-18] MEDS: BUPivacaine LIPOSOME/PF 133 MG/10 ML VIAL PN ONE (11:34)
[2025-06-18] MEDS: TRANEXAMIC ACID 100 MG/ML 10ML VIAL As Ordered ONE (12:13)
[2025-06-18] MEDS: ceFAZolin SOD 2 GM IV ONCE IV ONE (12:20)
[2025-06-18] MEDS ORDERED: ONDANSETRON 4MG/2ML VIAL As Ordered ONE (12:29)
[2025-06-18] MEDS ORDERED: SUGAMMADEX SODIUM 200 MG/2 ML VIAL As Ordered ONE (12:29)
[2025-06-18] MEDS ORDERED: MIDAZOLAM INJ 2 MG/2 ML VIAL As Ordered ONE (12:29)
[2025-06-18] MEDS ORDERED: ROCURONIUM BROMIDE 50MG/5ML VIAL As Ordered ONE (12:29)
[2025-06-18] MEDS ORDERED: LIDOCAINE 2% 100 MG/5 ML SDV (FOR ANES.) As Ordered ONE (12:29)
[2025-06-18] MEDS ORDERED: ACETAMINOPHEN 1000MG/100ML IV BAG As Ordered ONE (12:29)
[2025-06-18] MEDS ORDERED: dexAMETHasone 4 MG/ML 1 ML VIAL As Ordered ONE (12:29)
[2025-06-18] MEDS: LIDOCAINE W/EPINEPHrine 1% 20 ML VIAL As Ordered ONE (12:51)
[2025-06-18] MEDS ORDERED: HYDROmorphone HCL 2 MG/ML 1 ML VIAL As Ordered ONE (12:54)
[2025-06-18] MEDS: EPINEPHrine INJ 1 MG/ML 1ML AMP As Ordered ONE (12:59)
[2025-06-18] MEDS ORDERED: dexmedeTOMIDine (4 MCG/ML) 200 MCG/50 ML BTL As Ordered ONE (13:22)
[2025-06-18] MEDS ORDERED: LABETALOL 100 MG/20 ML VIAL As Ordered ONE (14:20)
[2025-06-18] MEDS ORDERED: GLYCOPYRROLATE INJ 0.2 MG/ML 2 ML VIAL As Ordered ONE (14:59)
[2025-06-18] MEDS ORDERED: LR 1,000 ML IV SCH (15:20)
[2025-06-18] MEDS ORDERED: HYDROMORPHONE HCL 0.5 MG/0.5 ML SYRINGE IV PRN (15:20)
[2025-06-18] MEDS ORDERED: ONDANSETRON 4MG/2ML VIAL IV PRN (15:20)
[2025-06-18] MEDS ORDERED: SUZE50TA PO (15:27)
[2025-06-18] MEDS ORDERED: HYDR2TAB2 PO (15:27)
[2025-06-18 16:15] VITALS: BP 140/67; TEMP 97.4; O2SAT 96
== END 2025-06-18 16:50 | disposition home or self-care (01) ==
LOC: M SDC 08:58
PROVIDERS: ATTEND Neuromusculoskeletal Medicine, Sports Medicine
DX: M75.122 Complete rotator cuff tear or rupture of left shoulder, not specified as traumatic (principal); M25.712 Osteophyte, left shoulder; M19.012 Primary osteoarthritis, left shoulder; M94.8X1 Other specified disorders of cartilage, shoulder; I25.10 Atherosclerotic heart disease of native coronary artery without angina pectoris; I11.0 Hypertensive heart disease with heart failure; I50.32 Chronic diastolic (congestive) heart failure; R56.9 Unspecified convulsions; I77.810 Thoracic aortic ectasia; E78.00 Pure hypercholesterolemia, unspecified; E03.9 Hypothyroidism, unspecified; I25.2 Old myocardial infarction; G47.33 Obstructive sleep apnea (adult) (pediatric); Z95.5 Presence of coronary angioplasty implant and graft; K58.9 Irritable bowel syndrome, unspecified; Z79.899 Other long term (current) drug therapy; Z79.82 Long term (current) use of aspirin; Z79.890 Hormone replacement therapy; Z88.8 Allergy status to other drugs, medicaments and biological substances; Z88.0 Allergy status to penicillin; F17.210 Nicotine dependence, cigarettes, uncomplicated; Z98.84 Bariatric surgery status; E66.01 Morbid (severe) obesity due to excess calories; K21.9 Gastro-esophageal reflux disease without esophagitis
CPT/HCPCS: 29824; 29826; 29827; C1713; J0131; J0166; J0666; J0688; J1100; J1171; J1596; J1920; J2250; J2405; J2795; J3010

== ENCOUNTER 2025-07-16 10:37 | Outpatient (RCR) | payer MEDICARE, MEDICAID | END 2025-07-20 | LOC: M PT 10:37 | PROVIDERS: ATTEND Neuromusculoskeletal Medicine, Sports Medicine | DX: M75.42 Impingement syndrome of left shoulder (principal); M75.122 Complete rotator cuff tear or rupture of left shoulder, not specified as traumatic; M19.012 Primary osteoarthritis, left shoulder ==

== ENCOUNTER → 2025-07-16 | Outpatient (CLI) | payer MEDICARE, MEDICAID ==
[~2025-07-16] MED LIST changes: +HYDR2TAB2 PO; +POTA-232 PO; -POTA10TA67 PO; +SUZE50TA PO
== END ==
LOC: M SOG 11:34
PROVIDERS: ATTEND Neuromusculoskeletal Medicine, Sports Medicine
DX: M19.012 Primary osteoarthritis, left shoulder (principal); M75.42 Impingement syndrome of left shoulder

== ENCOUNTER → 2025-07-23 | Outpatient (REF) | payer MEDICARE, MEDICAID ==
[~2025-07-23] MED LIST changes: +NITR100C3 PO; +PHEN-372 PO
[2025-07-25 17:27] LABS: HPV APTIMA Not Detected (Not Detected)
== END ==
LOC: M SFHCWAGY 14:45
PROVIDERS: ATTEND Specialist
DX: Z01.419 Encounter for gynecological examination (general) (routine) without abnormal findings (principal)

== ENCOUNTER → 2025-07-23 | Outpatient (CLI) | payer MEDICARE, MEDICAID | LOC: M WHC 10:43 | PROVIDERS: ATTEND Specialist | DX: Z12.31 Encounter for screening mammogram for malignant neoplasm of breast (principal) ==

== ENCOUNTER 2025-07-31 10:33 | Emergency (ER) | payer MEDICARE, MEDICAID ==
[~2025-07-31] VITALS: Ht 170.2 cm; Wt 105.8 kg
[~2025-07-31 10:33] MED LIST changes: -NITR100C3 PO; -PHEN-372 PO
[2025-07-31 13:11] LABS: BASO # 0.0 10^3/uL (0.0-0.2); BASO % 0.5 % (0.0-1.0); EOS # 0.1 10^3/uL (0.0-0.5); EOS % 1.3 % (0.0-3.0); LYMPH # 1.9 10^3/uL (1.5-5.0); LYMPH % 33.3 % (24.0-44.0); MONO # 0.5 10^3/uL (0.0-0.8); MONO % 8.1 % (2.0-8.0); NEUTROPHILS # 3.2 10^3/uL (1.5-8.5); NEUTROPHILS % 56.6 % (36.0-66.0); PLATELET COUNT, AUTOMATED 271 10^3/uL (150-450)
[2025-07-31 13:34] LABS: ALT/SGPT 29 U/L (7.0-40); AST/SGOT 25 U/L (<34); CALCIUM LEVEL 9.6 MG/DL (8.5-10.1); CARBON DIOXIDE LEVEL 29 MMOL/L (20-31); CHLORIDE LEVEL 108 MMOL/L (98-107); CREATININE FOR GFR 0.70 MG/DL (0.55-1.30); GLOMERULAR FILTRATION RATE > 90.0 (>51); POTASSIUM SERUM 4.2 MMOL/L (3.5-5.1); SODIUM LEVEL 143 MMOL/L (136-145)
[2025-07-31] MEDS ORDERED: ACETAMINOPHEN *IV* 1,000 MG in IV 1 EA IV ONE (14:05)
[2025-07-31] MEDS: ACETAMINOPHEN 500 MG TAB PO ONE (14:14)
[2025-07-31] MEDS: MORPHINE 2 MG/ML 1 ML VIAL IV PRN (14:37)
[2025-07-31 17:24] LABS: KETONE, URINE AUTO RFX NEGATIVE (NEGATIVE); LEUKOCYTE ESTERASE UR AUTO RFX NEGATIVE (NEGATIVE); MUCUS, URINE RFX SMALL (NEGATIVE); NITRITE, URINE AUTO RFX NEGATIVE (NEGATIVE); RBC, URINE AUTO RFX 2 /HPF (0-3); SQUAM EPITHELIAL CELL UR AURFX 4 /HPF (0-6); WBC, URINE AUTO RFX 2 /HPF (0-3)
[2025-07-31] MEDS ORDERED: PHEN-372 PO (20:08)
[2025-07-31] MEDS ORDERED: NITR100C3 PO (20:08)
[2025-07-31 20:21] VITALS: BP 145/79; TEMP 97.1; O2SAT 95
[2025-07-31] MEDS: NITROFURANTOIN 100 MG CAP PO ONE (20:22)
[2025-07-31] MEDS: PHENAZOPYRIDINE 100 MG TAB PO ONE (20:23)
== END 2025-07-31 20:29 | disposition home or self-care (01) ==
LOC: M ED 10:33
DX: N30.00 Acute cystitis without hematuria (principal); I10 Essential (primary) hypertension; I25.2 Old myocardial infarction; E78.5 Hyperlipidemia, unspecified; Z88.0 Allergy status to penicillin; Z88.6 Allergy status to analgesic agent; F17.200 Nicotine dependence, unspecified, uncomplicated; N20.0 Calculus of kidney; Z79.899 Other long term (current) drug therapy
CPT/HCPCS: 74176; 80047; 80048; 80076; 81001; 83605; 83690; 85025; 96374; 96375; 99284; J2765

== ENCOUNTER → 2025-08-20 | Outpatient (RCR) | payer MEDICARE, MEDICAID ==
[~2025-08-20] MED LIST changes: +NITR100C3 PO; +PHEN-372 PO
== END | disposition still patient (30) ==
LOC: M PT 07-25 12:30
PROVIDERS: ATTEND Neuromusculoskeletal Medicine, Sports Medicine
DX: M75.42 Impingement syndrome of left shoulder (principal); M75.122 Complete rotator cuff tear or rupture of left shoulder, not specified as traumatic; M19.012 Primary osteoarthritis, left shoulder; Z47.89 Encounter for other orthopedic aftercare